=== PATIENT | female | born 1940 | race Asian ===

== ENCOUNTER 2017-05-12 08:43 | Outpatient (RCR) | payer OTHER, SELFPAY ==
[2017-05-12 09:19] LABS: Prothrombin Time (Protime)PT. 29.9 SECONDS (11.7-14.9)
[2017-05-12 09:35] LABS: T4 Total, Thyroxin 9.4 ug/dL (4.8-13.9); Thyroid Stim Hormone (TSH) 4.85 uIU/mL (0.358-3.74)
== END 2017-05-12 23:59 ==
LOC: INT LAB 08:43
PROVIDERS: Physician Assistant Medical; Family Provider Family Medicine; PCP Family Medicine; Visit Provider Internal Medicine Cardiovascular Disease
DX: I48.0 Paroxysmal atrial fibrillation (principal); Z79.01 Long term (current) use of anticoagulants; E78.5 Hyperlipidemia, unspecified; Z79.899 Other long term (current) drug therapy; I27.20 Pulmonary hypertension, unspecified; E03.9 Hypothyroidism, unspecified; I10 Essential (primary) hypertension; I36.1 Nonrheumatic tricuspid (valve) insufficiency; R06.09 Other forms of dyspnea; R60.0 Localized edema; Z82.49 Family history of ischemic heart disease and other diseases of the circulatory system
CPT/HCPCS: 36415; 84436; 84443; 85610

== ENCOUNTER 2017-08-06 08:22 | Outpatient (RCR) | payer OTHER, SELFPAY ==
[2017-02-15 10:50] VITALS: BMI 39.7
[2017-02-15 13:15] VITALS: BP 147/89
[2017-07-23 09:58] LABS: International Normalized Ratio 1.4; Prothrombin Time (Protime)PT. 16.8 SECONDS (11.7-14.9)
[2017-07-28 11:03] LABS: International Normalized Ratio 2.4; Prothrombin Time (Protime)PT. 26.4 SECONDS (11.7-14.9)
[2017-08-06 09:39] LABS: International Normalized Ratio 3.4; Prothrombin Time (Protime)PT. 34.4 SECONDS (11.7-14.9)
[2017-08-06 10:06] LABS: T4 Total, Thyroxin 9.3 ug/dL (4.8-13.9); Thyroid Stim Hormone (TSH) 4.01 uIU/mL (0.358-3.74)
[2017-08-06 10:50] LABS: AST(SGOT) 22 U/L (15-37); Alanine Aminotransfer ALT/SGPT 23 U/L (13-56); Alkaline Phosphatase 57 U/L (45-117); Bilirubin, Direct 0.09 mg/dL (0.00-0.30); Cholesterol 243 mg/dL (200); Globulin 4.5 g/dL (2.2-4.2); High Density Lipoprotein 45 mg/dL; Protein, Total 8.5 g/dL (6.4-8.2); Triglycerides 232 mg/dL; Very Low Density Lipoprotein 46 mg/dL (5-40)
== END 2017-08-09 23:59 ==
LOC: INT LAB 08:22
PROVIDERS: Physician Assistant Medical; Family Provider Family Medicine; PCP Family Medicine; Visit Provider Internal Medicine Cardiovascular Disease
DX: I48.0 Paroxysmal atrial fibrillation (principal); Z79.01 Long term (current) use of anticoagulants; E78.5 Hyperlipidemia, unspecified; Z79.899 Other long term (current) drug therapy
CPT/HCPCS: 36415; 80061; 80076; 84436; 84443; 85610

== ENCOUNTER 2017-08-23 08:37 | Outpatient (RCR) | payer OTHER, SELFPAY ==
[2017-08-23 10:11] LABS: International Normalized Ratio 1.8; Prothrombin Time (Protime)PT. 20.6 SECONDS (11.7-14.9)
== END 2017-09-09 23:59 ==
LOC: INT LAB 08:37
PROVIDERS: Family Provider Family Medicine; PCP Family Medicine; Visit Provider Internal Medicine Cardiovascular Disease
DX: I48.0 Paroxysmal atrial fibrillation (principal); Z79.01 Long term (current) use of anticoagulants
CPT/HCPCS: 36415; 85610

== ENCOUNTER 2017-11-01 08:21 | Outpatient (RCR) | payer OTHER, SELFPAY ==
[2017-11-01 09:03] LABS: International Normalized Ratio 1.6; Prothrombin Time (Protime)PT. 18.6 SECONDS (11.7-14.9)
[2017-11-01 10:19] LABS: AST(SGOT) 18 U/L (15-37); Alanine Aminotransfer ALT/SGPT 25 U/L (13-56); Albumin, Serum 4.1 g/dL (3.2-5.0); Alkaline Phosphatase 45 U/L (45-117); Bilirubin, Direct 0.09 mg/dL (0.00-0.30); Cholesterol 218 mg/dL (200); Globulin 4.6 g/dL (2.2-4.2); High Density Lipoprotein 45 mg/dL; Protein, Total 8.7 g/dL (6.4-8.2); T4 Free Direct 0.81 ng/dL (0.76-1.46); Triglycerides 211 mg/dL; Very Low Density Lipoprotein 42 mg/dL (5-40)
== END 2017-11-09 23:59 ==
LOC: INT LAB 08:21
PROVIDERS: Family Provider Family Medicine; PCP Family Medicine; Visit Provider Internal Medicine Cardiovascular Disease
DX: I48.0 Paroxysmal atrial fibrillation (principal); Z79.01 Long term (current) use of anticoagulants; E78.5 Hyperlipidemia, unspecified; E03.9 Hypothyroidism, unspecified
CPT/HCPCS: 36415; 80061; 80076; 84439; 84443; 85610

== ENCOUNTER 2017-12-03 08:43 | Outpatient (RCR) | payer OTHER, SELFPAY ==
[2017-12-03 09:54] LABS: International Normalized Ratio 1.7; Prothrombin Time (Protime)PT. 20.3 SECONDS (11.7-14.9)
== END 2017-12-10 23:59 ==
LOC: INT LAB 08:43
PROVIDERS: Family Provider Family Medicine; PCP Family Medicine; Visit Provider Internal Medicine Cardiovascular Disease
DX: I48.0 Paroxysmal atrial fibrillation (principal); Z79.01 Long term (current) use of anticoagulants
CPT/HCPCS: 36415; 85610

== ENCOUNTER 2018-01-24 08:36 | Outpatient (RCR) | payer OTHER, SELFPAY ==
[2018-01-24 09:21] LABS: International Normalized Ratio 1.6; Prothrombin Time (Protime)PT. 18.9 SECONDS (11.7-14.9)
== END 2018-02-09 23:59 ==
LOC: INT LAB 08:36
PROVIDERS: Family Provider Family Medicine; PCP Family Medicine; Visit Provider Internal Medicine Cardiovascular Disease
DX: I48.0 Paroxysmal atrial fibrillation (principal); Z79.01 Long term (current) use of anticoagulants
CPT/HCPCS: 36415; 85610

== ENCOUNTER 2018-03-11 08:14 | Outpatient (RCR) | payer OTHER, SELFPAY ==
[2018-02-25 09:54] LABS: International Normalized Ratio 1.9; Prothrombin Time (Protime)PT. 22.2 SECONDS (11.7-14.9)
[2018-02-25 10:38] LABS: AST(SGOT) 20 U/L (15-37); Alanine Aminotransfer ALT/SGPT 25 U/L (13-56); Alkaline Phosphatase 46 U/L (45-117); Bilirubin, Direct 0.11 mg/dL (0.00-0.30); Cholesterol 223 mg/dL (200); Globulin 4.5 g/dL (2.2-4.2); High Density Lipoprotein 47 mg/dL; Protein, Total 8.5 g/dL (6.4-8.2); Triglycerides 240 mg/dL; Very Low Density Lipoprotein 48 mg/dL (5-40)
[2018-03-11 08:48] LABS: Prothrombin Time (Protime)PT. 31.7 SECONDS (11.7-14.9)
== END 2018-03-11 23:59 ==
LOC: INT LAB 08:14
PROVIDERS: Family Provider Family Medicine; PCP Family Medicine; Referring Provider Internal Medicine Cardiovascular Disease; Visit Provider Internal Medicine Cardiovascular Disease
DX: I48.0 Paroxysmal atrial fibrillation (principal); Z79.01 Long term (current) use of anticoagulants; E78.5 Hyperlipidemia, unspecified; I10 Essential (primary) hypertension
CPT/HCPCS: 36415; 80061; 80076; 85610

== ENCOUNTER → 2018-03-21 08:55 | Outpatient (CLI) | payer SELFPAY ==
[2018-03-02 08:56] VITALS: BMI 38.5
--- NOTE | 2018-03-21 08:57 | ECHOD_ITS ---
Reason For Study: AFIB Procedure This was a 2D Doppler, Color Flow transthoracic echocardiogram. Exam performed in department. Left Ventricle Normal LV size. Left ventricular systolic function is normal. The estimated ejection fraction is 55 %. Unable to assess diastolic dysfunction due to arrhythmia. No regional wall motion abnormalities noted. Right Ventricle Normal RV size. Normal systolic function. Atria The left atrium is severely enlarged. The right atrium is moderately enlarged. Mitral Valve Normal mitral valve. Tricuspid Valve Normal tricuspid valve. Moderate (2+) tricuspid valve insufficiency. Pulmonary artery systolic pressure is 72 mmHg. Severe pulmonary hypertension. Aortic Valve Trisinus/trileaflet aortic valve. Mild focal aortic valve calcification. Peak aortic valve gradient 17 mmHg. Mean aortic valve gradient 10 mmHg. Mild aortic stenosis. Pulmonic Valve Normal pulmonic valve. Great Vessels Mildly dilated aortic root. The pulmonary artery is normal size. Normal inferior vena cava. Pericardium/Pleural No pericardial effusion. MMode/2D Measurements & Calculations LVIDd: 5.6 cm IVSd: 1.2 cm LVOT diam: 2.0 cm RVDd: 3.5 cm LVPWd: 1.1 cm LVOT area: 3.2 cm2 Ao root diam: 4.3 cm LAV(MOD-bp): 139.0 ml LA A4 area: 40.6 cm2 LAV(MOD-bp) Indexed: 64.6 ml/m2 LAV(MOD-sp2): 97.4 ml LAV(MOD-sp4): 157.6 ml LA dimension(2D): 5.2 cm RA A4 area: 28.7 cm2 Doppler Measurements & Calculations MV V2 max: 212.2 cm/sec Ao V2 max: 210.1 cm/sec LV V1 max: 94.6 cm/sec MV max P.0 mmHg Ao max P.7 mmHg LV V1 max P.6 mmHg MV V2 mean: 129.6 cm/sec Ao V2 mean: 148.9 cm/sec LV V1 mean P.9 mmHg MV mean P.2 mmHg Ao mean P.8 mmHg LV V1 mean: 65.3 cm/sec MV V2 VTI: 65.6 cm Ao V2 VTI: 45.3 cm LV V1 VTI: 22.6 cm MVA(VTI): 1.1 cm2 ARETHA(I,D): 1.6 cm2 ARETHA(V,D): 1.4 cm2 SV(LVOT): 71.1 ml TR max kvng: 414.2 cm/sec MV P1/2t-pr_phl: 104.9 msec TR max P.7 mmHg Interpretation Summary Normal LV size. Left ventricular systolic function is normal. The estimated ejection fraction is 55 %. Unable to assess diastolic dysfunction due to arrhythmia. The left atrium is severely enlarged. Moderate (2+) tricuspid valve insufficiency. Severe pulmonary hypertension. Ordering Physician: Jose Lee Referring Physician: HALINA AUGUSTINE Performed By: Theresa Sandra, RDCS, RVT
== END ==
PROVIDERS: Family Provider Family Medicine; PCP Family Medicine; Referring Provider Internal Medicine Cardiovascular Disease; Visit Provider Internal Medicine Cardiovascular Disease
DX: I48.0 Paroxysmal atrial fibrillation (principal); I27.29 Other secondary pulmonary hypertension
CPT/HCPCS: 93306

== ENCOUNTER → 2018-03-30 08:42 | Outpatient (CLI) | payer OTHER, SELFPAY ==
[2018-03-25 10:20] VITALS: BMI 38.7
== END ==
PROVIDERS: Family Provider Family Medicine; PCP Family Medicine; Referring Provider Physician Assistant Medical; Visit Provider Physician Assistant Medical
DX: I48.0 Paroxysmal atrial fibrillation (principal)
CPT/HCPCS: 93225; 93226

== ENCOUNTER 2018-04-01 08:04 | Outpatient (RCR) | payer SELFPAY ==
[2018-03-02 08:56] VITALS: BMI 38.5
[2018-03-25 10:20] VITALS: BMI 38.7
[2018-04-01 08:21] LABS: Absolute Lymphocyte Count 2.94 X10^3/ul (0.83-4.51); Absolute Neutrophil Count 5.2 X10^3/uL (2.0-7.7); Basophil# 0.03 X10^3/uL; Basophil% 0.3 % (0-1); Eosinophils% 2.2 % (0-5); Hematocrit 46.6 % (37-47); Hemoglobin 15.5 g/dl (12.0-15.0); Lymphocyte # 2.94 X10^3/ul (4.0); Mean Corp Hgb Conc 33.3 g/gl (32-36); Mean Corpuscular Volume 90.1 fL (81-99); Mean Platelet Vol. 12.6 fl (6.2-12.0); Monocyte# 0.79 X10^3/uL; Monocyte% 8.6 % (0-10); Neutrophil # 5.22 X10^3/uL (2.7-7.7); Neutrophil % 56.7 % (47-70); POSITIVE COUNT NO; POSITIVE DIFFERENTIAL NO; POSITIVE MORPHOLOGY NO; Platelet Count 250 K/mm3 (150-450); RBC Distribution Width CV 14.4 % (11.6-14.6); RBC Distribution Width SD 46.9 fl (35.1-43.9); Red Blood Count 5.17 M/mm3 (4.2-5.4); White Blood Count 9.2 K/mm3 (4.4-11.0)
[2018-04-01 08:29] LABS: International Normalized Ratio 3.3; Prothrombin Time (Protime)PT. 33.4 SECONDS (11.7-14.9)
== END 2018-04-01 09:00 | disposition home or self-care (01) ==
LOC: LAB 08:04
PROVIDERS: Family Provider Family Medicine; PCP Family Medicine; Referring Provider Internal Medicine Cardiovascular Disease; Visit Provider Internal Medicine Cardiovascular Disease
DX: I48.0 Paroxysmal atrial fibrillation (principal); R06.02 Shortness of breath
CPT/HCPCS: 36415; 85025; 85610

== ENCOUNTER 2018-04-15 08:23 | Outpatient (RCR) | payer OTHER, SELFPAY ==
[2018-03-25 10:20] VITALS: BMI 38.7
[2018-04-15 09:36] LABS: AST(SGOT) 17 U/L (15-37); Alanine Aminotransfer ALT/SGPT 29 U/L (13-56); Albumin, Serum 3.9 g/dL (3.2-5.0); Alkaline Phosphatase 57 U/L (45-117); Bilirubin, Direct 0.14 mg/dL (0.00-0.30); Cholesterol 285 mg/dL (200); Globulin 4.6 g/dL (2.2-4.2); High Density Lipoprotein 61 mg/dL; Protein, Total 8.5 g/dL (6.4-8.2); Triglycerides 169 mg/dL; Very Low Density Lipoprotein 34 mg/dL (5-40)
== END 2018-04-15 10:00 | disposition home or self-care (01) ==
LOC: LAB 08:23
PROVIDERS: Family Provider Family Medicine; PCP Family Medicine; Referring Provider Internal Medicine Cardiovascular Disease; Visit Provider Internal Medicine Cardiovascular Disease
DX: E78.5 Hyperlipidemia, unspecified (principal)
CPT/HCPCS: 36415; 80061; 80076

== ENCOUNTER 2018-05-13 10:49 | Outpatient (RCR) | payer OTHER, SELFPAY ==
[2018-03-25 10:20] VITALS: BMI 38.7
[2018-05-13 11:38] LABS: Prothrombin Time (Protime)PT. 31.5 SECONDS (11.7-14.9)
== END 2018-06-09 15:01 | disposition home or self-care (01) ==
LOC: LAB 10:49
PROVIDERS: Physician Assistant Medical; Family Provider Family Medicine; PCP Family Medicine; Referring Provider Internal Medicine Cardiovascular Disease; Visit Provider Internal Medicine Cardiovascular Disease
DX: I48.0 Paroxysmal atrial fibrillation (principal)
CPT/HCPCS: 36415; 85610

== ENCOUNTER 2018-06-01 18:01 | Emergency (ER) | payer OTHER, SELFPAY ==
[2018-03-25 10:20] VITALS: BMI 38.7
[2018-06-01 18:02] VITALS: BP 114/72; PULSE 144; RESP 18; TEMP 36.6; O2SAT 94; BMI 37.5
--- NOTE | 2018-06-01 18:17 | EKG12_ITS ---
Test Reason : SOB Blood Pressure : / mmHG Vent. Rate : 142 BPM Atrial Rate : 150 BPM P-R Int : 000 ms QRS Dur : 092 ms QT Int : 310 ms P-R-T Axes : 000 -69 097 degrees QTc Int : 476 ms Atrial fibrillation with rapid ventricular response with premature ventricular or aberrantly conducte d complexes Left axis deviation Incomplete right bundle branch block Nonspecific ST and T wave abnormality Abnormal ECG Confirmed by SHAYNA KENYON, CALISTA ([id number]), editor magazine MICHAEL MOONEY ([id number]) on 06/06/2018 5:08:46 PM Referred By: Confirmed By:CALISTA CORRAL MD
--- NOTE | 2018-06-01 18:20 | RAD_ITS ---
STUDY: X-RAY CHEST REASON FOR EXAM: Female, 77 years old. Hypotension TECHNIQUE: Single frontal view COMPARISON: February 15, 2017 FINDINGS: The lungs are expanded. There is right mid lung linear atelectasis. Cardiomegaly. Normal mediastinum and heena. Normal visualized pulmonary arteries. Calcified aortic arch and descending thoracic aorta. Mild degenerative changes of the thoracic spine. Normal visualized ribs, clavicles, and shoulders. There is no demonstrated abnormality of the visualized soft tissue structures of the upper abdomen. RAD/Chest 1 View (Portable) IMPRESSION: Cardiomegaly is again noted. Right midlung atelectasis. Electronically Signed: Galen Arora DO at 19:03 EST Tel [phone], Service support ,
[2018-06-01 18:30] LABS: Absolute Lymphocyte Count 3.26 X10^3/ul (0.83-4.51); Absolute Neutrophil Count 4.3 X10^3/uL (2.0-7.7); Basophil# 0.03 X10^3/uL; Basophil% 0.4 % (0-1); Eosinophil# 0.12 X10^3/uL; Eosinophils% 1.4 % (0-5); Hematocrit 51.1 % (37-47); Hemoglobin 16.6 g/dl (12.0-15.0); Lymphocyte # 3.26 X10^3/ul (4.0); Lymphocyte % 38.4 % (19-41); Mean Corp Hgb Conc 32.5 g/gl (32-36); Mean Corpuscular Hgb 29.5 pg (27.0-32.0); Mean Corpuscular Volume 90.8 fL (81-99); Mean Platelet Vol. 12.3 fl (6.2-12.0); Monocyte# 0.75 X10^3/uL; Monocyte% 8.8 % (0-10); Neutrophil # 4.32 X10^3/uL (2.7-7.7); Neutrophil % 50.8 % (47-70); Platelet Count 274 K/mm3 (150-450); RBC Distribution Width CV 14.9 % (11.6-14.6); RBC Distribution Width SD 48.9 fl (35.1-43.9); Red Blood Count 5.63 M/mm3 (4.2-5.4); White Blood Count 8.5 K/mm3 (4.4-11.0)
[2018-06-01 18:39] LABS: POSITIVE COUNT NO; POSITIVE DIFFERENTIAL NO; POSITIVE MORPHOLOGY NO
[2018-06-01 18:46] LABS: Anion Gap 12 (5-15); BUN 17 mg/dL (7-18); BUN/Creat Ratio 15.2 RATIO (10-20); Chloride 104 mmol/L (98-107); Creatinine, Serum 1.12 mg/dL (0.55-1.02); EST Glomerular Filtration Rate 50 mL/min (>60); Est Glom Filt Rate - Afr Amer 61 mL/min (>60); Glucose 143 mg/dL (74-106); International Normalized Ratio 1.4; Potassium 4.1 mmol/L (3.5-5.1); Prothrombin Time (Protime)PT. 16.8 SECONDS (11.7-14.9); Sodium Level 141 mmol/L (136-145)
[2018-06-01] MEDS: dilTIAZem 25 MG/5 ML Vial 20 MG IV BOLUS (18:47)
--- NOTE | 2018-06-01 19:02 | ED.VISSUMM ---
- ER Visit Summary Date of Service: 06/01/18 Chief Complaint: [Shortness of breath and fast heart rate] History of Present Illness: The patient is a 77 F [presents the emergency department shortness of breath started yesterday. Patient also noticed that her heart was racing. Generally she felt weak initially. She denies any chest pain. Patient did feel somewhat diaphoretic and nauseated throughout the day today. She denies any fevers. She denies any cough. Patient does have a history of paroxysmal A. fib and last time she had to be cardioverted was about 4 years ago. Patient has been compliant with her medications.] Physical Examination: [HEENT-PERRLA, EOMI. Cranial nerves II through XII grossly intact. TMs clear. Mucous membranes moist. No adenopathy. Cardiovascular-irregularly irregular with a 2 out of 6 systolic ejection murmur noted. Lungs-clear to auscultation, chest wall stable without crepitus or subcu emphysema Abdomen-normoactive bowel sounds, soft, nontender, no rebound or rigidity, no peritoneal signs. Extremities-intact ?4, normal range of motion, normal pulses, atraumatic] Test Results: [EKG obtained arrival showed atrial fibrillation with a rapid ventricular response with a rate of 142 bpm. Patient had some nonspecific ST changes noted. CBC with differential obtained showed a white of 8.5, hemoglobin 16, hematocrit 51, placed 274. Chemistries unremarkable. BUN was 17 and creatinine 1.12. Troponin was less than 0.015. Chest x-ray showed cardiomegaly and some mild pulmonary congestion.] Emergency Department Course and Treatment: [Patient received Cardizem 20 mg IV bolus which slowed her down into the 120s but at times will bounce up into the 130s and 140s therefore she was given another 25 mg IV bolus and started on a Cardizem drip. Being that she is subtherapeutic on her Coumadin will hold off on cardioversion and I will discuss case with independent video producer fisher sponge hooking.] Treatment Plan: [Admit] Disposition: [Admit] Impression: [A. fib RVR] This note was generated with GLGation software. It may contain incorrect words, spelling, and punctuation that were not noted in review of the chart prior to signing ED Disposition - Plan for ED Patient: Referrals: Boubacar Ruby DO [Primary Care Provider] -
[2018-06-01 19:04] VITALS: BP 123/90; PULSE 94; RESP 22; O2SAT 91
--- NOTE | 2018-06-01 19:05 | ED.DCSUM_ITS ---
- ER Visit Summary Date of Service: 06/01/18 Chief Complaint: [Shortness of breath and fast heart rate] History of Present Illness: The patient is a 77 F [presents the emergency department shortness of breath started yesterday. Patient also noticed that her heart was racing. Generally she felt weak initially. She denies any chest pain. Patient did feel somewhat diaphoretic and nauseated throughout the day today. She denies any fevers. She denies any cough. Patient does have a history of paroxysmal A. fib and last time she had to be cardioverted was about 4 years ago. Patient has been compliant with her medications.] Physical Examination: [HEENT-PERRLA, EOMI. Cranial nerves II through XII grossly intact. TMs clear. Mucous membranes moist. No adenopathy. Cardiovascular-irregularly irregular with a 2 out of 6 systolic ejection murmur noted. Lungs-clear to auscultation, chest wall stable without crepitus or subcu emphysema Abdomen-normoactive bowel sounds, soft, nontender, no rebound or rigidity, no peritoneal signs. Extremities-intact ?4, normal range of motion, normal pulses, atraumatic] Test Results: [EKG obtained arrival showed atrial fibrillation with a rapid ventricular response with a rate of 142 bpm. Patient had some nonspecific ST changes noted. CBC with differential obtained showed a white of 8.5, hemoglobin 16, hematocrit 51, placed 274. Chemistries unremarkable. BUN was 17 and creatinine 1.12. Troponin was less than 0.015. Chest x-ray showed cardiomegaly and some mild pulmonary congestion.] Emergency Department Course and Treatment: [Patient received Cardizem 20 mg IV bolus which slowed her down into the 120s but at times will bounce up into the 130s and 140s therefore she was given another 25 mg IV bolus and started on a Cardizem drip. Being that she is subtherapeutic on her Coumadin will hold off on cardioversion and I will discuss case with barrel maker propulsion engineer.] Treatment Plan: [Admit] Disposition: [Admit] Impression: [A. fib RVR] This note was generated with Metasetation software. It may contain incorrect words, spelling, and punctuation that were not noted in review of the chart prior to signing ED Disposition - Plan for ED Patient: Referrals: Boubacar Ruby DO [Primary Care Provider] -
[2018-06-01] MEDS: dilTIAZem 25 MG/5 ML Vial IV BOLUS (19:19)
[2018-06-01 19:25] LABS: BNP,B-Type NATRIURETIC PEPTIDE 382.6 pg/mL (0-100)
[2018-06-01 20:08] VITALS: PULSE 66
[2018-06-01 20:26] VITALS: BP 119/91; PULSE 64; RESP 15; O2SAT 92
--- NOTE | 2018-06-01 20:29 | ED.DCSUM_ITS ---
- ER Visit Summary Date of Service: 06/01/18 Chief Complaint: [Addendum to initial dictation] History of Present Illness: The patient is a 77 presented to the emergency department with complaint of palpitations and dyspnea. Patient did eventually respond to the 20 mg IV bolus of Cardizem and her heart rate did drop down into the 70s and 80s. I did give her a second dose of Cardizem 25 mg IV bolus. I discussed case with Dr. Lee who asked that I observe her for an hour and if her heart rate maintains that she can be discharged home with a prescription for Cardizem and I was also instructed to increase her Coumadin to 8 mg daily instead of alternating with 7 and 8 mg. Patient will follow-up further in the office.] Physical Examination: [] Test Results: [] Emergency Department Course and Treatment: [] Treatment Plan: [] Disposition: [Discharged home in stable condition] Impression: [Paroxysmal atrial fibrillation currently rate controlled] This note was generated with [employer] dictation software. It may contain incorrect words, spelling, and punctuation that were not noted in review of the chart prior to signing ED Disposition - Plan for ED Patient: Referrals: Boubacar Ruby DO [Primary Care Provider] -
--- NOTE | 2018-06-01 20:29 | ED.DEP ---
ED Disposition - Plan for ED Patient: Instructions: ED Afib Prescriptions: Diltiazem HCl [Cardizem] 120 mg PO BID #60 tab Referrals: Boubacar Ruby DO [Primary Care Provider] - Jose Lee MD [STAFF PHYSICIAN] - 3-5 Days Additional Instructions: take Coumadin 8mg daily
[2018-06-01 20:33] VITALS: BP 119/91; PULSE 71; RESP 18; O2SAT 92
== END 2018-06-01 20:45 | disposition home or self-care (01) ==
LOC: ED 18:45
PROVIDERS: Emergency Provider Emergency Medicine; Family Provider Family Medicine; PCP Family Medicine
DX: I48.0 Paroxysmal atrial fibrillation (principal); R11.0 Nausea; R01.1 Cardiac murmur, unspecified; I51.7 Cardiomegaly; Z79.01 Long term (current) use of anticoagulants; Z79.899 Other long term (current) drug therapy
CPT/HCPCS: 71045; 80048; 83880; 84484; 85025; 85610; 93005; 96374; 99284; J7030

== ENCOUNTER 2018-08-05 07:57 | Outpatient (RCR) | payer OTHER, SELFPAY ==
[2018-07-22 08:28] VITALS: BMI 38.8
[2018-08-01 09:26] LABS: Absolute Lymphocyte Count 1.86 X10^3/ul (0.83-4.51); Basophil# 0.02 X10^3/uL; Basophil% 0.3 % (0-1); Eosinophil# 0.17 X10^3/uL; Eosinophils% 2.5 % (0-5); Hematocrit 43.6 % (37-47); Hemoglobin 14.5 g/dl (12.0-15.0); Lymphocyte # 1.86 X10^3/ul (4.0); Lymphocyte % 27.7 % (19-41); Mean Corp Hgb Conc 33.3 g/gl (32-36); Mean Corpuscular Hgb 29.4 pg (27.0-32.0); Mean Corpuscular Volume 88.3 fL (81-99); Mean Platelet Vol. 12.3 fl (6.2-12.0); Monocyte# 0.65 X10^3/uL; Monocyte% 9.7 % (0-10); Neutrophil # 4.01 X10^3/uL (2.7-7.7); Neutrophil % 59.7 % (47-70); Platelet Count 243 K/mm3 (150-450); RBC Distribution Width CV 14.5 % (11.6-14.6); RBC Distribution Width SD 46.3 fl (35.1-43.9); Red Blood Count 4.94 M/mm3 (4.2-5.4); White Blood Count 6.7 K/mm3 (4.4-11.0)
[2018-08-01 09:27] LABS: POSITIVE COUNT NO; POSITIVE DIFFERENTIAL NO; POSITIVE MORPHOLOGY NO
[2018-08-01 09:33] LABS: Prothrombin Time (Protime)PT. 49.4 SECONDS (11.7-14.9)
[2018-08-01 09:35] LABS: International Normalized Ratio 5.3
[2018-08-01 09:39] LABS: Anion Gap 5 (5-15); BUN 19 mg/dL (7-18); Calcium,Total 8.6 mg/dL (8.5-10.1); Chloride 108 mmol/L (98-107); Creatinine, Serum 0.91 mg/dL (0.55-1.02); EST Glomerular Filtration Rate 64 mL/min (>60); Est Glom Filt Rate - Afr Amer 78 mL/min (>60); Glucose 131 mg/dL (74-106); Potassium 3.5 mmol/L (3.5-5.1); Sodium Level 141 mmol/L (136-145)
[2018-08-03 09:03] LABS: Prothrombin Time (Protime)PT. 44.5 SECONDS (11.7-14.9)
[2018-08-03 09:08] LABS: International Normalized Ratio 4.7
[2018-08-05 09:33] LABS: International Normalized Ratio 2.2; Prothrombin Time (Protime)PT. 24.8 SECONDS (11.7-14.9)
== END 2018-08-09 08:16 | disposition home or self-care (01) ==
LOC: LAB 07:57
PROVIDERS: Family Provider Family Medicine; PCP Family Medicine; Referring Provider Internal Medicine Cardiovascular Disease; Visit Provider Internal Medicine Cardiovascular Disease
DX: I48.0 Paroxysmal atrial fibrillation (principal)
CPT/HCPCS: 36415; 80048; 85025; 85610

== ENCOUNTER 2018-08-10 08:17 | Outpatient (RCR) | payer OTHER, SELFPAY ==
[2018-07-22 08:28] VITALS: BMI 38.8
[2018-08-10 09:14] LABS: International Normalized Ratio 1.6; Prothrombin Time (Protime)PT. 18.6 SECONDS (11.7-14.9)
== END 2018-08-10 09:17 | disposition home or self-care (01) ==
LOC: LAB 08:17
PROVIDERS: Family Provider Family Medicine; PCP Family Medicine; Referring Provider Internal Medicine Cardiovascular Disease; Visit Provider Internal Medicine Cardiovascular Disease
DX: I48.0 Paroxysmal atrial fibrillation (principal)
CPT/HCPCS: 85610

== ENCOUNTER 2018-08-15 08:10 | Outpatient (CLI) | payer SELFPAY ==
[2018-07-22 08:28] VITALS: BMI 38.8
--- NOTE | 2018-08-01 09:19 | RAD_ITS ---
STUDY: X-RAY CHEST REASON FOR EXAM: Female, 77 years old. Preheart catheter on August 26. Dyspnea, mitral valve regurgitation. TECHNIQUE: PA and lateral views of the chest. COMPARISON: Single portable frontal view of the chest dated June 01, 2018. FINDINGS: There is prominence of the interstitium bilaterally and diffusely, predominantly involving mid lungs and lower lungs. There is no focal alveolar opacification. There is no pneumothorax. There is no pleural effusion. There is mild central vascular congestion. Calcified plaque involves the thoracic aortic arch. The thoracic aortic arch demonstrates senescent changes. There is stable moderate to cardiomegaly. There is no evident acute osseous abnormality. There is no demonstrated abnormality of the visualized soft tissue structures of the upper abdomen. RAD/Chest PA and Lateral IMPRESSION: Bibasal or chronic atelectasis versus fibrosis. Persistent cardiomegaly. On today's exam there is mild central vascular congestion. Atherosclerotic peripheral vascular disease. Atherosclerotic peripheral vascular disease. No pneumothorax. No shift of central structures. Electronically Signed: Jermain Tsai MD at 14:24 EDT , Service support ,
--- NOTE | 2018-08-10 08:29 | RAD_ITS ---
STUDY: X-RAY CHEST REASON FOR EXAM: Female, 77 years old. Preoperative evaluation for cardiac catheterization. Patient has shortness of breath and atrial fibrillation. TECHNIQUE: PA and lateral views of the chest. COMPARISON: August 01, 2018. FINDINGS: There is hyperinflation of the lungs consistent with chronic obstructive lung disease (COPD). There is a curvilinear opacity within the mid left lung is unchanged since the previous study may represent pulmonary fibrosis. There is some interstitial thickening visible at the lung bases. There is no demonstrated pleural abnormality. There is moderate cardiac enlargement. Normal mediastinum and heena. Normal visualized pulmonary arteries. There is atherosclerotic calcification of the aortic arch with tortuosity. There are diffuse degenerative changes of the visualized thoracic spine. Normal visualized ribs, clavicles, and shoulders. There is no demonstrated abnormality of the visualized soft tissue structures of the upper abdomen. RAD/Chest PA and Lateral IMPRESSION: Cardiomegaly and mild pulmonary congestion. Electronically Signed: Elisabeth Lee MD at 18:51 EDT , Service support ,
[2018-08-10 09:02] LABS: Anion Gap 5 (5-15); BUN 30 mg/dL (7-18); BUN/Creat Ratio 29.7 RATIO (10-20); Calcium,Total 8.9 mg/dL (8.5-10.1); Chloride 109 mmol/L (98-107); Creatinine, Serum 1.01 mg/dL (0.55-1.02); EST Glomerular Filtration Rate 57 mL/min (>60); Est Glom Filt Rate - Afr Amer 69 mL/min (>60); Glucose 128 mg/dL (74-106); Potassium 3.6 mmol/L (3.5-5.1); Sodium Level 140 mmol/L (136-145)
[2018-08-11 11:01] VITALS: BMI 38.0
--- NOTE | 2018-08-15 08:14 | ECHOTEE_ITS ---
Reason For Study: Afib/Flutter Medication MEERA probe passed with minimal difficulty. No complications were noted. Cetacaine Topical [place] given X3 orally. Versed 2 mg given slow IVP. Fentanyl 25 mcg given slow IVP. Performed a rapid injection of agitated mix of 9 cc saline and 1cc air to assess for atrial septal defect. Left Ventricle Normal LV size. The estimated ejection fraction is 55 %. No regional wall motion abnormalities noted. Right Ventricle Normal RV size. Normal systolic function. Atria Bubble contrast study negative for right to left interatrial shunt. The left atrium is moderately enlarged. There is moderate sponatenous contrast in the left atrium. No thrombus is detected in the left atrial appendage. The right atrium is mildly enlarged. Mitral Valve Mitral valve doming/Hockey Sticking. Mild-Moderate mitral valve stenosis. Mild-Moderate (1-2+) eccentric mitral valve insufficiency. Tricuspid Valve Normal tricuspid valve. Aortic Valve Trisinus/trileaflet aortic valve. Pulmonic Valve Normal pulmonic valve. Vessels Normal aortic root. Normal arch. The pulmonary artery is normal size. Pericardium No pericardial effusion. Interpretation Summary Normal LV size. The estimated ejection fraction is 55 %. The left atrium is moderately enlarged. There is moderate sponatenous contrast in the left atrium. Mitral valve doming/Hockey Sticking Mild-Moderate mitral valve stenosis. Mild-Moderate (1-2+) eccentric mitral valve insufficiency. Ordering Physician: Jose Lee Referring Physician: Jose Lee Performed By: Presley Escobar RCS
[2018-08-15 08:26] LABS: Prothrombin Time Fingerstick 14.3 SEC (11.9-14.4)
--- NOTE | 2018-08-15 12:03 | CL.D_ITS ---
Patient Name: FABIO WOOD Study Date: 08/15/2018 Performing: Jose Lee MD Ht: 66.92 inches 170 cm : 1940 Wt: 242.51 lbs 110 kg Age: 77 Gender: female BSA: 2.19 PROCEDURE(S) PERFORMED DA07-FUX/LHC/COR/LV CLINICAL PROFILE AND INDICATIONS Indications: Cardiac Arrythmia, Valvular Disease Heart Failure: NYHA Class: 3, Newly Diagnosed: No, Heart Failure Type: Diastolic Stress/Imaging Stress/Image Study Performed: No CAD Presentations: Symptom unlikely to be ischemic. Other: SOB CONCLUSIONS Single vessel CAD of the LAD Right heart pressures - moderately elevated Mitral Valve Stenosis Moderate Mitral Valve Insufficiency Moderate RECOMMENDATIONS Surgery consult for Valve Replacement surgery Surgery consult for coronary revascularization If not an appropriate candidate then would consider PCI to LAD DESCRIPTION OF PROCEDURE The patient arrived to the procedure lab. The risks and benefits of the procedure as well as a full d escription of our services here and current unavailability of surgical backup were fully explained to the patient and/or their significant other prior to the catheterization. The Timeout was completed, verifying the correct patient and procedure. The patient's procedural site was prepped and draped in the usual fashion. Local anesthetic was given subcutaneously to right groin region with Lidocaine 2%. Using a modified Seldinger technique, arterial access was obtained via the right femoral artery, a 5 Fr sheath was inserted. Venous access was obtained via the right femoral vein, a 7Fr sheath was inser woody. A 7Fr thermal dilution catheter was inserted and right heart pressures were recorded, it was the n advanced to PA position for cardiac outputs. Thermal dilution cardiac outputs were then recorded. O 2 saturations were then obtained. The Thermal dilution catheter was then removed. Left Coronary Artery selective angiography was performed in multiple views using a 5 Fr. JL4 catheter. Rig ht Coronary Artery selective angiography was then performed in multiple views using a 5 Fr. 3DRC ([facility]) catheter. Left Ventriculography was performed in GARCIA projection using a 5 Fr. Pigtail catheter . LV to AO pullback pressures were then recorded.Contrast was injected through the sheath and the Rig Iliac and Femoral artery were assessed for possible closure device.The arterial sheath was pulled and a Mynx closure device was deployed for hemostasis. The venous sheath was then pulled and manual c ompression applied until hemostasis achieved CORONARY ANGIOGRAPHY DOMINANCE: Right Dominant LEFT HEART ASSESSMENT Left Ventricular Ejection Fraction: by LV Gram 65 % Normal LV wall motion Normal Left Ventricular systolic function RIGHT HEART ASSESSMENT Thermal CO: 3.56 Thermal CI: 1.63 Elizabeth CO: 3.36 Elizabeth CI: 1.53 PW: / 24 PA: 62/25 43 RV: 55/6 13 RA: / 15 PVR: 427 SVR: 1910 Right Heart pressures - elevated Pulmonary Hypertension Moderate LEFT MAIN: Angiographically normal LEFT ANTERIOR DECENDING ARTERY: MID LAD: 80 % Stenosis CIRCUMFLEX ARTERY: No significant disease noted, No significant disease noted RIGHT CORONARY ARTERY: Mild luminal irregularities VALVE FINDINGS: Mitral Valve Stenosis - moderate COMPLICATIONS No Complications PROCEDURE MEDICATIONS Versed 1 mg IV Oxygen: 0 L/min via nasal cannula Oxygen: 2 L/min via nasal cannula SUMMARY OF HEMODYNAMIC DATA Time AIR REST ECG 08:56:28 RA /18 (15) SV 11:22:00 RA /16 (13) 11:23:37 RV 55/6, 13 11:24:11 PW / (24) PV 11:25:08 PA 62/25 (43) PA 11:25:31 AO 132/80 (100) SA 11:31:35 LV 138/7, 17 11:44:35 LV 132/3, 19 11:44:41 LV 132/8, 19 11:45:42 LVp 142/8, 22 11:45:56 AOp 137/85 (106) 11:46:01 Type SV CO (l/m) CI (l/m/ HR Time AIR REST Thermal 44.00 3.56 1.63 81 08:56:28 Elizabeth 41.50 3.36 1.53 81 08:56:28 Label % O2 Pres/Loc Time AIR REST AO 89 PV 11:33:19 RA 45 SV 11:47:18 PA 52 PA 11:47:23 Signed By Jose Lee MD On 08/15/2018 12:03:16 PM Jose Lee MD
[2018-08-15 12:06] LABS: Base Excess -2 mmol/L (-2 to +2); Bicarbonate 22.8 mmol/L (22-26); Blood Gas Specimen Type ART; PO2 58 mmHG (75-100); SO2 89 % (95-99); Total Carbon Dioxide 24 mmol/L; pCO2 39.4 mmHg (35-45); pH 7.37 (7.35-7.45)
[2018-08-15 12:06] LABS: Blood Gas Specimen Type VEN; VBG BASE EXCESS 1 mmol/L (-1.0-3.5); VBG Bicarbonate 26 mmol/L (22-26); VBG Oxygen Content 28 mmol/L (23-33); VBG PO2 29 mmHg (25-40); VBG SO2 52 % (50-70); VBG pCO2 46.5 mmHg (41-51); VBG pH 7.36 (7.32-7.42)
[2018-08-15 12:06] LABS: Blood Gas Specimen Type VEN; VBG BASE EXCESS -7 mmol/L (-1.0-3.5); VBG Bicarbonate 20 mmol/L (22-26); VBG Oxygen Content 22 mmol/L (23-33); VBG PO2 28 mmHg (25-40); VBG SO2 45 % (50-70); VBG pH 7.28 (7.32-7.42)
--- NOTE | 2018-08-15 12:13 | ECHOL_ITS ---
Reason For Study: MVP Procedure This was a limited 2D transthoracic echocardiogram. The study was technically difficult. Patient was scanned supine due to recent heart cath 08/15/2018. Exam performed portable in patient room. Left Ventricle Normal LV size. Left ventricular systolic function is normal. The estimated ejection fraction is 55 %. Right Ventricle Normal RV size. Normal systolic function. Mitral Valve Bileaflet diffuse mitral valve thickening. Mitral valve doming/Hockey Sticking. Mean transmitral valve gradient 4 mmHg. Mild-Moderate mitral valve stenosis. Moderate (2+) eccentric mitral valve insufficiency. MMode/2D Measurements & Calculations LVIDd: 5.3 cm IVSd: 0.94 cm LA dimension: 4.3 cm LVIDs: 3.5 cm LVPWd: 1.3 cm FS: 34.1 % Time Measurements MV dec time: 0.36 sec Doppler Measurements & Calculations MV E max kvng: 150.9 cm/sec MV V2 max: 172.6 cm/sec MV P1/2t max kvng: 172.6 cm/sec MV max P.9 mmHg MV P1/2t: 89.5 msec MV V2 mean: 94.0 cm/sec MV mean P.2 mmHg MV dec slope: 565.0 cm/sec2 MV V2 VTI: 40.1 cm MVA(P1/2t): 2.5 cm2 MR max kvng: 543.5 cm/sec MR max P.2 mmHg MR mean kvng: 394.2 cm/sec MR mean P.7 mmHg MR VTI: 197.1 cm Interpretation Summary Mild-Moderate mitral valve stenosis. Normal LV size. Left ventricular systolic function is normal. The estimated ejection fraction is 55 %. Ordering Physician: Jose Lee Referring Physician: Jose Lee Performed By: Presley Escobar RCS
== END 2018-08-15 15:34 | disposition home or self-care (01) ==
PROVIDERS: Nurse Practitioner Family; Family Provider Family Medicine; PCP Family Medicine; Referring Provider Internal Medicine Cardiovascular Disease; Visit Provider Internal Medicine Cardiovascular Disease
DX: I25.10 Atherosclerotic heart disease of native coronary artery without angina pectoris (principal); I34.2 Nonrheumatic mitral (valve) stenosis; I34.0 Nonrheumatic mitral (valve) insufficiency; I27.29 Other secondary pulmonary hypertension; I35.0 Nonrheumatic aortic (valve) stenosis; I48.1 Persistent atrial fibrillation; I10 Essential (primary) hypertension; Z79.01 Long term (current) use of anticoagulants; Z79.899 Other long term (current) drug therapy
CPT/HCPCS: 36415; 36416; 71046; 80048; 82803; 85610; 93308; 93312; 93320; 93325; 93460; 99152; 99153; C1760; J7040; Q9967; A4216; C1751; C1769; C1894

== ENCOUNTER → 2018-09-22 | Outpatient (CLI) | payer OTHER, SELFPAY ==
[2018-09-10 10:34] VITALS: BMI 38.8
[2018-09-22 09:56] LABS: Hematocrit 45.9 % (37-47); Hemoglobin 15.2 g/dl (12.0-15.0); Mean Corp Hgb Conc 33.1 g/gl (32-36); Mean Corpuscular Hgb 28.7 pg (27.0-32.0); Mean Corpuscular Volume 86.8 fL (81-99); Mean Platelet Vol. 12.5 fl (6.2-12.0); Platelet Count 217 K/mm3 (150-450); RBC Distribution Width CV 14.6 % (11.6-14.6); RBC Distribution Width SD 46.4 fl (35.1-43.9); Red Blood Count 5.29 M/mm3 (4.2-5.4); White Blood Count 7.3 K/mm3 (4.4-11.0)
[2018-09-22 09:58] LABS: Scan Indicated on CBC? Y/N NO
[2018-09-22 10:23] LABS: Anion Gap 9 (5-15); BUN 19 mg/dL (7-18); BUN/Creat Ratio 18.4 RATIO (10-20); Calcium,Total 9.2 mg/dL (8.5-10.1); Chloride 106 mmol/L (98-107); Creatinine, Serum 1.03 mg/dL (0.55-1.02); EST Glomerular Filtration Rate 55 mL/min (>60); Est Glom Filt Rate - Afr Amer 67 mL/min (>60); Glucose 130 mg/dL (74-106); Potassium 4.1 mmol/L (3.5-5.1); Sodium Level 140 mmol/L (136-145)
== END | disposition home or self-care (01) ==
PROVIDERS: Family Provider Family Medicine; PCP Family Medicine
DX: I25.118 Atherosclerotic heart disease of native coronary artery with other forms of angina pectoris (principal); I05.0 Rheumatic mitral stenosis
CPT/HCPCS: 36415; 80048; 85027

== ENCOUNTER 2018-09-30 08:40 | Outpatient (RCR) | payer OTHER, SELFPAY ==
[2018-09-10 10:34] VITALS: BMI 38.8
[2018-09-19 08:50] LABS: International Normalized Ratio 3.2; Prothrombin Time (Protime)PT. 32.6 SECONDS (11.7-14.9)
[2018-09-30 09:15] LABS: Hematocrit 45.7 % (37-47); Hemoglobin 15.5 g/dl (12.0-15.0); Mean Corp Hgb Conc 33.9 g/gl (32-36); Mean Corpuscular Hgb 29.2 pg (27.0-32.0); Mean Corpuscular Volume 86.2 fL (81-99); Mean Platelet Vol. 11.7 fl (6.2-12.0); Platelet Count 202 K/mm3 (150-450); RBC Distribution Width CV 14.6 % (11.6-14.6); RBC Distribution Width SD 45.9 fl (35.1-43.9); White Blood Count 9.5 K/mm3 (4.4-11.0)
[2018-09-30 09:16] LABS: Scan Indicated on CBC? Y/N NO
[2018-09-30 09:28] LABS: International Normalized Ratio 1.4; Prothrombin Time (Protime)PT. 17.1 SECONDS (11.7-14.9)
[2018-09-30 09:58] LABS: Anion Gap 10 (5-15); BUN 28 mg/dL (7-18); BUN/Creat Ratio 25.2 RATIO (10-20); Calcium,Total 9.2 mg/dL (8.5-10.1); Chloride 105 mmol/L (98-107); Creatinine, Serum 1.11 mg/dL (0.55-1.02); EST Glomerular Filtration Rate 51 mL/min (>60); Est Glom Filt Rate - Afr Amer 62 mL/min (>60); Glucose 129 mg/dL (74-106); Potassium 3.9 mmol/L (3.5-5.1); Sodium Level 138 mmol/L (136-145)
== END 2018-10-09 12:00 | disposition home or self-care (01) ==
LOC: LAB 08:40
PROVIDERS: Nurse Practitioner Family; Family Provider Family Medicine; PCP Family Medicine; Referring Provider Internal Medicine Cardiovascular Disease; Visit Provider Internal Medicine Cardiovascular Disease
DX: I48.0 Paroxysmal atrial fibrillation (principal)
CPT/HCPCS: 36415; 80048; 85027; 85610

== ENCOUNTER 2018-11-04 08:00 | Outpatient (RCR) | payer OTHER, SELFPAY ==
[2018-10-04 14:28] VITALS: BMI 37.7
[2018-10-12 09:17] LABS: International Normalized Ratio 2.9; Prothrombin Time (Protime)PT. 30.4 SECONDS (11.7-14.9)
[2018-11-04 08:54] LABS: International Normalized Ratio 3.9; Prothrombin Time (Protime)PT. 38.3 SECONDS (11.7-14.9)
== END 2018-11-09 16:44 | disposition home or self-care (01) ==
LOC: LAB 08:00
PROVIDERS: Family Provider Family Medicine; PCP Family Medicine; Referring Provider Internal Medicine Cardiovascular Disease; Visit Provider Internal Medicine Cardiovascular Disease
DX: I48.0 Paroxysmal atrial fibrillation (principal)
CPT/HCPCS: 36415; 85610

== ENCOUNTER 2018-11-17 17:18 | Emergency (ER) | payer OTHER, SELFPAY ==
[2018-10-04 14:28] VITALS: BMI 37.7
[2018-11-17 17:19] VITALS: BP 167/107; PULSE 97; RESP 18; TEMP 36.3; O2SAT 95; BMI 39.1
--- NOTE | 2018-11-17 17:51 | EKG12_ITS ---
Test Reason : PALPITATIONS Blood Pressure : / mmHG Vent. Rate : 093 BPM Atrial Rate : 094 BPM P-R Int : 000 ms QRS Dur : 100 ms QT Int : 398 ms P-R-T Axes : 000 -57 094 degrees QTc Int : 494 ms Atrial fibrillation Left anterior fascicular block Nonspecific ST and T wave abnormality Prolonged QT Abnormal ECG Confirmed by GINA GALLO ([id number]), subeditor DEMETRIA WARREN ([id number]) on 11/21/2018 1:16:55 PM Referred By: Jose Lee Confirmed By:GINA GALLO
--- NOTE | 2018-11-17 17:55 | RAD_ITS ---
STUDY: X-RAY CHEST REASON FOR EXAM: Female, 78 years old. Chest pain TECHNIQUE: Frontal view COMPARISON: August 10, 2018 FINDINGS: The lungs are clear and expanded. There is no demonstrated pleural abnormality. Stable cardiomegaly. Normal mediastinum and heean. Normal visualized pulmonary arteries. Normal visualized aortic arch and descending thoracic aorta. Degenerative changes of the thoracic spine. Normal visualized ribs, clavicles, and shoulders. There is no demonstrated abnormality of the visualized soft tissue structures of the upper abdomen. RAD/Chest 1 View (Portable) IMPRESSION: Stable cardiomegaly. Electronically Signed: Galen Arora DO at 18:15 EDT Tel [phone], Service support ,
--- NOTE | 2018-11-17 18:01 | ED.VISSUMM ---
- ER Visit Summary Date of Service: 11/17/18 Chief Complaint: Accelerated heart rate with a history of A. fib History of Present Illness: The patient is a [address] A. fib on both Cardizem and metoprolol and Coumadin, aspirin and Plavix. Also known history of CAD with 2 cardiac stents placed within the last 2 months or so. Today with 2+ afternoon patient started to have accelerated heart rate. Palpitations with minimal chest discomfort. Also shortness of breath. No hemoptysis. No fever. Currently feeling better heart rates around 100. No episodes before with the A. fib. Physical Examination: Older female currently no acute distress. Vital signs are stable. Heart rate 100. HEENT exam unremarkable. Neck nontender. Lungs clear to auscultation bilaterally. Heart irregular irregular rate about 100 no murmur. Abdomen soft nontender normal bowel sounds no peritoneal signs. Extremities moves all 4. Neurovascular intact. Calves are nontender without edema or cords. Neurologically she is awake alert with no focal motor deficits. Test Results: Chest x-ray portable showed stable cardiomegaly no acute process read both myself and the radiologist. CBC normal white count 7. Hemoglobin 13. Lites lites unremarkable normal creatinine gap. INR is subtherapeutic at 1.1. She took her Coumadin this morning. Recently her Coumadin was stopped for her heart cath is been high and low recently and just watching it. She is supposed to have it rechecked in 1 to 2 weeks. Troponin normal. EKG A. fib rate of 93 no signs of ischemia. Emergency Department Course and Treatment: Patient with known A. fib on anticoagulation via Coumadin with accelerated heart rate today. Repeat exam at 1857 patient is doing well. Heart rates 87. She remains in A. fib. Clinically she looks good. She and I and her to female friends at bedside 1 of her test results. They are comfortable with her being discharged home. She will follow-up with Dr. Lee. At this time we will not make any changes on her Coumadin. Treatment Plan: Continue current medications. Make sure to get your Coumadin level rechecked. Follow-up with Dr. Perez. Return if worse. Disposition: Discharge Impression: Transient A. fib with RVR Anticoagulated on Coumadin, Plavix and aspirin. Subtherapeutic anticoagulation History of CAD with stents This note was generated with Dragon dictation software. It may contain incorrect words, spelling, and punctuation that were not noted in review of the chart prior to signing ED Disposition - Plan for ED Patient: Referrals: Boubacar Ruby DO [Primary Care Provider] -
[2018-11-17 18:02] LABS: Absolute Lymphocyte Count 1.44 X10^3/uL (0.83-4.51); Absolute Neutrophil Count 5.4 X10^3/uL (2.0-7.7); Basophil# 0.04 X10^3/uL; Basophil% 0.5 % (0-1); Eosinophil# 0.17 X10^3/uL; Eosinophils% 2.2 % (0-5); Hematocrit 41.8 % (37-47); Hemoglobin 13.6 g/dL (12.0-15.0); Lymphocyte # 1.44 X10^3/ul (4.0); Lymphocyte % 18.7 % (19-41); Mean Corp Hgb Conc 32.5 g/dL (32-36); Mean Corpuscular Hgb 28.3 pg (27.0-32.0); Mean Corpuscular Volume 87.1 fL (81-99); Mean Platelet Vol. 12.2 fl (6.2-12.0); Monocyte# 0.65 X10^3/uL; Monocyte% 8.4 % (0-10); NRBC Flagged by Analyzer 0 % (0-5); Neutrophil # 5.39 X10^3/uL (2.7-7.7); Neutrophil % 69.9 % (47-70); Platelet Count 201 K/mm3 (150-450); RBC Distribution Width CV 15.5 % (11.6-14.6); RBC Distribution Width SD 48.7 fl (35.1-43.9); White Blood Count 7.7 K/mm3 (4.4-11.0)
[2018-11-17 18:05] LABS: International Normalized Ratio 1.1; Prothrombin Time (Protime)PT. 14.3 SECONDS (11.7-14.9)
[2018-11-17 18:16] LABS: Anion Gap 7 (5-15); BUN 18 mg/dL (7-18); BUN/Creat Ratio 17.8 RATIO (10-20); Calcium,Total 8.8 mg/dL (8.5-10.1); Chloride 108 mmol/L (98-107); Creatinine, Serum 1.01 mg/dL (0.55-1.02); EST Glomerular Filtration Rate 57 mL/min (>60); Est Glom Filt Rate - Afr Amer 69 mL/min (>60); Estimated Creatinine Clearance 46.08 ml/min; Glucose 114 mg/dL (74-106); Potassium 3.7 mmol/L (3.5-5.1); Sodium Level 143 mmol/L (136-145)
[2018-11-17 18:19] VITALS: BP 145/93; PULSE 106; RESP 21; O2SAT 94
--- NOTE | 2018-11-17 19:00 | ED.DEP ---
ED Disposition - Plan for ED Patient: Disposition: Home or Assisted Living Instructions: Atrial Fibrillation Referrals: Jose Lee MD [STAFF PHYSICIAN] - As soon as possible Additional Instructions: Continue current medications. Call follow-up with Dr. Lee
[2018-11-17 19:25] VITALS: BP 144/97; PULSE 100; RESP 21; O2SAT 98
== END 2018-11-17 19:34 | disposition home or self-care (01) ==
PROVIDERS: Emergency Provider Emergency Medicine; Family Provider Family Medicine; PCP Family Medicine
DX: I48.91 Unspecified atrial fibrillation (principal); Z79.02 Long term (current) use of antithrombotics/antiplatelets; Z79.82 Long term (current) use of aspirin; Z79.01 Long term (current) use of anticoagulants; R79.1 Abnormal coagulation profile; I25.10 Atherosclerotic heart disease of native coronary artery without angina pectoris; Z95.5 Presence of coronary angioplasty implant and graft; I10 Essential (primary) hypertension; Z79.899 Other long term (current) drug therapy
CPT/HCPCS: 71045; 80048; 84484; 85025; 85610; 93005; 99284; A4216

== ENCOUNTER 2018-12-09 08:41 | Outpatient (RCR) | payer OTHER, SELFPAY ==
[2018-10-04 14:28] VITALS: BMI 37.7
[2018-11-11 10:06] LABS: International Normalized Ratio 2.8; Prothrombin Time (Protime)PT. 29.7 SECONDS (11.7-14.9)
[2018-11-30 10:34] LABS: International Normalized Ratio 4.3; Prothrombin Time (Protime)PT. 42.1 SECONDS (11.7-14.9)
[2018-12-09 09:43] LABS: Prothrombin Time (Protime)PT. 47.3 SECONDS (11.7-14.9)
== END 2018-12-09 09:41 | disposition home or self-care (01) ==
LOC: LAB 08:41
PROVIDERS: Family Provider Family Medicine; PCP Family Medicine; Referring Provider Internal Medicine Cardiovascular Disease; Visit Provider Internal Medicine Cardiovascular Disease
DX: I48.0 Paroxysmal atrial fibrillation (principal)
CPT/HCPCS: 36415; 85610

== ENCOUNTER 2018-12-23 08:34 | Outpatient (RCR) | payer OTHER, SELFPAY ==
[2018-11-30 07:53] VITALS: BMI 38.2
[2018-12-13 08:35] LABS: International Normalized Ratio 2.7; Prothrombin Time (Protime)PT. 28.8 SECONDS (11.7-14.9)
[2018-12-23 09:56] LABS: International Normalized Ratio 2.3; Prothrombin Time (Protime)PT. 25.1 SECONDS (11.7-14.9)
== END 2019-01-09 18:00 | disposition home or self-care (01) ==
LOC: LAB 08:34
PROVIDERS: Family Provider Family Medicine; PCP Family Medicine; Referring Provider Internal Medicine Cardiovascular Disease; Visit Provider Internal Medicine Cardiovascular Disease
DX: I48.0 Paroxysmal atrial fibrillation (principal)
CPT/HCPCS: 36415; 85610

== ENCOUNTER 2019-02-08 08:22 | Outpatient (RCR) | payer OTHER, SELFPAY ==
[2018-11-30 07:53] VITALS: BMI 38.2
[2019-01-18 09:48] LABS: International Normalized Ratio 2.7; Prothrombin Time (Protime)PT. 28.4 SECONDS (11.7-14.9)
[2019-02-08 10:35] LABS: International Normalized Ratio 2.7; Prothrombin Time (Protime)PT. 28.5 SECONDS (11.7-14.9)
== END 2019-02-08 18:00 | disposition home or self-care (01) ==
LOC: LAB 08:22
PROVIDERS: Family Provider Family Medicine; PCP Family Medicine; Referring Provider Internal Medicine Cardiovascular Disease; Visit Provider Internal Medicine Cardiovascular Disease
DX: I48.0 Paroxysmal atrial fibrillation (principal)
CPT/HCPCS: 36415; 85610

== ENCOUNTER → 2019-02-21 09:02 | Outpatient (CLI) | payer OTHER, SELFPAY ==
[2018-11-30 07:53] VITALS: BMI 38.2
[2019-02-21 09:48] LABS: Anion Gap 8 (5-15); BUN 25 mg/dL (7-18); BUN/Creat Ratio 22.9 RATIO (10-20); Calcium,Total 8.8 mg/dL (8.5-10.1); Chloride 105 mmol/L (98-107); Creatinine, Serum 1.09 mg/dL (0.55-1.02); EST Glomerular Filtration Rate 52 mL/min (>60); Est Glom Filt Rate - Afr Amer 63 mL/min (>60); Glucose 159 mg/dL (74-106); Potassium 3.5 mmol/L (3.5-5.1); Sodium Level 140 mmol/L (136-145)
== END ==
PROVIDERS: Family Provider Family Medicine; PCP Family Medicine; Referring Provider Internal Medicine Cardiovascular Disease; Visit Provider Internal Medicine Cardiovascular Disease
DX: R06.00 Dyspnea, unspecified (principal); I48.91 Unspecified atrial fibrillation; Z95.5 Presence of coronary angioplasty implant and graft; I25.10 Atherosclerotic heart disease of native coronary artery without angina pectoris; I34.0 Nonrheumatic mitral (valve) insufficiency; I34.2 Nonrheumatic mitral (valve) stenosis; I48.19 Other persistent atrial fibrillation; I35.0 Nonrheumatic aortic (valve) stenosis; E78.5 Hyperlipidemia, unspecified; I36.1 Nonrheumatic tricuspid (valve) insufficiency; I27.29 Other secondary pulmonary hypertension; I11.0 Hypertensive heart disease with heart failure; I50.33 Acute on chronic diastolic (congestive) heart failure
CPT/HCPCS: 36415; 80048

== ENCOUNTER 2019-02-21 10:29 | Outpatient (RCR) | payer OTHER, SELFPAY ==
[2018-11-30 07:53] VITALS: BMI 38.2
[2019-02-21 09:33] VITALS: BMI 39.4
[2019-02-21 12:24] LABS: International Normalized Ratio 2.5; Prothrombin Time (Protime)PT. 27.1 SECONDS (11.7-14.9)
== END 2019-02-21 18:00 | disposition home or self-care (01) ==
LOC: LAB 10:29
PROVIDERS: Family Provider Family Medicine; PCP Family Medicine; Referring Provider Internal Medicine Cardiovascular Disease; Visit Provider Internal Medicine Cardiovascular Disease
DX: I48.0 Paroxysmal atrial fibrillation (principal)
CPT/HCPCS: 36415; 85610

== ENCOUNTER 2019-03-20 11:16 | Outpatient (RCR) | payer OTHER, SELFPAY ==
[2019-03-20 10:20] VITALS: BMI 39.9
[2019-03-20 11:46] LABS: Absolute Lymphocyte Count 2.08 X10^3/uL (0.83-4.51); Absolute Neutrophil Count 5.6 X10^3/uL (2.0-7.7); Basophil# 0.04 X10^3/uL; Basophil% 0.5 % (0-1); Eosinophil# 0.16 X10^3/uL; Eosinophils% 1.8 % (0-5); Hematocrit 49.7 % (37-47); Hemoglobin 16.1 g/dL (12.0-15.0); Lymphocyte # 2.08 X10^3/ul (4.0); Mean Corp Hgb Conc 32.4 g/dL (32-36); Mean Corpuscular Hgb 29.5 pg (27.0-32.0); Mean Platelet Vol. 11.8 fl (6.2-12.0); Monocyte# 0.76 X10^3/uL; Monocyte% 8.8 % (0-10); NRBC Flagged by Analyzer 0 % (0-5); Neutrophil % 64.7 % (47-70); Platelet Count 226 K/mm3 (150-450); RBC Distribution Width CV 14.3 % (11.6-14.6); RBC Distribution Width SD 47.6 fl (35.1-43.9); Red Blood Count 5.46 M/mm3 (4.2-5.4); White Blood Count 8.7 K/mm3 (4.4-11.0)
[2019-03-20 11:58] LABS: International Normalized Ratio 2.6; Prothrombin Time (Protime)PT. 27.6 SECONDS (11.7-14.9)
[2019-03-20 12:12] LABS: Anion Gap 7 (5-15); BUN 28 mg/dL (7-18); BUN/Creat Ratio 24.8 RATIO (10-20); Calcium,Total 9.1 mg/dL (8.5-10.1); Chloride 105 mmol/L (98-107); Creatinine, Serum 1.13 mg/dL (0.55-1.02); EST Glomerular Filtration Rate 50 mL/min (>60); Est Glom Filt Rate - Afr Amer 60 mL/min (>60); Glucose 145 mg/dL (74-106); Potassium 3.6 mmol/L (3.5-5.1); Sodium Level 138 mmol/L (136-145)
== END 2019-03-20 18:00 | disposition home or self-care (01) ==
LOC: LAB 11:16
PROVIDERS: Physician Assistant Medical; Family Provider Family Medicine; PCP Family Medicine; Referring Provider Internal Medicine Cardiovascular Disease; Visit Provider Internal Medicine Cardiovascular Disease
DX: I48.0 Paroxysmal atrial fibrillation (principal); R06.00 Dyspnea, unspecified
CPT/HCPCS: 36415; 80048; 85025; 85610

== ENCOUNTER 2019-05-05 08:15 | Outpatient (RCR) | payer OTHER, SELFPAY ==
[2019-04-14 09:46] LABS: International Normalized Ratio 3.6; Prothrombin Time (Protime)PT. 36.3 SECONDS (11.7-14.9)
[2019-04-26 09:30] LABS: International Normalized Ratio 2.5
[2019-05-05 08:41] LABS: International Normalized Ratio 2.3; Prothrombin Time (Protime)PT. 24.9 SECONDS (11.7-14.9)
== END 2019-05-05 18:00 | disposition home or self-care (01) ==
LOC: LAB 08:15
PROVIDERS: Family Provider Family Medicine; PCP Family Medicine; Referring Provider Internal Medicine Cardiovascular Disease; Visit Provider Internal Medicine Cardiovascular Disease
DX: I48.19 Other persistent atrial fibrillation (principal); R06.00 Dyspnea, unspecified; I25.10 Atherosclerotic heart disease of native coronary artery without angina pectoris; I50.33 Acute on chronic diastolic (congestive) heart failure; I34.2 Nonrheumatic mitral (valve) stenosis; Z95.5 Presence of coronary angioplasty implant and graft; Z79.01 Long term (current) use of anticoagulants
CPT/HCPCS: 36415; 85610

== ENCOUNTER 2019-06-22 15:07 | Emergency (ER) | payer OTHER, SELFPAY ==
[2019-06-22 15:07] VITALS: BMI 39.4
[2019-06-22 15:08] VITALS: BP 133/83; PULSE 75; RESP 18; TEMP 36.6; O2SAT 96; BMI 37.9
--- NOTE | 2019-06-22 15:22 | VDLE_ITS ---
Reason For Study: pain RIGHT GSV is normal. CFV is compressible, spontaneous, phasic, competent and demonstrates normal augmentation. FV is compressible, spontaneous, phasic, competent and demonstrates normal augmentation. POP V is compressible, spontaneous, phasic, competent and demonstrates normal augmentation. T/P Trunk is compressible. PTV is compressible. RT PerV is compressible. Procedure Exam performed portable in ED. The exam was diagnostic. A preliminary report was called and/or faxed to Dr. Garza. Interpretation Summary Deep veins of the right lower extremity are patent and compressible segmentally. There is no evidence of right lower extremity deep vein thrombosis. Valvular competence appears intact within the proximal deep venous system on the right . The right great saphenous vein appears patent and compressible segmentally. Ordering Physician: Jessa Garza Performed By: Arias Spivey RVT
--- NOTE | 2019-06-22 15:23 | ED.VIS.GEN ---
History of Present Illness Chief Complaint: Lower Extremity Injury Detail of Chief Complaint: Right foot pain Informant: Patient Onset: Yesterday Context: Gradual Onset Current Severity: Mild Maximum Severity: Moderate Narrative: Patient presents with pain to the right lateral foot that started last evening. It is progressively worsened. Patient recently had a mitral valve replacement surgery at [facility] 2 weeks ago. She was recently restarted on her Coumadin. As of June 19 her INR was 1.7. She spoke with 2 different doctors and they suggested she come in to have an ultrasound to rule out a blood clot in her leg. Patient denies any known injury. 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 Status: Chronic (7) Longstanding persistent atrial fibrillation Status: Chronic (8) Other secondary pulmonary hypertension Status: Chronic (9) History of coronary artery stent placement Status: Resolved Comment: PCI-MICHELLE x 2 to Mid LAD w/ 3.5 mm x 28 mm and 4 mm x 23 mm Xience Leola stent 09/27/2018 Past Medical History - Allergies and Home Meds Allergies/Adverse Reactions: Allergies amiodarone Allergy (Verified 06/22/19 15:10) Other Primary Care Physician: Boubacar Ruby DO [Primary Care Provider] - Prior records reviewed: Yes Lives: With Family Smoking Status: Never smoker Review of Systems General: Denies: Chills, Fever Eyes: Denies: Visual changes - bilaterally ENT: Denies: Bilateral ear pain Cardiovascular: Denies: Chest pain Respiratory: Denies: Dyspnea, Cough Gastrointestinal: Denies: Abdominal pain, Nausea, Vomiting, Diarrhea Musculoskeletal: Reports: Extremity Pain. Denies: Swelling Skin: Denies: Rash Neurological: Denies: Headache, Weakness, Parasthesia Allergy: Denies: Uticaria Physical Exam Vital Signs/Narrative: Vital Signs Temp Pulse Resp BP Pulse Ox 06/22/19 15:08 97.9 F 75 18 133/83 H 96 Inital Vital Signs reviewed: Yes General: Well nourished, Well developed Head: Normocephalic ENT: Moist mucous membranes Neck: Supple Cardiovascular: Regular rate, Regular rhythm Respiratory: No distress, CTA bilaterally Abdomen: Soft, Nontender Extremities: - - Reproducible tenderness over the proximal fourth metatarsal of the right foot. No focal edema or erythema. No lower extremity edema. She has strong distal pulses. Neurological: Alert, Oriented x3, Normal Strength, Normal Sensation Psychological: Normal affect Diagnostic/Tx/Re-eval Foot x-ray per my review reveals no acute fracture. - Medical Decision Making Venous ultrasound of the right lower extremity reveals no DVT. X-ray is unremarkable. Patient was slightly subtherapeutic 2 days ago. She states that she is supposed to have her INR rechecked on Wednesday. Her geriatric physician believes that she has not yet reached her peak INR after restarting her Coumadin. She will closely monitor this. ED Disposition - Plan for ED Patient: Disposition: Home or Assisted Living Diagnosis: Foot sprain Instructions: Sprain Foot Referrals: Boubacar Ruby DO [Primary Care Provider] - 1 Week if not improving
--- NOTE | 2019-06-22 15:48 | RAD_ITS ---
STUDY: X-RAY - RIGHT FOOT CLINICAL: Female, 78 years old. Pain TECHNIQUE: 3 view(s) of the foot. COMPARISON: None. FINDINGS: No acute fracture, dislocation or osseous destruction. Moderate diffuse arthrosis. No significant soft tissue swelling. IMPRESSION: No acute fracture dislocation right foot. Electronically Signed: Koby Fair, at 16:15 EDT Tel , Service support , RAD/Foot min 3 Views
== END 2019-06-22 17:14 | disposition home or self-care (01) ==
PROVIDERS: Emergency Provider Emergency Medicine; PCP Family Medicine
DX: S93.601A Unspecified sprain of right foot, initial encounter (principal); X58.XXXA Exposure to other specified factors, initial encounter; Y93.9 Activity, unspecified; Y92.9 Unspecified place or not applicable; I11.0 Hypertensive heart disease with heart failure; I50.33 Acute on chronic diastolic (congestive) heart failure; I25.10 Atherosclerotic heart disease of native coronary artery without angina pectoris; E78.5 Hyperlipidemia, unspecified; I27.29 Other secondary pulmonary hypertension; I48.11 Longstanding persistent atrial fibrillation; Z95.2 Presence of prosthetic heart valve; Z95.5 Presence of coronary angioplasty implant and graft; Z79.01 Long term (current) use of anticoagulants; Z79.82 Long term (current) use of aspirin; Z79.02 Long term (current) use of antithrombotics/antiplatelets; Z79.899 Other long term (current) drug therapy
CPT/HCPCS: 73630; 93971; 99282

== ENCOUNTER 2019-06-28 08:46 | Outpatient (RCR) | payer OTHER, SELFPAY ==
[2019-06-20 09:42] LABS: International Normalized Ratio 1.7; Prothrombin Time (Protime)PT. 19.4 SECONDS (11.7-14.9)
[2019-06-28 10:47] LABS: International Normalized Ratio 2.2; Prothrombin Time (Protime)PT. 24.1 SECONDS (11.7-14.9)
== END 2019-06-28 18:00 | disposition home or self-care (01) ==
LOC: LAB 08:46
PROVIDERS: Family Provider Family Medicine; PCP Family Medicine; Referring Provider Internal Medicine Cardiovascular Disease; Visit Provider Internal Medicine Cardiovascular Disease
DX: I48.19 Other persistent atrial fibrillation (principal); R06.00 Dyspnea, unspecified; I25.10 Atherosclerotic heart disease of native coronary artery without angina pectoris; I50.33 Acute on chronic diastolic (congestive) heart failure; I34.2 Nonrheumatic mitral (valve) stenosis; Z95.5 Presence of coronary angioplasty implant and graft; Z79.01 Long term (current) use of anticoagulants
CPT/HCPCS: 36415; 85610

== ENCOUNTER 2019-07-02 02:37 | Inpatient (IN) | payer OTHER, SELFPAY ==
[2019-07-02] VITALS (47 sets, daily range): BP systolic 80–181; BP diastolic 37–162; PULSE 65–144; RESP 15–26; TEMP 36.1–37.2; O2SAT 93–100; BMI 39.6; BMI 39.7; BMI 39.8
--- NOTE | 2019-07-02 02:41 | EKG12_ITS ---
Test Reason : TACHYCARDIA Blood Pressure : / mmHG Vent. Rate : 144 BPM Atrial Rate : 187 BPM P-R Int : 000 ms QRS Dur : 088 ms QT Int : 312 ms P-R-T Axes : 000 -78 117 degrees QTc Int : 483 ms Atrial fibrillation with rapid ventricular response Left axis deviation ST & T wave abnormality, consider lateral ischemia Abnormal ECG Confirmed by SHAYNA KENYON, CALISTA ([id number]), map editor EDWARDO TOTH ([id number]) on 07/04/2019 10:02:43 AM Referred By: CAROLEE Confirmed By:CALISTA CORRAL MD
--- NOTE | 2019-07-02 03:51 | RAD_ITS ---
STUDY: X-RAY CHEST REASON FOR EXAM: Female, 78 years old. CENTRAL LINE PLACEMENT TECHNIQUE: Single AP portable view of the chest. COMPARISON: 11/17/2018 FINDINGS: Right internal jugular venous approach catheter with tip over the superior vena cava in good position. There is no demonstrated pneumothorax. Stable minimal linear interstitial changes left perihilar parenchyma felt to be scarring. There are areas of hyperinflation. Mild volume loss in the right upper lung similar degree on previous exam. . There is no demonstrated pleural abnormality. Sternal cerclage wires and vascular clips are present from a interval sternotomy and left atrial clip positioning. There are calcified mediastinal lymph nodes. Normal visualized pulmonary arteries. Normal visualized aortic arch and descending thoracic aorta. There are diffuse degenerative changes of the visualized thoracic spine. There is degenerative osteoarthritis of the bilateral shoulders. There is no demonstrated abnormality of the visualized soft tissue structures of the upper abdomen. RAD/Chest 1 View (Portable) IMPRESSION: Postsurgical changes as above. There is no demonstrated pneumothorax. No pulmonary edema, congestive heart failure or confluent pneumonia. Electronically Signed: Tangela Mireles MD at 4:06 EDT , Service support ,
[2019-07-02] MEDS: Ondansetron 4 MG/2 ML Vial IV ×2 (04:00→12:24)
[2019-07-02] MEDS: 0.9% Normal Saline 1,000 ML 1000 ML IV (04:00)
[2019-07-02 04:09] LABS: Absolute Lymphocyte Count 1.79 X10^3/uL (0.83-4.51); Absolute Neutrophil Count 7.3 X10^3/uL (2.0-7.7); Basophil# 0.04 X10^3/uL; Basophil% 0.4 % (0-1); Hematocrit 33.6 % (37-47); Hemoglobin 10.8 g/dL (12.0-15.0); Lymphocyte # 1.79 X10^3/ul (4.0); Lymphocyte % 17.8 % (19-41); Mean Corp Hgb Conc 32.1 g/dL (32-36); Mean Corpuscular Hgb 28.8 pg (27.0-32.0); Mean Corpuscular Volume 89.6 fL (81-99); Mean Platelet Vol. 11.9 fl (6.2-12.0); Monocyte# 0.66 X10^3/uL; Monocyte% 6.6 % (0-10); NRBC Flagged by Analyzer 0 % (0-5); Neutrophil % 72.6 % (47-70); Platelet Count 245 K/mm3 (150-450); RBC Distribution Width CV 16.8 % (11.6-14.6); RBC Distribution Width SD 54.4 fl (35.1-43.9); Red Blood Count 3.75 M/mm3 (4.2-5.4); White Blood Count 10.1 K/mm3 (4.4-11.0)
[2019-07-02 04:19] LABS: International Normalized Ratio 2.2; Prothrombin Time (Protime)PT. 24.3 SECONDS (11.7-14.9)
[2019-07-02 04:31] LABS: Anion Gap 8 (5-15); BUN 67 mg/dL (7-18); BUN/Creat Ratio 53.6 RATIO (10-20); Calcium,Total 8.3 mg/dL (8.5-10.1); Chloride 108 mmol/L (98-107); Creatinine, Serum 1.25 mg/dL (0.55-1.02); EST Glomerular Filtration Rate 44 mL/min (>60); Est Glom Filt Rate - Afr Amer 54 mL/min (>60); Estimated Creatinine Clearance 35.84 ml/min; Glucose 185 mg/dL (74-106); Potassium 4.1 mmol/L (3.5-5.1); Sodium Level 141 mmol/L (136-145)
[2019-07-02 04:32] LABS: Lactic Acid 2.6 mmol/L (0.4-1.9)
--- NOTE | 2019-07-02 04:55 | ED.VISSUMM ---
- ER Visit Summary Date of Service: 07/02/19 Chief Complaint: [Rectal bleeding] History of Present Illness: The patient is a 78 F [presents to the emergency department with rectal bleeding that started this evening. Patient started having some abdominal cramping around 10 PM. She then subsequently had a bowel movement around midnight that was bloody with clots. Patient has no history of GI bleed. Patient complains of just some diffuse abdominal discomfort but no significant pain. Patient had her blood pressure checked at home and it was 82/60 and it was noted that her heart rate elevated so family decided to bring her in for evaluation. Patient incidentally had surgery at the [facility] on June 06 to have a mitral valve replacement. Patient also has history of cardiac stents. Patient is currently on aspirin, Plavix, and Coumadin. Patient's last INR 3 days ago was 2.2. She has history of coronary artery disease, hypertension, high cholesterol, and A. fib.] Physical Examination: [HEENT-PERRLA, EOMI. Cranial nerves II through XII grossly intact. TMs clear. Mucous membranes moist. No adenopathy. Patient diaphoretic. Cardiovascular-irregularly irregular and tachycardic. No murmurs auscultated. Lungs-clear to auscultation, chest wall stable without crepitus or subcu emphysema Abdomen-normoactive bowel sounds, soft. Patient has some diffuse tenderness to palpation. There is no rebound, rigidity, or peritoneal signs. Rectal exam-patient had some external hemorrhoids that were not thrombosed. No fissures noted. Patient had maroon dark-colored stool. Extremities-intact ?4, normal range of motion, normal pulses, atraumatic] Test Results: [EKG obtained arrival showed atrial fibrillation with a rapid ventricular response heart rate 144. Patient had some nonspecific ST changes noted. CBC with differential showing a 10.1, hemoglobin 10.8, hematocrit 33.6, platelets 245. Chemistries unremarkable. BUN was 67 and creatinine 1.25. Lipase was 2.2. Lactate was 2.6.] Emergency Department Course and Treatment: [On arrival patient placed on camp cook. We were unable to obtain a peripheral IV. Given patient's condition patient was consented for central line placement. Area of the right internal jugular vein was sterilely draped and prepped. Neck was locally anesthetized with 1% lidocaine total of 2 cc. Using the SonoSite we were able to locate the internal jugular vein and cannulated with needle. The wire was introduced through the needle and the needle was removed. Small incision was made with an 11 blade to the skin. The dilator was passed into the subcutaneous tissues. Central line was flushed and all ports were flushed with heparin. Central line was passed over the wire and the wire was removed. The ports once again were flushed. Central line was sutured into place. Chest x-ray obtained showed the center line to be in good position and no evidence of pneumothorax. Patient was started on Protonix. Case was discussed with general surgeon Dr. Cindy Guerra who felt comfortable keeping the patient at our facility for further treatment. Case was discussed with hospitalist will evaluate patient for admission. I discussed case with breaker unit assembler on-call as well Dr. Figueroa to discuss reversing her Coumadin and he was in agreement at this point given that she had a tissue valve on June 06. Patient received vitamin K 5 mg IV as well as 2 units of fresh frozen plasma. Patient received a liter mostly fluid bolus on arrival.] After central line placement patient did have one episode of emesis with gastric content and there was no evidence of blood in the emesis. Treatment Plan: [Admit to ICU for further monitoring as well as repeat H&H's.] I suspect GI hemorrhage may be diverticular bleed versus ischemic colitis. Disposition: [Admit] Impression: [Lower GI hemorrhage] This note was generated with [employer] dictation software. It may contain incorrect words, spelling, and punctuation that were not noted in review of the chart prior to signing ED Disposition - Plan for ED Patient: Referrals: Boubacar Ruby, [Primary Care Provider] -
--- NOTE | 2019-07-02 05:20 | HP.PCM_ITS ---
Problem List (1) Acute GI bleeding Status: Acute History of Present Illness Date of Admission: 07/02/19 Chief Complaint: Red blood per rectum The patient is a 78 year old F with a significant history of hypertension; CAD status post stent; atrial fibrillation; hypothyroidism; obesity; porcine mitral valve replacement and clipping of atrial appendage on June 06, 2019 at [facility] [place] with bright red blood per rectum. Her stools was mixed with blood and clots. At the time of examination (around 5 AM on 07/02/2019) patient has had 4 bloody bowel movement since around 10 PM of 07/01/2019. Associated with symptoms is lower abdominal pain; nausea and vomiting. Of note patient is on aspirin; Plavix and Coumadin. On presentation her INR was 2.2. Emergent department doctor discussed the with first aid teacher on-call, Dr. Figueroa who recommended reversing INR. Lactic acid was 2.6. Emergent department doctor discussed the case with Dr. Guerra, general surgery on consult who is ready to see patient on consult. At emergency department patient was found to be in A. fib with RVR with ventricular rate on EKG as 144. Patient was given normal saline bolus. Emergent department doctor gave vitamin K in normal saline; and ordered fresh frozen plasma. Upon further discussion with emergency department doctor; emergency department doctor ordered a CTA of patient's abdomen. Because patient reported being claustrophobic lorazepam IV was ordered by emergency department doctor. Past Medical History Past Medical History (Chronic Problems): Chronic Problems (Last Reviewed 07/02/19 @ 06:[address] 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 Jeff Mcadams MD) Atherosclerosis of coronary artery of [place] heart without angina pectoris (Chronic) I25.10 Longstanding persistent atrial fibrillation (Chronic) I48.11 Acute on chronic diastolic (congestive) heart failure (Chronic) I50.33 Non-rheumatic mitral valve stenosis (Chronic) I34.2 Nonrheumatic mitral (valve) insufficiency (Chronic) I34.0 Nonrheumatic tricuspid (valve) insufficiency (Chronic) I36.1 Other secondary pulmonary hypertension (Chronic) I27.29 Essential (primary) hypertension (Chronic) I10 Hyperlipidemia (Chronic) E78.5 History of rheumatic fever Z86.79 Hypothyroidism E03.9 Obesity E66.9 Essential (primary) hypertension I10 Non-rheumatic aortic stenosis (Ruled-out) I35.0 Paroxysmal atrial fibrillation (Inactive) I48.0 Allergies amiodarone Allergy (Verified 07/02/19 02:38) Other Home Medications: Ambulatory Orders Medication Instructions Recorded Aspirin [Low Dose Aspirin EC] 81 mg PO DAILY 11/17/18 Clopidogrel Bisulfate [Clopidogrel] 75 mg PO DAILY 11/17/18 sertraline 50 mg tablet 50 mg PO BID tab 03/20/19 warfarin 4 mg tablet 4 mg PO DAILY #110 tab 05/04/19 atorvastatin 80 mg tablet 80 mg PO QHS #90 tab 06/21/19 digoxin 125 mcg (0.125 mg) tablet 62.5 mcg PO DAILY #90 tab 06/21/19 diltiazem HCl 120 mg tablet 120 mg PO DAILY #1 tab 06/21/19 furosemide 40 mg tablet 40 mg PO DAILY #1 tab 06/21/19 metoprolol succinate 50 mg 50 mg PO BID tab 06/21/19 tablet,extended release 24 hr Insulin Glargine,Hum.rec.anlog 10 unit SQ BREAKFAST 07/02/19 [Lantus Solostar] Insulin Lispro [Insulin Lispro 0 unit SQ TIDCM 07/02/19 Kwikpen U-100] Multivitamin [Once Daily] 1 ea PO DAILY 07/02/19 Potassium Chloride [K-Dur] 20 meq PO DAILY 07/02/19 Surgical History: Surgical History (Last Reviewed 07/02/19 @ 07:[address] Jeff cMadams MD) History of coronary artery stent placement (Resolved) Onset Date: 09/27/18 Z95.5 PCI-MICHELLE x 2 to Mid LAD w/ 3.5 mm x 28 mm and 4 mm x 23 mm Xience Leola stent 09/27/2018 History of Z98.891 History of cardioversion Onset Date: 05/2010 Z98.890 10/2006, 11/2008, 05/2010 History of hysterectomy Z90.710 History of left heart catheterization Onset Date: 08/15/18 Z98.890 Hx of cholecystectomy Z90.49 Lives: Spouse/ Significant Other Smoking Status: Never smoker Tobacco Use: Non-smoker Alcohol: None Review of Systems Constitutional: Reports: Anorexia. Denies: Chills, Fever, Weight Change HEENT: Denies: Head Aches, Sinus Congestion, Sinus Drainage Cardiovascular: Denies: Chest Tightness, Palpitations Respiratory: Denies: Cough, Shortness of breath at rest, Sputum production Gastrointestinal: Reports: Abdominal Pain, Hematochezia, Nausea, Vomiting Genitourinary: Denies: Dysuria Musculoskeletal: Denies: Joint Pain, Joint Tenderness Skin: Denies: Rash, Wounds Neurological: Denies: Numbness, Tingling, Focal weakness Psychiatric: Reports: Anxiety. Denies: Depression, Homicidal Ideations, Suicidal Ideations Hematologic/ Lymphatic: Denies: Easy Bruising, Easy Bleeding VTE Information - Inpt Only VTE Present on Admission: No VTE Mechan Device Prophylaxis: SCD's VTE Pharm Prophylaxis ordered?: No Patient Problems: Active and Suspected Problems (Last Reviewed 07/02/19 @ 06:[address] Jeff Mcadams MD) Acute GI bleeding (Acute) - Physical Exam Vitals/I&O's: Vital Signs Temp Pulse Resp BP Pulse Ox 97.5 F L 115 H 19 H 135/104 H 97 07/02/19 02:38 07/02/19 05:00 07/02/19 05:00 07/02/19 05:00 07/02/19 05:00 Oxygen Flow Rate (L/min) 2 Oxygen Delivery Method Nasal Cannula Weight: 111.6 kg Body Mass Index (BMI) 39.6 Intake and Output for Last 24 Hours 06/30/19 07/01/19 07/02/19 23:59 23:59 23:59 Intake Total 1000 / 1000 Balance 1000 / 1000 General: Alert, Oriented x3, Cooperative, - - Looks sick HEENT: Atraumatic, EOMI, Normocephalic Neck: Supple, Trachea Midline Lungs: Clear to auscultation, Normal air movement, - - Tender chest Cardiovascular: Normal S1, Normal S2, No murmurs, Irregular Rate, Tachycardic Abdomen: Bowel Sounds Present, Soft, Tender Extremities: No edema, Capillary Refill Less than 3 Seconds Skin: No rashes, No breakdown, - - Diaphoretic Musculoskeletal: No Tenderness to Palpation of Joints or Extremities Neurological: Cranial nerves II-XII grossly intact Psych/Mental Status: Anxious Laboratory Results 07/02/19 03:55: WBC 10.1, RBC 3.75 L, Hgb 10.8 L, Hct 33.6 L, MCV 89.6, MCH 28.8, MCHC 32.1, RDW Std Deviation 54.4 H, RDW Coeff of Paul 16.8 H, Plt Count 245, MPV 11.9, Immature Gran % (Auto) 0.600, Neut % (Auto) 72.6 H, Lymph % (Auto) 17.8 L, [place] % (Auto) 6.6, Eos % (Auto) 2.0, Baso % (Auto) 0.4, Absolute Neuts (auto) 7.3, Absolute Lymphs (auto) 1.79, Nucleated RBC % 0 07/02/19 03:55: Sodium 141, Potassium 4.1, Chloride 108 H, Carbon Dioxide 25.0, Anion Gap 8, BUN 67 H, Creatinine 1.25 H, Estim Creat Clear Calc 35.84, Est GFR (MDRD) Af Amer 54 L, Est GFR (MDRD) Non-Af 44 L, BUN/Creatinine Ratio 53.6 H, Glucose 185 H, Calcium 8.3 L 07/02/19 03:55: Lactic Acid 2.6 H* 07/02/19 03:55: PT 24.3 H, INR 2.2 07/02/19 03:55: Blood Type A POSITIVE, Antibody Screen NEGATIVE Assessment/Plan All Active Problems (Last Reviewed 07/02/19 @ 06:[address] Jeff Mcadams MD) Acute GI bleeding (Acute) History of coronary artery stent placement (Resolved 09/27/18) Atrial fibrillation with RVR (Resolved) Non-rheumatic aortic stenosis (Ruled-out) The patient is a 78 year old F with a significant history of hypertension; CAD status post stents; atrial fibrillation; hypothyroidism; obesity; porcine mitral valve replacement and clipping of atrial appendage on June 06, 2019 at [facility] [place] with bright red blood per rectum; and found to have A. fib with RVR; lactic acidosis and considerable drop in her hemoglobin. Acute blood loss anemia On presentation hemoglobin was 10.8. Review of old records shows patient with history of normal to high hemoglobin. Of note hemoglobin om 03/20/2019 was 16.1. Hemoglobin on 11-17-2018 was 13.6. Her hemoglobin on September 2018 was 15.2 and 15.5. Of note she had surgery on 06/06/2019. Differential diagnoses include diverticular bleed. Also, rule out ischemic colitis as patient is a vasculopath. Her BUN is elevated at 67. Review of p revious labs shows highest BUN of 31. However patient was noted to have vomitus at the ED which emergent department doctor reported that it was unremarkable for upper GI bleed. Received normal saline 1 L bolus at the emergency department. We will continue patient on normal saline 100mls per hour. Antiemetics PRN with Zofran IV and PRN Compazine IV. Protonix IV was given at the emergency department. Continue patient on Protonix 40 mg IV every 12 hours. Repeat hemoglobin ordered at the emergency department; follow. We will trend H&H every 6 hours for now. Vitamin K in normal saline ordered at the ED. Fresh frozen plasma ordered at the ED. Repeat INR at noon on 07/02/2019. Keep n.p.o. Hold aspirin; Plavix and Coumadin. Morphine as needed for pain Consult case picker and general surgeon. A. fib with RVR A. fib likely exacerbated by acute blood loss. Metoprolol p.o. and Cardizem p.o. held. Coumadin held as above. On home digoxin p.o.;change to IV digoxin. Acute systolic heart failure EF on 06/13/2019 (from papers brought from [facility] [place]) showed left ventricular ejection fraction of around 45%. On home Lasix. Held secondary to acute blood loss anemia. Diabetes mellitus On presentation blood sugar was elevated. Since patient is being kept n.p.o. we will hold her low-dose basal insulin and has short acting insulin. Accu-Chek every 6 hours with correction scale insulin. Depression/anxiety. On home sertraline. Held secondary n.p.o. status. Obesity: BMI of 39.7. Complicates care. Recommend lifestyle modification. History of porcine mitral valve replacement and cleavage of atrial appendage Now with upper back pain. Home Lidoderm continued. Coumadin held and INR reversed per conversation between ED doctor and first aid teacher. DVT prophylaxis SCD ordered. Inpatient E&M: 59089 Init Hosp L3
--- NOTE | 2019-07-02 05:27 | CT_ITS ---
STUDY: CT ABDOMEN AND PELVIS WITH CONTRAST REASON FOR EXAM: Female, 78 years old. ABDOMEN Pain, blood IN STOOLS, POSSIBLE ISCHEMIC COLITIS RADIATION DOSAGE (If Supplied By Facility): CTDIvol = ( 33.44 ) mGy, DLP = ( 1252.54 ) mGycm TECHNIQUE: Transaxial 2.5 mm images were obtained from the dome of the diaphragm to the symphysis pubis without oral contrast. IV 100mL Isovue-370 was administered. Sagittal and coronal images were reconstructed. There is obesity, the entirety of soft tissue is not imaged. Individualized dose optimization techniques were used for this CT. COMPARISON: Portable chest x-ray 07/02/2019. FINDINGS: Ground glass opacification the lung bases, atelectasis in the left lower lobe, probable scarring in both bases. Cardiomegaly, prior sternotomy There is decreased attenuation of the liver consistent with steatosis. Heterogeneous attenuation. There are multiple gallstones. Proximal common bile duct dilatation focally to 1.6 cm, tapering to 0.9 cm the pancreas head level. No choledocholithiasis detected. Normal spleen. Normal pancreas. Normal bilateral adrenal glands. Anterior inferior cortical exophytic low attenuation 1 cm. Near water density. Bilateral cortical thinning and probable scarring. Normal visualized stomach. Normal small intestine. There are multiple scattered colonic diverticula consistent with diverticulosis. Significant amount of sigmoid diverticulosis. Wall thickening of the distal rectum measuring approximately 1.5 x 2.2 cm. Image 181 series 2. The appendix is visualized and appears normal. There is atherosclerosis of the abdominal aorta, greater branches and pelvic arteries without aneurysm or leak. Origin of the celiac artery is moderately narrowed with a post stenotic dilatation.Normal inferior vena cava. Normal retroperitoneum. Normal urinary bladder. There is absence of the uterus consistent with a prior hysterectomy. Normal abdominal wall. There are diffuse degenerative changes of the visualized spine, bilateral sacroiliac and hip joints, lower lumbar facet joints, levoscoliosis, osteoporosis, CT/CT ANGIO ABD&PEL W/O&W/DYE IMPRESSION: Rectal wall thickening focally, underlying mass not excluded. Diffuse colonic diverticulosis, no active inflammation. Severe sigmoid diverticulosis. Moderate stenosis proximal celiac artery, diffuse arteriosclerosis. No bowel ischemia seen on submitted images. Cholelithiasis, common bile duct dilatation, no choledocholithiasis detected. Through the assessment can be obtained with ERCP, MRCP, ultrasound or biliary scan symptoms and suspicion level. Cardiomegaly, hepatic steatosis, probable right renal cyst, renal involution, renal scarring, atherosclerosis, presumed hysterectomy and osseous changes felt to be nonacute findings. Electronically Signed: Tangela Mireles MD at 7:27 EDT , Service support ,
[2019-07-02] MEDS: LORazepam 2 MG/ML Syringe 1 MG IV (06:02)
[2019-07-02] MEDS: proMETHazine 25 MG/ML Syringe 12.5 MG IV (06:02)
--- NOTE | 2019-07-02 06:53 | NURSING ---
icu [address] wyatt
[2019-07-02 07:40] LABS: Hematocrit 32.2 % (37-47); Hemoglobin 10.1 g/dL (12.0-15.0)
[2019-07-02 08:06] LABS: Reflex Lactate? Y
[2019-07-02] MEDS: Lactated Ringers 1,000 ML 999 ML IV (09:00)
[2019-07-02] MEDS: 0.9% Normal Saline 1,000 ML 100 ML IV ×2 (09:49→14:22)
--- NOTE | 2019-07-02 09:50 | CON.PCM_ITS ---
Problem List (1) H/O mitral valve replacement Status: Chronic (2) Acute GI bleeding Status: Acute (3) Atherosclerosis of coronary artery of [place] heart without angina pectoris Status: Chronic Qualifiers: Coronary Disease-Associated Artery/Lesion type: [place] artery Qualified Code(s): I25.10 - Atherosclerotic heart disease of [place] coronary artery without angina pectoris (4) History of coronary artery stent placement Status: Resolved Comment: PCI-MICHELLE x 2 to Mid LAD w/ 3.5 mm x 28 mm and 4 mm x 23 mm Xience Leola stent 09/27/2018 (5) Longstanding persistent atrial fibrillation Status: Chronic (6) Non-rheumatic mitral valve stenosis Status: Chronic (7) Other secondary pulmonary hypertension Status: Chronic (8) Essential (primary) hypertension Status: Chronic (9) Hyperlipidemia Status: Chronic Qualifiers: Hyperlipidemia type: pure hypercholesterolemia Qualified Code(s): E78.00 - Pure hypercholesterolemia, unspecified; E78.0 - Pure hypercholesterolemia (10) custodial (current) use of anticoagulants Status: Chronic Reason for Consult Date of Consultation: 07/02/19 Reason for Consultation: Hypotension History of Present Illness: The patient is a 78 year old F, with past medical history listed below, who presented to [facility] on 07/02[facility]2019 secondary to rectal bleeding that started the night prior to presentation. Patient had noted some abdominal cramping at around 10 PM and subsequently had a bowel movement around midnight with bright red blood and clots. Patient does not have a previous history of GI bleed and had reported some vague abdominal discomfort. Family checked her blood pressure and found it was 82/60 with tachycardia, so decided to bring her in for evaluation. Patient was recently at [facility] on June 06 for a mitral valve replacement. Patient is currently on aspirin, Plavix and Coumadin with an INR of 2.2. Patient also has a history for chronic A. fib. In the ER, patient was noted to be hypotensive with poor venous access. Patient had a right IJ placed. Hemoglobin was noted to be 10.8, which is a significant change from 16.6 previously. Patient's BUN and creatinine were also elevated, along with a lactate of 2.6. Patient had a CT of the abdomen and then Dr. Guerra was called. Patient's status was deemed appropriate for [facility]. Cardiology agreed with reversing of Coumadin. Patient has received vitamin K and 2 units of FFP. No blood transfusions have been ordered. On arrival to the intensive care unit, patient was hypotensive with decreased mental status. Patient would wake up for short periods of time and answered appropriately. Patient appeared pale. Repeat H&H showed a hemoglobin of 10.1. Patient was given a 1 L bolus of LR with significant improvement in blood pressure. Patient also has 2 units of FFP that are ordered to be given. No bowel movements were noted during initial presentation in the ICU. Dr. Guerra is reportedly planning on scoping patient this afternoon after potential GoLYTELY pretreatment. Unable to obtain a complete review of systems secondary to mental status. Past Medical History Past Medical History (Chronic Problems): Chronic Problems (Last Reviewed 07/02/19 @ 07:[address] Jeff Mcadams MD) H/O mitral valve replacement (Chronic) Dyspnea (Chronic) Atherosclerosis of coronary artery of [place] heart without angina pectoris (Chronic) Longstanding persistent atrial fibrillation (Chronic) Acute on chronic diastolic (congestive) heart failure (Chronic) Non-rheumatic mitral valve stenosis (Chronic) Nonrheumatic mitral (valve) insufficiency (Chronic) Nonrheumatic tricuspid (valve) insufficiency (Chronic) Other secondary pulmonary hypertension (Chronic) Essential (primary) hypertension (Chronic) Hyperlipidemia (Chronic) custodial (current) use of anticoagulants (Chronic) Medical History: Medical History (Last Reviewed 07/02/19 @ 07:[address] Jeff Mcadams MD) Atherosclerosis of coronary artery of [place] heart without angina pectoris (Chronic) I25.10 Longstanding persistent atrial fibrillation (Chronic) I48.11 Acute on chronic diastolic (congestive) heart failure (Chronic) I50.33 Non-rheumatic mitral valve stenosis (Chronic) I34.2 Nonrheumatic mitral (valve) insufficiency (Chronic) I34.0 Nonrheumatic tricuspid (valve) insufficiency (Chronic) I36.1 Other secondary pulmonary hypertension (Chronic) I27.29 Essential (primary) hypertension (Chronic) I10 Hyperlipidemia (Chronic) E78.5 History of rheumatic fever Z86.79 Hypothyroidism E03.9 Obesity E66.9 Essential (primary) hypertension I10 Non-rheumatic aortic stenosis (Ruled-out) I35.0 Paroxysmal atrial fibrillation (Inactive) I48.0 Allergies amiodarone Allergy (Verified 07/02/19 02:38) Other Home Medications: Ambulatory Orders Medication Instructions Recorded Aspirin [Low Dose Aspirin EC] 81 mg PO DAILY 11/17/18 Clopidogrel Bisulfate [Clopidogrel] 75 mg PO DAILY 11/17/18 sertraline 50 mg tablet 50 mg PO BID tab 03/20/19 warfarin 4 mg tablet 4 mg PO DAILY #110 tab 05/04/19 atorvastatin 80 mg tablet 80 mg PO QHS #90 tab 06/21/19 digoxin 125 mcg (0.125 mg) tablet 62.5 mcg PO DAILY #90 tab 06/21/19 diltiazem HCl 120 mg tablet 120 mg PO DAILY #1 tab 06/21/19 furosemide 40 mg tablet 40 mg PO DAILY #1 tab 06/21/19 metoprolol succinate 50 mg 50 mg PO BID tab 06/21/19 tablet,extended release 24 hr Insulin Glargine,Hum.rec.anlog 10 unit SQ BREAKFAST 07/02/19 [Lantus Solostar] Insulin Lispro [Insulin Lispro 0 unit SQ TIDCM 07/02/19 Kwikpen U-100] Multivitamin [Once Daily] 1 ea PO DAILY 07/02/19 Potassium Chloride [K-Dur] 20 meq PO DAILY 07/02/19 Surgical History: Surgical History (Last Reviewed 07/02/19 @ 07:[address] Jeff Mcadams MD) History of coronary artery stent placement (Resolved) Onset Date: 09/27/18 Z95.5 PCI-MICHELLE x 2 to Mid LAD w/ 3.5 mm x 28 mm and 4 mm x 23 mm Xience Leola stent 09/27/2018 History of Z98.891 History of cardioversion Onset Date: 05/2010 Z98.890 10/2006, 11/2008, 05/2010 History of hysterectomy Z90.710 History of left heart catheterization Onset Date: 08/15/18 Z98.890 Hx of cholecystectomy Z90.49 Lives: Spouse/ Significant Other Smoking Status: Never smoker Tobacco Use: Non-smoker Alcohol: None Review of Systems Unable to obtain accurate/complete ROS d/t: Mental status Patient Problems: Active and Suspected Problems (Last Reviewed 07/02/19 @ 07:[address] Jeff Mcadams MD) Acute GI bleeding (Acute) Objective: All imaging was personally reviewed. Formal report for CT of the abdomen was also reviewed showing significant diverticulosis of the colon. Patient's last echocardiogram was completed in August 2018 showing an EF of 55% with bileaflet diffuse mitral valve thickening and gradient of 4 mmHg. No pulmonary artery pressures were reported. Patient had a mild restrictive ventilatory defect with reduction of diffusion capacity out of proportion dated 01/18/2017 (FVC 70%, FEV1 68%, TLC 76%, DLCO 46%) - Physical Exam Vitals/I&O's: Vital Signs Temp Pulse Resp BP Pulse Ox 36.3 C L 138 H 20 H 98/72 97 07/02/19 07:57 07/02/19 07:57 07/02/19 07:57 07/02/19 07:57 07/02/19 07:57 Oxygen Flow Rate (L/min) 2 Oxygen Delivery Method Nasal Cannula Weight: 111.8 kg Body Mass Index (BMI) 39.7 Intake and Output for Last 24 Hours 06/30/19 07/01/19 07/02/19 23:59 23:59 23:59 Intake Total 1360.5 / 1360.5 Balance 1360.5 / 1360.5 General: Cooperative, Lethargic, - - Morbidly obese. Pale in appearance. HEENT: Atraumatic, PERRLA, EOMI, Normocephalic, - - Pale mucous membranes Oral: No Gingival or Mucosal Lesions/ Ulcerations, Dry Mucosa Neck: Supple, No JVD, No Nodes, Trachea Midline Lungs: No rhonchi, No wheeze, No rales, Diminished, - - Symmetric expansion Cardiovascular: Normal S1, Normal S2, No murmurs, No rub noted, No Gallop, Tachycardic Abdomen: Bowel Sounds Present, Soft, Non Tender, Distended - Slightly, Obese Extremities: No clubbing, No cyanosis, Edema - Bilateral lower extremities Skin: - - Multiple healing superficial ulcers with mild surrounding erythema noted on the epigastrium that were reportedly sites of OSCAR drains Musculoskeletal: No Tenderness to Palpation of Joints or Extremities Lymphatic: No Cervical, Supraclavicular, or Inguinal Adenopathy Neurological: Cranial nerves II-XII grossly intact, Neuro grossly intact, Motor Exam 5/5 strength throughout Psych/Mental Status: Flat Affect, Restless Laboratory Results 07/02/19 03:55: WBC 10.1, RBC 3.75 L, Hgb 10.8 L, Hct 33.6 L, MCV 89.6, MCH 28.8, MCHC 32.1, RDW Std Deviation 54.4 H, RDW Coeff of Paul 16.8 H, Plt Count 245, MPV 11.9, Immature Gran % (Auto) 0.600, Neut % (Auto) 72.6 H, Lymph % (Auto) 17.8 L, [place] % (Auto) 6.6, Eos % (Auto) 2.0, Baso % (Auto) 0.4, Absolute Neuts (auto) 7.3, Absolute Lymphs (auto) 1.79, Nucleated RBC % 0 07/02/19 03:55: Sodium 141, Potassium 4.1, Chloride 108 H, Carbon Dioxide 25.0, Anion Gap 8, BUN 67 H, Creatinine 1.25 H, Estim Creat Clear Calc 35.84, Est GFR (MDRD) Af Amer 54 L, Est GFR (MDRD) Non-Af 44 L, BUN/Creatinine Ratio 53.6 H, Glucose 185 H, Calcium 8.3 L 07/02/19 03:55: Lactic Acid 2.6 H* 07/02/19 03:55: PT 24.3 H, INR 2.2 07/02/19 03:55: Blood Type A POSITIVE, Antibody Screen NEGATIVE 07/02/19 03:55: Troponin I < 0.015 07/02/19 03:55: Crossmatch See Detail 07/02/19 07:30: Hgb 10.1 L, Hct 32.2 L 07/02/19 09:11: Lactic Acid Pending Current Medications Digoxin (Lanoxin (Bkc)) 62.5 mcg IV DAILY [facility] Glucagon () 1 mg IM .X1 PRN PRN Reason: Hypoglycemia Sodium Chloride () 500 mls @ 15 mls/hr IV PRN PRN PRN Reason: Blood Transfusion Sodium Chloride () 250 mls @ 15 mls/hr IV .[id number] PRN PRN Reason: Saline Flush Sodium Chloride () 250 mls @ 15 mls/hr IV .[id number] PRN PRN Reason: Additional IVPB Infusion Sodium Chloride () 1,000 mls @ 100 mls/hr IV .Q10H [facility] Last Admin: 07/02/19 09:49 Dose: 100 mls/hr Documented by: Pantoprazole Sodium 40 mg/ (Sodium Chloride) 110 mls @ 330 mls/hr IV Q12 RIGO Insulin Human Lispro (Humalog Kwikpen (Bkc)) 0 unit SC Q6 RIGO; Protocol Lidocaine (Lidoderm Patch) 1 patch TOPICAL DAILY RIGO; Protocol Morphine Sulfate () 2 mg IV Q3H PRN PRN PRN Reason: pain 6-10/10 Ondansetron HCl (Zofran) 4 mg IV Q6H PRN PRN PRN Reason: NAUSEA/VOMITING Prochlorperazine Edisylate (Compazine Iv) 5 mg IV Q6H PRN PRN PRN Reason: NAUSEA/VOMITING Sodium Chloride () 10 - 40 ml IV UD PRN PRN Reason: Multilumen/[place] Flush Sodium Chloride (0.9% Nacl (Sterile) Posiflush) 10 - 40 ml IV UD PRN PRN Reason: Port access or dressing change Sodium Chloride () 10 - 40 ml IV UD PRN PRN Reason: SALINE FLUSH Clinical Impression(s) from Imaging Studies Chest X-Ray 07/02/19 03:51 IMPRESSION: Postsurgical changes as above. There is no demonstrated pneumothorax. No pulmonary edema, congestive heart failure or confluent pneumonia. Electronically Signed: Tangela Mireles MD at 4:06 EDT , Service support , Abdomen/Pelvis CTA 07/02/19 05:27 IMPRESSION: Rectal wall thickening focally, underlying mass not excluded. Diffuse colonic diverticulosis, no active inflammation. Severe sigmoid diverticulosis. Moderate stenosis proximal celiac artery, diffuse arteriosclerosis. No bowel ischemia seen on submitted images. Cholelithiasis, common bile duct dilatation, no choledocholithiasis detected. Through the assessment can be obtained with ERCP, MRCP, ultrasound or biliary scan symptoms and suspicion level. Cardiomegaly, hepatic steatosis, probable right renal cyst, renal involution, renal scarring, atherosclerosis, presumed hysterectomy and osseous changes felt to be nonacute findings. Electronically Signed: Tangela Mireles MD at 7:27 EDT , Service support , Assessment/Plan Active and Suspected Problems (Last Reviewed 07/02/19 @ 07:[address] Jeff Mcadams MD) Acute GI bleeding (Acute) RECOMMENDATIONS: 1. Type and cross 2 units of packed red blood cells 2. Keep hemoglobin greater than 8. H&H every 6 3. Wean oxygen as tolerated 4. Active reversal of anticoagulation 5. Endoscopy per Dr. Guerra 6. Fluid boluses as necessary for hypotension IMPRESSIONS: 1. Acute blood loss anemia/hypovolemic shock secondary to probable GI bleed Patient has not had any hematemesis reported, but cannot rule out a brisk upper GI bleed. Patient also has multiple diverticuli and a lower GI bleed is also possible. BUN is elevated suggestive of possible upper GI bleed versus renal dysfunction associated with prerenal etiology. Protonix given IV. Active reversal of anticoagulation underway. Patient to be seen by general surgery later today for endoscopy as indicated. 2. A. fib with RVR/acute systolic congestive heart failure/recent mitral valve replacement Patient tachycardic at this time appropriately. Patient is responding to fluid bolus indicating a decreased volume state. Hold blood pressure m edications for now. Agree with digoxin. Last known ejection fraction approximately 45%. Would hold Lasix for now given volume depletion, but this will likely need to be reinitiated once stasis is obtained. 3. Diabetes mellitus/anxiety/depression/morbid obesity/advanced age Complicates care, management, recovery and prognosis. Would cover with sliding scale insulin given n.p.o. status. Hold p.o. medications for now, but these can likely be reinitiated tomorrow if okay with surgery. 4. Acute kidney injury Clinical suspicion for prerenal etiology associated with problem #1 and 2. Continue volume resuscitation. Monitor labs tomorrow. No indication for renal replacement therapy at this time. TIME: 33 minutes critical care time spent addressing patient's acute blood loss anemia, hypotension, A. fib with RVR, review of all data and collaboration with care team (8:30 AM to 10 AM) 9xxxx: [id number] Critical care first hour
[2019-07-02 09:57] LABS: Lactic Acid 2.7 mmol/L (0.4-1.9)
[2019-07-02 10:01] LABS: Bedside Glucose 171 mg/dL (70-110)
[2019-07-02] MEDS: Digoxin 250 MCG/ML Ampul 62.5 MCG IV (10:01)
[2019-07-02] MEDS: Insulin Lispro 100 UNIT/ML INSULN.PEN SC ×2 (10:01→13:02)
[2019-07-02] MEDS: 0.9% Saline Lock 10 ML Syringe IV ×3 (10:03→15:00)
[2019-07-02] MEDS: Electrolyte Solution/Peg's 4000 ML PO (10:23)
--- NOTE | 2019-07-02 11:14 | PCM.CONS.B ---
- Consult Date of Consult: 07/02/19 - Reason for Consult CC: rectal bleeding HPI: Rachel Sifuentes is a 78 y/o WF who presents with rectal bleeding which she noted at 5pm last night. She denies shortness of breath. She denies abdominal pain s/p porcine valve mitral valve replacement and left atrial appendage clipping on 06/06/2019 Postoperative course complicated with hypotension and hypercapnia and hyperglycemia. Patient also had afib with RVR and underwent cardioversion (rate control agents were ineffective) with temporary improvement. Patient also developed ileus and JEZ. She was discharged after 2 weeks to home health care. She is presently on coumadin and plavix. Last Hgb from [facility] 14.9 (06/17/2019). She denies previous colonoscopy. She denies any colon cancer known in her family CT scan reveals rectal wall thickening focally. Also with cholelithiasis and stenosis of celiac artery Found to have elevated lactic acid in ED. Hgb 10.8 PAST MEDICAL HISTORY: chronic atrial fibrillation (refractory to cardioversion) hypertension coronary artery disease, s/p PCI September 2018 with MICHELLE x 2 to LAD status post mitral valve replacement with porcine valve obesity hyperlipidemia pulmonary hypertension PAST SURGICAL HISTORY: PCI September 2018 with MICHELLE x 2 to LAD mitral valve replacement with porcine valve 06/06/2019 Csection hysterectomy MEDICATIONS: Flurbiprofen 100 mg tablet diltiazem (CARDIZEM) 120 mg tablet atorvastatin (LIPITOR) 80 mg tablet furosemide (LASIX) 40 mg tablet acetaminophen (TYLENOL) 325 mg tablet digoxin (LANOXIN) 125 mcg (0.125 mg) tablet potassium chloride ER (K-DUR, KLOR-CON) 20 mEq tablet therapeutic multivitamin (THERA VITAMIN) tablet warfarin (COUMADIN) 4 mg tablet insulin lispro (HUMALOG KWIKPEN INSULIN) 100 unit/mL Insulin [place], Disposable, (BD ULTRA-FINE DIANE PEN NEEDLE) 32 gauge x 5/32 insulin glargine (LANTUS SOLOSTAR U-100 INSULIN) 100 unit/mL (3 mL) sertraline (ZOLOFT) 50 mg tablet metoprolol succinate ER (TOPROL XL) 50 mg 24 hr tablet clopidogrel (PLAVIX) 75 mg tablet ALLERGIES - amiodarone REVIEW OF SYSTEMS: Constitutional: denies - weight loss, fevers, fatigue HEENT: denies - frequent or significant headaches, acute change in hearing, epistaxis Neck: denies - neck swelling, neck pain, neck stiffness Respiratory: has shortness of breath with exertion, denies - cough, wheezing Cardiovascular: denies - chest pain, orthopnea, leg swelling, palpitations Gastrointestinal: see HPI, denies abdominal pain Genitourinary: denies - dysuria, frequency, incontinence Endocrine: has diabetes with elevated HgbA1c Hematologic: is on coumadin and plavix Neurologic: denies seizures Integumentary: denies non healing wounds Psych - denies hallucinations Physical Exam: BP 100/64 Pulse 121 Temp 97.6 ?F Ht 5' 5 Wt: 245# BMI>40 Appearance: well developed, well nourished Neck: No neck vein distention Cardiac: Irregular / irregular S1, S2 Lungs: Clear breath sounds bilaterally without wheeze or dullness Abdomen: soft benign and obese Extremities: No edema Neuro: non focal Impression: lower GI bleed, abnormal lesion of rectum seen on CT scan, anemia, episode of hypotension Plan: proceed to colonoscopy, patient drinking her colon cleansing preparation solution now I have discussed above with patient (and her daughter via telephone). I have recommended evaluation with colonoscopy, patient is presently drinking her colon cleansing solution. I have explained risks of procedure, including but not limited to: infection, bleeding, perforation of GI tract, etc. - the patient understands. She agrees to proceed. Note: patient developed emesis with coffee grounds - will also proceed with EGD
--- NOTE | 2019-07-02 11:54 | PN_ITS ---
Progress Note 8-year-old female with multiple cardiovascular comorbidities who recently had porcine mitral valve replacement and clipping of left atrial appendage on 06/06/19 at the [facility] comes in with bright bleeding per rectum. Her admitting INR is 2.2. Repeat Hb was 10.1. Admitting hemoglobin was 10.8, previous hemoglobin 3 months ago was 16.1. Lactic acid is elevated at 2.6. CT scan of the abdomen and pelvis showed rectal wall thickening, no bowel ischemia seen, severe sigmoid diverticulosis. Patient was seen in the ICU. She is alert, oriented x 3, complains of abdominal discomfort. No rectal bleeding seen since admission Being transfused FFP HR 129, BP 152/125, Spo2 97% on 1.5L A/P 1. Acute GI bleed 2. Acute blood loss anemia 3. A fib with RVR 4. Lactic acidosis 5. CKD stage 3 6. Hypertension 7. s/p recent porcine mitral valve replacement 8. s/p atrial appendage removal 9. Hyperlipidemia Will trend HH Continue FFP Endoscopy per Dr. Guerra STROKE Vital Signs/Narrative: Vital Signs Temp Pulse Resp BP Pulse Ox 07/02/19 11:34 115 H 07/02/19 10:25 98 F 142 H 23 H 152/125 H 97 07/02/19 10:01 134 H 07/02/19 09:24 96 07/02/19 08:39 129 H 07/02/19 07:57 97.3 F L 138 H 20 H 98/72 97
[2019-07-02 12:13] LABS: Hematocrit 25.2 % (37-47)
[2019-07-02 12:18] LABS: International Normalized Ratio 1.6; Prothrombin Time (Protime)PT. 18.7 SECONDS (11.7-14.9)
--- NOTE | 2019-07-02 12:30 | EGD_PTH ---
PATIENT: FABIO WOOD LOC: [facility] U#:[id number] AGE/SX: 78/F ROOM: [facility] [place] RE07/02/[address]: Dr. Rik Villareal MD : [id number] BED: 1 DIS: 07/06/2019 SPEC #: [id number] RECD: 07/04/19 14:47 STATUS: BEBETO REQ #: [id number] ARA: 07/02/19 12:[address]: Cindy Guerra DEPT: SURGICAL PATHOLOGY RECD BY: Tip Matias ENTERED: 07/05/19 09:05 SP TYPE: EGD BIOPSY OTHR DR: MD Dr. Rik Aly MD Dr. Eric Lo, MD Dr. Joseph Agyepong, MD Dr. Linda Wang, MD Dr. 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 Fecal debris. AM:brennen 07/06/19 MICROSCOPIC DESCRIPTION Slides are reviewed. GROSS DESCRIPTION Received in fixative is one container labeled with the patient's name and designated cecal polyp. The specimen consists of multiple irregular fragments of light to dark alex soft tissue including fecal debris that in aggregate measure 2 x 1 x 0.2 cm. The specimen is totally submitted in one cassette. / AM:brennen 07/05/19 TC:5 CPT: 12372
[2019-07-02] MEDS: Digoxin 250 MCG/ML Ampul 500 MCG IV ×2 (13:05→15:00)
[2019-07-02 13:06] LABS: Bedside Glucose 175 mg/dL (70-110)
--- NOTE | 2019-07-02 14:09 | OP.CCLET_ITS ---
07/02/2019 Boubacar Ruby Re : Upper GI endoscopy procedure for Rachel Sifuentes Dear Flori This procedure was performed on Tuesday, July 02, 2019. My impressions and recommendations are as follows: Impressions : - Bleeding friable duodenal mucosa. Injected. - Oozing gastric ulcer. Injected. - Gastroparesis, secondary to diabetes mellitus type II. - Medium-sized hiatal hernia. - No specimens collected. Recommendations : - Return patient to ICU for ongoing care. - Continue present medications. My findings are described in the full procedure note, which is enclosed. If I can be of further assistance, please feel free to contact me at Doctor phone number(s): , Work: . Sincerely, MD Cindy Saeed MD 07/02/2019 2:09:08 PM This report has been signed electronically.
--- NOTE | 2019-07-02 14:09 | OP.EGD_ITS ---
Patient Name: aRchel Sifuentes Procedure Date: 07/02/2019 1:06 PM Date of : 1940 Age: 78 Procedure: Upper GI endoscopy Indications: Iron deficiency anemia, Coffee-ground emesis, Hematochezia Providers: Cindy Guerra MD Medicines: See the Anesthesia note for documentation of the administered medications Patient Profile: Refer to note in patient chart for documentation of history and physical. Complications: No immediate complications. Procedure: Pre-Anesthesia Assessment: - see anesthesia note After obtaining informed consent, the endoscope was passed under direct vision. Throughout the procedure, the patient's blood pressure, pulse, and oxygen saturations were monitored continuously. The gastroscope was introduced through the mouth, and advanced to the second part of duodenum. The upper GI endoscopy was accomplished without difficulty. The patient tolerated the procedure well. Scope In: 1:29:29 PM Scope Out: 1:44:01 PM Total Procedure Duration Time 0 hours 14 minutes 32 seconds Findings: Localized moderately friable mucosa with active bleeding was found in the duodenal bulb. Area was successfully injected with 2 mL of a 1:10,000 solution of epinephrine for hemostasis. Estimated blood loss was minimal. One oozing linear gastric ulcer was found at the pylorus. The lesion was less than 5mm in largest dimension. Area was successfully injected with 2 mL of a 1:10,000 solution of epinephrine for hemostasis. Estimated blood loss was minimal. Suspect gastroparesis due to retained gastric contents. A medium-sized hiatal hernia was present. Gastroesophageal reflux was noted Impression: - Bleeding friable duodenal mucosa. Injected. - Oozing gastric ulcer. Injected. - Gastroparesis, secondary to diabetes mellitus type II. - Medium-sized hiatal hernia. - No specimens collected. Recommendation: - Return patient to ICU for ongoing care. - Continue present medications. Procedure Code(s): --- Professional --- 74904, Esophagogastroduodenoscopy, flexible, transoral; with control of bleeding, any method Diagnosis Code(s): --- Professional --- K92.2, Gastrointestinal hemorrhage, unspecified K25.4, Chronic or unspecified gastric ulcer with hemorrhage E11.43, Type 2 diabetes mellitus with diabetic autonomic (poly)neuropathy K31.84, Gastroparesis K44.9, Diaphragmatic hernia without obstruction or gangrene D50.9, Iron deficiency anemia, unspecified K92.0, Hematemesis K92.1, Melena (includes Hematochezia) CPT copyright 2017 [employer]. All rights reserved. The codes documented in this report are preliminary and upon eap counselor review may be revised to meet current compliance requirements. MD Cindy Saeed MD 07/02/2019 2:09:08 PM This report has been signed electronically. Number of Addenda: 0 Note Initiated On: 07/02/2019 1:06 PM
--- NOTE | 2019-07-02 14:13 | OP.COLON_ITS ---
Patient Name: Rachel Sifuentes Procedure Date: 07/02/2019 1:46 PM Date of : 1940 Age: 78 Procedure: Colonoscopy Indications: Hematochezia, Iron deficiency anemia Providers: Cindy Guerra MD Medicines: See the Anesthesia note for documentation of the administered medications Patient Profile: Refer to note in patient chart for documentation of history and physical. Last Colonoscopy: none. The patient's first colonoscopy is today. Complications: No immediate complications. Procedure: Pre-Anesthesia Assessment: - see anesthesia note - see anesthesia note After I obtained informed consent, the scope was passed under direct vision. Throughout the procedure, the patient's blood pressure, pulse, and oxygen saturations were monitored continuously. The pediatric colonoscope was introduced through the anus and advanced to the sigmoid colon. The colonoscopy was performed with difficulty due to unsatisfactory bowel prep. The patient tolerated the procedure well. The quality of the bowel preparation was 100 percent obscured. Scope In: 1:48:13 PM Scope Out: 1:56:24 PM Total Procedure Duration Time 0 hours 8 minutes 11 seconds Findings: The perianal and digital rectal examinations were normal. Digital examination to 10 cm revealed no palpable masses. Impression: - No specimens collected. Recommendation: - Return patient to ICU for ongoing care. May consider repeat colonoscopy in the near future if clinical condition warrants this. - Repeat colonoscopy as per above. - Continue present medications. Procedure Code(s): --- Professional --- 99454, 53, Colonoscopy, flexible; diagnostic, including collection of specimen(s) by brushing or washing, when performed (separate procedure) Diagnosis Code(s): --- Professional --- K92.1, Melena (includes Hematochezia) D50.9, Iron deficiency anemia, unspecified CPT copyright 2017 [employer]. All rights reserved. The codes documented in this report are preliminary and upon career portals teacher review may be revised to meet current compliance requirements. MD Cindy Saeed MD 07/02/2019 2:12:33 PM This report has been signed electronically. Number of Addenda: 0 Note Initiated On: 07/02/2019 1:46 PM
--- NOTE | 2019-07-02 14:13 | OP.CCLET_ITS ---
07/02/2019 Boubacar Ruby Re : Colonoscopy procedure for Rachel Sifuentes Dear Flori This procedure was performed on Tuesday, July 02, 2019. My impressions and recommendations are as follows: Impressions : - No specimens collected. Recommendations : - Return patient to ICU for ongoing care. May consider repeat colonoscopy in the near future if clinical condition warrants this. - Repeat colonoscopy as per above. - Continue present medications. My findings are described in the full procedure note, which is enclosed. If I can be of further assistance, please feel free to contact me at Doctor phone number(s): , Work: . Sincerely, MD Cindy Saeed MD 07/02/2019 2:12:33 PM This report has been signed electronically.
[2019-07-02] MEDS: proCHLORPERazine 10 MG/2 ML Vial 5 MG IV (14:20)
[2019-07-02] MEDS: 0.9% Normal Saline (Pres. free 10 ML Vial (14:23)
[2019-07-02] MEDS: Epinephrine (1 mg/ml) 1 MG/ML VIAL (14:23)
--- NOTE | 2019-07-02 14:58 | PCM.CONS.C ---
Reason for Consult Date of Consultation: 07/02/19 Reason for Consultation: Atrial fibrillation with fast ventricular rate History of Present Illness: The patient is a 78 year old F was admitted with melena and atrial fibrillation with fast ventricular rate. Patient just came back from upper endoscopy. She is barely arousable. Most of the history obtained through the chart. Apparently patient had melena last night with weakness but no chest pain or shortness of breath. She was seen emergency room with low blood pressure. She was given IV fluid resuscitation. Hemoglobin on admission was 10, this morning was 8 after hydration. EKG admission showed atrial fibrillation with fast ventricular rate. There was nonspecific ST-T wave changes. First set of enzymes was normal. 9 months ago patient had stenting of the mid left anterior descending with 2 drug-eluting stents. 6 weeks ago patient had mitral valve replacement using bioprosthetic valve for mitral stenosis and pulmonary hypertension. Postoperatively, patient was sent home on digoxin, metoprolol and Cardizem for rate control. She was also sent home on aspirin, Plavix and Coumadin. INR on admission was 2.2. She was given vitamin K in the emergency room. Today was 1.6 INR. After IV digoxin loading, heart rate in the 100s. Pressure 120 systolic. Upper endoscopy showed duodenitis and bleeding gastric ulcer. Both of which were given injections of epinephrine. According to the report, bleedings seem to have been stopped. Patient known to have hypertension and hyperlipidemia. Patient is known to have stage III renal insufficiency [] Past Medical History Allergies/Adverse Reactions: Allergies amiodarone Allergy (Verified 07/02/19 02:38) Other Home Medications: Ambulatory Orders Medication Instructions Recorded Aspirin [Low Dose Aspirin EC] 81 mg PO DAILY 11/17/18 Clopidogrel Bisulfate [Clopidogrel] 75 mg PO DAILY 11/17/18 sertraline 50 mg tablet 50 mg PO BID tab 03/20/19 warfarin 4 mg tablet 4 mg PO DAILY #110 tab 05/04/19 atorvastatin 80 mg tablet 80 mg PO QHS #90 tab 06/21/19 digoxin 125 mcg (0.125 mg) tablet 62.5 mcg PO DAILY #90 tab 06/21/19 diltiazem HCl 120 mg tablet 120 mg PO DAILY #1 tab 06/21/19 furosemide 40 mg tablet 40 mg PO DAILY #1 tab 06/21/19 metoprolol succinate 50 mg 50 mg PO BID tab 06/21/19 tablet,extended release 24 hr Insulin Glargine,Hum.rec.anlog 10 unit SQ BREAKFAST 07/02/19 [Lantus Solostar] Insulin Lispro [Insulin Lispro 0 unit SQ TIDCM 07/02/19 Kwikpen U-100] Multivitamin [Once Daily] 1 ea PO DAILY 07/02/19 Potassium Chloride [K-Dur] 20 meq PO DAILY 07/02/19 Past Medical History (Chronic Problems): Chronic Problems (Last Reviewed 07/02/19 @ 07:[address] 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 Denies: Chest Discomfort, Shortness of Breath, Orthopnea, PND, Peripheral Edema, Palpitations, Lightheadedness, Dizziness, Near Syncope, Syncope Respiratory: Denies: Cough, Sputum Production, Hemoptysis Gastrointestinal: Reports: Melena. Denies: Hematemesis, Hematochezia Genitourinary: Denies: Dysuria, Hematuria Skin: Denies: Rash Objective: Vital Signs Temp Pulse Resp BP Pulse Ox 99 F 119 H 21 H 105/80 97 07/02/19 14:00 07/02/19 14:30 07/02/19 14:30 07/02/19 14:30 07/02/19 14:30 Oxygen Flow Rate (L/min) 1.5 Oxygen Delivery Method Nasal Cannula Weight: 246 lb 7.629 oz Body Mass Index (BMI) 39.7 Intake and Output for Last 24 Hours 06/30/19 07/01/19 07/02/19 23:59 23:59 23:59 Intake Total 3215.5 / 3215.5 Output Total 300 / 300 Balance 2915.5 / 2915.5 General: - - Just had upper endoscopy. Very drowsy, barely arousable HEENT: PERRL, EOMI, Sclera Non Icteric Neck: Supple, Good ROM, No Lymph Node Enlargement Lungs: Clear to auscultation Cardiovascular: Irregular Rhythm, No Murmurs, No Rubs Vascular: No Carotid Bruits, Normal Femoral Pulses, Normal Radial Pulses, Normal Dorsalis Pedal Pulse, Normal Posterior Tibial Pulses Abdomen: Bowel Sounds Present, Soft, Non Tender, No HSM, No Organomegaly, Obese Extremities: No Cyanosis, No Clubbing, No edema Neurological: - - Barely arousable after sedation for upper endoscopy 07/02/19 03:55: WBC 10.1, RBC 3.75 L, Hgb 10.8 L, Hct 33.6 L, MCV 89.6, MCH 28.8, MCHC 32.1, Plt Count 245, MPV 11.9, Immature Gran % (Auto) 0.600, Neut % (Auto) 72.6 H, Lymph % (Auto) 17.8 L, [place] % (Auto) 6.6, Eos % (Auto) 2.0, Baso % (Auto) 0.4, Absolute Neuts (auto) 7.3, Nucleated RBC % 0 07/02/19 03:55: Sodium 141, Potassium 4.1, Chloride 108 H, Carbon Dioxide 25.0, Anion Gap 8, BUN 67 H, Creatinine 1.25 H, Est GFR (MDRD) Af Amer 54 L, Est GFR (MDRD) Non-Af 44 L, BUN/Creatinine Ratio 53.6 H, Glucose 185 H, Calcium 8.3 L 07/02/19 03:55: Lactic Acid 2.6 H* 07/02/19 03:55: PT 24.3 H, INR 2.2 07/02/19 03:55: Troponin I < 0.015 07/02/19 07:30: Hgb 10.1 L, Hct 32.2 L 07/02/19 09:11: Lactic Acid 2.7 H* 07/02/19 12:00: Hgb 8.0 L, Hct 25.2 L 07/02/19 12:00: PT 18.7 H, INR 1.6 Rhythm: EKG: ECHO: Stress Test: Cardiac Cath: PCI: CT Surgery: Holter monitor: EPS: PPM: CXR: Chest CT Scan: Assessment/Plan #1 atrial fibrillation with fast ventricular rate, I would recommend titrating with IV digoxin and perhaps IV Cardizem when blood pressure is better #2 reason mitral valve replacement using bioprosthetic valve for mitral stenosis and pulmonary hypertension #3 active upper GI bleed on IV Protonix #4 stenting of the mid left anterior descending 9 months ago: At this point patient can be taken off aspirin and Plavix due to the active GI bleeding situation, no chest pain, no ischemia seen on the EKG. First sets of enzymes was normal #5 stage III renal insufficiency #6 anemia, I would recommend 1 units of packed cell to be given hemoglobin has dropped to 8 from 10 #7 hypertension and hyperlipidemia
[2019-07-02 17:11] LABS: Bedside Glucose 144 mg/dL (70-110)
[2019-07-02 20:30] LABS: Hematocrit 24.7 % (37-47); Hemoglobin 7.7 g/dL (12.0-15.0)
[2019-07-02] MEDS: dilTIAZem 30 MG Tablet PO (22:02)
[2019-07-02] MEDS: Lidocaine 5% Patch 1 PATCH TOPICAL (22:10)
[2019-07-02 23:21] LABS: Bedside Glucose 114 mg/dL (70-110)
[2019-07-03] VITALS (23 sets, daily range): BP systolic 92–135; BP diastolic 50–81; PULSE 73–146; RESP 12–20; TEMP 36.4–37.1; O2SAT 96–100
[2019-07-03 01:31] LABS: Hematocrit 22.7 % (37-47); Hemoglobin 7.2 g/dL (12.0-15.0)
[2019-07-03] MEDS: 0.9% Normal Saline 1,000 ML 50 ML IV ×2 (03:45→14:50)
[2019-07-03] MEDS: 0.9% Saline Lock 10 ML Syringe IV ×2 (06:04→14:52)
[2019-07-03] MEDS: dilTIAZem 30 MG Tablet PO ×3 (06:08→21:12)
--- NOTE | 2019-07-03 06:21 | PCM.PN.INT ---
Subjective: The patient was seen and examined at the bedside this morning. Events from the last 24 hours have been reviewed. The patient is currently afebrile, hemodynamically stable and maintaining appropriate oxygen saturations on 1 L/min via nasal cannula. The patient denies the presence of abdominal pain. Hemoglobin was last noted to be 7.1 g/dL this morning. Objective: The patient's most recent lab work, culture data and imaging studies have all been personally reviewed. General: Alert, Cooperative, No apparent distress HEENT: Atraumatic, Normocephalic Oral: No Gingival or Mucosal Lesions/ Ulcerations Neck: Supple, No Nodes, Trachea Midline Lungs: No rhonchi, No wheeze, No rales, Diminished Cardiovascular: Regular rate, Regular Rhythm, Normal S1, Normal S2, No murmurs Abdomen: Bowel Sounds Present, Soft, Non Tender, Obese Extremities: No clubbing, No cyanosis, Edema Skin: - - No significant change from previous Musculoskeletal: No Tenderness to Palpation of Joints or Extremities Lymphatic: No Cervical, Supraclavicular, or Inguinal Adenopathy Neurological: Cranial nerves II-XII grossly intact, Neuro grossly intact Psych/Mental Status: Normal Affect, Appropriate Vital Signs Temp Pulse Resp BP Pulse Ox 98.7 F 79 13 116/81 H 100 07/03/19 04:00 07/03/19 06:00 07/03/19 06:00 07/03/19 06:00 07/03/19 06:00 Oxygen Flow Rate (L/min) 1 Oxygen Delivery Method Nasal Cannula Weight: 251 lb 5.231 oz Body Mass Index (BMI) 39.7 Intake and Output for Last 24 Hours 07/01/19 07/02/19 07/03/19 23:59 23:59 23:59 Intake Total 4456.83 / 4456.83 424.17 / 424.17 Output Total 600 / 600 550 / 550 Balance 3856.83 / 3856.83 -125.83 / -125.83 Labs (Last 48 Hours) 07/02/19 07/02/19 07/02/19 03:55 03:55 03:55 WBC 10.1 RBC 3.75 L Hgb 10.8 L Hct 33.6 L MCV 89.6 MCH 28.8 MCHC 32.1 RDW Std Deviation 54.4 H RDW Coeff of Paul 16.8 H Plt Count 245 MPV 11.9 Immature Gran % (Auto) 0.600 Neut % (Auto) 72.6 H Lymph % (Auto) 17.8 L [place] % (Auto) 6.6 Eos % (Auto) 2.0 Baso % (Auto) 0.4 Absolute Neuts (auto) 7.3 Absolute Lymphs (auto) 1.79 Nucleated RBC % 0 PT INR Sodium 141 Potassium 4.1 Chloride 108 H Carbon Dioxide 25.0 Anion Gap 8 BUN 67 H Creatinine 1.25 H Estim Creat Clear Calc 35.84 Est GFR (MDRD) Af Amer 54 L Est GFR (MDRD) Non-Af 44 L BUN/Creatinine Ratio 53.6 H Glucose 185 H Lactic Acid 2.6 H* Calcium 8.3 L Total Bilirubin AST ALT Alkaline Phosphatase Troponin I Total Protein Albumin POC Glucose Blood Type Antibody Screen Crossmatch 07/02/19 07/02/19 07/02/19 03:55 03:55 03:55 WBC RBC Hgb Hct MCV MCH MCHC RDW Std Deviation RDW Coeff of Paul Plt Count MPV Immature Gran % (Auto) Neut % (Auto) Lymph % (Auto) [place] % (Auto) Eos % (Auto) Baso % (Auto) Absolute Neuts (auto) Absolute Lymphs (auto) Nucleated RBC % PT 24.3 H INR 2.2 Sodium Potassium Chloride Carbon Dioxide Anion Gap BUN Creatinine Estim Creat Clear Calc Est GFR (MDRD) Af Amer Est GFR (MDRD) Non-Af BUN/Creatinine Ratio Glucose Lactic Acid Calcium Total Bilirubin AST ALT Alkaline Phosphatase Troponin I < 0.015 Total Protein Albumin POC Glucose Blood Type A POSITIVE Antibody Screen NEGATIVE Crossmatch 07/02/19 07/02/19 07/02/19 03:55 07:30 09:11 WBC RBC Hgb 10.1 L Hct 32.2 L MCV MCH MCHC RDW Std Deviation RDW Coeff of Paul Plt Count MPV Immature Gran % (Auto) Neut % (Auto) Lymph % (Auto) [place] % (Auto) Eos % (Auto) Baso % (Auto) Absolute Neuts (auto) Absolute Lymphs (auto) Nucleated RBC % PT INR Sodium Potassium Chloride Carbon Dioxide Anion Gap BUN Creatinine Estim Creat Clear Calc Est GFR (MDRD) Af Amer Est GFR (MDRD) Non-Af BUN/Creatinine Ratio Glucose Lactic Acid 2.7 H* Calcium Total Bilirubin AST ALT Alkaline Phosphatase Troponin I Total Protein Albumin POC Glucose Blood Type Antibody Screen Crossmatch See Detail 07/02/19 07/02/19 07/02/19 09:56 12:00 12:00 WBC RBC Hgb 8.0 L Hct 25.2 L MCV MCH MCHC RDW Std Deviation RDW Coeff of Paul Plt Count MPV Immature Gran % (Auto) Neut % (Auto) Lymph % (Auto) [place] % (Auto) Eos % (Auto) Baso % (Auto) Absolute Neuts (auto) Absolute Lymphs (auto) Nucleated RBC % PT 18.7 H INR 1.6 Sodium Potassium Chloride Carbon Dioxide Anion Gap BUN Creatinine Estim Creat Clear Calc Est GFR (MDRD) Af Amer Est GFR (MDRD) Non-Af BUN/Creatinine Ratio Glucose Lactic Acid Calcium Total Bilirubin AST ALT Alkaline Phosphatase Troponin I Total Protein Albumin POC Glucose 171 H Blood Type Antibody Screen Crossmatch 07/02/19 07/02/19 07/02/19 13:01 17:05 20:15 WBC RBC Hgb 7.7 L Hct 24.7 L MCV MCH MCHC RDW Std Deviation RDW Coeff of Paul Plt Count MPV Immature Gran % (Auto) Neut % (Auto) Lymph % (Auto) [place] % (Auto) Eos % (Auto) Baso % (Auto) Absolute Neuts (auto) Absolute Lymphs (auto) Nucleated RBC % PT INR Sodium Potassium Chloride Carbon Dioxide Anion Gap BUN Creatinine Estim Creat Clear Calc Est GFR (MDRD) Af Amer Est GFR (MDRD) Non-Af BUN/Creatinine Ratio Glucose Lactic Acid Calcium Total Bilirubin AST ALT Alkaline Phosphatase Troponin I Total Protein Albumin POC Glucose 175 H 144 H Blood Type Antibody Screen Crossmatch 07/02/19 07/03/19 07/03/19 23:13 01:15 06:05 WBC Pending RBC Pending Hgb 7.2 L Pending Hct 22.7 L Pending MCV Pending MCH Pending MCHC Pending RDW Std Deviation Pending RDW Coeff of Paul Pending Plt Count Pending MPV Immature Gran % (Auto) Neut % (Auto) Pending Lymph % (Auto) [place] % (Auto) Eos % (Auto) Baso % (Auto) Absolute Neuts (auto) Pending Absolute Lymphs (auto) Nucleated RBC % PT INR Sodium Potassium Chloride Carbon Dioxide Anion Gap BUN Creatinine Estim Creat Clear Calc Est GFR (MDRD) Af Amer Est GFR (MDRD) Non-Af BUN/Creatinine Ratio Glucose Lactic Acid Calcium Total Bilirubin AST ALT Alkaline Phosphatase Troponin I Total Protein Albumin POC Glucose 114 H Blood Type Antibody Screen Crossmatch 07/03/19 07/03/19 06:05 06:05 WBC RBC Hgb Hct MCV MCH MCHC RDW Std Deviation RDW Coeff of Paul Plt Count MPV Immature Gran % (Auto) Neut % (Auto) Lymph % (Auto) [place] % (Auto) Eos % (Auto) Baso % (Auto) Absolute Neuts (auto) Absolute Lymphs (auto) Nucleated RBC % PT Pending INR Pending Sodium Pending Potassium Pending Chloride Pending Carbon Dioxide Pending Anion Gap Pending BUN Pending Creatinine Pending Estim Creat Clear Calc Est GFR (MDRD) Af Amer Pending Est GFR (MDRD) Non-Af Pending BUN/Creatinine Ratio Pending Glucose Pending Lactic Acid Calcium Pending Total Bilirubin Pending AST Pending ALT Pending Alkaline Phosphatase Pending Troponin I Total Protein Pending Albumin Pending POC Glucose Blood Type Antibody Screen Crossmatch Clinical Impression(s) from Imaging Studies Chest X-Ray 07/02/19 03:51 IMPRESSION: Postsurgical changes as above. There is no demonstrated pneumothorax. No pulmonary edema, congestive heart failure or confluent pneumonia. Electronically Signed: Tangela Mireles MD at 4:06 EDT , Service support , Abdomen/Pelvis CTA 07/02/19 05:27 IMPRESSION: Rectal wall thickening focally, underlying mass not excluded. Diffuse colonic diverticulosis, no active inflammation. Severe sigmoid diverticulosis. Moderate stenosis proximal celiac artery, diffuse arteriosclerosis. No bowel ischemia seen on submitted images. Cholelithiasis, common bile duct dilatation, no choledocholithiasis detected. Through the assessment can be obtained with ERCP, MRCP, ultrasound or biliary scan symptoms and suspicion level. Cardiomegaly, hepatic steatosis, probable right renal cyst, renal involution, renal scarring, atherosclerosis, presumed hysterectomy and osseous changes felt to be nonacute findings. Electronically Signed: Tangela Mireles MD at 7:27 EDT , Service support , Medical Necessity - Tobacco Use Smoking Status: Never smoker Tobacco Use: Non-smoker Assessment/Plan All Active Problems (Last Reviewed 07/02/19 @ 07:[address] Jeff Mcadams MD) Acute GI bleeding (Acute) History of coronary artery stent placement (Resolved 09/27/18) Atrial fibrillation with RVR (Resolved) Non-rheumatic aortic stenosis (Ruled-out) RECOMMENDATIONS: 1. Recheck H&H this afternoon. Plan to transfuse if hemoglobin is below 7 g/dL. 2. Defer additional upper/lower endoscopy work-up to general surgery. 3. Continue PPI therapy twice daily. IMPRESSIONS: 1. Acute blood loss anemia, likely secondary to gastrointestinal hemorrhage The patient is status post transfusion of blood products along with upper and lower endoscopy. Hemoglobin is relatively stable this morning at 7.1 g/dL. I would recommend rechecking an H&H this afternoon. The patient will likely require transfusion of additional blood products given her low normal hemoglobin level. There is no clear indication for repeat upper or lower endoscopy per general surgery. I would recommend that the patient remain on PPI therapy twice daily. 2. A. fib with RVR/acute systolic heart failure/recent mitral valve replacement The patient's baseline cardiac regimen can likely be slowly restarted pending stability and the patient's hemodynamic status and blood counts. 3. Acute kidney injury Improved. Likely prerenal in etiology. Creatinine stabilized with volume expansion. Continue to monitor urine output for now. 4. Diabetes mellitus/anxiety/depression/morbid obesity Complicates care, management, recovery and prognosis. Continue sliding scale insulin coverage. This note was generated with [employer] dictation software. It may contain incorrect words, spelling, and punctuation that were not noted in checking the note before signing. Inpatient E&M: 58888 Subs Hosp L3
[2019-07-03 06:27] LABS: Absolute Lymphocyte Count 1.46 X10^3/uL (0.83-4.51); Absolute Neutrophil Count 5.2 X10^3/uL (2.0-7.7); Basophil# 0.02 X10^3/uL; Basophil% 0.3 % (0-1); Eosinophil# 0.06 X10^3/uL; Eosinophils% 0.8 % (0-5); Hematocrit 23.1 % (37-47); Hemoglobin 7.1 g/dL (12.0-15.0); Lymphocyte # 1.46 X10^3/ul (4.0); Lymphocyte % 19.7 % (19-41); Mean Corp Hgb Conc 30.7 g/dL (32-36); Mean Corpuscular Hgb 29.2 pg (27.0-32.0); Mean Corpuscular Volume 95.1 fL (81-99); Mean Platelet Vol. 11.6 fl (6.2-12.0); Monocyte# 0.64 X10^3/uL; Monocyte% 8.6 % (0-10); NRBC Flagged by Analyzer 0.3 % (0-5); Neutrophil # 5.18 X10^3/uL (2.7-7.7); Neutrophil % 69.8 % (47-70); Platelet Count 149 K/mm3 (150-450); RBC Distribution Width CV 16.4 % (11.6-14.6); RBC Distribution Width SD 55.6 fl (35.1-43.9); Red Blood Count 2.43 M/mm3 (4.2-5.4); White Blood Count 7.4 K/mm3 (4.4-11.0)
[2019-07-03 06:43] LABS: ALB/GLOB Ratio 0.8 RATIO (0.9-2.4); AST(SGOT) 18 U/L (15-37); Alanine Aminotransfer ALT/SGPT 19 U/L (13-56); Albumin, Serum 2.7 g/dL (3.2-5.0); Alkaline Phosphatase 57 U/L (45-117); Anion Gap 3 (5-15); BUN 50 mg/dL (7-18); BUN/Creat Ratio 67.9 RATIO (10-20); Calcium,Total 7.8 mg/dL (8.5-10.1); Chloride 117 mmol/L (98-107); Creatinine, Serum 0.74 mg/dL (0.55-1.02); EST Glomerular Filtration Rate 81 mL/min (>60); Est Glom Filt Rate - Afr Amer 99 mL/min (>60); Globulin 3.3 g/dL (2.2-4.2); Glucose 123 mg/dL (74-106); Potassium 3.9 mmol/L (3.5-5.1); Sodium Level 149 mmol/L (136-145)
[2019-07-03 07:04] LABS: International Normalized Ratio 1.3; Prothrombin Time (Protime)PT. 16.4 SECONDS (11.7-14.9)
--- NOTE | 2019-07-03 07:15 | PN_ITS ---
Patient Problems: Active and Suspected Problems (Last Reviewed 07/02/19 @ 07:[address] Jeff Mcadams MD) Acute GI bleeding (Acute) Reason for Visit: Anemia Subjective: Patient is a 78-year-old lady who presented with bleeding per rectum Objective: GENERAL: cooperative HEENT: Atraumatic; EYES; Anicteric, Normal Conjunctiva NECK; supple, normal thyroid, RESPIRATORY: Diminished to auscultation CARDIOVASCULAR: Irregular S1-S2 GI: soft, normoactive bowel sounds, : No Renal angle tenderness; EXTREMITIES: No edema, no clubbing, MUSCULOSKELETAL: no muscle waisting NEURO: Awake; no lateralizing signs. SKIN: No Rash PSYCH; Flat affect Vitals/I&O's: Vital Signs Temp Pulse Resp BP Pulse Ox 98.7 F 81 14 115/75 100 07/03/19 04:00 07/03/19 07:00 07/03/19 07:00 07/03/19 07:00 07/03/19 07:00 Oxygen Flow Rate (L/min) 1 Oxygen Delivery Method Nasal Cannula Weight: 114 kg Body Mass Index (BMI) 39.7 Intake and Output for Last 24 Hours 07/01/19 07/02/19 07/03/19 23:59 23:59 23:59 Intake Total 4456.83 / 4456.83 561.00 / 561.00 Output Total 600 / 600 550 / 550 Balance 3856.83 / 3856.83 11.00 / 11.00 Laboratory Results 07/02/19 03:55: Crossmatch See Detail 07/02/19 07:30: Hgb 10.1 L, Hct 32.2 L 07/02/19 09:11: Lactic Acid 2.7 H* 07/02/19 09:56: POC Glucose 171 H 07/02/19 12:00: Hgb 8.0 L, Hct 25.2 L 07/02/19 12:00: PT 18.7 H, INR 1.6 07/02/19 13:01: POC Glucose 175 H 07/02/19 17:05: POC Glucose 144 H 07/02/19 20:15: Hgb 7.7 L, Hct 24.7 L 07/02/19 23:13: POC Glucose 114 H 07/03/19 01:15: Hgb 7.2 L, Hct 22.7 L 07/03/19 06:05: WBC 7.4, RBC 2.43 L, Hgb 7.1 L, Hct 23.1 L, MCV 95.1 D, MCH 29.2, MCHC 30.7 L, RDW Std Deviation 55.6 H, RDW Coeff of Paul 16.4 H, Plt Count 149 L, MPV 11.6, Immature Gran % (Auto) 0.800, Neut % (Auto) 69.8, Lymph % (Auto) 19.7, Otero % (Auto) 8.6, Eos % (Auto) 0.8, Baso % (Auto) 0.3, Absolute Neuts (auto) 5.2, Absolute Lymphs (auto) 1.46, Nucleated RBC % 0.3 07/03/19 06:05: PT 16.4 H, INR 1.3 07/03/19 06:05: Sodium 149 H, Potassium 3.9, Chloride 117 H, Carbon Dioxide 29.0, Anion Gap 3 L, BUN 50 H, Creatinine 0.74, Estim Creat Clear Calc 44.80, Est GFR (MDRD) Af Amer 99, Est GFR (MDRD) Non-Af 81, BUN/Creatinine Ratio 67.9 H , Glucose 123 H, Calcium 7.8 L, Total Bilirubin 0.20, AST 18, ALT 19, Alkaline Phosphatase 57, Total Protein 6.0 L, Albumin 2.7 L, Globulin 3.3, Albumin/Globulin Ratio 0.8 L Current Medications Diltiazem HCl (Cardizem) 30 mg PO Q8 [facility] Last Admin: 07/03/19 06:08 Dose: 30 mg Documented by: Glucagon () 1 mg IM .X1 PRN PRN Reason: Hypoglycemia Sodium Chloride () 500 mls @ 15 mls/hr IV PRN PRN PRN Reason: Blood Transfusion Sodium Chloride () 250 mls @ 15 mls/hr IV .[id number] PRN PRN Reason: Saline Flush Sodium Chloride () 250 mls @ 15 mls/hr IV .[id number] PRN PRN Reason: Additional IVPB Infusion Sodium Chloride () 1,000 mls @ 50 mls/hr IV .Q20H [facility] Last Infusion: 07/03/19 05:30 Dose: 50 mls/hr Documented by: Pantoprazole Sodium 80 mg/ (Sodium Chloride) 100 mls @ 10 mls/hr CONT INF Q10H [facility] Last Infusion: 07/03/19 05:30 Dose: 10 mls/hr Documented by: Insulin Human Lispro (Humalog Kwikpen (Bkc)) 0 unit SC Q6 [facility]; Protocol Last Admin: 07/03/19 06:45 Dose: Not Given Documented by: Lidocaine (Lidoderm Patch) 1 patch TOPICAL DAILY@1900 [facility]; Protocol Last Admin: 07/02/19 22:10 Dose: 1 patch Documented by: Morphine Sulfate () 2 mg IV Q3H PRN PRN PRN Reason: pain 6-10/10 Ondansetron HCl (Zofran) 4 mg IV Q6H PRN PRN PRN Reason: NAUSEA/VOMITING Last Admin: 07/02/19 12:24 Dose: 4 mg Documented by: Prochlorperazine Edisylate (Compazine Iv) 5 mg IV Q6H PRN PRN PRN Reason: NAUSEA/VOMITING Last Admin: 07/02/19 14:20 Dose: 5 mg Documented by: Sodium Chloride () 10 - 40 ml IV UD PRN PRN Reason: Multilumen/[place] Flush Last Admin: 07/03/19 06:04 Dose: 10 ml Documented by: Sodium Chloride (0.9% Nacl (Sterile) Posiflush) 10 - 40 ml IV UD PRN PRN Reason: Port access or dressing change Sodium Chloride () 10 - 40 ml IV UD PRN PRN Reason: SALINE FLUSH STROKE Vital Signs/Narrative: Vital Signs Temp Pulse Resp BP Pulse Ox 07/03/19 07:00 81 14 115/75 100 07/03/19 06:00 79 13 116/81 H 100 07/03/19 05:00 80 14 131/58 H 99 07/03/19 04:00 98.7 F 77 15 105/56 L 99 07/03/19 03:39 78 Medical Necessity - Tobacco Use Smoking Status: Never smoker Tobacco Use: Non-smoker Assessment/Plan All Active Problems (Last Reviewed 07/02/19 @ 07:[address] Jeff Mcadams MD) Acute GI bleeding (Acute) History of coronary artery stent placement (Resolved 09/27/18) Atrial fibrillation with RVR (Resolved) Non-rheumatic aortic stenosis (Ruled-out) Patient is a 78-year-old lady who presented with bleeding per rectum 1. Acute blood loss anemia ?Secondary to GI bleed ?Has been transfused 1 unit PRBC monitoring with plans to transfuse further if hemoglobin falls below 7 or patient becomes symptomatic subsequently ordered H&H daily. 2. Acute GI bleed ?Patient underwent endoscopic evaluation with demonstrated duodenitis as well as gastric ulcer 2. Coagulopathy ?Reversed prior to patient undergoing EGD and colonoscopy 4. Chronic A. fib ?Rate controlled patient was on systemic anticoagulation with Coumadin reversed prior to patient's procedure 5. Valvular heart disease ?Status post porcine mitral valve replacement with clipping of atrial appendage on 06/06/2019 at [facility] 6. Hypertension ~ blood pressure controlled, home medications continued with dose adjustment as needed 7. Dyslipidemia ~patient is on statin therapy, continued at home dose 8. Chronic kidney disease stage III 9. Diabetes mellitus type II ~With complications including including diabetic nephropathy, controlled on long acting insulin, Accu-Cheks a.c. and at bedtime and covered with sliding scale insulin 10. Coronary artery disease with PCI/MICHELLE of the mid LAD lesion ?Patient was seen by cardiology Dr. Figueroa who recommended patient to be taken of her aspirin and Plavix 11. DVT prophylaxis ?Bilateral SCDs Active Medications Diltiazem HCl (Cardizem) 30 mg PO Q8 [facility] Last Admin: 07/03/19 06:08 Dose: 30 mg Documented by: Glucagon () 1 mg IM .X1 PRN PRN Reason: Hypoglycemia Sodium Chloride () 500 mls @ 15 mls/hr IV PRN PRN PRN Reason: Blood Transfusion Sodium Chloride () 250 mls @ 15 mls/hr IV .[id number] PRN PRN Reason: Saline Flush Sodium Chloride () 250 mls @ 15 mls/hr IV .[id number] PRN PRN Reason: Additional IVPB Infusion Sodium Chloride () 1,000 mls @ 50 mls/hr IV .Q20H [facility] Last Infusion: 07/03/19 05:30 Dose: 50 mls/hr Documented by: Pantoprazole Sodium 40 mg/ (Sodium Chloride) 110 mls @ 330 mls/hr IV Q12 [facility] Insulin Human Lispro (Humalog Kwikpen (Bkc)) 0 unit SC Q6 [facility]; Protocol Last Admin: 07/03/19 06:45 Dose: Not Given Documented by: Lidocaine (Lidoderm Patch) 1 patch TOPICAL DAILY@1900 [facility]; Protocol Last Admin: 07/02/19 22:10 Dose: 1 patch Documented by: Morphine Sulfate () 2 mg IV Q3H PRN PRN PRN Reason: pain 6-10/10 Ondansetron HCl (Zofran) 4 mg IV Q6H PRN PRN PRN Reason: NAUSEA/VOMITING Last Admin: 07/02/19 12:24 Dose: 4 mg Documented by: Prochlorperazine Edisylate (Compazine Iv) 5 mg IV Q6H PRN PRN PRN Reason: NAUSEA/VOMITING Last Admin: 07/02/19 14:20 Dose: 5 mg Documented by: Sodium Chloride () 10 - 40 ml IV UD PRN PRN Reason: Multilumen/[place] Flush Last Admin: 07/03/19 06:04 Dose: 10 ml Documented by: Sodium Chloride (0.9% Nacl (Sterile) Posiflush) 10 - 40 ml IV UD PRN PRN Reason: Port access or dressing change Sodium Chloride () 10 - 40 ml IV UD PRN PRN Reason: SALINE FLUSH Inpatient E&M: 48189 Subs Hosp L2
--- NOTE | 2019-07-03 11:28 | CASEMGMT ---
RN GALEN Face to Face with patient for initial transition planning/care coordination assessment. RN CM introduced self and role at [facility]. Patient lying in bed, alert and oriented. Patient willing to participate in assessment and is able to answer all questions appropriately. Care providers, pharmacy, and demographics verified. Patient wishes to discharge home, denies need for home health at this time. Patient states she has no further needs or concerns at this time. CM to follow for discharge planning needs that may arise. PCP: Flori Specialists: Jesus security support analyst Preferred Pharmacy: [facility] Insurance: none, [facility] Prescription Benefit: none Living Will/HPOA: yes, daughter Valeria Sifuentes HPOA LNOK: daughter, son Living Arrangements: Patient lives with daughter in 2 story home with bed and bath on first floor. Patient states she is independent at home. Son lives across the street. Transportation: Driving service DME/HHC: Patient states she has shower chair, raised toilet, grab bars, and walker at home. Patient given list of [facility] DME warehouse should she require additional equipment. Patient denies previous HHC. Will monitor how patient progresses with therapy. Disposition Plan: Patient to discharge home with family support and follow-up plans in place. Will monitor for need for therapy. Valeria HAMMOND, RN, CM
[2019-07-03 12:10] LABS: Bedside Glucose 102 mg/dL (70-110)
[2019-07-03 12:31] LABS: Hematocrit 22.5 % (37-47); Hemoglobin 7.1 g/dL (12.0-15.0)
[2019-07-03] MEDS: Electrolyte Solution/Peg's 4000 ML PO (12:53)
--- NOTE | 2019-07-03 14:15 | CHAPLAIN ---
Type of Pastoral Visit _x__ Initial Visit ___ Follow-up Visit ___ On-call Visit ___ General Patient Visit ___ Spiritual Assessment ___ Family Conference ___ Bereavement ___ Rapid Response ___ Code Blue ___ Other (describe below) Pastoral Care Referral From _x__ Patient ___ Family ___ Nurse ___ Physician ___ Account Specialist ___ Blanket Folder ___ Other (describe below) Sacrament/Intervention _x__ Active listening ___ Anointing ___ Religion ___ Bereavement ___ Communion ___ Asha exploration ___ ___ Life review _x__ Prayer ___ Reconciliation ___ Sacrament of Sick _x__ Supportive presence ___ Wedding ___ Other (describe below) Pastoral Comments
[2019-07-03] MEDS: Lidocaine 5% Patch 1 PATCH TOPICAL (18:10)
[2019-07-03 18:16] LABS: Bedside Glucose 135 mg/dL (70-110)
[2019-07-03 23:46] LABS: Bedside Glucose 125 mg/dL (70-110)
[2019-07-04] VITALS (28 sets, daily range): BP systolic 101–141; BP diastolic 64–84; PULSE 65–127; RESP 16–22; TEMP 36.4–37.5; O2SAT 95–100
[2019-07-04 06:30] LABS: Bedside Glucose 130 mg/dL (70-110)
[2019-07-04 06:47] LABS: International Normalized Ratio 1.3; Prothrombin Time (Protime)PT. 15.9 SECONDS (11.7-14.9)
--- NOTE | 2019-07-04 07:39 | PN_ITS ---
Patient Problems: Active and Suspected Problems (Last Reviewed 07/02/19 @ 07:[address] Jeff Mcadams MD) Acute GI bleeding (Acute) Reason for Visit: GI bleed. Subjective: Patient hemoglobin did drop to 6.5 colonoscopy scheduled. Objective: GENERAL: cooperative HEENT: Atraumatic; EYES; Anicteric, Normal Conjunctiva NECK; supple, normal thyroid, RESPIRATORY: Diminished to auscultation CARDIOVASCULAR: Irregular S1-S2 GI: soft, normoactive bowel sounds, : No Renal angle tenderness; EXTREMITIES: No edema, no clubbing, MUSCULOSKELETAL: no muscle waisting NEURO: Awake; no lateralizing signs. SKIN: No Rash PSYCH; Flat affect Vitals/I&O's: Vital Signs Temp Pulse Resp BP Pulse Ox 98.5 F 99 16 116/70 97 07/04/19 04:25 07/04/19 06:46 07/04/19 04:25 07/04/19 04:25 07/04/19 04:25 Oxygen Flow Rate (L/min) 2 Oxygen Delivery Method Nasal Cannula Weight: 115.1 kg Body Mass Index (BMI) 39.7 Intake and Output for Last 24 Hours 07/02/19 07/03/19 07/04/19 23:59 23:59 23:59 Intake Total 4456.83 / 4456.83 3078.17 / 3078.17 1600 / 1600 Output Total 600 / 600 550 / 550 300 / 300 Balance 3856.83 / 3856.83 2528.17 / 2528.17 1300 / 1300 Laboratory Results 07/03/19 12:04: POC Glucose 102 07/03/19 12:22: Hgb 7.1 L, Hct 22.5 L 07/03/19 18:07: POC Glucose 135 H 07/03/19 23:39: POC Glucose 125 H 07/04/19 06:22: PT 15.9 H, INR 1.3 07/04/19 06:25: POC Glucose 130 H Current Medications Diltiazem HCl (Cardizem) 30 mg PO Q8 [facility] Last Admin: 07/03/19 21:12 Dose: 30 mg Documented by: Glucagon () 1 mg IM .X1 PRN PRN Reason: Hypoglycemia Sodium Chloride () 500 mls @ 15 mls/hr IV PRN PRN PRN Reason: Blood Transfusion Sodium Chloride () 250 mls @ 15 mls/hr IV .[id number] PRN PRN Reason: Saline Flush Sodium Chloride () 250 mls @ 15 mls/hr IV .[id number] PRN PRN Reason: Additional IVPB Infusion Sodium Chloride () 1,000 mls @ 50 mls/hr IV .Q20H [facility] Last Admin: 07/03/19 14:50 Dose: 50 mls/hr Documented by: Pantoprazole Sodium 40 mg/ (Sodium Chloride) 110 mls @ 330 mls/hr IV Q12 [facility] Last Infusion: 07/03/19 22:51 Dose: Infused Documented by: Insulin Human Lispro (Humalog Kwikpen (Bkc)) 0 unit SC Q6 [facility]; Protocol Last Admin: 07/04/19 07:37 Dose: Not Given Documented by: Lidocaine (Lidoderm Patch) 1 patch TOPICAL DAILY@1900 [facility]; Protocol Last Admin: 07/03/19 18:10 Dose: 1 patch Documented by: Morphine Sulfate () 2 mg IV Q3H PRN PRN PRN Reason: pain 6-10/10 Ondansetron HCl (Zofran) 4 mg IV Q6H PRN PRN PRN Reason: NAUSEA/VOMITING Last Admin: 07/02/19 12:24 Dose: 4 mg Documented by: Prochlorperazine Edisylate (Compazine Iv) 5 mg IV Q6H PRN PRN PRN Reason: NAUSEA/VOMITING Last Admin: 07/02/19 14:20 Dose: 5 mg Documented by: Sodium Chloride () 10 - 40 ml IV UD PRN PRN Reason: Multilumen/[place] Flush Last Admin: 07/03/19 14:52 Dose: 10 ml Documented by: Sodium Chloride (0.9% Nacl (Sterile) Posiflush) 10 - 40 ml IV UD PRN PRN Reason: Port access or dressing change Sodium Chloride () 10 - 40 ml IV UD PRN PRN Reason: SALINE FLUSH STROKE Vital Signs/Narrative: Vital Signs Temp Pulse Resp BP Pulse Ox 07/04/19 06:46 99 07/04/19 04:25 98.5 F 86 16 116/70 97 07/04/19 04:08 114 H Medical Necessity - Tobacco Use Smoking Status: Never smoker Tobacco Use: Non-smoker Assessment/Plan All Active Problems (Last Reviewed 07/02/19 @ 07:[address] Jeff Mcadams MD) Acute GI bleeding (Acute) History of coronary artery stent placement (Resolved 09/27/18) Atrial fibrillation with RVR (Resolved) Non-rheumatic aortic stenosis (Ruled-out) Patient is a 78-year-old lady who presented with bleeding per rectum 1. Acute blood loss anemia ?Secondary to GI bleed ?Has been transfused 1 unit PRBC monitoring with plans to transfuse further if hemoglobin falls below 7 or patient becomes symptomatic subsequently ordered H&H daily. ?07/04/2019: Hemoglobin did drop to 8.7: Patient was transfused 1 additional unit PRBC. 2. Acute GI bleed ?Patient underwent endoscopic evaluation with demonstrated duodenitis as well as gastric ulcer ?07/04/2019 colonoscopy performed demonstrated findings of pandiverticulosis with possible bleeding diverticula at rectosigmoid junction -about 30cm which had placement of hemostatic clips. Also incidentally found was a cecal polyp which was biopsied. 3. Coagulopathy ?Reversed prior to patient undergoing EGD and colonoscopy 4. Chronic A. fib ?Rate controlled patient was on systemic anticoagulation with Coumadin reversed prior to patient's procedure 5. Valvular heart disease ?Status post porcine mitral valve replacement with clipping of atrial appendage on 06/06/2019 at [facility] 6. Hypertension ~ blood pressure controlled, home medications continued with dose adjustment as needed 7. Dyslipidemia ~patient is on statin therapy, continued at home dose 8. Chronic kidney disease stage III 9. Diabetes mellitus type II ~With complications including including diabetic nephropathy, controlled on long acting insulin, Accu-Cheks a.c. and at bedtime and covered with sliding scale insulin 10. Coronary artery disease with PCI/MICHELLE of the mid LAD lesion ?Patient was seen by cardiology Dr. Figueroa who recommended patient to be taken of her aspirin and Plavix 11. DVT prophylaxis ?Bilateral SCDs Inpatient E&M: [id number] [facility] Hosp L3
[2019-07-04] MEDS: dilTIAZem 30 MG Tablet PO ×2 (07:47→13:28)
[2019-07-04 07:49] LABS: Absolute Lymphocyte Count 1.91 X10^3/uL (0.83-4.51); Absolute Neutrophil Count 5.6 X10^3/uL (2.0-7.7); Basophil# 0.04 X10^3/uL; Basophil% 0.5 % (0-1); Eosinophil# 0.15 X10^3/uL; Eosinophils% 1.8 % (0-5); Hematocrit 21.5 % (37-47); Hemoglobin 6.7 g/dL (12.0-15.0); Lymphocyte # 1.91 X10^3/ul (4.0); Lymphocyte % 22.4 % (19-41); Mean Corp Hgb Conc 31.2 g/dL (32-36); Mean Corpuscular Hgb 29.6 pg (27.0-32.0); Mean Corpuscular Volume 95.1 fL (81-99); Monocyte# 0.73 X10^3/uL; Monocyte% 8.6 % (0-10); NRBC Flagged by Analyzer 1.6 % (0-5); Neutrophil # 5.63 X10^3/uL (2.7-7.7); Platelet Count 150 K/mm3 (150-450); RBC Distribution Width CV 16.8 % (11.6-14.6); RBC Distribution Width SD 57.4 fl (35.1-43.9); Red Blood Count 2.26 M/mm3 (4.2-5.4); White Blood Count 8.5 K/mm3 (4.4-11.0)
[2019-07-04 07:58] LABS: Anion Gap 7 (5-15); BUN 26 mg/dL (7-18); BUN/Creat Ratio 34.3 RATIO (10-20); Calcium,Total 7.9 mg/dL (8.5-10.1); Chloride 115 mmol/L (98-107); Creatinine, Serum 0.76 mg/dL (0.55-1.02); EST Glomerular Filtration Rate 79 mL/min (>60); Est Glom Filt Rate - Afr Amer 95 mL/min (>60); Glucose 134 mg/dL (74-106); Potassium 3.6 mmol/L (3.5-5.1); Sodium Level 147 mmol/L (136-145)
[2019-07-04] MEDS: Fleet Enema 1 ML RECTAL (08:08)
--- NOTE | 2019-07-04 08:22 | PCM.PN.PUL ---
Patient Problems: Active and Suspected Problems (Last Reviewed 07/02/19 @ 07:[address] Jeff Mcadams MD) Acute GI bleeding (Acute) Subjective: The patient was seen and examined at the bedside this morning. Events from the last 24 hours have been reviewed. The patient is currently afebrile, hemodynamically stable and maintaining appropriate oxygen saturations on 2 L/min via nasal cannula. The patient's hemoglobin once again fell to 6.7 g/dL this morning. Type and cross for an additional 2 units of packed red blood cells has been placed. There are tentative plans for repeat endoscopic evaluation today. Objective: The patient's most recent lab work, culture data and imaging studies have all been personally reviewed. - Physical Exam Vitals/I&O's: Vital Signs Temp Pulse Resp BP Pulse Ox 98.3 F 92 20 H 133/81 H 99 07/04/19 07:43 07/04/19 07:43 07/04/19 07:43 07/04/19 07:43 07/04/19 07:43 Oxygen Flow Rate (L/min) 2 Oxygen Delivery Method Nasal Cannula Weight: 253 lb 12.033 oz Body Mass Index (BMI) 39.7 Intake and Output for Last 24 Hours 07/02/19 07/03/19 07/04/19 23:59 23:59 23:59 Intake Total 4456.83 / 4456.83 3078.17 / 3078.17 1600 / 1600 Output Total 600 / 600 550 / 550 300 / 300 Balance 3856.83 / 3856.83 2528.17 / 2528.17 1300 / 1300 General: Alert, Cooperative, No apparent distress HEENT: Atraumatic, Normocephalic Oral: No Gingival or Mucosal Lesions/ Ulcerations Neck: Supple, No Nodes, Trachea Midline Lungs: No rhonchi, No wheeze, No rales, Diminished Cardiovascular: Regular rate, Regular Rhythm, Normal S1, Normal S2, No murmurs Abdomen: Bowel Sounds Present, Soft, Non Tender Extremities: No clubbing, No cyanosis Skin: No breakdown Musculoskeletal: No Tenderness to Palpation of Joints or Extremities Lymphatic: No Cervical, Supraclavicular, or Inguinal Adenopathy Neurological: Cranial nerves II-XII grossly intact, Neuro grossly intact Psych/Mental Status: Normal Affect, Appropriate Labs (Last 48 Hours) 07/02/19 07/02/19 07/02/19 03:55 09:11 09:56 WBC RBC Hgb Hct MCV MCH MCHC RDW Std Deviation RDW Coeff of Paul Plt Count MPV Immature Gran % (Auto) Neut % (Auto) Lymph % (Auto) [place] % (Auto) Eos % (Auto) Baso % (Auto) Absolute Neuts (auto) Absolute Lymphs (auto) Nucleated RBC % PT INR Sodium Potassium Chloride Carbon Dioxide Anion Gap BUN Creatinine Estim Creat Clear Calc Est GFR (MDRD) Af Amer Est GFR (MDRD) Non-Af BUN/Creatinine Ratio Glucose Lactic Acid 2.7 H* Calcium Total Bilirubin AST ALT Alkaline Phosphatase Total Protein Albumin Globulin Albumin/Globulin Ratio POC Glucose 171 H Crossmatch See Detail 07/02/19 07/02/19 07/02/19 12:00 12:00 13:01 WBC RBC Hgb 8.0 L Hct 25.2 L MCV MCH MCHC RDW Std Deviation RDW Coeff of Paul Plt Count MPV Immature Gran % (Auto) Neut % (Auto) Lymph % (Auto) [place] % (Auto) Eos % (Auto) Baso % (Auto) Absolute Neuts (auto) Absolute Lymphs (auto) Nucleated RBC % PT 18.7 H INR 1.6 Sodium Potassium Chloride Carbon Dioxide Anion Gap BUN Creatinine Estim Creat Clear Calc Est GFR (MDRD) Af Amer Est GFR (MDRD) Non-Af BUN/Creatinine Ratio Glucose Lactic Acid Calcium Total Bilirubin AST ALT Alkaline Phosphatase Total Protein Albumin Globulin Albumin/Globulin Ratio POC Glucose 175 H Crossmatch 07/02/19 07/02/19 07/02/19 17:05 20:15 23:13 WBC RBC Hgb 7.7 L Hct 24.7 L MCV MCH MCHC RDW Std Deviation RDW Coeff of Paul Plt Count MPV Immature Gran % (Auto) Neut % (Auto) Lymph % (Auto) [place] % (Auto) Eos % (Auto) Baso % (Auto) Absolute Neuts (auto) Absolute Lymphs (auto) Nucleated RBC % PT INR Sodium Potassium Chloride Carbon Dioxide Anion Gap BUN Creatinine Estim Creat Clear Calc Est GFR (MDRD) Af Amer Est GFR (MDRD) Non-Af BUN/Creatinine Ratio Glucose Lactic Acid Calcium Total Bilirubin AST ALT Alkaline Phosphatase Total Protein Albumin Globulin Albumin/Globulin Ratio POC Glucose 144 H 114 H Crossmatch 07/03/19 07/03/19 07/03/19 01:15 06:05 06:05 WBC 7.4 RBC 2.43 L Hgb 7.2 L 7.1 L Hct 22.7 L 23.1 L MCV 95.1 D MCH 29.2 MCHC 30.7 L RDW Std Deviation 55.6 H RDW Coeff of Paul 16.4 H Plt Count 149 L MPV 11.6 Immature Gran % (Auto) 0.800 Neut % (Auto) 69.8 Lymph % (Auto) 19.7 [place] % (Auto) 8.6 Eos % (Auto) 0.8 Baso % (Auto) 0.3 Absolute Neuts (auto) 5.2 Absolute Lymphs (auto) 1.46 Nucleated RBC % 0.3 PT 16.4 H INR 1.3 Sodium Potassium Chloride Carbon Dioxide Anion Gap BUN Creatinine Estim Creat Clear Calc Est GFR (MDRD) Af Amer Est GFR (MDRD) Non-Af BUN/Creatinine Ratio Glucose Lactic Acid Calcium Total Bilirubin AST ALT Alkaline Phosphatase Total Protein Albumin Globulin Albumin/Globulin Ratio POC Glucose Crossmatch 07/03/19 07/03/19 07/03/19 06:05 12:04 12:22 WBC RBC Hgb 7.1 L Hct 22.5 L MCV MCH MCHC RDW Std Deviation RDW Coeff of Paul Plt Count MPV Immature Gran % (Auto) Neut % (Auto) Lymph % (Auto) [place] % (Auto) Eos % (Auto) Baso % (Auto) Absolute Neuts (auto) Absolute Lymphs (auto) Nucleated RBC % PT INR Sodium 149 H Potassium 3.9 Chloride 117 H Carbon Dioxide 29.0 Anion Gap 3 L BUN 50 H Creatinine 0.74 Estim Creat Clear Calc 44.80 Est GFR (MDRD) Af Amer 99 Est GFR (MDRD) Non-Af 81 BUN/Creatinine Ratio 67.9 H Glucose 123 H Lactic Acid Calcium 7.8 L Total Bilirubin 0.20 AST 18 ALT 19 Alkaline Phosphatase 57 Total Protein 6.0 L Albumin 2.7 L Globulin 3.3 Albumin/Globulin Ratio 0.8 L POC Glucose 102 Crossmatch 07/03/19 07/03/19 07/04/19 18:07 23:39 06:22 WBC RBC Hgb Hct MCV MCH MCHC RDW Std Deviation RDW Coeff of Paul Plt Count MPV Immature Gran % (Auto) Neut % (Auto) Lymph % (Auto) [place] % (Auto) Eos % (Auto) Baso % (Auto) Absolute Neuts (auto) Absolute Lymphs (auto) Nucleated RBC % PT 15.9 H INR 1.3 Sodium Potassium Chloride Carbon Dioxide Anion Gap BUN Creatinine Estim Creat Clear Calc Est GFR (MDRD) Af Amer Est GFR (MDRD) Non-Af BUN/Creatinine Ratio Glucose Lactic Acid Calcium Total Bilirubin AST ALT Alkaline Phosphatase Total Protein Albumin Globulin Albumin/Globulin Ratio POC Glucose 135 H 125 H Crossmatch 07/04/19 07/04/19 07/04/19 06:22 06:22 06:25 WBC 8.5 RBC 2.26 L Hgb 6.7 L Hct 21.5 L MCV 95.1 MCH 29.6 MCHC 31.2 L RDW Std Deviation 57.4 H RDW Coeff of Paul 16.8 H Plt Count 150 MPV 12.0 Immature Gran % (Auto) 0.700 Neut % (Auto) 66.0 Lymph % (Auto) 22.4 [place] % (Auto) 8.6 Eos % (Auto) 1.8 Baso % (Auto) 0.5 Absolute Neuts (auto) 5.6 Absolute Lymphs (auto) 1.91 Nucleated RBC % 1.6 PT INR Sodium 147 H Potassium 3.6 Chloride 115 H Carbon Dioxide 25.0 Anion Gap 7 BUN 26 H Creatinine 0.76 Estim Creat Clear Calc 44.80 Est GFR (MDRD) Af Amer 95 Est GFR (MDRD) Non-Af 79 BUN/Creatinine Ratio 34.3 H Glucose 134 H Lactic Acid Calcium 7.9 L Total Bilirubin AST ALT Alkaline Phosphatase Total Protein Albumin Globulin Albumin/Globulin Ratio POC Glucose 130 H Crossmatch Clinical Impression(s) from Imaging Studies Chest X-Ray 07/02/19 03:51 IMPRESSION: Postsurgical changes as above. There is no demonstrated pneumothorax. No pulmonary edema, congestive heart failure or confluent pneumonia. Electronically Signed: Tangela Mireles MD at 4:06 EDT , Service support , Abdomen/Pelvis CTA 07/02/19 05:27 IMPRESSION: Rectal wall thickening focally, underlying mass not excluded. Diffuse colonic diverticulosis, no active inflammation. Severe sigmoid diverticulosis. Moderate stenosis proximal celiac artery, diffuse arteriosclerosis. No bowel ischemia seen on submitted images. Cholelithiasis, common bile duct dilatation, no choledocholithiasis detected. Through the assessment can be obtained with ERCP, MRCP, ultrasound or biliary scan symptoms and suspicion level. Cardiomegaly, hepatic steatosis, probable right renal cyst, renal involution, renal scarring, atherosclerosis, presumed hysterectomy and osseous changes felt to be nonacute findings. Electronically Signed: Tangela Mireles MD at 7:27 EDT , Service support , Current Medications Diltiazem HCl (Cardizem) 30 mg PO Q8 [facility] Last Admin: 07/04/19 07:47 Dose: 30 mg Documented by: Glucagon () 1 mg IM .X1 PRN PRN Reason: Hypoglycemia Sodium Chloride () 500 mls @ 15 mls/hr IV PRN PRN PRN Reason: Blood Transfusion Sodium Chloride () 250 mls @ 15 mls/hr IV .[id number] PRN PRN Reason: Saline Flush Sodium Chloride () 250 mls @ 15 mls/hr IV .[id number] PRN PRN Reason: Additional IVPB Infusion Sodium Chloride () 1,000 mls @ 50 mls/hr IV .Q20H [facility] Last Admin: 07/03/19 14:50 Dose: 50 mls/hr Documented by: Pantoprazole Sodium 40 mg/ (Sodium Chloride) 110 mls @ 330 mls/hr IV Q12 [facility] Last Infusion: 07/03/19 22:51 Dose: Infused Documented by: Insulin Human Lispro (Humalog Kwikpen (Bkc)) 0 unit SC Q6 RIGO; Protocol Last Admin: 07/04/19 07:37 Dose: Not Given Documented by: Lidocaine (Lidoderm Patch) 1 patch TOPICAL DAILY@1900 RIGO; Protocol Last Admin: 07/03/19 18:10 Dose: 1 patch Documented by: Morphine Sulfate () 2 mg IV Q3H PRN PRN PRN Reason: pain 6-10/10 Ondansetron HCl (Zofran) 4 mg IV Q6H PRN PRN PRN Reason: NAUSEA/VOMITING Last Admin: 07/02/19 12:24 Dose: 4 mg Documented by: Prochlorperazine Edisylate (Compazine Iv) 5 mg IV Q6H PRN PRN PRN Reason: NAUSEA/VOMITING Last Admin: 07/02/19 14:20 Dose: 5 mg Documented by: Sodium Chloride () 10 - 40 ml IV UD PRN PRN Reason: Multilumen/[place] Flush Last Admin: 07/03/19 14:52 Dose: 10 ml Documented by: Sodium Chloride (0.9% Nacl (Sterile) Posiflush) 10 - 40 ml IV UD PRN PRN Reason: Port access or dressing change Sodium Chloride () 10 - 40 ml IV UD PRN PRN Reason: SALINE FLUSH Medical Necessity - Tobacco Use Smoking Status: Never smoker Tobacco Use: Non-smoker Assessment/Plan All Active Problems (Last Reviewed 07/02/19 @ 07:[address] Jeff Mcadams MD) Acute GI bleeding (Acute) History of coronary artery stent placement (Resolved 09/27/18) Atrial fibrillation with RVR (Resolved) Non-rheumatic aortic stenosis (Ruled-out) RECOMMENDATIONS: 1. Transfused 2 units of packed red blood cells and recheck H&H posttransfusion. 2. Additional endoscopic evaluation/work-up per general surgery recommendations. 3. Continue PPI therapy twice daily. IMPRESSIONS: 1. Acute blood loss anemia, likely secondary to gastrointestinal hemorrhage The patient is status post transfusion of blood products along with upper and lower endoscopy. Hemoglobin level again fell this morning, for which she will receive additional packed red blood cells. We will plan to check H&H posttransfusion. General surgery is following with tentative plans for repeat endoscopic evaluation today. The patient will remain on twice daily PPI therapy. 2. A. fib with RVR/acute systolic heart failure/recent mitral valve replacement The patient's baseline cardiac regimen can likely be slowly restarted pending stability and the patient's hemodynamic status and blood counts. 3. Acute kidney injury Improved. Likely prerenal in etiology. Creatinine stabilized with volume expansion. Continue to monitor urine output for now. 4. Diabetes mellitus/anxiety/depression/morbid obesity Complicates care, management, recovery and prognosis. Continue sliding scale insulin coverage. This note was generated with [employer] dictation software. It may contain incorrect words, spelling, and punctuation that were not noted in checking the note before signing. Inpatient E&M: 88465 Subs Hosp L3
--- NOTE | 2019-07-04 09:34 | CASEMGMT ---
Addendum entered by Valeria Baird 07/04/19 10:06: [facility] contact info: [phone] fax: [phone]. Gerry DREW CM Original Note: This RN CM received a message from [facility] requesting pt info at this time. Call to [facility] and per Beena in intake, pt is current with them for SN, PT at this time. Resumption of care order placed in [facility] at this time. H&P, recent progress note, facesheet, and JENNIFER order faxed to [facility] at this time. CM to notify [facility] when pt ready for discharge and to fax D/C summ/instructions faxed at that time. CM to also to follow for any further discharge planning/needs. Gerry DREW CM
--- NOTE | 2019-07-04 11:02 | OP.EGD_ITS ---
Patient Name: Rachel Sifuentes Procedure Date: 07/04/2019 9:20 AM Date of : 1940 Age: 78 Procedure: Upper GI endoscopy Indications: Acute post hemorrhagic anemia, Coffee-ground emesis, Hematochezia Providers: Cindy Guerra MD Medicines: See the Anesthesia note for documentation of the administered medications Patient Profile: Refer to note in patient chart for documentation of history and physical. Complications: No immediate complications. Procedure: Pre-Anesthesia Assessment: - see anesthesia note After obtaining informed consent, the endoscope was passed under direct vision. Throughout the procedure, the patient's blood pressure, pulse, and oxygen saturations were monitored continuously. The gastroscope was introduced through the mouth, and advanced to the second part of duodenum. The upper GI endoscopy was accomplished without difficulty. The patient tolerated the procedure well. This procedure was done to assess if any residual bleeding from previous EGD two days ago with findings of bleeding pyloric channel ulcer and duodenal mucosal bleeding that was controlled with epinephrine injections Scope In: 10:14:45 AM Scope Out: 10:15:45 AM Total Procedure Duration Time 0 hours 1 minute 0 seconds Findings: The first portion of the duodenum and second portion of the duodenum were normal. The entire examined stomach was normal. Estimated blood loss: none. The examined esophagus was normal. Impression: - no further bleeding noted Normal first portion of the duodenum and second portion of the duodenum. - Normal stomach. - Normal esophagus. - No specimens collected. Recommendation: - [facility]. - Resume regular diet. - Continue present medications. Procedure Code(s): --- Professional --- 24213, Esophagogastroduodenoscopy, flexible, transoral; diagnostic, including collection of specimen(s) by brushing or washing, when performed (separate procedure) Diagnosis Code(s): --- Professional --- D62, Acute posthemorrhagic anemia K92.0, Hematemesis K92.1, Melena (includes Hematochezia) CPT copyright 2017 [employer] [employer]. All rights reserved. The codes documented in this report are preliminary and upon retail pharmacist review may be revised to meet current compliance requirements. MD Cindy Saeed MD 07/04/2019 11:02:33 AM This report has been signed electronically. Number of Addenda: 0 Note Initiated On: 07/04/2019 9:20 AM
--- NOTE | 2019-07-04 11:03 | OP.CCLET_ITS ---
07/04/2019 Boubacar Ruby Re : Upper GI endoscopy procedure for Rachel Sifuentes Dear [place] This procedure was performed on Thursday, July 04, 2019. My impressions and recommendations are as follows: Impressions : - no further bleeding noted Normal first portion of the duodenum and second portion of the duodenum. - Normal stomach. - Normal esophagus. - No specimens collected. Recommendations : - Return [facility] to [facility] care. - Resume regular diet. - Continue present medications. My findings are described in the full procedure note, which is enclosed. If I can be of further assistance, please feel free to contact me at Doctor phone number(s): , Work: . Sincerely, MD Cindy Saeed MD 07/04/2019 11:02:33 AM This report has been signed electronically.
--- NOTE | 2019-07-04 11:11 | OP.COLON_ITS ---
Patient Name: Rachel Sifuentes Procedure Date: 07/04/2019 10:18 AM Date of : 1940 Age: 78 Procedure: Colonoscopy Indications: Hematochezia, Acute post hemorrhagic anemia Providers: Cindy Guerra MD Medicines: See the Anesthesia note for documentation of the administered medications Patient Profile: Refer to note in patient chart for documentation of history and physical. Last Colonoscopy: none. The patient's first colonoscopy is today. Complications: No immediate complications. Procedure: Pre-Anesthesia Assessment: - see anesthesia note After I obtained informed consent, the scope was passed under direct vision. Throughout the procedure, the patient's blood pressure, pulse, and oxygen saturations were monitored continuously. The colonoscope was introduced through the anus and advanced to the cecum, identified by the appendiceal orifice, ileocecal valve and palpation. The colonoscopy was performed without difficulty. The patient tolerated the procedure well. The quality of the bowel preparation was fair. Scope In: 10:21:16 AM Scope Withdrawal Time 0 hours 27 minutes 42 seconds Scope Out: 10:56:30 AM Total Procedure Duration Time 0 hours 35 minutes 14 seconds Findings: The perianal and digital rectal examinations were normal. Many small and large-mouthed diverticula were found in the entire colon. Non-bleeding external and internal hemorrhoids were found. Upon entrance into the colon, it was noted that patient had new blood and old blood mostly localized in the rectum and sigmoid colon, proximally, there was less evidence of recent bleeding. A single medium-mouthed diverticulum was found in the recto-sigmoid colon. It appeared to have bleeding clot that was minimally oozing. There was evidence of past bleeding from the diverticular opening. For hemostasis and prevention of further bleeding, four hemostatic clips were successfully placed (MR conditional). There was no bleeding at the end of the procedure. A 5 to 10 mm polyp was found in the cecum. The polyp was semi-pedunculated. The polyp was removed with a hot snare. Resection and retrieval were complete. Verification of patient identification for the specimen was done by the nurse. Estimated blood loss was minimal. Impression: - Preparation of the colon was fair. - Diverticulosis in the entire examined colon. - Non-bleeding external and internal hemorrhoids. - Moderate diverticulosis in the recto-sigmoid colon. There was evidence of past bleeding from the diverticular opening. Clips (MR conditional) were placed. - One 5 to 10 mm polyp in the cecum, removed with a hot snare. Resected and retrieved. Recommendation: - Repeat colonoscopy date to be determined after pending pathology results are reviewed for surveillance based on pathology results. - [facility] to [facility]. - Continue present medications. Procedure Code(s): --- Professional --- 14105, 59, Colonoscopy, flexible; with control of bleeding, any method 78211, Colonoscopy, flexible; with removal of tumor(s), polyp(s), or other lesion(s) by snare technique Diagnosis Code(s): --- Professional --- K64.8, Other hemorrhoids K57.31, Diverticulosis of large intestine without perforation or abscess with bleeding D12.0, Benign neoplasm of cecum K92.1, Melena (includes Hematochezia) D62, Acute posthemorrhagic anemia CPT copyright 2017 [place] [employer]. All rights reserved. The codes documented in this report are preliminary and upon manager leasing review may be revised to meet current compliance requirements. MD Cindy Saeed MD 07/04/2019 11:11:18 AM This report has been signed electronically. Number of Addenda: 0 Note Initiated On: 07/04/2019 10:18 AM
--- NOTE | 2019-07-04 11:11 | OP.CCLET_ITS ---
07/04/2019 Boubacar Ruby Re : Colonoscopy procedure for Rachel Sifuentes Dear [place] This procedure was performed on Thursday, July 04, 2019. My impressions and recommendations are as follows: Impressions : - Preparation of the colon was fair. - Diverticulosis in the entire examined colon. - Non-bleeding external and internal hemorrhoids. - Moderate diverticulosis in the recto-sigmoid colon. There was evidence of past bleeding from the diverticular opening. Clips (MR conditional) were placed. - One 5 to 10 mm polyp in the cecum, removed with a hot snare. Resected and retrieved. Recommendations : - Repeat colonoscopy date to be determined after pending pathology results are reviewed for surveillance based on pathology results. - [facility] patient to [facility]. - Continue present medications. My findings are described in the full procedure note, which is enclosed. If I can be of further assistance, please feel free to contact me at Doctor phone number(s): , Work: . Sincerely, MD Cindy Saeed MD 07/04/2019 11:11:18 AM This report has been signed electronically.
--- NOTE | 2019-07-04 11:11 | PCM.PN.BLA ---
Progress Note EGD and colonoscopy done this morning for dropping hemoglobin. Previous EGD revealed bleeding pyloric channel ulcer and duodenal localized area of bleeding that was controlled with injections of epinephrine. Repeat EGD today, revealed normal mucosa, no evidence of UGI bleed. Colonoscopy was repeated (as attempt previously was aborted due to poor colon cleansing preparation). Findings of pandiverticulosis with possible bleeding diverticula at rectosigmoid junction -about 30cm which had placement of hemostatic clips. Also incidentally found was a cecal polyp which was biopsied. Recommendations: regular diet continue PPI Medications as per hospitalists. STROKE Vital Signs/Narrative: Vital Signs Temp Pulse Resp BP Pulse Ox 07/04/19 11:03 99.5 F H 89 20 H 124/81 H 97 07/04/19 09:43 97.8 F 65 18 119/76 96 07/04/19 09:30 98.0 F 95 18 124/72 H 98 07/04/19 09:28 98.0 F 89 18 129/79 H 99 07/04/19 07:43 98.3 F 92 20 H 133/81 H 99
[2019-07-04 13:11] LABS: Bedside Glucose 117 mg/dL (70-110)
[2019-07-04] MEDS: 0.9% Saline Lock 10 ML Syringe IV ×3 (13:28→22:27)
[2019-07-04] MEDS: 0.9% Normal Saline 1,000 ML 50 ML IV (16:32)
[2019-07-04 16:40] LABS: Bedside Glucose 125 mg/dL (70-110)
[2019-07-04] MEDS: Furosemide 100 MG/10 ML Vial 60 MG IV (17:16)
[2019-07-04] MEDS: Lidocaine 5% Patch 1 PATCH TOPICAL (18:46)
[2019-07-04 18:53] LABS: Hematocrit 27.6 % (37-47); Hemoglobin 8.7 g/dL (12.0-15.0)
[2019-07-04] MEDS: Digoxin 125 MCG Tablet PO (21:33)
[2019-07-04] MEDS: Sertraline 50 MG Tablet PO (21:33)
[2019-07-04 21:45] LABS: Bedside Glucose 112 mg/dL (70-110)
[2019-07-04] MEDS: Metoprolol(XL)Succ 50 MG Tablet PO (22:25)
[2019-07-04 23:13] LABS: Digoxin Level 0.87 ng/mL (0.80-2.00)
[2019-07-05] VITALS (12 sets, daily range): BP systolic 95–144; BP diastolic 53–80; PULSE 72–109; RESP 16–20; TEMP 36.6–37; O2SAT 88–97
[2019-07-05] MEDS: dilTIAZem 30 MG Tablet PO ×2 (00:21→06:21)
[2019-07-05 06:14] LABS: Hematocrit 24.8 % (37-47); Hemoglobin 7.8 g/dL (12.0-15.0); Mean Corp Hgb Conc 31.5 g/dL (32-36); Mean Corpuscular Hgb 29.4 pg (27.0-32.0); Mean Corpuscular Volume 93.6 fL (81-99); Mean Platelet Vol. 11.6 fl (6.2-12.0); Platelet Count 125 K/mm3 (150-450); RBC Distribution Width CV 17.8 % (11.6-14.6); RBC Distribution Width SD 57.5 fl (35.1-43.9); Red Blood Count 2.65 M/mm3 (4.2-5.4); White Blood Count 7.6 K/mm3 (4.4-11.0)
[2019-07-05 06:47] LABS: Anion Gap 5 (5-15); BUN 14 mg/dL (7-18); BUN/Creat Ratio 20.1 RATIO (10-20); Calcium,Total 7.9 mg/dL (8.5-10.1); Chloride 112 mmol/L (98-107); EST Glomerular Filtration Rate 87 mL/min (>60); Est Glom Filt Rate - Afr Amer 105 mL/min (>60); Glucose 108 mg/dL (74-106); Magnesium 1.6 mg/dL (1.6-2.6); Potassium 3.6 mmol/L (3.5-5.1); Sodium Level 146 mmol/L (136-145)
[2019-07-05 07:06] LABS: Bedside Glucose 105 mg/dL (70-110)
--- NOTE | 2019-07-05 07:23 | PCM.PN.PUL ---
Patient Problems: Active and Suspected Problems (Last Reviewed 07/02/19 @ 07:[address] Jeff Mcadams MD) Acute GI bleeding (Acute) Subjective: The patient was seen and examined at the bedside this morning. Events from the last 24 hours have been reviewed. The patient is currently afebrile, hemodynamically stable and maintaining appropriate oxygen saturations on 2 L/min via nasal cannula. Hemoglobin is stable this morning at 7.8 g/dL. The patient did undergo repeat upper and lower endoscopy yesterday with colonoscopy revealing the presence of pandiverticulosis with possible bleeding diverticula at the rectosigmoid junction. Objective: The patient's most recent lab work, culture data and imaging studies have all been personally reviewed. - Physical Exam Vitals/I&O's: Vital Signs Temp Pulse Resp BP Pulse Ox 98.0 F 102 H 16 144/78 H 94 07/05/19 00:18 07/05/19 02:24 07/05/19 00:18 07/05/19 00:18 07/05/19 00:18 Oxygen Flow Rate (L/min) 2 Oxygen Delivery Method Nasal Cannula Weight: 253 lb 15.56 oz Body Mass Index (BMI) 39.7 Intake and Output for Last 24 Hours 07/03/19 07/04/19 07/05/19 23:59 23:59 23:59 Intake Total 3078.17 / 3078.17 3507.00 / 3507.00 120 / 120 Output Total 550 / 550 3000 / 3000 650 / 650 Balance 2528.17 / 2528.17 507.00 / 507.00 -530 / -530 General: Alert, Cooperative, No apparent distress HEENT: Atraumatic, Normocephalic Oral: No Gingival or Mucosal Lesions/ Ulcerations Neck: Supple, No Nodes, Trachea Midline Lungs: No rhonchi, No wheeze, No rales Cardiovascular: Regular rate, Regular Rhythm, Normal S1, Normal S2, No murmurs Abdomen: Bowel Sounds Present, Soft, Non Tender Extremities: No clubbing, No cyanosis Skin: No breakdown Musculoskeletal: No Tenderness to Palpation of Joints or Extremities Lymphatic: No Cervical, Supraclavicular, or Inguinal Adenopathy Neurological: Cranial nerves II-XII grossly intact, Neuro grossly intact Psych/Mental Status: Normal Affect, Appropriate Labs (Last 48 Hours) 07/02/19 07/03/19 07/03/19 03:55 12:04 12:22 WBC RBC Hgb 7.1 L Hct 22.5 L MCV MCH MCHC RDW Std Deviation RDW Coeff of Paul Plt Count MPV Immature Gran % (Auto) Neut % (Auto) Lymph % (Auto) Blair % (Auto) Eos % (Auto) Baso % (Auto) Absolute Neuts (auto) Absolute Lymphs (auto) Nucleated RBC % PT INR Sodium Potassium Chloride Carbon Dioxide Anion Gap BUN Creatinine Estim Creat Clear Calc Est GFR (MDRD) Af Amer Est GFR (MDRD) Non-Af BUN/Creatinine Ratio Glucose Calcium Magnesium Digoxin POC Glucose 102 Crossmatch See Detail 07/03/19 07/03/19 07/04/19 18:07 23:39 06:22 WBC RBC Hgb Hct MCV MCH MCHC RDW Std Deviation RDW Coeff of Paul Plt Count MPV Immature Gran % (Auto) Neut % (Auto) Lymph % (Auto) Blair % (Auto) Eos % (Auto) Baso % (Auto) Absolute Neuts (auto) Absolute Lymphs (auto) Nucleated RBC % PT 15.9 H INR 1.3 Sodium Potassium Chloride Carbon Dioxide Anion Gap BUN Creatinine Estim Creat Clear Calc Est GFR (MDRD) Af Amer Est GFR (MDRD) Non-Af BUN/Creatinine Ratio Glucose Calcium Magnesium Digoxin POC Glucose 135 H 125 H Crossmatch 07/04/19 07/04/19 07/04/19 06:22 06:22 06:25 WBC 8.5 RBC 2.26 L Hgb 6.7 L Hct 21.5 L MCV 95.1 MCH 29.6 MCHC 31.2 L RDW Std Deviation 57.4 H RDW Coeff of Paul 16.8 H Plt Count 150 MPV 12.0 Immature Gran % (Auto) 0.700 Neut % (Auto) 66.0 Lymph % (Auto) 22.4 Blair % (Auto) 8.6 Eos % (Auto) 1.8 Baso % (Auto) 0.5 Absolute Neuts (auto) 5.6 Absolute Lymphs (auto) 1.91 Nucleated RBC % 1.6 PT INR Sodium 147 H Potassium 3.6 Chloride 115 H Carbon Dioxide 25.0 Anion Gap 7 BUN 26 H Creatinine 0.76 Estim Creat Clear Calc 44.80 Est GFR (MDRD) Af Amer 95 Est GFR (MDRD) Non-Af 79 BUN/Creatinine Ratio 34.3 H Glucose 134 H Calcium 7.9 L Magnesium Digoxin POC Glucose 130 H Crossmatch 07/04/19 07/04/19 07/04/19 13:01 16:27 18:40 WBC RBC Hgb 8.7 L Hct 27.6 L MCV MCH MCHC RDW Std Deviation RDW Coeff of Paul Plt Count MPV Immature Gran % (Auto) Neut % (Auto) Lymph % (Auto) Blair % (Auto) Eos % (Auto) Baso % (Auto) Absolute Neuts (auto) Absolute Lymphs (auto) Nucleated RBC % PT INR Sodium Potassium Chloride Carbon Dioxide Anion Gap BUN Creatinine Estim Creat Clear Calc Est GFR (MDRD) Af Amer Est GFR (MDRD) Non-Af BUN/Creatinine Ratio Glucose Calcium Magnesium Digoxin POC Glucose 117 H 125 H Crossmatch 07/04/19 07/04/19 07/05/19 21:22 21:44 06:03 WBC 7.6 RBC 2.65 L Hgb 7.8 L Hct 24.8 L MCV 93.6 MCH 29.4 MCHC 31.5 L RDW Std Deviation 57.5 H RDW Coeff of Paul 17.8 H Plt Count 125 L MPV 11.6 Immature Gran % (Auto) Neut % (Auto) Lymph % (Auto) Blair % (Auto) Eos % (Auto) Baso % (Auto) Absolute Neuts (auto) Absolute Lymphs (auto) Nucleated RBC % PT INR Sodium Potassium Chloride Carbon Dioxide Anion Gap BUN Creatinine Estim Creat Clear Calc Est GFR (MDRD) Af Amer Est GFR (MDRD) Non-Af BUN/Creatinine Ratio Glucose Calcium Magnesium Digoxin 0.87 POC Glucose 112 H Crossmatch 07/05/19 07/05/19 06:03 07:00 WBC RBC Hgb Hct MCV MCH MCHC RDW Std Deviation RDW Coeff of Paul Plt Count MPV Immature Gran % (Auto) Neut % (Auto) Lymph % (Auto) Blair % (Auto) Eos % (Auto) Baso % (Auto) Absolute Neuts (auto) Absolute Lymphs (auto) Nucleated RBC % PT INR Sodium 146 H Potassium 3.6 Chloride 112 H Carbon Dioxide 29.0 Anion Gap 5 BUN 14 Creatinine 0.70 Estim Creat Clear Calc 44.80 Est GFR (MDRD) Af Amer 105 Est GFR (MDRD) Non-Af 87 BUN/Creatinine Ratio 20.1 H Glucose 108 H Calcium 7.9 L Magnesium 1.6 Digoxin POC Glucose 105 Crossmatch Clinical Impression(s) from Imaging Studies Chest X-Ray 07/02/19 03:51 IMPRESSION: Postsurgical changes as above. There is no demonstrated pneumothorax. No pulmonary edema, congestive heart failure or confluent pneumonia. Electronically Signed: Tangela Mireles MD at 4:06 EDT , Service support , Abdomen/Pelvis CTA 07/02/19 05:27 IMPRESSION: Rectal wall thickening focally, underlying mass not excluded. Diffuse colonic diverticulosis, no active inflammation. Severe sigmoid diverticulosis. Moderate stenosis proximal celiac artery, diffuse arteriosclerosis. No bowel ischemia seen on submitted images. Cholelithiasis, common bile duct dilatation, no choledocholithiasis detected. Through the assessment can be obtained with ERCP, MRCP, ultrasound or biliary scan symptoms and suspicion level. Cardiomegaly, hepatic steatosis, probable right renal cyst, renal involution, renal scarring, atherosclerosis, presumed hysterectomy and osseous changes felt to be nonacute findings. Electronically Signed: Tangela Mireles MD at 7:27 EDT , Service support , Current Medications Diltiazem HCl (Cardizem) 30 mg PO Q8 [facility] Last Admin: 07/05/19 06:21 Dose: 30 mg Documented by: Glucagon () 1 mg IM .X1 PRN PRN Reason: Hypoglycemia Sodium Chloride () 500 mls @ 15 mls/hr IV PRN PRN PRN Reason: Blood Transfusion Last Infusion: 07/04/19 11:50 Dose: 0 mls/hr Documented by: Sodium Chloride () 250 mls @ 15 mls/hr IV .[id number] PRN PRN Reason: Saline Flush Sodium Chloride () 250 mls @ 15 mls/hr IV .[id number] PRN PRN Reason: Additional IVPB Infusion Pantoprazole Sodium 40 mg/ (Sodium Chloride) 110 mls @ 330 mls/hr IV Q12 [facility] Last Infusion: 07/04/19 21:53 Dose: Infused Documented by: Insulin Human Lispro (Humalog Kwikpen (Bkc)) 0 unit SC ACHS [facility]; Protocol Last Admin: 07/04/19 21:33 Dose: Not Given Documented by: Lidocaine (Lidoderm Patch) 1 patch TOPICAL DAILY@1900 [facility]; Protocol Last Admin: 07/04/19 18:46 Dose: 1 patch Documented by: Metoprolol Succinate (Toprol Xl (Beta Wayne)) 50 mg PO BID [facility] Last Admin: 07/04/19 22:25 Dose: 50 mg Documented by: Morphine Sulfate () 2 mg IV Q3H PRN PRN PRN Reason: pain 6-10/10 Ondansetron HCl (Zofran) 4 mg IV Q6H PRN PRN PRN Reason: NAUSEA/VOMITING Last Admin: 07/02/19 12:24 Dose: 4 mg Documented by: Prochlorperazine Edisylate (Compazine Iv) 5 mg IV Q6H PRN PRN PRN Reason: NAUSEA/VOMITING Last Admin: 07/02/19 14:20 Dose: 5 mg Documented by: Sertraline HCl (Zoloft) 50 mg PO BID [facility] Last Admin: 07/04/19 21:33 Dose: 50 mg Documented by: Sodium Chloride () 10 - 40 ml IV UD PRN PRN Reason: Multilumen/[place] Flush Last Admin: 07/04/19 22:27 Dose: 20 ml Documented by: Sodium Chloride (0.9% Nacl (Sterile) Posiflush) 10 - 40 ml IV UD PRN PRN Reason: Port access or dressing change Sodium Chloride () 10 - 40 ml IV UD PRN PRN Reason: SALINE FLUSH Medical Necessity - Tobacco Use Smoking Status: Never smoker Tobacco Use: Non-smoker Assessment/Plan All Active Problems (Last Reviewed 07/02/19 @ 07:[address] Jeff Mcadams MD) Acute GI bleeding (Acute) History of coronary artery stent placement (Resolved 09/27/18) Atrial fibrillation with RVR (Resolved) Non-rheumatic aortic stenosis (Ruled-out) RECOMMENDATIONS: 1. Continue to monitor H&H daily, with plans to transfuse if hemoglobin drops below 7 g/dL. 2. Continue PPI therapy twice daily. 3. Wean supplemental oxygen to maintain saturations at or above 90%. 4. Encourage incentive spirometer use and mobilize patient as tolerated. 5. Will sign off from a critical care perspective. IMPRESSIONS: 1. Acute blood loss anemia, likely secondary to gastrointestinal hemorrhage The patient is status post transfusion of blood products along with upper and lower endoscopy. Hemoglobin level is stable this morning. Recommend continuing to monitor on daily basis, with plans to transfuse if hemoglobin drops below 7 g/dL. General surgery is following. Continue daily PPI therapy. 2. A. fib with RVR/acute systolic heart failure/recent mitral valve replacement Continue baseline cardiac regimen. 3. Acute kidney injury Improved. Likely prerenal in etiology. Creatinine stabilized with volume expansion. Continue to monitor urine output for now. 4. Diabetes mellitus/anxiety/depression/morbid obesity Complicates care, management, recovery and prognosis. Continue sliding scale insulin coverage. This note was generated with [facility] dictation software. It may contain incorrect words, spelling, and punctuation that were not noted in checking the note before signing. Inpatient E&M: 60664 Subs Hosp L2
--- NOTE | 2019-07-05 07:57 | PCM.PN.HOSP ---
Patient Problems: Active and Suspected Problems (Last Reviewed 07/02/19 @ 07:[address] Jeff Mcadams MD) Acute GI bleeding (Acute) Reason for Visit: Follow-up anemia Subjective: Patient's hemoglobin up to 7.8. Restarted patient home Lasix. Do plan to monitor patient for 1 additional day and if hemoglobin stays stable will discharge home. Requested for PT OT eval and criminal justice social worker to assist with discharge planning Objective: GENERAL: cooperative HEENT: Atraumatic; EYES; Anicteric, Normal Conjunctiva NECK; supple, normal thyroid, RESPIRATORY: Diminished to auscultation CARDIOVASCULAR: Irregular S1-S2 GI: soft, normoactive bowel sounds, : No Renal angle tenderness; EXTREMITIES: No edema, no clubbing, MUSCULOSKELETAL: no muscle waisting NEURO: Awake; no lateralizing signs. SKIN: No Rash PSYCH; Flat affect Vitals/I&O's: Vital Signs Temp Pulse Resp BP Pulse Ox 98.0 F 87 16 144/78 H 94 07/05/19 00:18 07/05/19 07:16 07/05/19 00:18 07/05/19 00:18 07/05/19 00:18 Oxygen Flow Rate (L/min) 2 Oxygen Delivery Method Nasal Cannula Weight: 115.2 kg Body Mass Index (BMI) 39.7 Intake and Output for Last 24 Hours 07/03/19 07/04/19 07/05/19 23:59 23:59 23:59 Intake Total 3078.17 / 3078.17 3507.00 / 3507.00 120 / 120 Output Total 550 / 550 3000 / 3000 650 / 650 Balance 2528.17 / 2528.17 507.00 / 507.00 -530 / -530 Laboratory Results 07/02/19 03:55: Crossmatch See Detail 07/04/19 06:22: Sodium 147 H, Potassium 3.6, Chloride 115 H, Carbon Dioxide 25.0, Anion Gap 7, BUN 26 H, Creatinine 0.76, Estim Creat Clear Calc 44.80, Est GFR (MDRD) Af Amer 95, Est GFR (MDRD) Non-Af 79, BUN/Creatinine Ratio 34.3 H, Glucose 134 H, Calcium 7.9 L 07/04/19 13:01: POC Glucose 117 H 07/04/19 16:27: POC Glucose 125 H 07/04/19 18:40: Hgb 8.7 L, Hct 27.6 L 07/04/19 21:22: POC Glucose 112 H 07/04/19 21:44: Digoxin 0.87 07/05/19 06:03: WBC 7.6, RBC 2.65 L, Hgb 7.8 L, Hct 24.8 L, MCV 93.6, MCH 29.4, MCHC 31.5 L, RDW Std Deviation 57.5 H, RDW Coeff of Paul 17.8 H, Plt Count 125 L, MPV 11.6 07/05/19 06:03: Sodium 146 H, Potassium 3.6, Chloride 112 H, Carbon Dioxide 29.0, Anion Gap 5, BUN 14, Creatinine 0.70, Estim Creat Clear Calc 44.80, Est GFR (MDRD) Af Amer 105, Est GFR (MDRD) Non-Af 87, BUN/Creatinine Ratio 20.1 H, Glucose 108 H, Calcium 7.9 L, Magnesium 1.6 07/05/19 07:00: POC Glucose 105 Current Medications Diltiazem HCl (Cardizem) 30 mg PO Q8 [facility] Last Admin: 07/05/19 06:21 Dose: 30 mg Documented by: Glucagon () 1 mg IM .X1 PRN PRN Reason: Hypoglycemia Sodium Chloride () 500 mls @ 15 mls/hr IV PRN PRN PRN Reason: Blood Transfusion Last Infusion: 07/04/19 11:50 Dose: 0 mls/hr Documented by: Sodium Chloride () 250 mls @ 15 mls/hr IV .[id number] PRN PRN Reason: Saline Flush Sodium Chloride () 250 mls @ 15 mls/hr IV .[id number] PRN PRN Reason: Additional IVPB Infusion Pantoprazole Sodium 40 mg/ (Sodium Chloride) 110 mls @ 330 mls/hr IV Q12 [facility] Last Infusion: 07/04/19 21:53 Dose: Infused Documented by: Insulin Human Lispro (Humalog Kwikpen (Bkc)) 0 unit SC ACHS [facility]; Protocol Last Admin: 07/04/19 21:33 Dose: Not Given Documented by: Lidocaine (Lidoderm Patch) 1 patch TOPICAL DAILY@1900 [facility]; Protocol Last Admin: 07/04/19 18:46 Dose: 1 patch Documented by: Metoprolol Succinate (Toprol Xl (Beta Wayne)) 50 mg PO BID [facility] Last Admin: 07/04/19 22:25 Dose: 50 mg Documented by: Morphine Sulfate () 2 mg IV Q3H PRN PRN PRN Reason: pain 6-10/10 Ondansetron HCl (Zofran) 4 mg IV Q6H PRN PRN PRN Reason: NAUSEA/VOMITING Last Admin: 07/02/19 12:24 Dose: 4 mg Documented by: Prochlorperazine Edisylate (Compazine Iv) 5 mg IV Q6H PRN PRN PRN Reason: NAUSEA/VOMITING Last Admin: 07/02/19 14:20 Dose: 5 mg Documented by: Sertraline HCl (Zoloft) 50 mg PO BID [facility] Last Admin: 07/04/19 21:33 Dose: 50 mg Documented by: Sodium Chloride () 10 - 40 ml IV UD PRN PRN Reason: Multilumen/[place] Flush Last Admin: 07/04/19 22:27 Dose: 20 ml Documented by: Sodium Chloride (0.9% Nacl (Sterile) Posiflush) 10 - 40 ml IV UD PRN PRN Reason: Port access or dressing change Sodium Chloride () 10 - 40 ml IV UD PRN PRN Reason: SALINE FLUSH STROKE Vital Signs/Narrative: Vital Signs Pulse 07/05/19 07:16 87 Medical Necessity - Tobacco Use Smoking Status: Never smoker Tobacco Use: Non-smoker Assessment/Plan All Active Problems (Last Reviewed 07/02/19 @ 07:[address] Jeff Mcadams MD) Acute GI bleeding (Acute) History of coronary artery stent placement (Resolved 09/27/18) Atrial fibrillation with RVR (Resolved) Non-rheumatic aortic stenosis (Ruled-out) Patient is a 78-year-old lady who presented with bleeding per rectum 1. Acute blood loss anemia ?Secondary to GI bleed ?Has been transfused 1 unit PRBC monitoring with plans to transfuse further if hemoglobin falls below 7 or patient becomes symptomatic subsequently ordered H&H daily. ?07/04/2019: Hemoglobin did drop to 6.7: Patient was transfused 1 additional unit PRBC. ?07/04/2019: Went up to 7.8. Monitoring daily H&H 2. Acute GI bleed ?Patient underwent endoscopic evaluation with demonstrated duodenitis as well as gastric ulcer ?07/04/2019 colonoscopy performed demonstrated findings of pandiverticulosis with possible bleeding diverticula at rectosigmoid junction -about 30cm which had placement of hemostatic clips. Also incidentally found was a cecal polyp which was biopsied. 3. Coagulopathy ?Reversed prior to patient undergoing EGD and colonoscopy 4. Chronic A. fib ?Rate controlled patient was on systemic anticoagulation with Coumadin reversed prior to patient's procedure 5. Valvular heart disease ?Status post porcine mitral valve replacement with clipping of atrial appendage on 06/06/2019 at [facility] 6. Hypertension ~ blood pressure controlled, home medications continued with dose adjustment as needed 7. Dyslipidemia ~patient is on statin therapy, continued at home dose 8. Chronic kidney disease stage III 9. Diabetes mellitus type II ~With complications including including diabetic nephropathy, controlled on long acting insulin, Accu-Cheks a.c. and at bedtime and covered with sliding scale insulin 10. Coronary artery disease with PCI/MICHELLE of the mid LAD lesion ?Patient was seen by cardiology Dr. Figueroa who recommended patient to be taken of her aspirin and Plavix 11. DVT prophylaxis ?Bilateral SCDs 12. Acute on chronic congestive heart failure with preserved ejection fraction ?Restarted patient Lasix. 13. Physical deconditioning ?Requested for PT OT eval and criminal justice social worker to assist with discharge planning Inpatient E&M: 69508 Subs Hosp L2
[2019-07-05] MEDS: Metoprolol(XL)Succ 50 MG Tablet PO ×2 (11:22→22:06)
[2019-07-05] MEDS: Sertraline 50 MG Tablet PO ×2 (11:23→22:07)
[2019-07-05] MEDS: Furosemide 40 MG Tablet PO (11:24)
[2019-07-05] MEDS: 0.9% Saline Lock 10 ML Syringe IV ×2 (11:36→22:17)
[2019-07-05] MEDS: Insulin Lispro 100 UNIT/ML INSULN.PEN SC (11:37)
[2019-07-05 16:30] LABS: Bedside Glucose 93 mg/dL (70-110)
[2019-07-05] MEDS: Lidocaine 5% Patch 1 PATCH TOPICAL (18:25)
--- NOTE | 2019-07-05 19:49 | NURSING ---
Pt. daughter, Azra, called in for update on pt. condition. Informed Azra of current HGB and BP. She will call again in AM.
[2019-07-05 20:46] LABS: Bedside Glucose 156 mg/dL (70-110)
[2019-07-05] MEDS: Atorvastatin Calcium 80 MG Tablet PO (22:07)
[2019-07-05 22:26] LABS: Bedside Glucose 100 mg/dL (70-110)
[2019-07-06] VITALS (11 sets, daily range): BP systolic 107–132; BP diastolic 63–82; PULSE 68–86; RESP 18; TEMP 36.3–36.8; O2SAT 89–95
[2019-07-06 07:16] LABS: Bedside Glucose 105 mg/dL (70-110)
--- NOTE | 2019-07-06 08:09 | PN_ITS ---
Patient Problems: Active and Suspected Problems (Last Reviewed 07/02/19 @ 07:[address] Jeff Mcadams MD) Acute GI bleeding (Acute) Objective: GENERAL: cooperative HEENT: Atraumatic; EYES; Anicteric, Normal Conjunctiva NECK; supple, normal thyroid, RESPIRATORY: Diminished to auscultation CARDIOVASCULAR: Irregular S1-S2 GI: soft, normoactive bowel sounds, : No Renal angle tenderness; EXTREMITIES: No edema, no clubbing, MUSCULOSKELETAL: no muscle waisting NEURO: Awake; no lateralizing signs. SKIN: No Rash PSYCH; Flat affect Vitals/I&O's: Vital Signs Temp Pulse Resp BP Pulse Ox 97.4 F L 86 18 107/63 94 07/06/19 04:00 07/06/19 07:02 07/06/19 04:00 07/06/19 04:00 07/06/19 08:00 Oxygen Flow Rate (L/min) 1 Oxygen Delivery Method Nasal Cannula Weight: 115.2 kg Body Mass Index (BMI) 39.7 Intake and Output for Last 24 Hours 07/04/19 07/05/19 07/06/19 23:59 23:59 23:59 Intake Total 3507.00 / 3507.00 1060 / 1060 100 / 100 Output Total 3000 / 3000 1750 / 1850 100 / 100 Balance 507.00 / 507.00 -690 / -790 0 / 0 Laboratory Results 07/02/19 03:55: Crossmatch See Detail 07/05/19 11:30: POC Glucose 156 H 07/05/19 16:23: POC Glucose 93 07/05/19 22:12: POC Glucose 100 07/06/19 06:54: POC Glucose 105 Current Medications Atorvastatin Calcium (Lipitor) 80 mg PO QHS [facility] Last Admin: 07/05/19 22:07 Dose: 80 mg Documented by: Diltiazem HCl (Cardizem) 120 mg PO DAILY [facility] Furosemide (Lasix) 40 mg PO DAILY [facility] Last Admin: 07/05/19 11:24 Dose: 40 mg Documented by: Glucagon () 1 mg IM .X1 PRN PRN Reason: Hypoglycemia Sodium Chloride () 500 mls @ 15 mls/hr IV PRN PRN PRN Reason: Blood Transfusion Last Infusion: 07/04/19 11:50 Dose: 0 mls/hr Documented by: Sodium Chloride () 250 mls @ 15 mls/hr IV .[id number] PRN PRN Reason: Saline Flush Sodium Chloride () 250 mls @ 15 mls/hr IV .[id number] PRN PRN Reason: Additional IVPB Infusion Pantoprazole Sodium 40 mg/ (Sodium Chloride) 110 mls @ 330 mls/hr IV Q12 [facility] Last Infusion: 07/05/19 22:40 Dose: Infused Documented by: Insulin Human Lispro (Humalog Kwikpen (Bkc)) 0 unit SC ACHS [facility]; Protocol Last Admin: 07/06/19 07:34 Dose: Not Given Documented by: Lidocaine (Lidoderm Patch) 1 patch TOPICAL DAILY@1900 [facility]; Protocol Last Admin: 07/05/19 18:25 Dose: 1 patch Documented by: Metoprolol Succinate (Toprol Xl (Beta Wayne)) 50 mg PO BID [facility] Last Admin: 07/05/19 22:06 Dose: 50 mg Documented by: Morphine Sulfate () 2 mg IV Q3H PRN PRN PRN Reason: pain 6-10/10 Multivitamins (Multivitamin) 1 tablet PO DAILY@0800 [facility] Ondansetron HCl (Zofran) 4 mg IV Q6H PRN PRN PRN Reason: NAUSEA/VOMITING Last Admin: 07/02/19 12:24 Dose: 4 mg Documented by: Prochlorperazine Edisylate (Compazine Iv) 5 mg IV Q6H PRN PRN PRN Reason: NAUSEA/VOMITING Last Admin: 07/02/19 14:20 Dose: 5 mg Documented by: Sertraline HCl (Zoloft) 50 mg PO BID [facility] Last Admin: 07/05/19 22:07 Dose: 50 mg Documented by: Sodium Chloride () 10 - 40 ml IV UD PRN PRN Reason: Multilumen/[place] Flush Last Admin: 07/05/19 22:17 Dose: 10 ml Documented by: Sodium Chloride (0.9% Nacl (Sterile) Posiflush) 10 - 40 ml IV UD PRN PRN Reason: Port access or dressing change Sodium Chloride () 10 - 40 ml IV UD PRN PRN Reason: SALINE FLUSH STROKE Vital Signs/Narrative: Vital Signs Pulse Pulse Ox 07/06/19 08:00 94 07/06/19 07:50 89 07/06/19 07:02 86 Medical Necessity - Tobacco Use Smoking Status: Never smoker Tobacco Use: Non-smoker Assessment/Plan All Active Problems (Last Reviewed 07/02/19 @ 07:[address] Jeff Mcadams MD) Acute GI bleeding (Acute) History of coronary artery stent placement (Resolved 09/27/18) Atrial fibrillation with RVR (Resolved) Non-rheumatic aortic stenosis (Ruled-out) Patient is a 78-year-old lady who presented with bleeding per rectum 1. Acute blood loss anemia ?Secondary to GI bleed ?Has been transfused 1 unit PRBC monitoring with plans to transfuse further if hemoglobin falls below 7 or patient becomes symptomatic subsequently ordered H&H daily. ?07/04/2019: Hemoglobin did drop to 6.7: Patient was transfused 1 additional unit PRBC. ?07/04/2019: Went up to 7.8. Monitoring daily H&H 2. Acute GI bleed ?Patient underwent endoscopic evaluation with demonstrated duodenitis as well as gastric ulcer ?07/04/2019 colonoscopy performed demonstrated findings of pandiverticulosis with possible bleeding diverticula at rectosigmoid junction -about 30cm which had placement of hemostatic clips. Also incidentally found was a cecal polyp which was biopsied. 3. Coagulopathy ?Reversed prior to patient undergoing EGD and colonoscopy 4. Chronic A. fib ?Rate controlled patient was on systemic anticoagulation with Coumadin reversed prior to patient's procedure 5. Valvular heart disease ?Status post porcine mitral valve replacement with clipping of atrial appendage on 06/06/2019 at [facility] 6. Hypertension ~ blood pressure controlled, home medications continued with dose adjustment as needed 7. Dyslipidemia ~patient is on statin therapy, continued at home dose 8. Chronic kidney disease stage III 9. Diabetes mellitus type II ~With complications including including diabetic nephropathy, controlled on long acting insulin, Accu-Cheks a.c. and at bedtime and covered with sliding scale insulin 10. Coronary artery disease with PCI/MICHELLE of the mid LAD lesion ?Patient was seen by cardiology Dr. Figueroa who recommended patient to be taken of her aspirin and Plavix 11. DVT prophylaxis ?Bilateral SCDs 12. Acute on chronic congestive heart failure with preserved ejection fraction ?Restarted patient Lasix. 13. Physical deconditioning ?Requested for PT OT eval and social media content manager to assist with discharge planning Inpatient E&M: [id number] Subs Hosp L2
[2019-07-06 08:57] LABS: Hematocrit 25.7 % (37-47); Hemoglobin 8.1 g/dL (12.0-15.0); Mean Corp Hgb Conc 31.5 g/dL (32-36); Mean Corpuscular Volume 92.1 fL (81-99); Platelet Count 128 K/mm3 (150-450); RBC Distribution Width SD 54.4 fl (35.1-43.9); Red Blood Count 2.79 M/mm3 (4.2-5.4); White Blood Count 7.3 K/mm3 (4.4-11.0)
[2019-07-06 09:23] LABS: Anion Gap 6 (5-15); BUN 13 mg/dL (7-18); BUN/Creat Ratio 17.2 RATIO (10-20); Calcium,Total 7.8 mg/dL (8.5-10.1); Chloride 109 mmol/L (98-107); Creatinine, Serum 0.76 mg/dL (0.55-1.02); EST Glomerular Filtration Rate 79 mL/min (>60); Est Glom Filt Rate - Afr Amer 96 mL/min (>60); Glucose 135 mg/dL (74-106); Magnesium 1.4 mg/dL (1.6-2.6); Potassium 3.1 mmol/L (3.5-5.1); Sodium Level 144 mmol/L (136-145)
[2019-07-06] MEDS: Multivitamins,Therapeutic Tablet 1 TABLET PO (09:57)
[2019-07-06] MEDS: dilTIAZem 60 MG Tablet 120 MG PO (09:57)
[2019-07-06] MEDS: Furosemide 40 MG Tablet PO (09:57)
[2019-07-06] MEDS: Sertraline 50 MG Tablet PO (09:57)
[2019-07-06] MEDS: Metoprolol(XL)Succ 50 MG Tablet PO (09:57)
[2019-07-06] MEDS: 0.9% Saline Lock 10 ML Syringe IV ×2 (09:59→12:06)
[2019-07-06 11:31] LABS: Bedside Glucose 143 mg/dL (70-110)
--- NOTE | 2019-07-06 11:39 | DCINST_ITS ---
- Discharge Diagnoses Current Active Problems: Current Active and Chronic Problems (Last Reviewed 07/02/19 @ 07:[address] Jeff Mcadams MD) Acute GI bleeding (Acute) You will use the following diet at home:: Calorie/Carbohydrate Controlled (specify 1200, 1400, etc) - 1800, Cardiac Your food should be the consistency of: Regular Discharge Activity: No Restrictions Allergies/Adverse Reactions: Allergies amiodarone Allergy (Verified 07/02/19 02:38) Other Medications to take at Discharge Aspirin [Low Dose Aspirin EC] 81 mg PO DAILY 11/17/18 sertraline 50 mg tablet 50 mg PO BID tab 03/20/19 atorvastatin 80 mg tablet 80 mg PO QHS #90 tab 06/21/19 digoxin 125 mcg (0.125 mg) tablet 62.5 mcg PO DAILY #90 tab 06/21/19 diltiazem HCl 120 mg tablet 120 mg PO DAILY #1 tab 06/21/19 furosemide 40 mg tablet 40 mg PO DAILY #1 tab 06/21/19 metoprolol succinate 50 mg tablet,extended release 24 hr 50 mg PO BID tab 06/21/19 Insulin Glargine,Hum.rec.anlog [Lantus Solostar] 10 unit SQ BREAKFAST 07/02/19 Insulin Lispro [Insulin Lispro Kwikpen U-100] 0 unit SQ TIDCM 07/02/19 Multivitamin [Once Daily] 1 ea PO DAILY 07/02/19 Potassium Chloride [K-Dur] 20 meq PO DAILY 07/02/19 Magnesium Oxide [Mag-Ox 400] 400 mg PO BIDCM #30 tab 07/06/19 Pantoprazole Sodium [Protonix] 40 mg PO DAILY #90 tab 07/06/19 The following prescriptions were given: Magnesium Oxide [Mag-Ox 400] 400 mg PO BIDCM #30 tab Transmission Status: [id number] Pantoprazole Sodium [Protonix] 40 mg PO DAILY #90 tab Transmission Status: [id number] Primary Care Physician: Boubacar Ruby DO [Primary Care Provider] - Please follow up with your Primary Care Physician in: IN 1-2 WEEKS Test Results: Test results from this visit will be discussed in further detail at your follow- up appointment, if applicable. Proposed Discharge Date: 07/06/19
--- NOTE | 2019-07-06 11:41 | PCM.DC.SUM ---
Discharge Date and Diagnosis - Problem List Patient Problems: Active and Suspected Problems (Last Reviewed 07/02/19 @ 07:[address] Jeff Mcadams MD) Acute GI bleeding (Acute) Date of Admission: 07/02/19 Date of Discharge: 07/06/19 - Primary Discharge Diagnosis Active and Suspected Problems (Last Reviewed 07/02/19 @ 07:[address] Jeff Mcadams MD) Acute GI bleeding (Acute) - Secondary Discharge Diagnosis Chronic Problems (Last Reviewed 07/02/19 @ 07:[address] 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 There is no demonstrated pneumothorax. No pulmonary edema, congestive heart failure or confluent pneumonia. Electronically Signed: Tangela Mireles MD at 4:06 EDT , Service support , Abdomen/Pelvis CTA 07/02/19 05:27 IMPRESSION: Rectal wall thickening focally, underlying mass not excluded. Diffuse colonic diverticulosis, no active inflammation. Severe sigmoid diverticulosis. Moderate stenosis proximal celiac artery, diffuse arteriosclerosis. No bowel ischemia seen on submitted images. Cholelithiasis, common bile duct dilatation, no choledocholithiasis detected. Through the assessment can be obtained with ERCP, MRCP, ultrasound or biliary scan symptoms and suspicion level. Cardiomegaly, hepatic steatosis, probable right renal cyst, renal involution, renal scarring, atherosclerosis, presumed hysterectomy and osseous changes felt to be nonacute findings. Electronically Signed: Tangela Mireles MD at 7:27 EDT , Service support , Summary of Care Provided: Patient is a 78-year-old lady who presented with bleeding per rectum 1. Acute blood loss anemia ?Secondary to GI bleed ?Has been transfused 1 unit PRBC monitoring with plans to transfuse further if hemoglobin falls below 7 or patient becomes symptomatic subsequently ordered H&H daily. ?07/04/2019: Hemoglobin did drop to 6.7: Patient was transfused 1 additional unit PRBC. ?07/04/2019: Went up to 7.8. Monitoring daily H&H ?07/06/2019: Patient hemoglobin stabilized. Hemoglobin at the time of discharge 8.1. Patient was discharged home on Protonix. 2. Acute GI bleed ?Patient underwent endoscopic evaluation with demonstrated duodenitis as well as gastric ulcer ?07/04/2019 colonoscopy performed demonstrated findings of pandiverticulosis with possible bleeding diverticula at rectosigmoid junction -about 30cm which had placement of hemostatic clips. Also incidentally found was a cecal polyp which was biopsied. 3. Coagulopathy ?Reversed prior to patient undergoing EGD and colonoscopy 4. Chronic A. fib ?Rate controlled patient was on systemic anticoagulation with Coumadin reversed prior to patient's procedure 5. Valvular heart disease ?Status post porcine mitral valve replacement with clipping of atrial appendage on 06/06/2019 at [facility] 6. Hypertension ~ blood pressure controlled, home medications continued with dose adjustment as needed 7. Dyslipidemia ~patient is on statin therapy, continued at home dose 8. Chronic kidney disease stage III 9. Diabetes mellitus type II ~With complications including including diabetic nephropathy, controlled on long acting insulin, Accu-Cheks a.c. and at bedtime and covered with sliding scale insulin 10. Coronary artery disease with PCI/MICHELLE of the mid LAD lesion ?Patient was seen by cardiology Dr. Figueroa who recommended patient to be taken of her aspirin and Plavix. Plavix discontinued on discharge aspirin resumed 11. DVT prophylaxis ?Bilateral SCDs 12. Acute on chronic congestive heart failure with preserved ejection fraction; EF was noted to be 45% ?Restarted patient Lasix. 13. Physical deconditioning ?Requested for PT OT eval and certified social workers in health care to assist with discharge planning; patient was discharged home with home health Patient Problems: Active and Suspected Problems (Last Reviewed 07/02/19 @ 07:[address] Jeff Mcadams MD) Acute GI bleeding (Acute) Objective: GENERAL: cooperative HEENT: Atraumatic; EYES; Anicteric, Normal Conjunctiva NECK; supple, normal thyroid, RESPIRATORY: Diminished to auscultation CARDIOVASCULAR: Irregular S1-S2 GI: soft, normoactive bowel sounds, : No Renal angle tenderness; EXTREMITIES: No edema, no clubbing, MUSCULOSKELETAL: no muscle waisting NEURO: Awake; no lateralizing signs. SKIN: No Rash PSYCH; Flat affect - Physical Exam Vitals/I&O's: Vital Signs Temp Pulse Resp BP Pulse Ox 98.0 F 79 18 132/82 H 92 07/06/19 09:55 07/06/19 09:57 07/06/19 09:55 07/06/19 09:55 07/06/19 11:01 Oxygen Flow Rate (L/min) 1 Oxygen Delivery Method Room Air Weight: 115.2 kg Body Mass Index (BMI) 39.7 Intake and Output for Last 24 Hours 07/04/19 07/05/19 07/06/19 23:59 23:59 23:59 Intake Total 3507.00 / 3507.00 1060 / 1060 510 / 510 Output Total 3000 / 3000 1750 / 1850 100 / 100 Balance 507.00 / 507.00 -690 / -790 410 / 410 Laboratory Results 07/02/19 03:55: Crossmatch See Detail 07/05/19 11:30: POC Glucose 156 H 07/05/19 16:23: POC Glucose 93 07/05/19 22:12: POC Glucose 100 07/06/19 06:54: POC Glucose 105 07/06/19 08:30: WBC 7.3, RBC 2.79 L, Hgb 8.1 L, Hct 25.7 L, MCV 92.1, MCH 29.0, MCHC 31.5 L, RDW Std Deviation 54.4 H, RDW Coeff of Paul 18.0 H, Plt Count 128 L, MPV 12.0 07/06/19 08:30: Sodium 144, Potassium 3.1 L, Chloride 109 H, Carbon Dioxide 29.0, Anion Gap 6, BUN 13, Creatinine 0.76, Estim Creat Clear Calc 44.80, Est GFR (MDRD) Af Amer 96, Est GFR (MDRD) Non-Af 79, BUN/Creatinine Ratio 17.2, Glucose 135 H, Calcium 7.8 L, Magnesium 1.4 L 07/06/19 11:23: POC Glucose 143 H Current Medications Atorvastatin Calcium (Lipitor) 80 mg PO QHS [facility] Last Admin: 07/05/19 22:07 Dose: 80 mg Documented by: Diltiazem HCl (Cardizem) 120 mg PO DAILY [facility] Last Admin: 07/06/19 09:57 Dose: 120 mg Documented by: Furosemide (Lasix) 40 mg PO DAILY [facility] Last Admin: 07/06/19 09:57 Dose: 40 mg Documented by: Glucagon () 1 mg IM .X1 PRN PRN Reason: Hypoglycemia Sodium Chloride () 500 mls @ 15 mls/hr IV PRN PRN PRN Reason: Blood Transfusion Last Infusion: 07/04/19 11:50 Dose: 0 mls/hr Documented by: Sodium Chloride () 250 mls @ 15 mls/hr IV .[id number] PRN PRN Reason: Saline Flush Sodium Chloride () 250 mls @ 15 mls/hr IV .[id number] PRN PRN Reason: Additional IVPB Infusion Pantoprazole Sodium 40 mg/ (Sodium Chloride) 110 mls @ 330 mls/hr IV Q12 [facility] Last Infusion: 07/06/19 10:22 Dose: Infused Documented by: Potassium Chloride () 10 meq in 100 mls @ 100 mls/hr IV BOLUS Q1H [facility] Stop: 07/06/19 15:44 Magnesium Sulfate 2 gm/ Sodium (Chloride) 104 mls @ 52 mls/hr IV X1 ONE Stop: 07/06/19 13:33 Insulin Human Lispro (Humalog Kwikpen (Bkc)) 0 unit SC ACHS [facility]; Protocol Last Admin: 07/06/19 11:32 Dose: Not Given Documented by: Lidocaine (Lidoderm Patch) 1 patch TOPICAL DAILY@1900 [facility]; Protocol Last Admin: 07/05/19 18:25 Dose: 1 patch Documented by: [facility] 400) [facility] Metoprolol Succinate (Toprol Xl (Beta [place])) 50 mg PO BID [facility] Last Admin: 07/06/19 09:57 Dose: 50 mg Documented by: Morphine Sulfate () 2 mg IV Q3H PRN PRN PRN Reason: pain 6-10/10 Multivitamins (Multivitamin) 1 tablet PO DAILY@0800 [facility] Last Admin: 07/06/19 09:57 Dose: 1 tablet Documented by: Ondansetron HCl (Zofran) 4 mg IV Q6H PRN PRN PRN Reason: NAUSEA/VOMITING Last Admin: 07/02/19 12:24 Dose: 4 mg Documented by: Potassium Chloride (K-Dur) 40 meq PO X1 ONE Stop: 07/06/19 11:34 Potassium [facility] ([facility]Dur) [facility] Prochlorperazine Edisylate (Compazine Iv) 5 mg IV Q6H PRN PRN PRN Reason: NAUSEA/VOMITING Last Admin: 07/02/19 14:20 Dose: 5 mg Documented by: Sertraline HCl (Zoloft) 50 mg PO BID [facility] Last Admin: 07/06/19 09:57 Dose: 50 mg Documented by: Sodium Chloride () 10 - 40 ml IV UD PRN PRN Reason: Multilumen/[place] Flush Last Admin: 07/06/19 09:59 Dose: 10 ml Documented by: Sodium Chloride (0.9% Nacl (Sterile) Posiflush) 10 - 40 ml IV UD PRN PRN Reason: Port access or dressing change Sodium Chloride () 10 - 40 ml IV UD PRN PRN Reason: SALINE FLUSH Discharge Diet: Low fat/ Low Cholesterol, 1800 Calorie Control Diet Discharge Activity: No Restrictions Home Medications: Medications to take at Discharge Aspirin [Low Dose Aspirin EC] 81 mg PO DAILY 11/17/18 sertraline 50 mg tablet 50 mg PO BID tab 03/20/19 atorvastatin 80 mg tablet 80 mg PO QHS #90 tab 06/21/19 digoxin 125 mcg (0.125 mg) tablet 62.5 mcg PO DAILY #90 tab 06/21/19 diltiazem HCl 120 mg tablet 120 mg PO DAILY #1 tab 06/21/19 furosemide 40 mg tablet 40 mg PO DAILY #1 tab 06/21/19 metoprolol succinate 50 mg tablet,extended release 24 hr 50 mg PO BID tab 06/21/19 Insulin Glargine,Hum.rec.anlog [Lantus Solostar] 10 unit SQ BREAKFAST 07/02/19 Insulin Lispro [Insulin Lispro Kwikpen U-100] 0 unit SQ TIDCM 07/02/19 Multivitamin [Once Daily] 1 ea PO DAILY 07/02/19 Potassium Chloride [K-Dur] 20 meq PO DAILY 07/02/19 Magnesium Oxide [Mag-Ox 400] 400 mg PO BIDCM #30 tab 07/06/19 Pantoprazole Sodium [Protonix] 40 mg PO DAILY #90 tab 07/06/19 Following Prescrptions Were Given to Patient: Magnesium Oxide [Mag-Ox 400] 400 mg PO BIDCM #30 tab Transmission Status: Pending to [facility]/pharmacy #[id number] Pantoprazole Sodium [Protonix] 40 mg PO DAILY #90 tab Transmission Status: [id number] Primary Care Physician: Boubacar Ruby DO [Primary Care Provider] - Please follow up with your Primary Care Physician in: IN 1-2 WEEKS Disposition: Home with Home Health Minutes spent on discharge:: 45 Patient Condition:: Stable Medical Necessity - Tobacco Use Smoking Status: Never smoker Tobacco Use: Non-smoker Meaningful Use Info Meaningful Use Diagnoses (Choose all that apply): CHF - CHF RADHA/ARB ordered at discharge?: No Reason RADHA/ARB not ordered?: Worsening renal disease Documented LVEF (%): 45 Inpatient E&M: [id number] Disch Hosp
--- NOTE | 2019-07-06 12:07 | NURSING ---
Right IJ dc'd tip intact. Pressure applied for 5min, vaseline guaze with 2x2 applied over top and secured with tegaderm. Instructed to lie flat for 30 minutes.
--- NOTE | 2019-07-06 12:17 | PHA.DC.MC ---
Pharmacy Service has performed discharge medication reconciliation and counseling for this patient. 1. MAGNESIUM OXIDE 400MG PO BIDCM 2. PANTOPRAZOLE 40MG PO DAILY The patient's discharge medication list was reviewed for discrepancies and discrepancies were resolved. Home Medications Aspirin [Low Dose Aspirin EC] 81 mg PO DAILY 11/17/18 sertraline 50 mg tablet 50 mg PO BID tab 03/20/19 atorvastatin 80 mg tablet 80 mg PO QHS #90 tab 06/21/19 digoxin 125 mcg (0.125 mg) tablet 62.5 mcg PO DAILY #90 tab 06/21/19 diltiazem HCl 120 mg tablet 120 mg PO DAILY #1 tab 06/21/19 furosemide 40 mg tablet 40 mg PO DAILY #1 tab 06/21/19 metoprolol succinate 50 mg tablet,extended release 24 hr 50 mg PO BID tab 06/21/19 Insulin Glargine,Hum.rec.anlog [Lantus Solostar] 10 unit SQ BREAKFAST 07/02/19 Insulin Lispro [Insulin Lispro Kwikpen U-100] 0 unit SQ TIDCM 07/02/19 Multivitamin [Once Daily] 1 ea PO DAILY 07/02/19 Potassium Chloride [K-Dur] 20 meq PO DAILY 07/02/19 Magnesium Oxide [Mag-Ox 400] 400 mg PO BIDCM #30 tab 07/06/19 Pantoprazole Sodium [Protonix] 40 mg PO DAILY #90 tab 07/06/19 The patient was counseled on the following discharge medications and changes in medications for homegoing were reviewed. The Reason for Use, instructions for use, and potential side effects were reviewed for all new medications. The patient's questions regarding all of their medications were answered. The patient was able to verbally demonstrate an understanding of their discharge medications.
--- NOTE | 2019-07-06 12:21 | CASEMGMT ---
Per agriculture science teacher pt stating she has a living will and health care POA. Documents are not in pt EMR. Pt unable to bring in at this time. PETRA Fields
--- NOTE | 2019-07-06 12:33 | CASEMGMT ---
VIKI CM Note. Pt to dc today. Call to [facility] to notify of discharge. DC instructions and summary faxed to . Regino HAMMOND RN ACM
[2019-07-06] MEDS: Potassium Chloride 10mEq/100mL 10 MEQ/100 ML IV.SOLN. 100 MEQ IV BOLUS ×4 (12:59→16:20)
[2019-07-06] MEDS: Magnesium Oxide 400 MG Tablet PO (16:23)
[2019-07-06 16:31] LABS: Bedside Glucose 118 mg/dL (70-110)
--- NOTE | 2019-07-07 14:52 | CASEMGMT ---
DC DATE: 07.06.2019 DC DISPOSITION: Home with [facility] DC DIAGNOSIS: AGIB LACE/STRATA: 23/07 F/U APPTS MADE PRIOR TO DC: yes PRESCRIPTIONS ACQUIRED BY PT: yes Intro role of CM to patient via phone. Pt states she is doing well. Home Health nurse was out today and completed start of care. No further questions per pt. No care improvement suggestions given at this time. Regino HAMMOND RN ACM
== END 2019-07-06 18:21 | disposition home health service (06) | DRG 377 ==
LOC: ED 03:35 → ICU 06:08 → PCU 07-03 14:21
PROVIDERS: Internal Medicine; Internal Medicine Critical Care Medicine; Surgery; Admitting Provider Hospitalist; Emergency Provider Emergency Medicine; PCP Family Medicine; Visit Provider Internal Medicine
PROC: 0DJD8ZZ Inspection of Lower Intestinal Tract, Via Natural or Artificial Opening Endoscopic (ICD-10-PCS; CPT 45378; principal; 2019-07-02 13:15)
DX: K25.4 Chronic or unspecified gastric ulcer with hemorrhage (principal); I50.33 Acute on chronic diastolic (congestive) heart failure; I48.20 Chronic atrial fibrillation, unspecified; N17.9 Acute kidney failure, unspecified; D62 Acute posthemorrhagic anemia; I13.0 Hypertensive heart and chronic kidney disease with heart failure and stage 1 through stage 4 chronic kidney disease, or unspecified chronic kidney disease; K57.31 Diverticulosis of large intestine without perforation or abscess with bleeding; K29.81 Duodenitis with bleeding; K44.9 Diaphragmatic hernia without obstruction or gangrene; D12.0 Benign neoplasm of cecum; I25.10 Atherosclerotic heart disease of native coronary artery without angina pectoris; E66.01 Morbid (severe) obesity due to excess calories; E03.9 Hypothyroidism, unspecified; K64.8 Other hemorrhoids; E78.5 Hyperlipidemia, unspecified; K64.4 Residual hemorrhoidal skin tags; E11.9 Type 2 diabetes mellitus without complications; Z79.82 Long term (current) use of aspirin; Z79.01 Long term (current) use of anticoagulants; Z68.39 Body mass index [BMI] 39.0-39.9, adult; Z79.4 Long term (current) use of insulin; Z95.3 Presence of xenogenic heart valve; Z95.5 Presence of coronary angioplasty implant and graft; Z79.02 Long term (current) use of antithrombotics/antiplatelets; I36.1 Nonrheumatic tricuspid (valve) insufficiency; I27.29 Other secondary pulmonary hypertension; E11.22 Type 2 diabetes mellitus with diabetic chronic kidney disease; I34.2 Nonrheumatic mitral (valve) stenosis; N18.3 Chronic kidney disease, stage 3 (moderate)
CPT/HCPCS: 36415; 36556; 71045; 74174; 80048; 80053; 80162; 82962; 83605; 83735; 84484; 85014; 85018; 85025; 85027; 85610; 86850; 86900; 86901; 86920; 88305; 93005; 97802; 99284; J7030; J7040; J7120; P9016; P9017; Q9967; A4216; C1751; J1940; J2405; J3490

== ENCOUNTER 2019-08-02 08:32 | Outpatient (RCR) | payer OTHER, SELFPAY ==
[2019-07-02 08:49] VITALS: BMI 39.7
[2019-07-19 09:28] LABS: Magnesium 1.9 mg/dL (1.6-2.6); Potassium 3.4 mmol/L (3.5-5.1)
[2019-07-19 09:57] LABS: International Normalized Ratio 1.1; Prothrombin Time (Protime)PT. 13.8 SECONDS (11.7-14.9)
[2019-08-02 09:12] LABS: Absolute Lymphocyte Count 2.06 X10^3/uL (0.83-4.51); Absolute Neutrophil Count 8.9 X10^3/uL (2.0-7.7); Basophil# 0.03 X10^3/uL; Basophil% 0.2 % (0-1); Eosinophil# 0.06 X10^3/uL; Eosinophils% 0.5 % (0-5); Hematocrit 33.2 % (37-47); Lymphocyte # 2.06 X10^3/ul (4.0); Lymphocyte % 17.1 % (19-41); Mean Corp Hgb Conc 30.1 g/dL (32-36); Mean Corpuscular Hgb 25.6 pg (27.0-32.0); Mean Corpuscular Volume 85.1 fL (81-99); Mean Platelet Vol. 12.1 fl (6.2-12.0); Monocyte% 8.3 % (0-10); NRBC Flagged by Analyzer 0.2 % (0-5); Neutrophil # 8.87 X10^3/uL (2.7-7.7); Neutrophil % 73.5 % (47-70); Platelet Count 363 K/mm3 (150-450); RBC Distribution Width CV 17.2 % (11.6-14.6); RBC Distribution Width SD 52.8 fl (35.1-43.9); White Blood Count 12.1 K/mm3 (4.4-11.0)
[2019-08-02 09:16] LABS: International Normalized Ratio 1.5; Prothrombin Time (Protime)PT. 17.5 SECONDS (11.7-14.9)
== END 2019-08-10 18:00 | disposition home or self-care (01) ==
LOC: LAB 08:32
PROVIDERS: Family Provider Family Medicine; PCP Family Medicine; Referring Provider Internal Medicine Cardiovascular Disease; Visit Provider Internal Medicine Cardiovascular Disease
DX: I48.19 Other persistent atrial fibrillation (principal); R06.00 Dyspnea, unspecified; I25.10 Atherosclerotic heart disease of native coronary artery without angina pectoris; I50.33 Acute on chronic diastolic (congestive) heart failure; I34.2 Nonrheumatic mitral (valve) stenosis; Z95.5 Presence of coronary angioplasty implant and graft; Z79.01 Long term (current) use of anticoagulants
CPT/HCPCS: 36415; 83735; 84132; 85025; 85610

== ENCOUNTER 2019-09-01 09:30 | Outpatient (RCR) | payer OTHER, SELFPAY ==
[2019-07-26 11:05] VITALS: BMI 37.3
[2019-08-11 09:59] LABS: International Normalized Ratio 1.8; Prothrombin Time (Protime)PT. 20.3 SECONDS (11.7-14.9)
[2019-08-23 09:37] LABS: International Normalized Ratio 1.9; Prothrombin Time (Protime)PT. 20.8 SECONDS (11.7-14.9)
[2019-09-01 10:51] LABS: Hematocrit 42.9 % (37-47); Hemoglobin 12.7 g/dL (12.0-15.0); Mean Corp Hgb Conc 29.6 g/dL (32-36); Mean Corpuscular Hgb 25.2 pg (27.0-32.0); Mean Corpuscular Volume 85.1 fL (81-99); Mean Platelet Vol. 11.9 fl (6.2-12.0); POSITIVE MORPHOLOGY YES; Platelet Count 293 K/mm3 (150-450); RBC Distribution Width CV 20.5 % (11.6-14.6); RBC Distribution Width SD 62.2 fl (35.1-43.9); Red Blood Count 5.04 M/mm3 (4.2-5.4); Scan Indicated on CBC? Y/N YES- FLAGS NOTED; White Blood Count 10.2 K/mm3 (4.4-11.0)
[2019-09-01 10:59] LABS: International Normalized Ratio 2.3; Prothrombin Time (Protime)PT. 24.7 SECONDS (11.7-14.9)
== END 2019-09-01 18:00 | disposition home or self-care (01) ==
LOC: LAB 09:30
PROVIDERS: Family Provider Family Medicine; PCP Family Medicine; Referring Provider Internal Medicine Cardiovascular Disease; Visit Provider Internal Medicine Cardiovascular Disease
DX: I25.10 Atherosclerotic heart disease of native coronary artery without angina pectoris (principal); R06.00 Dyspnea, unspecified; I48.19 Other persistent atrial fibrillation; I50.33 Acute on chronic diastolic (congestive) heart failure; Z95.5 Presence of coronary angioplasty implant and graft; I34.2 Nonrheumatic mitral (valve) stenosis; Z79.01 Long term (current) use of anticoagulants
CPT/HCPCS: 36415; 85027; 85610

== ENCOUNTER 2019-09-22 08:54 | Outpatient (RCR) | payer OTHER, SELFPAY ==
[2019-07-26 11:05] VITALS: BMI 37.3
[2019-09-22 10:08] LABS: International Normalized Ratio 2.7; Prothrombin Time (Protime)PT. 28.1 SECONDS (11.7-14.9)
== END 2019-09-22 18:00 | disposition home or self-care (01) ==
LOC: LAB 08:54
PROVIDERS: Family Provider Family Medicine; PCP Family Medicine; Referring Provider Internal Medicine Cardiovascular Disease; Visit Provider Internal Medicine Cardiovascular Disease
DX: R06.00 Dyspnea, unspecified (principal); I25.10 Atherosclerotic heart disease of native coronary artery without angina pectoris; I48.19 Other persistent atrial fibrillation; I50.33 Acute on chronic diastolic (congestive) heart failure; I34.2 Nonrheumatic mitral (valve) stenosis; Z95.5 Presence of coronary angioplasty implant and graft; Z79.01 Long term (current) use of anticoagulants
CPT/HCPCS: 36415; 85610

== ENCOUNTER 2019-10-18 09:14 | Outpatient (RCR) | payer OTHER, SELFPAY ==
[2019-07-26 11:05] VITALS: BMI 37.3
[2019-10-18 09:45] LABS: Hematocrit 45.8 % (37-47); Hemoglobin 14.1 g/dL (12.0-15.0); Mean Corp Hgb Conc 30.8 g/dL (32-36); Mean Corpuscular Hgb 25.3 pg (27.0-32.0); Mean Corpuscular Volume 82.2 fL (81-99); Mean Platelet Vol. 10.8 fl (6.2-12.0); POSITIVE MORPHOLOGY YES; Platelet Count 277 K/mm3 (150-450); RBC Distribution Width CV 20.8 % (11.6-14.6); RBC Distribution Width SD 58.4 fl (35.1-43.9); Red Blood Count 5.57 M/mm3 (4.2-5.4); White Blood Count 7.8 K/mm3 (4.4-11.0)
[2019-10-18 09:46] LABS: Scan Indicated on CBC? Y/N YES- FLAGS NOTED
[2019-10-18 09:54] LABS: International Normalized Ratio 2.5; Prothrombin Time (Protime)PT. 26.9 SECONDS (11.7-14.9)
[2019-10-18 10:30] LABS: Differential Comment SCANNED
[2019-10-18 11:30] LABS: Uric Acid 10.3 mg/dL (2.6-6.0)
== END 2019-10-18 18:00 | disposition home or self-care (01) ==
LOC: LAB 09:14
PROVIDERS: Family Provider Family Medicine; PCP Family Medicine; Referring Provider Internal Medicine Cardiovascular Disease; Visit Provider Internal Medicine Cardiovascular Disease
DX: R06.00 Dyspnea, unspecified (principal); I25.10 Atherosclerotic heart disease of native coronary artery without angina pectoris; I48.19 Other persistent atrial fibrillation; I50.33 Acute on chronic diastolic (congestive) heart failure; I34.2 Nonrheumatic mitral (valve) stenosis; Z95.5 Presence of coronary angioplasty implant and graft; Z79.01 Long term (current) use of anticoagulants
CPT/HCPCS: 36415; 84550; 85027; 85610

== ENCOUNTER 2019-12-04 08:23 | Outpatient (RCR) | payer OTHER, SELFPAY ==
[2019-10-25 11:06] VITALS: BMI 37.0
[2019-11-16 10:23] LABS: International Normalized Ratio 1.8; Prothrombin Time (Protime)PT. 20.5 SECONDS (11.7-14.9)
[2019-12-04 09:45] LABS: Prothrombin Time (Protime)PT. 22.4 SECONDS (11.7-14.9)
== END 2019-12-11 18:00 | disposition home or self-care (01) ==
LOC: LAB 08:23
PROVIDERS: Family Provider Family Medicine; PCP Family Medicine; Referring Provider Internal Medicine Cardiovascular Disease; Visit Provider Internal Medicine Cardiovascular Disease
DX: R06.00 Dyspnea, unspecified (principal); I25.10 Atherosclerotic heart disease of native coronary artery without angina pectoris; I48.19 Other persistent atrial fibrillation; I50.33 Acute on chronic diastolic (congestive) heart failure; I34.2 Nonrheumatic mitral (valve) stenosis; Z95.5 Presence of coronary angioplasty implant and graft; Z79.01 Long term (current) use of anticoagulants
CPT/HCPCS: 36415; 85610

== ENCOUNTER 2020-01-01 08:22 | Outpatient (RCR) | payer OTHER, SELFPAY ==
[2019-10-25 11:06] VITALS: BMI 37.0
[2020-01-01 09:26] LABS: International Normalized Ratio 2.4; Prothrombin Time (Protime)PT. 25.4 SECONDS (11.7-14.9)
== END 2020-01-01 18:00 | disposition home or self-care (01) ==
LOC: LAB 08:22
PROVIDERS: Family Provider Family Medicine; PCP Family Medicine; Referring Provider Internal Medicine Cardiovascular Disease; Visit Provider Internal Medicine Cardiovascular Disease
DX: I48.19 Other persistent atrial fibrillation (principal); I25.10 Atherosclerotic heart disease of native coronary artery without angina pectoris; I50.33 Acute on chronic diastolic (congestive) heart failure; I34.2 Nonrheumatic mitral (valve) stenosis; R06.00 Dyspnea, unspecified; Z95.5 Presence of coronary angioplasty implant and graft; Z79.01 Long term (current) use of anticoagulants
CPT/HCPCS: 36415; 85610

== ENCOUNTER 2020-01-20 15:17 | Emergency (ER) | payer OTHER, SELFPAY ==
[2019-10-25 11:06] VITALS: BMI 37.0
[2020-01-20 15:18] VITALS: BP 139/80; PULSE 104; PULSE 105; RESP 16; RESP 18; TEMP 36.4; O2SAT 96; BMI 38.0
--- NOTE | 2020-01-20 15:29 | CT_ITS ---
STUDY: CT CERVICAL SPINE WITHOUT CONTRAST REASON FOR EXAM: Female, 79 years old. HIT HEAD THIS AM, ON COUMADIN, STRUCK BACK OF HEAD ON RT SIDE, BUMP AT THAT SITE, HX-AFIB, DB, CHF, HEART STENTS RADIATION DOSAGE (If Supplied By Facility): CTDIvol = ( 31.83 ) mGy, DLP = ( 649.81 ) mGycm TECHNIQUE: High resolution transaxial imaging was performed without contrast material. Sagittal and coronal images were reconstructed. Individualized dose optimization techniques were used for this CT. COMPARISON: None FINDINGS: Normal craniovertebral junction. Normal anterior atlantoaxial articulation. Normal odontoid process. Normal cervical lordosis. Normal vertebral bodies and posterior osseous elements. C2-3: Normal endplates. Normal disc height and morphology. Normal central canal and intervertebral neuroforamina. C3-4: Normal endplates. Normal disc height and morphology. Normal central canal and intervertebral neuroforamina. C4-5: Normal endplates. Normal disc height and morphology. Normal central canal and intervertebral neuroforamina. C5-6: Normal endplates. Normal disc height and morphology. Normal central canal and intervertebral neuroforamina. C6-7: Normal endplates. Normal disc height and morphology. Normal central canal and intervertebral neuroforamina. C7-T1: Normal endplates. Normal disc height and morphology. Normal central canal and intervertebral neuroforamina. Normal visualized soft tissue structures. CT/Spine Cervical without Contras IMPRESSION: Normal unenhanced CT examination of the cervical spine. Electronically Signed: Rafita Turner MD at 16:32 EDT , Service support ,
--- NOTE | 2020-01-20 15:29 | CT_ITS ---
We are attempting to reach an attending provider to discuss findings. An addendum with communication details will be sent when the communication is complete. STUDY: CT BRAIN WITHOUT CONTRAST REASON FOR EXAM: Female, 79 years old. HIT HEAD THIS AM, ON COUMADIN, STRUCK BACK OF HEAD ON RT SIDE, BUMP AT THAT SITE, HX-AFIB, DB, CHF, HEART STENTS RADIATION DOSAGE (If Supplied By Facility): CTDIvol = ( 44.99 ) mGy, DLP = ( 796.11 ) mGycm TECHNIQUE: Transaxial CT imaging of the brain was performed without administration of intravenous contrast material. Individualized dose optimization techniques were used for this CT. COMPARISON: 02/15/2017 CT brain FINDINGS: Subcutaneous hematoma right posterior scalp. Normal calvarium. Normal size ventricles and extra-axial spaces for the patient''s age. Normal white matter tracts of the cerebral hemispheres. Remote lacunar infarct right basal ganglia. Normal brainstem. Normal cerebellum. Subarachnoid hemorrhage left posterior parietal frontal lobes. There are no findings of an acute ischemic infarction. Air-fluid level right maxillary sinus. CT/Brain/Head without Contrast IMPRESSION: Left-sided subarachnoid hemorrhage as above Electronically Signed: Rafita Turner MD at 16:29 EDT , Service support ,
--- NOTE | 2020-01-20 15:30 | ED.DCSUM_ITS ---
History of Present Illness Informant: Patient, Family Occurred: Today Mechanism/Context: Same level fall Usually ambulates: Cane, Walker Location: head Quality of Pain: Throbbing Current Severity: Moderate Maximum Severity: Severe Worsened by: movement, palpation Relieved by: nothing Narrative: 79-year-old female presents to the emergency department with a headache and neck pain. The patient is on Coumadin. The patient was walking in her driveway about 3 hours ago fell backwards after tripping on a crack in the cement hit the back of her head on the ground. She did not lose consciousness. She has had continued headache. She does not feel lightheaded or dizzy. No nausea or vomiting. No blurry vision or double vision or loss of vision. No weakness or paresthesias. No difficulties with speech or ambulation. She last had her INR checked about 3 weeks ago. She denies any other injuries. She is ambulatory. Rest of review of systems negative Tetanus Immunization: Unknown Prior similar symptoms: No Recent Illness/Hospitalization: No <Joe Mcbride - Last Filed: 01/20/20 16:50> <Brian Kirby - Last Filed: 01/20/20 18:09> Chief Complaint: Head Injury Past Medical History Prior records reviewed: Yes Past Medical History: - - Hypertension hyperlipidemia type 2 diabetes mellitus atrial fibrillation Lives: With Family Smoking Status: Never smoker Alcohol: None Drugs: None <Joe Mcbride - Last Filed: 01/20/20 16:50> <Brian Kirby - Last Filed: 01/20/20 18:09> - Allergies and Home Meds Allergies/Adverse Reactions: Allergies amiodarone Allergy (Verified 10/25/19 11:06) Other Primary Care Physician: Boubacar Ruby DO [Primary Care Provider] - Review of Systems All systems negative except as indicated General: Denies: Chills, Fever, Sweats Eyes: Denies: Visual changes - bilaterally, Diplopia ENT: Denies: Rhinorrhea, Sore throat Cardiovascular: Denies: Chest pain, Palpitations Respiratory: Denies: Dyspnea, Cough, Dyspnea on exertion Gastrointestinal: Denies: Abdominal pain, Nausea, Vomiting, Diarrhea, Melena, Hematochezia Genitourinary: Denies: Dysuria, Hematuria, Frequency Musculoskeletal: Reports: Neck pain. Denies: Myalgias, Arthralgias, Back pain, Swelling, Extremity Pain Skin: Reports: Abrasions. Denies: Rash, Wounds Neurological: Reports: Headache. Denies: Weakness, Parasthesia, Numbness <Joe Mcbride - Last Filed: 01/20/20 16:50> Physical Exam Vital Signs/Narrative: Vital Signs Temp Pulse Resp BP Pulse Ox 01/20/20 15:18 97.6 F L 105 H 16 139/80 H 96 Inital Vital Signs reviewed: Yes General: Well nourished, Well developed Head: Normocephalic, Atraumatic Eyes: Perrl, EOMI ENT: TM's clear, No hemotympanum or drainage, No trauma. Negative for: Hemotympanum, Otorrhea, Nasal trauma, Nasal septal hematoma Neck: Full ROM, Paraspinal Tenderness. Negative for: Spinal Tenderness Cardiovascular: Regular rate, Regular rhythm, No murmurs Respiratory: No distress, CTA bilaterally, Chest nontender Abdomen: Soft, Nontender, Nondistended, Normal bowel sounds Back: Nontender Skin: Normal color, No rash Neurological: Alert, Oriented x3, Cranial nerves II-XII grossly intact, Normal Strength, Normal Sensation, Normal Gait. Negative for: Confused, Disoriented Psychological: Normal affect, Normal Mood <Joe Mcbride - Last Filed: 01/20/20 16:50> Vital Signs/Narrative: Vital Signs Temp Pulse Resp BP Pulse Ox 01/20/20 17:34 106 H 16 159/109 H 95 01/20/20 17:13 106 H 16 159/109 H 95 01/20/20 16:52 95 01/20/20 16:49 100 17 155/109 H 90 01/20/20 15:18 97.6 F L 105 H 16 139/80 H 96 <Brian Kirby - Last Filed: 01/20/20 18:09> Diagnostic/Tx/Re-eval Impressions Brain CT 01/20/20 15:29 IMPRESSION: Left-sided subarachnoid hemorrhage as above Electronically Signed: Rafita Turner MD at 16:29 EDT , Service support , ADDENDUM: 01/20/20 1645 IMPRESSION: Left-sided subarachnoid hemorrhage as above N.B. : The above information has been verbally conveyed by Rafita Turner MD to AZRA Heath PA, on 01/20/2020 16:38:19 (ET). Electronically Signed: Rafita Turner MD at 16:29 EDT , Service support , Cervical Spine CT 01/20/20 15:29 IMPRESSION: Normal unenhanced CT examination of the cervical spine. Electronically Signed: Rafita Turner MD at 16:32 EDT , Service support , 01/20/20 15:29 Brain/Head without Contrast [CT] Stat CT Cervical [Spine Cervical without Contras] [CT] Stat 01/20/20 16:42 Chest 1 View (Portable) [RAD] Stat Pelvis 1 or 2 Views [RAD] Stat Laboratory Results 01/20/20 15:40 PT 21.7 H INR 1.9 - Medical Decision Making Patient has a nonfocal neurological exam. Vital signs are stable. INR is 1.9. CT scan of the brain demonstrates a subarachnoid hemorrhage. The radiologist did call to confirm this. The patient has a normal blood pressure at 139/80. Repeat exam she has no worsening of her neurologic status. She has no other complaints. The CT scan of her neck was unremarkable. Patient will need to be transferred to a trauma service. She requested [facility]. Spoke with the on-call trauma surgeon Dr. Brownlee, who will accept the patient. <Joe Mcbride - Last Filed: 01/20/20 16:50> Critical care time (excluding procedures): Discussing w/Consultants <Joe Mcbride - Last Filed: 01/20/20 16:50> ED Disposition <Joe Mcbride - Last Filed: 01/20/20 16:50> <Brian Kirby - Last Filed: 01/20/20 18:09> - Plan for ED Patient: Disposition: [facility] Diagnosis: Subarachnoid hemorrhage, Subtherapeutic international normalized ratio (INR), Acute on chronic diastolic (congestive) heart failure, History of mitral valve replacement with bioprosthetic valve, nursing home (current) use of anticoagulants, Longstanding persistent atrial fibrillation Referrals: Boubacar Ruby DO [Primary Care Provider] -
[2020-01-20 16:11] LABS: International Normalized Ratio 1.9; Prothrombin Time (Protime)PT. 21.7 SECONDS (11.7-14.9)
--- NOTE | 2020-01-20 16:42 | RAD_ITS ---
STUDY: X-RAY - PELVIS REASON FOR EXAM: Female, 79 years old. Fall trauma pelvic pain TECHNIQUE: One view of the pelvis was obtained. COMPARISON: None. FINDINGS: The bones of the pelvis are intact and located. Soft tissues are unremarkable. RAD/Pelvis 1 or 2 Views IMPRESSION: No pelvic fracture. In the presence of discordant negative x-rays and patient symptomatology confirmation with CT is advised to exclude possibility of radiographically occult fracture, such as sacrum. Electronically Signed: Chitra Angel, at 17:40 EDT Tel , Service support ,
[2020-01-20 16:49] VITALS: BP 155/109; PULSE 100; RESP 17; O2SAT 90
[2020-01-20 16:52] VITALS: O2SAT 95
[2020-01-20 16:54] LABS: Partial Thromboplast Time 29.2 Seconds (24.1-36.2)
[2020-01-20 17:03] LABS: Basophil# 0.02 X10^3/uL; Basophil% 0.4 % (0-1); Eosinophil# 0.05 X10^3/uL; Eosinophils% 0.9 % (0-5); Hematocrit 44.8 % (37-47); Hemoglobin 14.5 g/dL (12.0-15.0); Lymphocyte % 34.1 % (19-41); Mean Corp Hgb Conc 32.4 g/dL (32-36); Mean Corpuscular Hgb 28.2 pg (27.0-32.0); Mean Corpuscular Volume 87.2 fL (81-99); Mean Platelet Vol. 11.8 fl (6.2-12.0); Monocyte# 0.61 X10^3/uL; Monocyte% 10.9 % (0-10); NRBC Flagged by Analyzer 0 % (0-5); Neutrophil # 2.99 X10^3/uL (2.7-7.7); Neutrophil % 53.5 % (47-70); Platelet Count 230 K/mm3 (150-450); RBC Distribution Width CV 18.1 % (11.6-14.6); RBC Distribution Width SD 57.2 fl (35.1-43.9); Red Blood Count 5.14 M/mm3 (4.2-5.4); White Blood Count 5.6 K/mm3 (4.4-11.0)
[2020-01-20 17:13] VITALS: BP 159/109; PULSE 106; RESP 16; O2SAT 95
--- NOTE | 2020-01-20 17:15 | RAD_ITS ---
STUDY: X-RAY CHEST REASON FOR EXAM: Female, 79 years old. Fall. TECHNIQUE: Single AP portable view of the chest. COMPARISON: Prior study of 07/02/2019 FINDINGS: There are streaky fibrotic changes of the right upper lobe. There is no demonstrated pleural abnormality. There is moderate cardiomegaly. Status post median sternotomy changes are noted. There is an atrial appendage clip. Normal mediastinum and heena. There is prominence of the pulmonary hilar arteries and peripheral pulmonary arteries, consistent with congestive heart failure (CHF). Normal visualized aortic arch and descending thoracic aorta. Normal visualized thoracic spine. Normal visualized ribs, clavicles, and shoulders. There is no demonstrated abnormality of the visualized soft tissue structures of the upper abdomen. RAD/Chest 1 View (Portable) IMPRESSION: Moderate cardiomegaly. Status post median sternotomy. Mild CHF, new in the interval. Electronically Signed: Demetri Cuadra MD at 17:47 EDT , Service support ,
[2020-01-20 17:34] VITALS: BP 159/109; PULSE 106; RESP 16; O2SAT 95
[2020-01-20 17:40] LABS: Anion Gap 6 (5-15); BUN 31 mg/dL (7-18); BUN/Creat Ratio 28.4 RATIO (10-20); Calcium,Total 8.8 mg/dL (8.5-10.1); Chloride 108 mmol/L (98-107); Creatinine, Serum 1.09 mg/dL (0.55-1.02); EST Glomerular Filtration Rate 52 mL/min (>60); Est Glom Filt Rate - Afr Amer 63 mL/min (>60); Estimated Creatinine Clearance 42.03 ml/min; Glucose 125 mg/dL (74-106); Potassium 3.8 mmol/L (3.5-5.1); Sodium Level 138 mmol/L (136-145)
== END 2020-01-20 17:29 | disposition short-term general hospital (02) ==
PROVIDERS: Emergency Provider Physician Assistant Medical; PCP Family Medicine
DX: S06.6X0A Traumatic subarachnoid hemorrhage without loss of consciousness, initial encounter (principal); W19.XXXA Unspecified fall, initial encounter; Y93.01 Activity, walking, marching and hiking; Y92.9 Unspecified place or not applicable; R79.1 Abnormal coagulation profile; I11.0 Hypertensive heart disease with heart failure; I50.33 Acute on chronic diastolic (congestive) heart failure; I48.11 Longstanding persistent atrial fibrillation; E11.9 Type 2 diabetes mellitus without complications; E78.5 Hyperlipidemia, unspecified; Z95.3 Presence of xenogenic heart valve; Z79.4 Long term (current) use of insulin; Z79.01 Long term (current) use of anticoagulants; Z79.02 Long term (current) use of antithrombotics/antiplatelets; Z79.899 Other long term (current) drug therapy
CPT/HCPCS: 70450; 71045; 72125; 72170; 80048; 85025; 85610; 85730; 99283; A4216

== ENCOUNTER → 2020-02-02 16:56 | Outpatient (CLI) | payer SELFPAY, OTHER ==
[2020-01-20 15:18] VITALS: BMI 38.0
--- NOTE | 2020-02-02 16:59 | CT_ITS ---
STUDY: CT BRAIN WITHOUT CONTRAST REASON FOR EXAM: Female, 79 years old. Subarachnoid hemorrhage RADIATION DOSAGE (If Supplied By Facility): CTDIvol = ( 60.81 ) mGy, DLP = ( 998.67 ) mGycm TECHNIQUE: Transaxial CT imaging of the brain was performed without administration of intravenous contrast material. Individualized dose optimization techniques were used for this CT. COMPARISON: 20 January 2020 FINDINGS: Recently seen left parietal sulcal subarachnoid hemorrhage has resorbed and disappeared. There is no acute intracranial hemorrhage. Wright-white differentiation is preserved. The ventricles, sulci, and cisterns are within normal limits. There is no mass or mass effect. No acute large vascular territory distribution stroke is seen. Basal ganglia, brainstem, and cerebellum are all unremarkable. No focal skull defect is appreciated. There is no evidence of fracture. There is right parietal vertex scalp hematoma. The small amount of fluid layering in the right maxillary sinus.. CT/Brain/Head without Contrast IMPRESSION: 1. Resolution of recent acute subarachnoid hemorrhage. 2. No new acute intracranial hemorrhage. 3. No new acute intracranial findings. 4. Diminishing right parietal scalp hematoma. Electronically Signed: Chitra Angel, at 18:47 EDT Tel , Service support ,
== END ==
PROVIDERS: PCP Family Medicine
DX: I60.9 Nontraumatic subarachnoid hemorrhage, unspecified (principal)
CPT/HCPCS: 70450

== ENCOUNTER 2020-02-26 08:18 | Outpatient (RCR) | payer OTHER, SELFPAY ==
[2019-10-25 11:06] VITALS: BMI 37.0
[2020-02-14 12:07] LABS: International Normalized Ratio 1.7; Prothrombin Time (Protime)PT. 19.4 SECONDS (11.7-14.9)
[2020-02-26 09:27] LABS: International Normalized Ratio 2.3; Prothrombin Time (Protime)PT. 24.6 SECONDS (11.7-14.9)
== END 2020-02-26 18:00 | disposition home or self-care (01) ==
LOC: LAB 08:18
PROVIDERS: Family Provider Family Medicine; PCP Family Medicine; Referring Provider Internal Medicine Cardiovascular Disease; Visit Provider Internal Medicine Cardiovascular Disease
DX: I48.19 Other persistent atrial fibrillation (principal); I25.10 Atherosclerotic heart disease of native coronary artery without angina pectoris; I50.33 Acute on chronic diastolic (congestive) heart failure; I34.2 Nonrheumatic mitral (valve) stenosis; R06.00 Dyspnea, unspecified; Z95.5 Presence of coronary angioplasty implant and graft; Z79.01 Long term (current) use of anticoagulants
CPT/HCPCS: 36415; 85610

== ENCOUNTER 2020-03-27 08:25 | Outpatient (RCR) | payer OTHER, SELFPAY ==
[2020-02-14 07:51] VITALS: BMI 36.9
[2020-03-27 09:27] LABS: International Normalized Ratio 2.6; Prothrombin Time (Protime)PT. 27.4 SECONDS (11.7-14.9)
== END 2020-03-27 18:00 | disposition home or self-care (01) ==
LOC: LAB 08:25
PROVIDERS: Family Provider Family Medicine; PCP Family Medicine; Referring Provider Internal Medicine Cardiovascular Disease; Visit Provider Internal Medicine Cardiovascular Disease
DX: I48.19 Other persistent atrial fibrillation (principal); I25.10 Atherosclerotic heart disease of native coronary artery without angina pectoris; I50.33 Acute on chronic diastolic (congestive) heart failure; I34.2 Nonrheumatic mitral (valve) stenosis; R06.00 Dyspnea, unspecified; Z95.5 Presence of coronary angioplasty implant and graft; Z79.01 Long term (current) use of anticoagulants
CPT/HCPCS: 36415; 85610

== ENCOUNTER 2020-05-01 08:08 | Outpatient (RCR) | payer OTHER, SELFPAY ==
[2020-02-14 07:51] VITALS: BMI 36.9
[2020-05-01 09:34] LABS: International Normalized Ratio 3.1; Prothrombin Time (Protime)PT. 31.7 SECONDS (11.7-14.9)
== END 2020-05-01 18:00 | disposition home or self-care (01) ==
LOC: LAB 08:08
PROVIDERS: Family Provider Family Medicine; PCP Family Medicine; Referring Provider Internal Medicine Cardiovascular Disease; Visit Provider Internal Medicine Cardiovascular Disease
DX: I48.11 Longstanding persistent atrial fibrillation (principal); Z79.01 Long term (current) use of anticoagulants
CPT/HCPCS: 36415; 85610

== ENCOUNTER 2020-06-05 08:17 | Outpatient (RCR) | payer OTHER, SELFPAY ==
[2020-02-14 07:51] VITALS: BMI 36.9
[2020-06-05 09:28] LABS: International Normalized Ratio 2.3; Prothrombin Time (Protime)PT. 25.1 SECONDS (11.7-14.9)
== END 2020-06-05 18:00 | disposition home or self-care (01) ==
LOC: LAB 08:17
PROVIDERS: Family Provider Family Medicine; PCP Family Medicine; Referring Provider Internal Medicine Cardiovascular Disease; Visit Provider Internal Medicine Cardiovascular Disease
DX: I48.11 Longstanding persistent atrial fibrillation (principal); Z79.01 Long term (current) use of anticoagulants
CPT/HCPCS: 36415; 85610

== ENCOUNTER → 2020-06-12 09:56 | Outpatient (CLI) | payer OTHER, SELFPAY ==
[2020-06-12 08:40] VITALS: BMI 38.2
[2020-06-12 10:51] LABS: Absolute Lymphocyte Count 1.98 X10^3/uL (0.83-4.51); Absolute Neutrophil Count 3.4 X10^3/uL (2.0-7.7); Basophil# 0.05 X10^3/uL; Basophil% 0.8 % (0-1); Eosinophils% 1.6 % (0-5); Lymphocyte # 1.98 X10^3/ul (4.0); Lymphocyte % 32.1 % (19-41); Mean Corp Hgb Conc 32.3 g/dL (32-36); Mean Corpuscular Hgb 29.3 pg (27.0-32.0); Mean Corpuscular Volume 90.6 fL (81-99); Mean Platelet Vol. 12.6 fl (6.2-12.0); Monocyte% 9.7 % (0-10); NRBC Flagged by Analyzer 0 % (0-5); Neutrophil # 3.42 X10^3/uL (2.7-7.7); Neutrophil % 55.5 % (47-70); Platelet Count 197 K/mm3 (150-450); RBC Distribution Width CV 17.4 % (11.6-14.6); RBC Distribution Width SD 53.2 fl (35.1-43.9); Red Blood Count 6.35 M/mm3 (4.2-5.4); White Blood Count 6.2 K/mm3 (4.4-11.0)
[2020-06-12 11:02] LABS: Hematocrit 57.5 % (37-47)
[2020-06-12 11:17] LABS: Hemoglobin 18.6 g/dL (12.0-15.0)
[2020-06-12 12:45] LABS: AST(SGOT) 26 U/L (15-37); Alanine Aminotransfer ALT/SGPT 26 U/L (13-56); Albumin, Serum 3.6 g/dL (3.2-5.0); Alkaline Phosphatase 62 U/L (45-117); Anion Gap 8 (5-15); BUN 32 mg/dL (7-18); BUN/Creat Ratio 27.1 RATIO (10-20); Bilirubin, Direct 0.12 mg/dL (0.00-0.30); Calcium,Total 9.3 mg/dL (8.5-10.1); Chloride 105 mmol/L (98-107); Cholesterol 265 mg/dL (200); Creatinine, Serum 1.18 mg/dL (0.55-1.02); EST Glomerular Filtration Rate 47 mL/min (>60); Est Glom Filt Rate - Afr Amer 57 mL/min (>60); Glucose 130 mg/dL (74-106); High Density Lipoprotein 42 mg/dL; Potassium 4.3 mmol/L (3.5-5.1); Protein, Total 8.6 g/dL (6.4-8.2); Sodium Level 137 mmol/L (136-145); Triglycerides 297 mg/dL; Very Low Density Lipoprotein 59 mg/dL (5-40)
[2020-06-13 13:32] LABS: Pathologist Review Reviewed
== END ==
PROVIDERS: PCP Family Medicine; Referring Provider Internal Medicine Cardiovascular Disease; Visit Provider Internal Medicine Cardiovascular Disease
DX: I25.10 Atherosclerotic heart disease of native coronary artery without angina pectoris (principal); Z95.5 Presence of coronary angioplasty implant and graft; I05.2 Rheumatic mitral stenosis with insufficiency; Z95.3 Presence of xenogenic heart valve; I42.8 Other cardiomyopathies; I50.42 Chronic combined systolic (congestive) and diastolic (congestive) heart failure; E78.00 Pure hypercholesterolemia, unspecified
CPT/HCPCS: 36415; 80048; 80061; 80076; 85025

== ENCOUNTER 2020-07-01 08:33 | Outpatient (RCR) | payer OTHER, SELFPAY ==
[2020-02-14 07:51] VITALS: BMI 36.9
[2020-06-12 08:40] VITALS: BMI 38.2
[2020-07-01 09:00] LABS: International Normalized Ratio 2.8
== END 2020-07-01 18:00 | disposition home or self-care (01) ==
LOC: LAB 08:33
PROVIDERS: Family Provider Family Medicine; PCP Family Medicine; Referring Provider Internal Medicine Cardiovascular Disease; Visit Provider Internal Medicine Cardiovascular Disease
DX: I48.11 Longstanding persistent atrial fibrillation (principal); Z79.01 Long term (current) use of anticoagulants
CPT/HCPCS: 36415; 85610

== ENCOUNTER 2020-08-07 08:46 | Outpatient (RCR) | payer OTHER, SELFPAY ==
[2020-06-12 08:40] VITALS: BMI 38.2
[2020-08-07 09:50] LABS: International Normalized Ratio 3.2; Prothrombin Time (Protime)PT. 31.6 SECONDS (11.7-14.9)
== END 2020-08-07 18:00 | disposition home or self-care (01) ==
LOC: LAB 08:46
PROVIDERS: Family Provider Family Medicine; PCP Family Medicine; Referring Provider Internal Medicine Cardiovascular Disease; Visit Provider Internal Medicine Cardiovascular Disease
DX: I48.11 Longstanding persistent atrial fibrillation (principal); Z79.01 Long term (current) use of anticoagulants
CPT/HCPCS: 36415; 85610

== ENCOUNTER 2020-09-06 08:13 | Outpatient (RCR) | payer OTHER, SELFPAY ==
[2020-06-12 08:40] VITALS: BMI 38.2
[2020-08-14 09:49] LABS: International Normalized Ratio 2.8; Prothrombin Time (Protime)PT. 28.6 SECONDS (11.7-14.9)
[2020-09-06 09:01] LABS: International Normalized Ratio 3.5; Prothrombin Time (Protime)PT. 34.3 SECONDS (11.7-14.9)
[2020-09-06 09:32] LABS: AST(SGOT) 29 U/L (15-37); Alanine Aminotransfer ALT/SGPT 31 U/L (13-56); Albumin, Serum 3.9 g/dL (3.2-5.0); Alkaline Phosphatase 62 U/L (45-117); Bilirubin, Direct 0.17 mg/dL (0.00-0.30); Cholesterol 128 mg/dL (200); Globulin 4.6 g/dL (2.2-4.2); High Density Lipoprotein 44 mg/dL; Protein, Total 8.5 g/dL (6.4-8.2); Triglycerides 161 mg/dL; Very Low Density Lipoprotein 32 mg/dL (5-40)
== END 2020-09-06 18:00 | disposition home or self-care (01) ==
LOC: LAB 08:13
PROVIDERS: Family Provider Family Medicine; PCP Family Medicine; Referring Provider Internal Medicine Cardiovascular Disease; Visit Provider Internal Medicine Cardiovascular Disease
DX: I48.11 Longstanding persistent atrial fibrillation (principal); Z79.01 Long term (current) use of anticoagulants; E78.00 Pure hypercholesterolemia, unspecified
CPT/HCPCS: 36415; 80061; 80076; 85610

== ENCOUNTER 2020-10-02 08:26 | Outpatient (RCR) | payer OTHER, SELFPAY ==
[2020-06-12 08:40] VITALS: BMI 38.2
[2020-09-18 09:25] LABS: International Normalized Ratio 2.8; Prothrombin Time (Protime)PT. 28.9 SECONDS (11.7-14.9)
[2020-10-02 09:21] LABS: International Normalized Ratio 2.5; Prothrombin Time (Protime)PT. 26.2 SECONDS (11.7-14.9)
== END 2020-10-02 18:00 | disposition home or self-care (01) ==
LOC: LAB 08:26
PROVIDERS: Family Provider Family Medicine; PCP Family Medicine; Referring Provider Internal Medicine Cardiovascular Disease; Visit Provider Internal Medicine Cardiovascular Disease
DX: I48.11 Longstanding persistent atrial fibrillation (principal); Z79.01 Long term (current) use of anticoagulants
CPT/HCPCS: 36415; 85610

== ENCOUNTER 2020-10-30 08:33 | Outpatient (RCR) | payer OTHER, SELFPAY ==
[2020-06-12 08:40] VITALS: BMI 38.2
[2020-10-30 09:48] LABS: International Normalized Ratio 2.3; Prothrombin Time (Protime)PT. 24.4 SECONDS (11.7-14.9)
== END 2020-10-30 18:00 | disposition home or self-care (01) ==
LOC: LAB 08:33
PROVIDERS: Family Provider Family Medicine; PCP Family Medicine; Referring Provider Internal Medicine Cardiovascular Disease; Visit Provider Internal Medicine Cardiovascular Disease
DX: I48.11 Longstanding persistent atrial fibrillation (principal); Z79.01 Long term (current) use of anticoagulants
CPT/HCPCS: 36415; 85610

== ENCOUNTER 2020-11-27 08:01 | Outpatient (RCR) | payer OTHER, SELFPAY ==
[2020-06-12 08:40] VITALS: BMI 38.2
[2020-11-27 09:35] LABS: International Normalized Ratio 2.3; Prothrombin Time (Protime)PT. 24.1 SECONDS (11.7-14.9)
== END 2020-11-27 18:00 | disposition home or self-care (01) ==
LOC: LAB 08:01
PROVIDERS: Family Provider Family Medicine; PCP Family Medicine; Referring Provider Internal Medicine Cardiovascular Disease; Visit Provider Internal Medicine Cardiovascular Disease
DX: I48.11 Longstanding persistent atrial fibrillation (principal); Z79.01 Long term (current) use of anticoagulants
CPT/HCPCS: 36415; 85610

== ENCOUNTER 2020-12-25 08:20 | Outpatient (RCR) | payer OTHER, SELFPAY ==
[2020-12-11 00:36] VITALS: BMI 38.2
[2020-12-25 10:34] LABS: International Normalized Ratio 2.1; Prothrombin Time (Protime)PT. 22.5 SECONDS (11.7-14.9)
== END 2020-12-25 18:00 | disposition home or self-care (01) ==
LOC: LAB 08:20
PROVIDERS: Family Provider Family Medicine; PCP Family Medicine; Referring Provider Internal Medicine Cardiovascular Disease; Visit Provider Internal Medicine Cardiovascular Disease
DX: I48.11 Longstanding persistent atrial fibrillation (principal); Z79.01 Long term (current) use of anticoagulants
CPT/HCPCS: 36415; 85610

== ENCOUNTER 2021-01-29 08:10 | Outpatient (RCR) | payer OTHER, SELFPAY ==
[2021-01-10 00:38] VITALS: BMI 38.2
[2021-01-29 09:29] LABS: International Normalized Ratio 2.2; Prothrombin Time (Protime)PT. 23.4 SECONDS (11.7-14.9)
== END 2021-02-09 05:16 | disposition home or self-care (01) ==
LOC: LAB 08:10
PROVIDERS: Family Provider Family Medicine; PCP Family Medicine; Referring Provider Internal Medicine Cardiovascular Disease; Visit Provider Internal Medicine Cardiovascular Disease
DX: I48.11 Longstanding persistent atrial fibrillation (principal); Z79.01 Long term (current) use of anticoagulants
CPT/HCPCS: 36415; 85610

== ENCOUNTER 2021-02-24 07:09 | Observation (INO) | payer OTHER, SELFPAY ==
[2021-02-24] VITALS (14 sets, daily range): BP systolic 97–152; BP diastolic 72–125; PULSE 87–125; RESP 16–24; TEMP 36.3–36.9; O2SAT 90–98; BMI 38.3; BMI 39.6
--- NOTE | 2021-02-24 07:26 | CT_ITS ---
STUDY: CT ABDOMEN AND PELVIS WITH CONTRAST REASON FOR EXAM: Female, 80 years old. Abdominal pain -- IV PO Contrast RADIATION DOSAGE (If Supplied By Facility): CTDIvol = ( 13.64 ) mGy, DLP = ( 2241.23 ) mGycm TECHNIQUE: Transaxial images were obtained from the dome of the diaphragm to the symphysis pubis with oral contrast. Oral and amp; IV Gastrografin and amp; 100mL Isovue-300 was administered. Sagittal and coronal images were reconstructed. Individualized dose optimization techniques were used for this CT. COMPARISON: Comparison is made with prior study dated 07/02/2019. FINDINGS: Mild degree of increased interstitial markings at the lung bases suggestive of scarring. Cardiomegaly. There is enlargement of the right atrium. There is decreased attenuation of the liver consistent with steatosis. The patient is status post cholecystectomy. Normal spleen. Normal pancreas. There is a small, circumscribed, smooth, low attenuation left adrenal mass, consistent with an adrenal adenoma. This measures 1.7 cm. This is unchanged. Normal right adrenal gland. Normal right kidney. Normal left kidney. Normal visualized stomach. Normal small intestine. There are multiple colonic diverticula consistent with diverticulosis. The appendix is visualized and appears normal. There is diffuse atherosclerotic calcification of the abdominal aorta and its major visceral branches, without a demonstrated aneurysm. Normal inferior vena cava. Normal retroperitoneum. Normal urinary bladder. There is absence of the uterus consistent with a prior hysterectomy. Normal abdominal wall. There are diffuse degenerative changes of the visualized lumbar spine. CT/Abdomen/Pelvis WITH Contrast IMPRESSION: Fatty infiltration of the liver. Stable 1.7 cm nodule in the left adrenal gland suggestive of adenoma. Sigmoid diverticulosis. Fatty infiltration of the liver. Electronically Signed: Km Lira MD at 9:55 EST , Service support ,
--- NOTE | 2021-02-24 07:27 | EDS_ITS ---
HPI HPI - GI History of Present Illness Chief Complaint: Nausea/Vomiting Informant: patient Abdominal Pain/Flank Pain Onset: Days (4) Context: Gradual Onset Timing: Continuous Location: Epigastric, RUQ and LUQ Current Severity: Severe Maximum Severity: Severe Worsened by: Nothing Relieved by: Nothing Nausea/Vomiting/Emesis GI Symptom: Positive for Nausea and Vomiting Quality: Negative for Coffee ground and Hematemesis Diarrhea/Melena/Hematochezia GI Symptom: Positive for Diarrhea; Negative for Melena and Hematochezia Associated Symptoms Associated Symptoms: Negative for Dysuria, Frequency and Hematuria Narrative Narrative: Patient presents with nausea, vomiting, diarrhea that has been getting worse over the past 4 days. Patient also complains of pain in her right hip that has gotten worse. Patient denies any trauma or injury. Patient describes her pain as sharp. Patient states she is vomiting up stomach contents. Patient denies any hematemesis or coffee-ground emesis. Patient states it is very thick. Patient states her diarrhea is green and foamy. Patient denies any melena or hematochezia. Patient denies any fevers or chills. Patient denies any back pain. Patient states nothing makes it better nothing makes it worse. Patient denies any urinary complaints. [facility] Medical History Acute GI bleeding (07/02/19) Atherosclerosis of coronary artery of [place] heart without angina pectoris Chronic combined systolic and diastolic CHF (congestive heart failure) Essential (primary) hypertension GI bleed (07/02/19) History of rheumatic fever Hyperlipidemia Hypothyroidism Longstanding persistent atrial fibrillation Non-ischemic cardiomyopathy Non-rheumatic aortic stenosis Nonrheumatic tricuspid (valve) insufficiency Obesity Other secondary pulmonary hypertension Paroxysmal atrial fibrillation Rheumatic mitral stenosis with insufficiency Subarachnoid hemorrhage (01/20/20) Type 2 diabetes mellitus Home Medications insulin lispro 100 unit/mL subcutaneous pen 15 unit SC DAILY PRN ml 07/26/19 [History Last Taken 02/23/21] sertraline 50 mg tablet 100 mg PO QHS tab 07/26/19 [History Last Taken 02/23/21] dicyclomine 10 mg PO TIDAC PRN 01/20/20 [History Last Taken 02/23/21] furosemide 40 mg tablet 40 mg PO BID #180 tab 02/14/20 [Rx Last Taken 02/23/21] warfarin 6 mg tablet 6 mg PO SUSA #24 tab 04/24/20 [Rx Last Taken 02/23/21] metoprolol tartrate 25 mg tablet 25 mg PO BID #180 tab 04/30/20 [Rx Last Taken 02/23/21] Disability Pooja Macias #1 ea 06/12/20 [Rx Last Taken Unknown] magnesium oxide 400 mg (241.3 mg magnesium) tablet 400 mg PO DAILY #90 tab 06/12/20 [Rx Last Taken 02/23/21] potassium chloride 10 mEq capsule,extended release 20 meq PO DAILY #180 cap 06/12/20 [Rx Last Taken 02/23/21] diltiazem HCl 120 mg tablet 120 mg PO BID #180 tablet 07/02/20 [Rx Last Taken 02/24/21] rosuvastatin 40 mg tablet 40 mg PO DAILY #30 tablet 07/23/20 [Rx Last Taken 02/23/21] warfarin 4 mg tablet 4 mg PO MOTUWETHFR #60 tab 11/05/20 [Rx Last Taken 02/21/21] allopurinol 300 mg tablet 300 mg PO DAILY tab 01/15/21 [History Last Taken 02/23/21] cholecalciferol (vitamin D3) 25 mcg (1,000 unit) capsule 25 mcg PO DAILY 01/15/21 [History Last Taken 02/23/21] insulin glargine 100 unit/mL (3 mL) subcutaneous pen 20 unit SC BREAKFAST ml 01/15/21 [History Last Taken 02/23/21] multivitamin 1 tab PO DAILY 01/15/21 [History Last Taken 02/23/21] psyllium husk 3.4 gram/5.4 gram oral powder 1 tbsp PO DAILY PRN 01/15/21 [History Last Taken Unknown] vit C,E,zinc,Ro-rlink-5-lutein-zeaxanthin 250 mg-2.5 mg-0.5 mg capsule 1 cap PO BID cap 01/15/21 [History Last Taken Unknown] hydrocodone-acetaminophen 1 tab PO Q6H PRN PRN 3 Days #10 tablet 02/24/21 [Rx Last Taken Unknown] Allergy/AdvReac Type Severity Reaction Status Date / Time amiodarone Allergy Other Verified 02/24/21 07:11 atorvastatin AdvReac Intermediate Myalgias Verified 02/24/21 07:11 with both 80 and 40 mg Family History Father Myocardial infarction CAD (coronary artery disease) CABG Hyperlipidemia Mother Hypertension Congestive heart failure Surgical History History of History of cardioversion (06/09/19) History of coronary artery stent placement (09/27/18) History of hysterectomy History of left heart catheterization (08/15/18) History of mitral valve replacement with bioprosthetic valve (06/06/19) Hx of cholecystectomy Social History Smoking Status: Never smoker ROS ROS ED Constitutional Constitutional ED: Denies chills or fever(s) Eyes Eyes: Denies blurry vision or change in vision ENT ENT ED: Denies rhinorrhea or sore throat Cardiovascular Cardiovascular: Denies chest pain or palpitations Respiratory/Chest Respiratory/Chest: Denies cough or dyspnea Gastrointestinal Gastrointestinal: Reports diarrhea, nausea and vomiting; Denies melena Genitourinary Genitourinary ED: Denies dysuria or hematuria Musculoskeletal Musculoskeletal: Denies back pain or neck pain Integumentary Denies abscess or rash Neurologic Neurologic: Reports headache(s); Denies weakness Allergic/Immunologic Allergic/Immunologic ED: Denies mouth swelling or urticaria EXAM Physical Exam Const Vital Signs: 02/24/21 07:09 02/24/21 07:32 02/24/21 08:02 Temperature 97.4 F L Temperature Source Temporal Pulse Rate 125 H 124 H 104 H Respiratory Rate 16 21 H 23 H Respiratory Pattern Blood Pressure 152/125 H 138/117 H 97/72 Blood Pressure Mean 134 124 80 Pulse Ox 96 98 90 Oxygen Delivery Method Room Air Room Air Nasal Cannula Oxygen Flow Rate (L/min) 2.5 02/24/21 09:58 02/24/21 10:06 02/24/21 12:08 Temperature Temperature Source Pulse Rate 113 H 110 H Respiratory Rate 22 H 24 H Respiratory Pattern Blood Pressure 121/96 H 121/106 H Blood Pressure Mean 104 111 Pulse Ox 94 92 Oxygen Delivery Method Nasal Cannula Nasal Cannula Nasal Cannula Oxygen Flow Rate (L/min) 2.5 2 2 02/24/21 12:23 Temperature Temperature Source Pulse Rate 118 H Respiratory Rate 24 H Respiratory Pattern Tachypnea Blood Pressure Blood Pressure Mean Pulse Ox Oxygen Delivery Method Oxygen Flow Rate (L/min) Positive well nourished and well developed General Appearance ED: well developed HEENT Reports moist mucous membranes Neck supple and no JVD Resp normal respiratory effort and clear to auscultation bilaterally Cardio no murmurs Rate: tachycardic Rhythm: abnormal rhythm irregularly irregular GI normal to inspection, nondistended, normoactive bowel sounds Auscultation: normoactive bowel sounds Palpation: soft and tender epigastric, LUQ and RUQ; Negative for guarding or rebound tenderness present Extremity normal to inspection Extremity Narrative: There is some mild tenderness over the right hip. There is some pain with internal and external rotation. There is no bony crepitance or step-off. There is no obvious deformity. There is no shortening noted. Pedal pulses are equal bilaterally. Sensation was intact to light touch bilaterally. General Extremety ED: Yes tenderness; Negative for edema General Extremity: Negative for edema Neuro oriented x3, CN's II-XII intact bilaterally and no sensory deficits noted Sensorium / Orientation: alert Motor Exam: strength 5/5 throughout Psych mental status grossly normal Skin no rashes or lesions noted MDM MDM MDM Narrative Medical decision making narrative: EKG shows atrial fibrillation with a rate of 126. There is some left axis deviation. There are no acute ST or T wave changes. QRS and QTc intervals were within normal limits. Patient was given a dose of Cardizem here. CBC was within normal limits. PT with INR was therapeutic at 1.9. Comprehensive metabolic profile was obtained. Creatinine was only slightly elevated at 1.12. CT scan of the abdomen and pelvis was obtained. There is fatty infiltration of the liver. There is a stable 1.7 cm nodule in the right adrenal gland consistent with adenoma. There is sigmoid diverticulosis but no diverticulitis. This was interpreted by the radiologist and reviewed by myself. Patient's heart rate improved after the Cardizem. Patient dropped her oxygen saturation into the 80s on room air after she returned from CAT scan. Patient denies any shortness of breath. Because of this, however, CTA of the chest was obtained. There is no acute process. There is no pulmonary embolism. There is no pneumonia. There is no fibrosis. There is some scarring in the right upper lobe, bilateral lower lobes, and lingula. This was interpreted by the radiologist and reviewed by myself. Patient was given a DuoNeb aerosol here. Patient's oxygen saturation improved to 91% on room air. Patient is feeling better. Patient denies any shortness of breath. Patient wants to go home. Patient was advised of her findings. Patient was given a prescription for a short course of [place] for pain. Patient was instructed to take this with caution. Patient and family understood and were agreeable with the plan. All questions were answered. Prior to being discharged, patient's oxygen saturation dropped back to 86 to 87% on room air. Because of this, hospitalist was paged. He will admit the patient for observation. Patient and family understood and were agreeable with the plan. All questions were answered. Lab Data Attestation: I reviewed the patient's lab results. Labs: Laboratory Results - last 24 hr 02/24/21 02/24/21 02/24/21 07:30 07:30 07:30 WBC 9.4 RBC 5.28 Hgb 16.0 H Hct 48.1 H MCV 91.1 MCH 30.3 MCHC 33.3 RDW Std Deviation 48.1 H RDW Coeff of Paul 14.4 Plt Count 226 MPV 11.9 Immature Gran % (Auto) 0.300 Neut % (Auto) 78.1 H Lymph % (Auto) 15.7 L Lamb % (Auto) 5.4 Eos % (Auto) 0.3 Baso % (Auto) 0.2 Absolute Neuts (auto) 7.3 Absolute Lymphs (auto) 1.48 Nucleated RBC % 0 PT 21.1 H INR 1.9 Sodium 134 L Potassium 3.6 Chloride 102 Carbon Dioxide 21.0 Anion Gap 11 BUN 27 H Creatinine 1.12 H Estim Creat Clear Calc 40.26 Est GFR (MDRD) Af Amer 60 Est GFR (MDRD) Non-Af 50 L BUN/Creatinine Ratio 24.1 H Glucose 204 H Calcium 9.4 Total Bilirubin 0.80 AST 24 ALT 27 Alkaline Phosphatase 71 Troponin I High Sens 11 Total Protein 8.9 H Albumin 3.8 Globulin 5.1 H Albumin/Globulin Ratio 0.7 L Lipase 125 Urine Color Urine Clarity Urine pH Ur Specific [place] Urine Protein Urine Glucose (UA) Urine Ketones Urine Occult Blood Urine Nitrite Urine Bilirubin Urine Urobilinogen Ur Leukocyte Esterase Urine RBC Urine WBC Ur Squamous Epith Cells Urine Bacteria Urine Mucus 02/24/21 07:30 WBC RBC Hgb Hct MCV MCH MCHC RDW Std Deviation RDW Coeff of Paul Plt Count MPV Immature Gran % (Auto) Neut % (Auto) Lymph % (Auto) Lamb % (Auto) Eos % (Auto) Baso % (Auto) Absolute Neuts (auto) Absolute Lymphs (auto) Nucleated RBC % PT INR Sodium Potassium Chloride Carbon Dioxide Anion Gap BUN Creatinine Estim Creat Clear Calc Est GFR (MDRD) Af Amer Est GFR (MDRD) Non-Af BUN/Creatinine Ratio Glucose Calcium Total Bilirubin AST ALT Alkaline Phosphatase Troponin I High Sens Total Protein Albumin Globulin Albumin/Globulin Ratio Lipase Urine Color Yellow Urine Clarity Sl. Cloudy Urine pH 5.0 Ur Specific [place] 1.020 Urine Protein 100 H Urine Glucose (UA) Normal Urine Ketones Negative Urine Occult Blood Negative Urine Nitrite Negative Urine Bilirubin Negative Urine Urobilinogen Normal Ur Leukocyte Esterase 25 H Urine RBC 0 SEEN Urine WBC 0-5 SEEN Ur Squamous Epith Cells 0-5 SEEN Urine Bacteria 2+ Urine Mucus 0 SEEN Radiography Diagnostic Testing: Clinical Impression(s) from Imaging Studies Abdomen/Pelvis CT 02/24/21 07:26 IMPRESSION: Fatty infiltration of the liver. Stable 1.7 cm nodule in the left adrenal gland suggestive of adenoma. Sigmoid diverticulosis. Fatty infiltration of the liver. Electronically Signed: Km Lira MD at 9:55 EST , Service support , Chest CTA 02/24/21 10:25 IMPRESSION: There is no evidence of pulmonary embolism. Findings suggestive of a scarring in the right upper lobe as well as the lower lobes and lingular segment of the left upper lobe. Prior CABG. Enlarged right atrium and prominence of the left atrium. Electronically Signed: Km Lira MD at 11:50 EST , Service support , EKG Initial EKG: Attestation: I personally reviewed and interpreted this EKG as follows: Interpretation: No Acute Injury Pattern and Atrial Fibrillation (126) Comments: Left axis deviation Prior EKG tracings: available for review Prior: Unchanged (07/03/2019) Treatment and Re-Evaluation Vital Sign Attestation:: Vital signs were reviewed prior to admission. Patient's tachycardia improved to 101. Remaining vital signs are stable. Discharge Plan Dx/Rx/DC Orders Clinical Impression: Hypoxia, Abdominal pain in female Disposition Disposition: Acute Care [facility] Discharge Date/Time: 02/24/21 14:07
--- NOTE | 2021-02-24 07:32 | EKG12_ITS ---
Test Reason : Blood Pressure : / mmHG Vent. Rate : 126 BPM Atrial Rate : 138 BPM P-R Int : 000 ms QRS Dur : 106 ms QT Int : 374 ms P-R-T Axes : 000 -72 090 degrees QTc Int : 541 ms Atrial fibrillation Left axis deviation Poor R wave progression Nonspecific ST and T wave abnormality Abnormal ECG Confirmed by JOSEPH KENYON, FÁTIMA ([id number]), primer expeditor and drier DEMETRIA WARREN ([id number]) on 02/26/2021 9:45:28 AM Referred By: EPHRAIM Confirmed By:FÁTIMA RUIZ MD
[2021-02-24 07:35] LABS: Mucous, Urine 0 SEEN /hpf (<or=2+); Red Blood Cells-Urine 0 SEEN /hpf (0-5)
[2021-02-24 07:39] LABS: Absolute Lymphocyte Count 1.48 X10^3/uL (0.83-4.51); Absolute Neutrophil Count 7.3 X10^3/uL (2.0-7.7); Basophil# 0.02 X10^3/uL; Basophil% 0.2 % (0-1); Color, Urine Yellow (Yellow); Eosinophil# 0.03 X10^3/uL; Eosinophils% 0.3 % (0-5); Glucose, Dipstick Normal (Normal); Hematocrit 48.1 % (37-47); Ketone-Dipstick Negative (Negative); Leukocyte Esterase-Dipstick 25 /ul (Negative); Lymphocyte # 1.48 X10^3/ul (0.83-4.51); Lymphocyte % 15.7 % (19-41); Mean Corp Hgb Conc 33.3 g/dL (32-36); Mean Corpuscular Hgb 30.3 pg (27.0-32.0); Mean Corpuscular Volume 91.1 fL (81-99); Mean Platelet Vol. 11.9 fl (6.2-12.0); Monocyte# 0.51 X10^3/uL; Monocyte% 5.4 % (0-10); NRBC Flagged by Analyzer 0 % (0-5); Neutrophil # 7.34 X10^3/uL (2.7-7.7); Neutrophil % 78.1 % (47-70); Nitrite-Dipstick Negative (Negative); Occult Blood-Urine Negative /ul (Negative); Platelet Count 226 K/mm3 (150-450); Protein-Dipstick 100 mg/dl (Negative); RBC Distribution Width CV 14.4 % (11.6-14.6); RBC Distribution Width SD 48.1 fl (35.1-43.9); Red Blood Count 5.28 M/mm3 (4.2-5.4); Urine Bilirubin Dipstick Negative (Negative); Urine Clarity Sl. Cloudy (Clear); Urine Urobilinogen Normal (Normal); White Blood Count 9.4 K/mm3 (4.4-11.0)
[2021-02-24] MEDS: Ondansetron 4 MG/2 ML Vial IV (07:40)
[2021-02-24] MEDS: 0.9% Normal Saline 1,000 ML 1000 ML IV ×2 (07:41→11:45)
[2021-02-24] MEDS: Morphine 4 MG/ML Syringe IV (07:43)
[2021-02-24] MEDS: dilTIAZem 25 MG/5 ML Vial 20 MG IV BOLUS (07:44)
[2021-02-24 07:45] LABS: Bacteria 2+ /hpf (None Seen); Squamous Epithelial Cells - UA 0-5 SEEN /hpf (5-10); White Blood Cells 0-5 SEEN /hpf (0-5)
--- NOTE | 2021-02-24 07:51 | NURSING ---
pts Spo2 lowered to 82% on room air. pt placed on 2.5 L NC. Spo@ improved to 92%
[2021-02-24 07:58] LABS: ALB/GLOB Ratio 0.7 RATIO (0.9-2.4); AST(SGOT) 24 U/L (15-37); Alanine Aminotransfer ALT/SGPT 27 U/L (13-56); Albumin, Serum 3.8 g/dL (3.2-5.0); Alkaline Phosphatase 71 U/L (45-117); Anion Gap 11 (5-15); BUN 27 mg/dL (7-18); BUN/Creat Ratio 24.1 RATIO (10-20); Calcium,Total 9.4 mg/dL (8.5-10.1); Chloride 102 mmol/L (98-107); Creatinine, Serum 1.12 mg/dL (0.55-1.02); EST Glomerular Filtration Rate 50 mL/min (>60); Est Glom Filt Rate - Afr Amer 60 mL/min (>60); Estimated Creatinine Clearance 40.26 ml/min; Globulin 5.1 g/dL (2.2-4.2); Glucose 204 mg/dL (74-106); Lipase 125 U/L (73-393); Potassium 3.6 mmol/L (3.5-5.1); Protein, Total 8.9 g/dL (6.4-8.2); Sodium Level 134 mmol/L (136-145); Troponin-I HS 11 pg/mL (3.0-54.0)
[2021-02-24 08:11] LABS: International Normalized Ratio 1.9; Prothrombin Time (Protime)PT. 21.1 SECONDS (11.7-14.9)
--- NOTE | 2021-02-24 10:25 | CT_ITS ---
STUDY: CTA CHEST REASON FOR EXAM: Female, 80 years old. Hypoxia RADIATION DOSAGE (If Supplied By Facility): CTDIvol = ( 28.10 ) mGy, DLP = ( 604.36 ) mGycm TECHNIQUE: The examination was performed with the intravenous administration of IV 75mL Isovue-370. Post-processing of the angiographic images was performed, with multiplanar reformation and 3D reconstruction. Individualized dose optimization techniques were used for this CT. COMPARISON: None. FINDINGS: Normal enhancement of the main pulmonary artery and right and left pulmonary arteries. Normal enhancement of the bilateral peripheral pulmonary arteries. There is no demonstrated pulmonary embolism. Normal thoracic aorta and visualized great vessels. There is no demonstrated aortic dissection. Enlarged right atrium. Prominence of the left atrium. Sternal cerclage wires and vascular clips are present from a prior sternotomy and coronary artery bypass graft procedure (CABG). Coronary artery calcification. Normal mediastinum. Normal hilar regions. Normal visualized trachea and bronchi. The lungs are well expanded. There is a mild degree of increased linear markings in the right upper lobe suggestive of scarring. Increased markings are also seen in the right middle lobe as well as in the medial anterior aspect of the lingular segment of the left upper lobe. This is suggestive of scarring. Mild bibasilar scarring. Normal pleura. Normal chest wall structures. There are degenerative changes of thoracic spine. Prior cholecystectomy. CT/CTA Chest W/WO Contrast IMPRESSION: There is no evidence of pulmonary embolism. Findings suggestive of a scarring in the right upper lobe as well as the lower lobes and lingular segment of the left upper lobe. Prior CABG. Enlarged right atrium and prominence of the left atrium. Electronically Signed: Km Lira MD at 11:50 EST , Service support ,
[2021-02-24] MEDS: Ipratropium/Albuterol Sulfate 3 ML AMPUL.NEB INHALATION (12:23)
--- NOTE | 2021-02-24 13:51 | ED.RN ---
THIS RN AT BEDSIDE TO DISCHARGE PT. PT SPO2 ON ROOM AIR WAS 86-87%. THIS RN ADJUSTED TO PULSE OX CORD AND VERIFIED SPO2 READING WITH ANOTHER PULSE OXIMETER. BOTH READ 87% ON ROOM AIR. PT PLACED BACK ON OXYGEN 2L NC AND IS SATTING 94%. PT DAUGHTER REPORTS SHE DOESNT WANT HER TO BE DISCHARGED WITHOUT A STABLE PULSE OX. DR. GONZALES INFORMED. HOSPITALIST PAGED.
--- NOTE | 2021-02-24 14:28 | PCM.HP.STD ---
Documented by User: Ming OQUENDO 02/24/21 15:05 HPI - General General Date of Admission: 02/24/21 HPI Narrative FABIO WOOD is a 80-year-old female who presents to the ED at [facility] on 02/24/2021 with a chief complaint of abdominal pain and diarrhea. Patient reports that for the past 3 days she has been experiencing progressively worsening diarrhea that is green, watery and foul-smelling. Patient thinks it might be food poisoning. Patient denies any recent illness or sick contacts. Patient denies any recent hematemesis, hematochezia or melena. Patient has not tried anything to relieve her abdominal pain or diarrhea and reports she is not aware of anything that makes it significantly worse. Patient reports that abdominal pain did subside when she was given morphine in the emergency department. Patient's oxygen saturation did drop down to 90% on room air while in the emergency department and she was subsequently placed on oxygen. Vital signs in the ED are 90 ?F, BP of 114/92, HR 120, RR of 22 and patient is satting 97% on 2 L via nasal cannula. CBC shows WBCs at 9.4, hemoglobin of 16 and platelets at 226,000. BMP shows a sodium of 134 and mildly elevated creatinine at 1.1, baseline appears below 1. CT of the abdomen/pelvis demonstrated a stable 1.7 cm nodule in the left adrenal gland, sigmoid diverticulosis and fatty infiltration of the liver. CTA of the chest demonstrates no evidence of PE, scarring in the right and left upper lobe, evidence of prior CABG with enlarged right atrium and prominence of the left atrium. EKG does show atrial fibrillation with a ventricular rate of 120 bpm, patient does have a history of paroxysmal A. fib. UA obtained in the ED demonstrated yellow cloudy urine that was otherwise unremarkable. Patient was given fluids, morphine, diltiazem and a DuoNeb breathing treatment in the ED. [facility] Medical History Acute GI bleeding (07/02/19) Atherosclerosis of coronary artery of [place] heart without angina pectoris Chronic combined systolic and diastolic CHF (congestive heart failure) Essential (primary) hypertension GI bleed (07/02/19) History of rheumatic fever Hyperlipidemia Hypothyroidism Longstanding persistent atrial fibrillation Non-ischemic cardiomyopathy Non-rheumatic aortic stenosis Nonrheumatic tricuspid (valve) insufficiency Obesity Other secondary pulmonary hypertension Paroxysmal atrial fibrillation Rheumatic mitral stenosis with insufficiency Subarachnoid hemorrhage (01/20/20) Type 2 diabetes mellitus Home Medications insulin lispro 100 unit/mL subcutaneous pen 15 unit SC DAILY PRN ml 07/26/19 [History Last Taken 02/23/21] sertraline 50 mg tablet 100 mg PO QHS tab 07/26/19 [History Last Taken 02/23/21] dicyclomine 10 mg PO TIDAC PRN 01/20/20 [History Last Taken 02/23/21] furosemide 40 mg tablet 40 mg PO BID #180 tab 02/14/20 [Rx Last Taken 02/23/21] warfarin 6 mg tablet 6 mg PO SUSA #24 tab 04/24/20 [Rx Last Taken 02/23/21] metoprolol tartrate 25 mg tablet 25 mg PO BID #180 tab 04/30/20 [Rx Last Taken 02/23/21] Disability Parking Placard #1 ea 06/12/20 [Rx Last Taken Unknown] magnesium oxide 400 mg (241.3 mg magnesium) tablet 400 mg PO DAILY #90 tab 06/12/20 [Rx Last Taken 02/23/21] potassium chloride 10 mEq capsule,extended release 20 meq PO DAILY #180 cap 06/12/20 [Rx Last Taken 02/23/21] diltiazem HCl 120 mg tablet 120 mg PO BID #180 tablet 07/02/20 [Rx Last Taken 02/24/21] rosuvastatin 40 mg tablet 40 mg PO DAILY #30 tablet 07/23/20 [Rx Last Taken 02/23/21] warfarin 4 mg tablet 4 mg PO MOTUWETHFR #60 tab 11/05/20 [Rx Last Taken 02/21/21] allopurinol 300 mg tablet 300 mg PO DAILY tab 01/15/21 [History Last Taken 02/23/21] cholecalciferol (vitamin D3) 25 mcg (1,000 unit) capsule 25 mcg PO DAILY 01/15/21 [History Last Taken 02/23/21] insulin glargine 100 unit/mL (3 mL) subcutaneous pen 20 unit SC BREAKFAST ml 01/15/21 [History Last Taken 02/23/21] multivitamin 1 tab PO DAILY 01/15/21 [History Last Taken 02/23/21] psyllium husk 3.4 gram/5.4 gram oral powder 1 tbsp PO DAILY PRN 01/15/21 [History Last Taken Unknown] vit C,E,zinc,Cv-xemtx-2-lutein-zeaxanthin 250 mg-2.5 mg-0.5 mg capsule 1 cap PO BID cap 01/15/21 [History Last Taken Unknown] hydrocodone-acetaminophen 1 tab PO Q6H PRN PRN 3 Days #10 tablet 02/24/21 [Rx Last Taken Unknown] Allergy/AdvReac Type Severity Reaction Status Date / Time amiodarone Allergy Other Verified 02/24/21 07:11 atorvastatin AdvReac Intermediate Myalgias Verified 02/24/21 07:11 with both 80 and 40 mg Family History Father Myocardial infarction CAD (coronary artery disease) CABG Hyperlipidemia Mother Hypertension Congestive heart failure Surgical History History of History of cardioversion (06/09/19) History of coronary artery stent placement (09/27/18) History of hysterectomy History of left heart catheterization (08/15/18) History of mitral valve replacement with bioprosthetic valve (06/06/19) Hx of cholecystectomy Social History Smoking Status: Never smoker ROS Constitutional Constitutional: Denies anorexia, change in weight, chills, fatigue, fever(s), malaise, night sweats, weakness or other Eyes Eyes: Denies blurry vision, change in eye color, change in vision, discharge from eye(s), double vision, erythema, eye pain, loss of vision or other ENT HEENT: Denies abnormal hearing, dysphagia, ear pain, epistaxis, headache(s), hearing loss, nasal congestion, nasal discharge, post nasal drip, sinus pressure, sore throat or other Cardiovascular Cardiovascular: Denies chest pain, claudication, dyspnea on exertion, edema, lightheadedness, orthopnea, palpitations, paroxysmal nocturnal dyspnea, rapid heart rate, syncope or other Respiratory/Chest Respiratory/Chest: Reports shortness of breath at rest; Denies cough, dyspnea, excessive phlegm production, hemoptysis, productive cough, shortness of breath with exertion, wheezing or other Gastrointestinal Gastrointestinal: Reports abdominal pain, diarrhea, loose stools and nausea; Denies coffee ground emesis, constipation, dyspepsia, hematemesis, hematochezia, melena, vomiting or other Genitourinary Genitourinary: Denies burning urination, difficulty urinating, dysuria, hematuria, nocturia, urinary frequency, urinary hesitancy, urinary incontinence, urinary urgency or other Musculoskeletal Musculoskeletal: Denies arthralgias, back pain, joint pain, joint stiffness, joint swelling, myalgias, neck pain or other Neurologic Neurologic: Denies abnormal gait, abnormal speech, confusion, disequilibrium, dizziness, focal weakness, headache(s), numbness, paresthesias, seizure-like activity, seizures, syncope, tingling, tremor(s) or other Psychiatric Psychiatric: Denies anxiety, depression, homicidal ideation, suicidal ideation or other Endocrine Endocrinology: Denies change in body appearance, cold intolerance, excessive sweating, heat intolerance, polydipsia, polyuria or other Hematologic/Lymphatic Hematologic/Lymphatic: Denies anemia, easy bleeding, easy bruising, lymphadenopathy or other Allergic/Immunologic Allergic/Immunologic: Denies rhinitis, hives, eczemia, asthma or other Vital Signs Vital Signs Vital Signs: 02/24/21 07:09 02/24/21 07:32 02/24/21 08:02 Temperature 97.4 F L Temperature Source Temporal Pulse Rate 125 H 124 H 104 H Respiratory Rate 16 21 H 23 H Respiratory Pattern Blood Pressure 152/125 H 138/117 H 97/72 Blood Pressure Mean 134 124 80 Pulse Ox 96 98 90 Oxygen Delivery Method Room Air Room Air Nasal Cannula Oxygen Flow Rate (L/min) 2.5 02/24/21 09:58 02/24/21 10:06 02/24/21 12:08 Temperature Temperature Source Pulse Rate 113 H 110 H Respiratory Rate 22 H 24 H Respiratory Pattern Blood Pressure 121/96 H 121/106 H Blood Pressure Mean 104 111 Pulse Ox 94 92 Oxygen Delivery Method Nasal Cannula Nasal Cannula Nasal Cannula Oxygen Flow Rate (L/min) 2.5 2 2 02/24/21 12:23 02/24/21 14:05 Temperature 98 F Temperature Source Temporal Pulse Rate 118 H 120 H Respiratory Rate 24 H 22 H Respiratory Pattern Tachypnea Blood Pressure 114/92 H Blood Pressure Mean 99 Pulse Ox 97 Oxygen Delivery Method Nasal Cannula Oxygen Flow Rate (L/min) 2 Weight Weight: 245 lb Body Mass Index (BMI) 38.3 Physical Exam Const alert and oriented x3 General Appearance: cooperative HEENT normocephalic, head/scalp atraumatic and hearing grossly normal bilaterally Eyes PERRL, EOMs intact bilaterally and conjunctivae normal Neck no lymphadenopathy, supple and no JVD Resp no retractions, no use of accessory muscles and clear to auscultation bilaterally Effort and Inspection: tachypneic, respiratory distress and labored Cardio regular rate, no murmurs and no JVD GI normal to inspection, nondistended, normoactive bowel sounds Palpation: tender RUQ Extremity normal to inspection, full ROM and no clubbing, cyanosis or edema Skin no rashes or lesions noted, no wounds, skin turgor normal and no jaundice Neuro CN's II-XII intact bilaterally Psych affect normal Results Lab / Micro Data Result Diagrams: 02/24/21 07:30 02/24/21 07:30 Labs: Laboratory Results - last 24 hr 02/24/21 07:30: WBC 9.4, RBC 5.28, Hgb 16.0 H, Hct 48.1 H, MCV 91.1, MCH 30.3, MCHC 33.3, RDW Std Deviation 48.1 H, RDW Coeff of Paul 14.4, Plt Count 226, MPV 11.9, Immature Gran % (Auto) 0.300, Neut % (Auto) 78.1 H, Lymph % (Auto) 15.7 L, [place] % (Auto) 5.4, Eos % (Auto) 0.3, Baso % (Auto) 0.2, Absolute Neuts (auto) 7.3, Absolute Lymphs (auto) 1.48, Nucleated RBC % 0 02/24/21 07:30: PT 21.1 H, INR 1.9 02/24/21 07:30: Sodium 134 L, Potassium 3.6, Chloride 102, Carbon Dioxide 21.0, Anion Gap 11, BUN 27 H, Creatinine 1.12 H, Estim Creat Clear Calc 40.26, Est GFR (MDRD) Af Amer 60, Est GFR (MDRD) Non-Af 50 L, BUN/Creatinine Ratio 24.1 H, Glucose 204 H, Calcium 9.4, Total Bilirubin 0.80, AST 24, ALT 27, Alkaline Phosphatase 71, Troponin I High Sens 11, Total Protein 8.9 H, Albumin 3.8, Globulin 5.1 H, Albumin/Globulin Ratio 0.7 L, Lipase 125 02/24/21 07:30: Urine Color Yellow, Urine Clarity Sl. Cloudy, Urine pH 5.0, Ur Specific [place] 1.020, Urine Protein 100 H, Urine Glucose (UA) Normal, Urine Ketones Negative, Urine Occult Blood Negative, Urine Nitrite Negative, Urine Bilirubin Negative, Urine Urobilinogen Normal, Ur Leukocyte Esterase 25 H, Urine RBC 0 SEEN, Urine WBC 0-5 SEEN, Ur Squamous Epith Cells 0-5 SEEN, Urine Bacteria 2+, Urine Mucus 0 SEEN Radiology Impression Abdomen/Pelvis CT 02/24/21 07:26 IMPRESSION: Fatty infiltration of the liver. Stable 1.7 cm nodule in the left adrenal gland suggestive of adenoma. Sigmoid diverticulosis. Fatty infiltration of the liver. Electronically Signed: Km Lira MD at 9:55 EST , Service support , Chest CTA 02/24/21 10:25 IMPRESSION: There is no evidence of pulmonary embolism. Findings suggestive of a scarring in the right upper lobe as well as the lower lobes and lingular segment of the left upper lobe. Prior CABG. Enlarged right atrium and prominence of the left atrium. Electronically Signed: Km Lira MD at 11:50 EST , Service support , Assessment & Plan Assessment/Plan (1) Abdominal pain in female: (2) Hypoxia: PLAN: Patient is a 80-year-old female who presents to the ED at [facility] on 02/24/2021 with a chief complaint of abdominal pain with watery, nonbloody diarrhea. Patient will be observed in the hospital for management of symptoms. 1) abdominal pain with diarrhea Patient presents to the ED with a 4-day history of progressively worsening abdominal pain with watery, nonbloody diarrhea. Patient denies any recent illness, antibiotic use or sick contacts. Patient reports pain is responsive to morphine. Plan: Admit to PCU for cardiac monitoring, continue fluids, enteric stool panel ordered, rapid Covid ordered, Legionella urinary antigens ordered, O2 per protocol, CBC and CMP in a.m., as needed medications ordered. 2) atrial fibrillation with RVR Rate currently controlled, EKG demonstrates A. fib with RVR. Home medication list includes diltiazem, metoprolol and Coumadin. Patient reports no recent changes. Continue home A. fib regimen, check TSH and magnesium 3) DM2 Hold home diabetic regimen, Accu-Cheks with sliding scale insulin ordered. 4) hyperlipidemia Continue statin. 5) HTN Stable, continue metoprolol and Lasix. 6) history of mitral valve replacement with bioprosthetic valve Follows with Dr. Lee. Patient is anticoagulated on Coumadin. DVT prophylaxis - Coumadin Patient seen by Ming Dalton PA-C, under the supervision of Dr. Jarvis. Documented by User: Dr. Chris Jarvis MD 02/24/21 15:14 HPI - General General Date of Admission: 02/24/21 Date of Service: 02/24/21 Chief Complaint: Abdominal pain, mainly epigastric region. HPI Narrative This 80-year-old female with history of mitral valve replacement with bioprosthetic valve, persistent A. fib probably valvular A. fib on Coumadin came to ED with upper abdominal pain mainly in epigastric, right upper and left upper quadrants. Patient abdominal pain started 3 days ago on Wednesday. She also had nausea but denies vomiting mainly dry heaving. Initially she had diarrhea, loose watery bowel movement but yesterday she had well formed stool. No GI bleed, hematemesis melena or hematochezia. In ED, she had morphine which resolved abdominal pain. She had CT abdomen and pelvis which did not show any acute cause for abdominal pain. Initially ER physician thought to discharge her but she was hypoxic and tachycardic therefore admitted. Chest CT was done did not show evidence of pulmonary embolism but scarring in right upper lobe and lower lobes and lingular segment. Patient further said she had decreased pulmonary circulation during mitral stenosis surgery as told by her set o type operator. Twelve-lead EKG was done which shows A. fib, LAD at 126 bpm. QTc 541 ms. Labs reviewed. [facility] Medical History Acute GI bleeding (07/02/19) Atherosclerosis of coronary artery of [place] heart without angina pectoris Chronic combined systolic and diastolic CHF (congestive heart failure) Essential (primary) hypertension GI bleed (07/02/19) History of rheumatic fever Hyperlipidemia Hypothyroidism Longstanding persistent atrial fibrillation Non-ischemic cardiomyopathy Non-rheumatic aortic stenosis Nonrheumatic tricuspid (valve) insufficiency Obesity Other secondary pulmonary hypertension Paroxysmal atrial fibrillation Rheumatic mitral stenosis with insufficiency Subarachnoid hemorrhage (01/20/20) Type 2 diabetes mellitus Home Medications insulin lispro 100 unit/mL subcutaneous pen 15 unit SC DAILY PRN ml 07/26/19 [History Last Taken 02/23/21] sertraline 50 mg tablet 100 mg PO QHS tab 07/26/19 [History Last Taken 02/23/21] dicyclomine 10 mg PO TIDAC PRN 01/20/20 [History Last Taken 02/23/21] furosemide 40 mg tablet 40 mg PO BID #180 tab 02/14/20 [Rx Last Taken 02/23/21] warfarin 6 mg tablet 6 mg PO SUSA #24 tab 04/24/20 [Rx Last Taken 02/23/21] metoprolol tartrate 25 mg tablet 25 mg PO BID #180 tab 04/30/20 [Rx Last Taken 02/23/21] Disability Parking Placard #1 ea 06/12/20 [Rx Last Taken Unknown] magnesium oxide 400 mg (241.3 mg magnesium) tablet 400 mg PO DAILY #90 tab 06/12/20 [Rx Last Taken 02/23/21] potassium chloride 10 mEq capsule,extended release 20 meq PO DAILY #180 cap 06/12/20 [Rx Last Taken 02/23/21] diltiazem HCl 120 mg tablet 120 mg PO BID #180 tablet 07/02/20 [Rx Last Taken 02/24/21] rosuvastatin 40 mg tablet 40 mg PO DAILY #30 tablet 07/23/20 [Rx Last Taken 02/23/21] warfarin 4 mg tablet 4 mg PO MOTUWETHFR #60 tab 11/05/20 [Rx Last Taken 02/21/21] allopurinol 300 mg tablet 300 mg PO DAILY tab 01/15/21 [History Last Taken 02/23/21] cholecalciferol (vitamin D3) 25 mcg (1,000 unit) capsule 25 mcg PO DAILY 01/15/21 [History Last Taken 02/23/21] insulin glargine 100 unit/mL (3 mL) subcutaneous pen 20 unit SC BREAKFAST ml 01/15/21 [History Last Taken 02/23/21] multivitamin 1 tab PO DAILY 01/15/21 [History Last Taken 02/23/21] psyllium husk 3.4 gram/5.4 gram oral powder 1 tbsp PO DAILY PRN 01/15/21 [History Last Taken Unknown] vit C,E,zinc,Ko-qdifm-4-lutein-zeaxanthin 250 mg-2.5 mg-0.5 mg capsule 1 cap PO BID cap 01/15/21 [History Last Taken Unknown] hydrocodone-acetaminophen 1 tab PO Q6H PRN PRN 3 Days #10 tablet 02/24/21 [Rx Last Taken Unknown] Allergy/AdvReac Type Severity Reaction Status Date / Time amiodarone Allergy Other Verified 02/24/21 07:11 atorvastatin AdvReac Intermediate Myalgias Verified 02/24/21 07:11 with both 80 and 40 mg Family History Father Myocardial infarction CAD (coronary artery disease) CABG Hyperlipidemia Mother Hypertension Congestive heart failure Surgical History History of History of cardioversion (06/09/19) History of coronary artery stent placement (09/27/18) History of hysterectomy History of left heart catheterization (08/15/18) History of mitral valve replacement with bioprosthetic valve (06/06/19) Hx of cholecystectomy Social History Smoking Status: Never smoker Physical Exam Narrative General: Alert, Oriented x3, Cooperative HEENT: Atraumatic, PERRLA, EOMI, Normocephalic Oral: No Gingival or Mucosal Lesions/ Ulcerations Neck: Supple, No JVD, Negative Carotid Bruits Lungs: Air entry diminished in bilateral lung bases. No crepitation/rhonchi Cardiovascular: A. fib with RVR, Normal S1, Normal S2, cardiac surgical scar. Murmur over cardiac apex. Abdomen: Bowel Sounds Present, Soft, Non Tender, Non-Distended : No renal angle tenderness. No suprapubic tenderness. Extremities: No edema, Capillary Refill Less than 3 Seconds Skin: No rashes, No breakdown Musculoskeletal: No Tenderness to Palpation of Joints or Extremities Neurological: Cranial nerves II-XII grossly intact, DTR 2+/4 and Symmetrical, Neuro grossly intact Psych/Mental Status: Normal Affect, Appropriate. Results Lab / Micro Data Result Diagrams: 02/24/21 07:30 02/24/21 07:30 Assessment & Plan Assessment/Plan (1) Abdominal pain in female: PLAN: This patient was seen in conjunction with AZRA Gonzalez. I have independently interviewed and examined the patient and reviewed pertinent history, examination findings, laboratory and plan of management. I have reviewed the note and agree with the documented findings with the few additional points. In brief, patient is a 72-year-old female with multiple comorbidities came to ED for abdominal pain which resolved after morphine with no acute cause activated as per CT abdomen. Patient was found hypoxic with A. fib with RVR in ER and therefore admitted in PCU. IV fluid normal saline. BUN slightly elevated 27. Cause for acute hypoxia unclear as patient has chronic scarring of lungs. CTA negative for PE. She has history of rheumatic mitral stenosis and mitral regurg status post bioprosthetic mitral valve replacement. On Coumadin. INR 1.9. Rest of the comorbidities as mentioned above Living will/advanced directive/end of life care: Patient does not living will or advanced directive. Her daughter present in the room is power of estate attorney for health. After discussion of benefits/risks procedures involved with full code, DNR CC arrest and DNR CC, the patient opted for DNR-CC Arrest with no intubation Patient does not want artificial life support including intubation, tube feed, ventilator and/chest compression, central venous catheter, vasopressor and DC shock if needed Total time spent in [id number] encounter in discussion of advanced directive 16 minutes. I have discussed my assessment with AZRA Gonzalez and orders have been reviewed. Charges/Coding Visit Charges OBSV E&M: 35473 Initial observation care L3 Procedures Hospitalists Procedures: 29407 Advncd Care Plan 30 Min
[2021-02-24] MEDS: Metoprolol Tartrate 25 MG Tablet PO ×2 (16:27→20:52)
[2021-02-24] MEDS: 0.9% Normal Saline 1,000 ML 125 ML IV (16:27)
[2021-02-24 16:35] LABS: Bedside Glucose 134 mg/dL (70-110)
[2021-02-24 16:46] LABS: Magnesium 2.4 mg/dL (1.6-2.6); Phosphorus 2.7 mg/dL (2.5-4.9)
[2021-02-24] MEDS: Furosemide 40 MG Tablet PO (17:02)
[2021-02-24] MEDS: ROSUVASTATIN CALCIUM 40 MG TABLET PO (20:52)
[2021-02-24] MEDS: Sertraline 100 MG Tablet PO (20:52)
[2021-02-24] MEDS: dilTIAZem CD 120 MG Capsule PO (20:53)
[2021-02-24 21:35] LABS: Bedside Glucose 118 mg/dL (70-110)
[2021-02-24] MEDS: Acetaminophen 325 MG Tablet 650 MG PO (22:56)
[2021-02-25] VITALS (13 sets, daily range): BP systolic 115–140; BP diastolic 81–97; PULSE 84–110; RESP 16–18; TEMP 36.4–36.9; O2SAT 88–97
[2021-02-25 06:31] LABS: Absolute Lymphocyte Count 1.85 X10^3/uL (0.83-4.51); Absolute Neutrophil Count 4.6 X10^3/uL (2.0-7.7); Basophil# 0.03 X10^3/uL; Basophil% 0.4 % (0-1); Eosinophil# 0.09 X10^3/uL; Eosinophils% 1.3 % (0-5); Hematocrit 41.5 % (37-47); Hemoglobin 13.5 g/dL (12.0-15.0); Lymphocyte # 1.85 X10^3/ul (0.83-4.51); Lymphocyte % 25.7 % (19-41); Mean Corp Hgb Conc 32.5 g/dL (32-36); Mean Corpuscular Hgb 30.9 pg (27.0-32.0); Mean Platelet Vol. 12.1 fl (6.2-12.0); Monocyte# 0.64 X10^3/uL; Monocyte% 8.9 % (0-10); NRBC Flagged by Analyzer 0 % (0-5); Neutrophil # 4.56 X10^3/uL (2.7-7.7); Neutrophil % 63.3 % (47-70); Platelet Count 167 K/mm3 (150-450); RBC Distribution Width CV 14.6 % (11.6-14.6); RBC Distribution Width SD 51.2 fl (35.1-43.9); Red Blood Count 4.37 M/mm3 (4.2-5.4); White Blood Count 7.2 K/mm3 (4.4-11.0)
[2021-02-25 06:48] LABS: International Normalized Ratio 2.3; Prothrombin Time (Protime)PT. 24.3 SECONDS (11.7-14.9)
[2021-02-25 07:00] LABS: Bedside Glucose 97 mg/dL (70-110)
--- NOTE | 2021-02-25 07:11 | PCS.PANDOC ---
PANDEMIC DOCUMENTATION INITIATED: Date: 11/25/2020 Time: 190
[2021-02-25 07:20] LABS: ALB/GLOB Ratio 0.8 RATIO (0.9-2.4); AST(SGOT) 26 U/L (15-37); Alanine Aminotransfer ALT/SGPT 27 U/L (13-56); Alkaline Phosphatase 54 U/L (45-117); Anion Gap 6 (5-15); BUN 29 mg/dL (7-18); BUN/Creat Ratio 31.1 RATIO (10-20); Calcium,Total 8.3 mg/dL (8.5-10.1); Chloride 106 mmol/L (98-107); Creatinine, Serum 0.93 mg/dL (0.55-1.02); EST Glomerular Filtration Rate 62 mL/min (>60); Est Glom Filt Rate - Afr Amer 75 mL/min (>60); Estimated Creatinine Clearance 48.48 ml/min; Glucose 114 mg/dL (74-106); Magnesium 2.2 mg/dL (1.6-2.6); Potassium 3.3 mmol/L (3.5-5.1); Sodium Level 136 mmol/L (136-145); Thyroid Stim Hormone (TSH) 1.73 uIU/mL (0.358-3.74)
[2021-02-25] MEDS: Furosemide 40 MG Tablet PO ×2 (09:25→17:07)
[2021-02-25] MEDS: Metoprolol Tartrate 25 MG Tablet PO ×2 (09:25→21:09)
[2021-02-25] MEDS: Potassium Chloride Oral Tablet 20 MEQ 40 MEQ PO (09:25)
[2021-02-25] MEDS: dilTIAZem CD 120 MG Capsule PO ×2 (09:25→21:09)
[2021-02-25] MEDS: Magnesium Chloride 64 MG Delay Rel.Tablet 128 MG PO (09:25)
[2021-02-25] MEDS: Potassium Chloride Oral Tablet 20 MEQ PO (09:25)
--- NOTE | 2021-02-25 10:30 | ECHOCS_ITS ---
Reason For Study: PHTN Procedure This was a 2D Doppler, Color Flow transthoracic echocardiogram. The study was technically difficult. Contrast injection was performed. Exam performed portable in patient room. Left Ventricle Normal LV size. Mild concentric left ventricular hypertrophy. Moderate segmental systolic dysfunction (see wall motion). The estimated ejection fraction is 30 %. Unable to assess diastolic dysfunction. Anterio-Basal: Hypokinetic. Lateral-Basal: Hypokinetic. Posterior-Basal: Hypokinetic. Infero-Basal: Akinetic. Basal inferoseptal: Hypokinetic. Basal anteroseptal: Hypokinetic. Mid- Anterior : Hypokinetic. Mid-Lateral : Hypokinetic. Mid-Posterior: Hypokinetic. Mid-Inferior: Akinetic. Mid-inferoseptal : Hypokinetic. Mid-anteroseptal : Hypokinetic. Anterior Mystic : Hypokinetic. Inferior Mystic : Akinetic. Lateral [place] : Hypokinetic. Septal [place] : Hypokinetic. Right Ventricle Mildly dilated right ventricle. Mild global right ventricular systolic dysfunction. Atria The left atrium is severely enlarged. The right atrium is severely enlarged. No doppler evidence for ASD. Mitral Valve Stable appearing bioprosthetic mitral valve apparatus. Trivial transvalvular insufficiency of the mitral valve. Tricuspid Valve Normal tricuspid valve. Mild tricuspid valve insufficiency. Right ventricular systolic pressure estimated to be 44 mmHg. Aortic Valve The aortic valve is not well visualized. Mild focal aortic valve calcification. Mild aortic stenosis. Pulmonic Valve The pulmonic valve is not well visualized. Trivial pulmonic valve insufficiency. Great Vessels Calcified aortic root. Pericardium/Pleural No pericardial effusion. Medication Diluted definity 3ml given slow IV push to enhance endocardial definition. MMode/2D Measurements & Calculations LVIDd: 4.6 cm IVSd: 1.3 cm LVOT diam: 2.1 cm LVIDs: 3.5 cm LVPWd: 1.3 cm FS: 23.8 % LVOT area: 3.4 cm2 ACS: 1.4 cm LAV(MOD-bp): 140.6 ml LA A4 area: 37.7 cm2 LA dimension: 5.6 cm LAV(MOD-bp) Indexed: 62.9 ml/m2 LAV(MOD-sp2): 126.5 ml LAV(MOD-sp4): 150.6 ml RA A4 area: 31.4 cm2 Doppler Measurements & Calculations MV E max kvng: 189.1 cm/sec Ao V2 max: 141.7 cm/sec LV V1 max: 79.1 cm/sec Ao max P.0 mmHg LV V1 max P.5 mmHg Ao V2 mean: 91.7 cm/sec LV V1 mean P.2 mmHg Ao mean P.9 mmHg LV V1 mean: 50.2 cm/sec Ao V2 VTI: 20.8 cm LV V1 VTI: 11.1 cm ARETHA(I,D): 1.8 cm2 ARETHA(V,D): 1.9 cm2 SV(LVOT): 38.2 ml PA V2 max: 64.7 cm/sec TR max kvng: 300.7 cm/sec TR max P.2 mmHg ECHO/Echo Complete W/ Contrast Interpretation Summary The study was technically difficult. Contrast injection was performed. Moderate segmental systolic dysfunction (see wall motion). The estimated ejection fraction is 30 %. Mild concentric left ventricular hypertrophy. Mildly dilated right ventricle. Mild global right ventricular systolic dysfunction. The left atrium is severely enlarged. The right atrium is severely enlarged. Stable appearing bioprosthetic mitral valve apparatus. Trivial transvalvular insufficiency of the mitral valve. Mild tricuspid valve insufficiency. Mild aortic stenosis. Trivial pulmonic valve insufficiency. Calcified aortic root. Right ventricular systolic pressure estimated to be 44 mmHg c/w pulmonary hyper tension. Unable to assess diastolic dysfunction. Ordering Physician: Michael Thomas Referring Physician: Boubacar Ruby Performed By: Presley Escobar RCS
--- NOTE | 2021-02-25 11:07 | PCM.DC ---
Discharge Instructions Diet Discharge Diet: No restrictions Activity Discharge Activity: Return to Normal Activity Weight Bearing Status: Weight bearing as tolerated Dressing / Incision Call your doctor if you observe: Fever of 101 or Higher, Numbness or Tingling, Shortness of breath, Dizziness, Chest pain, Increased palpitations (irregular heartbeat) and Calf discomfort Follow Up Care Please Follow Up With: Primary care provider When: Within the next two weeks. Test Results: Test results from this visit will be discussed in further detail at your follow-up appointment, if applicable. Discharge Plan Admission Admit Date/Time: 02/24/21 13:48 Primary Reason for Your Visit: Abdominal pain with diarrhea. Attending Provider: Michael Thomas Primary Care Provider: Boubacar Ruby Instructions Patient Instructions: ED Abdominal Pain Unkn Cause Fem Discharge Orders/Prescriptions Prescriptions: Continued sertraline 50 mg tablet 100 mg PO QHS RF: 0 magnesium oxide 400 mg (241.3 mg magnesium) tablet 400 mg PO DAILY Qty: 90 RF: 3 potassium chloride 10 mEq capsule, extended release 20 meq PO DAILY Qty: 180 RF: 3 (DME) Disability Parking Placard See Rx Instructions .Route .MEDSUPPLY Qty: 1 RF: 0 furosemide 40 mg tablet 40 mg PO BID Qty: 180 RF: 3 allopurinol 300 mg tablet 300 mg PO DAILY RF: 0 cholecalciferol (vitamin D3) 25 mcg (1,000 unit) capsule 25 mcg PO DAILY RF: 0 vit C,E,Zn,Uv-oclkf6-iwi-zeax 250-2.5-0.5 mg capsule 1 cap PO BID RF: 0 multivitamin Tablet 1 tab PO DAILY RF: 0 Metamucil 3.4 gram/5.4 gram powder 1 tbsp PO DAILY PRNRF: 0 insulin lispro 100 unit/mL insulin pen 15 unit SC DAILY PRN (Reason: diabetes) RF: 0 insulin glargine 100 unit/mL (3 mL) insulin pen 20 unit SC BREAKFAST RF: 0 dicyclomine 10 MG capsule 10 mg PO TIDAC PRN (Reason: stomach pain) RF: 0 warfarin 6 mg tablet 6 mg PO SUSA Qty: 24 RF: 3 metoprolol tartrate 25 mg tablet 25 mg PO BID Qty: 180 RF: 3 diltiazem HCl 120 mg tablet 120 mg PO BID Qty: 180 RF: 3 rosuvastatin 40 mg tablet 40 mg PO DAILY Qty: 30 RF: 11 warfarin 4 mg tablet 4 mg PO MOTUWETHFR Qty: 60 RF: 3 Referrals / Follow Up: Boubacar Ruby DO [Primary Care Provider] - 3-5 Days Disposition Disposition (needs filled in before D/C Order can be placed): Home, Self Care
[2021-02-25 12:00] LABS: Bedside Glucose 136 mg/dL (70-110)
--- NOTE | 2021-02-25 12:00 | CASEMGMT ---
Per Denise RN, pt qualifies for 2L nc continuous home oxygen. This RN CM to room and pt states no preference for DME company. Per pt/daughter, they do have a generator at home and solar power. Per Graciela, they do have a concentrator available and referral faxed. Pt/daughter updated on home oxygen and process, voices understanding. Pt/daughter state no further concerns/needs with going home at discharge. Pt/daughter voice no further questions/concerns/needs. Gerry DREW CM
--- NOTE | 2021-02-25 12:12 | PHA.DC.MR ---
Pharmacy Service has performed discharge medication reconciliation for this patient. The patient's discharge medication list was reviewed for discrepancies and discrepancies were resolved. Home Medications insulin lispro 100 unit/mL subcutaneous pen 15 unit SC DAILY PRN ml 07/26/19 sertraline 50 mg tablet 100 mg PO QHS tab 07/26/19 dicyclomine 10 mg PO TIDAC PRN 01/20/20 furosemide 40 mg tablet 40 mg PO BID #180 tab 02/14/20 warfarin 6 mg tablet 6 mg PO SUSA #24 tab 04/24/20 metoprolol tartrate 25 mg tablet 25 mg PO BID #180 tab 04/30/20 Disability Parking Placard #1 ea 06/12/20 magnesium oxide 400 mg (241.3 mg magnesium) tablet 400 mg PO DAILY #90 tab 06/12/20 potassium chloride 10 mEq capsule,extended release 20 meq PO DAILY #180 cap 06/12/20 diltiazem HCl 120 mg tablet 120 mg PO BID #180 tablet 07/02/20 rosuvastatin 40 mg tablet 40 mg PO DAILY #30 tablet 07/23/20 warfarin 4 mg tablet 4 mg PO MOTUWETHFR #60 tab 11/05/20 allopurinol 300 mg tablet 300 mg PO DAILY tab 01/15/21 cholecalciferol (vitamin D3) 25 mcg (1,000 unit) capsule 25 mcg PO DAILY 01/15/21 insulin glargine 100 unit/mL (3 mL) subcutaneous pen 20 unit SC BREAKFAST ml 01/15/21 multivitamin 1 tab PO DAILY 01/15/21 psyllium husk 3.4 gram/5.4 gram oral powder 1 tbsp PO DAILY PRN 01/15/21 vit C,E,zinc,Qg-dpudn-6-lutein-zeaxanthin 250 mg-2.5 mg-0.5 mg capsule 1 cap PO BID cap 01/15/21
[2021-02-25 16:51] LABS: Bedside Glucose 125 mg/dL (70-110)
--- NOTE | 2021-02-25 18:28 | PN.HOSP_ITS ---
Documented by User: Ming OQUENDO 02/25/21 18:33 Subjective Subjective Patient is a 80-year-old female comfortably resting in a bed, alert and orient x3. Patient reports abdominal pain and diarrhea have resolved from admission. Denies development of any new symptoms overnight. Does not appear in acute distress. Objective Data Objective Data Vital Signs: Vital Signs Temp Pulse Resp BP Pulse Ox 98.3 F 101 H 16 136/96 H 94 02/25/21 15:20 02/25/21 15:20 02/25/21 15:20 02/25/21 15:20 02/25/21 15:20 Oxygen Flow Rate (L/min) [ 2 AMBULATING with Oxygen #1] Oxygen Flow Rate (L/min) [At 2 REST with Oxygen] Oxygen Flow Rate (L/min) 2 Oxygen Delivery Method Nasal Cannula Weight: 253 lb 2 oz Body Mass Index (BMI) 39.6 Intake & Output: Intake and Output for Last 24 Hours 02/23/21 02/24/21 02/25/21 23:59 23:59 23:59 Intake Total 2360 / 2600 2520 / 2520 Output Total 400 / 400 Balance 2360 / 2200 2120 / 2120 Lab / Micro Data Result Diagrams: 02/25/21 06:12 02/25/21 06:12 Labs: Laboratory Results - last 24 hr 02/24/21 20:50: POC Glucose 118 H 02/25/21 06:12: WBC 7.2, RBC 4.37, Hgb 13.5, Hct 41.5, MCV 95.0, MCH 30.9, MCHC 32.5, RDW Std Deviation 51.2 H, RDW Coeff of Paul 14.6, Plt Count 167, MPV 12.1 H , Immature Gran % (Auto) 0.400, Neut % (Auto) 63.3, Lymph % (Auto) 25.7, Vernon % (Auto) 8.9, Eos % (Auto) 1.3, Baso % (Auto) 0.4, Absolute Neuts (auto) 4.6, Absolute Lymphs (auto) 1.85, Nucleated RBC % 0 02/25/21 06:12: Sodium 136, Potassium 3.3 L, Chloride 106, Carbon Dioxide 24.0, Anion Gap 6, BUN 29 H, Creatinine 0.93, Estim Creat Clear Calc 48.48, Est GFR (MDRD) Af Amer 75, Est GFR (MDRD) Non-Af 62, BUN/Creatinine Ratio 31.1 H, Glucose 114 H, Calcium 8.3 L, Magnesium 2.2, Total Bilirubin 0.50, AST 26, ALT 27, Alkaline Phosphatase 54, Total Protein 7.0, Albumin 3.0 L, Globulin 4.0, Albumin/Globulin Ratio 0.8 L, TSH 1.73 02/25/21 06:12: PT 24.3 H, INR 2.3 02/25/21 06:44: POC Glucose 97 02/25/21 11:43: POC Glucose 136 H 02/25/21 16:33: POC Glucose 125 H Micro: Microbiology 02/24/21 22:30 Stool Enteric Bacteriology - Final 02/24/21 16:59 Nasal Secretion SARS-CoV-2 Antigen (Rapid) - Final 02/24/21 16:08 Urine, Clean Catch Legionella Antigen - Final Radiography Diagnostic Testing: Radiology Impression Echocardiogram 02/25/21 10:30 Interpretation Summary The study was technically difficult. Contrast injection was performed. Moderate segmental systolic dysfunction (see wall motion). The estimated ejection fraction is 30 %. Mild concentric left ventricular hypertrophy. Mildly dilated right ventricle. Mild global right ventricular systolic dysfunction. The left atrium is severely enlarged. The right atrium is severely enlarged. Stable appearing bioprosthetic mitral valve apparatus. Trivial transvalvular insufficiency of the mitral valve. Mild tricuspid valve insufficiency. Mild aortic stenosis. Trivial pulmonic valve insufficiency. Calcified aortic root. Right ventricular systolic pressure estimated to be 44 mmHg c/w pulmonary hypertension. Unable to assess diastolic dysfunction. Ordering Physician: Michael Thomas Referring Physician: Boubacar Ruby Performed By: Presley Escobar RCS Physical Exam Const alert, oriented x3 and no apparent distress HEENT head/scalp atraumatic, moist oral mucous membranes and oropharynx normal Head and Scalp: normocephalic Eyes PERRL, EOMs intact bilaterally and conjunctivae normal Neck no lymphadenopathy, supple and no JVD Resp normal respiratory effort, no retractions and no use of accessory muscles Resp Narrative: Currently satting at 94% on 2 L via nasal cannula. Is hypoxic on room air. Cardio regular rate, regular rhythm, no murmurs and no JVD GI normal to inspection, nondistended, normoactive bowel sounds, soft to palpation and non-tender Extremity normal to inspection, full ROM and no clubbing, cyanosis or edema Skin no rashes or lesions noted, no wounds, skin turgor normal and no jaundice Neuro CN's II-XII intact bilaterally Psych affect normal Assessment & Plan Assessment/Plan (1) Abdominal pain in female: (2) Hypoxia: PLAN: Day 1 Discharge planning: Patient likely to discharge tomorrow. Patient was cleared to discharge today, 02/25/2021, but transportation was organized too late for patient so she will be kept overnight. 1) abdominal pain with diarrhea Resolved. Abdominal pain and diarrhea have resolved from mission. Enteric stool and Legionella urinary antigen is negative. Rapid Covid is negative. CBC and BMP are unremarkable. 2) nonischemic cardiomyopathy Updated echocardiogram was obtained and demonstrates an EF of 30%, and RVSP of 47 mmHg and stable appearing prosthetic valves. Ejection fraction appears reduced from prior study and cardiology consult was obtained. Dr. Lee would like to meet with this patient as an outpatient. 3) atrial fibrillation with RVR Rate currently controlled, EKG demonstrates A. fib with RVR. Home medication list includes diltiazem, metoprolol and Coumadin. Patient reports no recent changes. Continue home A. fib regimen, check TSH and magnesium 4) DM2 Hold home diabetic regimen, Accu-Cheks with sliding scale insulin ordered. 5) hyperlipidemia Continue statin. 6) HTN Stable, continue metoprolol and Lasix. 7) history of mitral valve replacement with bioprosthetic valve Follows with Dr. Lee. Patient is anticoagulated on Coumadin. DVT prophylaxis - Coumadin Patient seen by Ming Dalton PA-C, under the supervision of Dr. Thomas. Documented by User: Dr. Michael Thomas MD 02/25/21 18:58 Objective Data Lab / Micro Data Result Diagrams: 02/25/21 06:12 02/25/21 06:12 Charges/Coding Addendum Addendum: Dr. Thomas: I personally reviewed the chart and examined the patient, and agree with the above findings. 80-year-old female presented with what she suspects to be food poisoning. She feels much better today with IV hydration however she is now needing 2 L of oxygen secondary to her previous systolic CHF as well as moderate pulmonary hypertension. Because of this a repeat echo was obtained which showed a diminished EF of 30%. Cardiology was consulted for evaluation. Since she is feeling better if cardiology does not recommend any further investigation we will plan for discharge in the morning home. We will hold her Lasix on discharge for a few days until her diarrhea has resolved and she is able to take adequate p.o. Visit Charges OBSV E&M: 73127 Subsequent observation care L2
--- NOTE | 2021-02-25 18:41 | PCM.CONS.C ---
Assessment & Plan Assessment/Plan (1) Atherosclerosis of coronary artery of [place] heart without angina pectoris: QUALIFIERS: Coronary Disease-Associated Artery/Lesion type: [place] artery Qualified Code(s): I25.10 - Atherosclerotic heart disease of [place] coronary artery without angina pectoris PLAN: The patient has a history of underlying CAD. She has undergone previous LAD PCI as noted. Her preopen heart surgery cardiac catheterization demonstrated her LAD stents to be patent at that time. She now has the appearance of diminished LV systolic function compared to her prior studies. This would raise concerns as to whether or not she has had progression of her coronary artery disease it would be contributing to her left ventricular systolic function declining, her LVEF declining, and her associated symptoms. Thus she may need reevaluation of her coronary anatomy either noninvasively or invasively depending upon her clinical course. (2) History of coronary artery stent placement: PLAN: She did undergo LAD PCI as noted above. Again prior to her surgery her LAD stents were reported as patent. This is now coming to question based upon her clinical course and change in her LV wall motion and systolic function. (3) History of mitral valve replacement with bioprosthetic valve: PLAN: She does have a bioprosthetic mitral valve apparatus in place. As best as can be noted on her transthoracic echocardiogram it appears to be stable at this time. She does need to continue AHA antibiotic prophylaxis. (4) Longstanding persistent atrial fibrillation: PLAN: She does have atrial fibrillation. She does need to continue rate control therapy and anticoagulant therapy. (5) Cardiomyopathy, ischemic: PLAN: There is concerned that she does have an underlying ischemic mediated cardiomyopathy based on history of her CAD and her diminished LV systolic function. Again based upon her clinical course and subsequent findings she may need to be considered for additional noninvasive and/or invasive evaluation. (6) CHF (congestive heart failure): PLAN: There are concerns about congestive heart failure. Based upon her diminished LV systolic function this may be systolic mediated. She will need to continue medical management and follow her clinical symptoms for any obvious improvement. (7) Hyperlipidemia: QUALIFIERS: Hyperlipidemia type: pure hypercholesterolemia Qualified Code(s): E78.00 - Pure hypercholesterolemia, unspecified; E78.0 - Pure hypercholesterolemia PLAN: She should continue risk factor evaluation and care and medical therapy as deemed appropriate. (8) Essential (primary) hypertension: PLAN: Her blood pressure can be followed with [facility] being adjusted accordingly. 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 (10) Hypoxia: PLAN: There are concerns of hypoxemia. Unclear as to whether this is solely cardiac related to her diminished LV systolic function/LVEF and concerns of CHF versus having a separate pulmonary component as well. She can continue her cardiac evaluation but she also may need pulmonary evaluation. Addt'l Comments The patient's case has been discussed and reviewed with the patient, her daughter, and previously with the [facility] staff. This note was generated using a voice recognition system and there may be incorrect words, spelling or punctuation that were not noted when reviewing the office note prior to saving. HPI Consult Data Date of Consult: 02/25/21 HPI Narrative HPI Narrative: FABIO WOOD, is a 80 year old white female who presents for consultation based upon concerns of shortness of breath/dyspnea-especially with exertion-and hypoxemia superimposed upon a history of underlying CAD, status post LAD PCI, mitral valve disease status post mitral valve replacement, atrial fibrillation, status post Maze procedure, aortic valve stenosis, and pulmonary hypertension. She states she originally had concerns of abdominal discomfort with nausea, emesis, and diarrhea. This brought her to the hospital for further evaluation. However, she also complained of shortness of breath and dyspnea especially with exertion. Here she was found to be hypoxic and required O2 nasal cannula support. She states every time the oxygen is discontinued her oxygen levels declined. She does not recall having ongoing chest discomfort at rest or with exertion. She does not recall having any acute orthopnea or PND and she has not developed peripheral pitting edema. She has atrial fibrillation but has not noticed any significant change in her rate or rhythm. There has been no near syncope or syncope. In the hospital she underwent evaluation with cardiac enzymes which have been negative. Her ECG demonstrated atrial fibrillation with left axis deviation with poor R wave progression. She underwent evaluation with a chest CT scan which suggested no evidence of pulmonary emboli, scarring in the right upper lobe as well as the lower lobes and lingular segment of the left upper lobe, findings compatible with enlargement of the right atrium and prominence of the left atrium, and findings compatible with prior open heart surgery. She also had a transthoracic echocardiogram performed. This appeared to demonstrate diminished LV systolic function with an estimated LVEF of 30% with a mildly dilated right ventricle with mild global right ventricular systolic dysfunction with severe biatrial enlargement and a stable appearing bioprosthetic mitral valve apparatus with trivial transvalvular MR. There is also mild TR, mild aortic valve stenosis, trivial ME, and a calcified aortic root. Her estimated RV systolic pressure was 44 mmHg compatible with pulmonary hypertension. She did have a previous diagnostic cardiac catheterization performed on 08-15-2018. At that time per the report the left ventricle was thought to be normal with an LVEF of 65%, the left main coronary artery is normal, the LAD had mid 80% stenosis, the LCx had no significant disease, the RCA had mild luminal irregularities, and her right heart assessment demonstrated her RV systolic pressure to be 55 mmHg and her PA systolic pressure to be 62 mmHg. There were findings compatible with moderate mitral valve stenosis. She underwent LAD PCI at [facility] on 09-27-2018. She had a drug-eluting stent placed to the mid LAD. Apparently she was assessed at the [facility] prior to her mitral valve procedure. On 06-02-2019 she underwent a diagnostic cardiac catheterization which demonstrated that the left main coronary was normal, the LAD demonstrated 2 overlapping stents which were reported as patent, the LCx was normal, the RCA had mild diffuse disease. Her premitral valve surgery echocardiogram at [facility] reported her LV function to be mildly decreased at 52%. Her estimated RV systolic pressure at the time was 51 mmHg. She underwent open heart surgery at [facility] on 06-06-2019. At that time she received a mitral valve replacement with a #31 Biocor valve as well as a left atrial appendage clip with a #40 size atricure Gillinov clip. A post mitral valve surgery echocardiogram at [facility] reported her left ventricle to be mildly reduced with an LVEF of 45%. At that time a Biocor prosthetic mitral valve was in place-#31 with no report of mitral valve regurgitation. [facility] Medical History (Updated 02/25/21 @ 18:[address] Mauricio Nieves MD) Acute GI bleeding (07/02/19) Atherosclerosis of coronary artery of [place] heart without angina pectoris Cardiomyopathy, ischemic CHF (congestive heart failure) Chronic combined systolic and diastolic CHF (congestive heart failure) Essential (primary) hypertension GI bleed (07/02/19) History of rheumatic fever Hyperlipidemia Hypothyroidism Longstanding persistent atrial fibrillation Non-ischemic cardiomyopathy Non-rheumatic aortic stenosis Nonrheumatic tricuspid (valve) insufficiency Obesity Other secondary pulmonary hypertension Paroxysmal atrial fibrillation Rheumatic mitral stenosis with insufficiency Subarachnoid hemorrhage (01/20/20) Type 2 diabetes mellitus Home Medications insulin lispro 100 unit/mL subcutaneous pen 15 unit SC DAILY PRN ml 07/26/19 [History Last Taken 02/23/21] sertraline 50 mg tablet 100 mg PO QHS tab 07/26/19 [History Last Taken 02/23/21] dicyclomine 10 mg PO TIDAC PRN 01/20/20 [History Last Taken 02/23/21] furosemide 40 mg tablet 40 mg PO BID #180 tab 02/14/20 [Rx Last Taken 02/23/21] warfarin 6 mg tablet 6 mg PO SUSA #24 tab 04/24/20 [Rx Last Taken 02/23/21] metoprolol tartrate 25 mg tablet 25 mg PO BID #180 tab 04/30/20 [Rx Last Taken 02/23/21] Disability Parking Placard #1 ea 06/12/20 [Rx Last Taken Unknown] magnesium oxide 400 mg (241.3 mg magnesium) tablet 400 mg PO DAILY #90 tab 06/12/20 [Rx Last Taken 02/23/21] potassium chloride 10 mEq capsule,extended release 20 meq PO DAILY #180 cap 06/12/20 [Rx Last Taken 02/23/21] diltiazem HCl 120 mg tablet 120 mg PO BID #180 tablet 07/02/20 [Rx Last Taken 02/24/21] rosuvastatin 40 mg tablet 40 mg PO DAILY #30 tablet 07/23/20 [Rx Last Taken 02/23/21] warfarin 4 mg tablet 4 mg PO MOTUWETHFR #60 tab 11/05/20 [Rx Last Taken 02/21/21] allopurinol 300 mg tablet 300 mg PO DAILY tab 01/15/21 [History Last Taken 02/23/21] cholecalciferol (vitamin D3) 25 mcg (1,000 unit) capsule 25 mcg PO DAILY 01/15/21 [History Last Taken 02/23/21] insulin glargine 100 unit/mL (3 mL) subcutaneous pen 20 unit SC BREAKFAST ml 01/15/21 [History Last Taken 02/23/21] multivitamin 1 tab PO DAILY 01/15/21 [History Last Taken 02/23/21] psyllium husk 3.4 gram/5.4 gram oral powder 1 tbsp PO DAILY PRN 01/15/21 [History Last Taken Unknown] vit C,E,zinc,Qt-lwxsw-5-lutein-zeaxanthin 250 mg-2.5 mg-0.5 mg capsule 1 cap PO BID cap 01/15/21 [History Last Taken Unknown] Allergy/AdvReac Type Severity Reaction Status Date / Time amiodarone Allergy Other Verified 02/24/21 07:11 atorvastatin AdvReac Intermediate Myalgias Verified 02/24/21 07:11 with both 80 and 40 mg Family History Father Myocardial infarction CAD (coronary artery disease) CABG Hyperlipidemia Mother Hypertension Congestive heart failure Surgical History History of History of cardioversion (06/09/19) History of coronary artery stent placement (09/27/18) History of hysterectomy History of left heart catheterization (08/15/18) History of mitral valve replacement with bioprosthetic valve (06/06/19) Hx of cholecystectomy Social History Smoking Status: Never smoker ROS Constitutional Constitutional: Reports as per HPI Eyes Eyes: Reports as per HPI ENT HEENT: Reports as per HPI Cardiovascular Cardiovascular: Reports dyspnea, dyspnea at rest and dyspnea on exertion Respiratory/Chest Respiratory/Chest: Reports dyspnea and dyspnea on exertion Gastrointestinal Gastrointestinal: Reports diarrhea, nausea and vomiting Genitourinary Genitourinary: Reports as per HPI Musculoskeletal Musculoskeletal: Reports as per HPI Integumentary Integumentary: Reports as per HPI Neurologic Neurologic: Reports as per HPI Physical Exam Const alert, oriented x3 and no apparent distress Orientation / Consciousness: awake HEENT normocephalic, head/scalp atraumatic and hearing grossly normal bilaterally Eyes PERRL, EOMs intact bilaterally and conjunctivae normal Neck full ROM, supple and no JVD Resp Auscultation: diminished lung sounds bilateral lower Cardio Rhythm: abnormal rhythm irregularly irregular Heart Sounds: S1 normal and S2 normal GI normal to inspection, nondistended, normoactive bowel sounds, soft to palpation and non-tender Extremity no pedal edema Skin no rashes or lesions noted Neuro oriented x3, moves all extremities, no focal motor deficits and no sensory deficits noted Psych mental status grossly normal Risk Stratification Risk Stratification Applicable: No Procedure Criteria Type of Procedure Procedure Type: Elective Elective Risks - COVID COVID Risk Discussion: The surgeon/proceduralist and patient have discussed in detail the risk of exposure to and/or potential harm posed by the COVID-19 virus with having a surgery/procedure at this time versus the risk of delaying the surgery/procedure. It is not possible to know either the risk of delaying the surgery or procedure or chance of getting an infection with perfect accuracy, but a joint decision was made between the patient and the surgeon/proceduralist to proceed at this time with the scheduled surgery/procedure as indicated on the consent form. Objective Data Vital Signs: Vital Signs Temp Pulse Resp BP Pulse Ox 98.3 F 101 H 16 136/96 H 94 02/25/21 15:20 02/25/21 15:20 02/25/21 15:20 02/25/21 15:20 02/25/21 15:20 Oxygen Flow Rate (L/min) [ 2 AMBULATING with Oxygen #1] Oxygen Flow Rate (L/min) [At 2 REST with Oxygen] Oxygen Flow Rate (L/min) 2 Oxygen Delivery Method Nasal Cannula Weight: 253 lb 2 oz Body Mass Index (BMI) 39.6 Intake & Output: Intake and Output for Last 24 Hours 02/23/21 02/24/21 02/25/21 23:59 23:59 23:59 Intake Total 2360 / 2600 2520 / 2520 Output Total 400 / 400 Balance 2360 / 2200 2120 / 2120 Lab / Micro Data Result Diagrams: 02/25/21 06:12 02/25/21 06:12 Labs: Laboratory Results - last 24 hr 02/24/21 20:50: POC Glucose 118 H 02/25/21 06:12: WBC 7.2, RBC 4.37, Hgb 13.5, Hct 41.5, MCV 95.0, MCH 30.9, MCHC 32.5, RDW Std Deviation 51.2 H, RDW Coeff of Paul 14.6, Plt Count 167, MPV 12.1 H, Immature Gran % (Auto) 0.400, Neut % (Auto) 63.3, Lymph % (Auto) 25.7, [place] % (Auto) 8.9, Eos % (Auto) 1.3, Baso % (Auto) 0.4, Absolute Neuts (auto) 4.6, Absolute Lymphs (auto) 1.85, Nucleated RBC % 0 02/25/21 06:12: Sodium 136, Potassium 3.3 L, Chloride 106, Carbon Dioxide 24.0, Anion Gap 6, BUN 29 H, Creatinine 0.93, Estim Creat Clear Calc 48.48, Est GFR (MDRD) Af Amer 75, Est GFR (MDRD) Non-Af 62, BUN/Creatinine Ratio 31.1 H, Glucose 114 H, Calcium 8.3 L, Magnesium 2.2, Total Bilirubin 0.50, AST 26, ALT 27, Alkaline Phosphatase 54, Total Protein 7.0, Albumin 3.0 L, Globulin 4.0, Albumin/Globulin Ratio 0.8 L, TSH 1.73 02/25/21 06:12: PT 24.3 H, INR 2.3 02/25/21 06:44: POC Glucose 97 02/25/21 11:43: POC Glucose 136 H 02/25/21 16:33: POC Glucose 125 H Micro: Microbiology 02/24/21 22:30 Stool Enteric Bacteriology - Final 02/24/21 16:59 Nasal Secretion SARS-CoV-2 Antigen (Rapid) - Final 02/24/21 16:08 Urine, Clean Catch Legionella Antigen - Final Cardiology Labs/Tests 02/25/21 06:12: WBC 7.2, RBC 4.37, Hgb 13.5, Hct 41.5, MCV 95.0, MCH 30.9, MCHC 32.5, Plt Count 167, MPV 12.1 H, Immature Gran % (Auto) 0.400, Neut % (Auto) 63.3, Lymph % (Auto) 25.7, Hart[place] % (Auto) 8.9, Eos % (Auto) 1.3, Baso % (Auto) 0.4, Absolute Neuts (auto) 4.6, Nucleated RBC % 0 02/25/21 06:12: Sodium 136, Potassium 3.3 L, Chloride 106, Carbon Dioxide 24.0, Anion Gap 6, BUN 29 H, Creatinine 0.93, Est GFR (MDRD) Af Amer 75, Est GFR (MDRD) Non-Af 62, BUN/Creatinine Ratio 31.1 H, Glucose 114 H, Calcium 8.3 L, Magnesium 2.2, Total Bilirubin 0.50 11/16/21 06:12: PT 24.3 H, INR 2.3 Rhythm: Atrial fibrillation EKG: As noted above ECHO: As noted below Cardiac Cath: As noted above PCI: As noted above CT Surgery: As noted above Radiography Diagnostic Testing: Radiology Impression Echocardiogram 02/25/21 10:30 Interpretation Summary The study was technically difficult. Contrast injection was performed. Moderate segmental systolic dysfunction (see wall motion). The estimated ejection fraction is 30 %. Mild concentric left ventricular hypertrophy. Mildly dilated right ventricle. Mild global right ventricular systolic dysfunction. The left atrium is severely enlarged. The right atrium is severely enlarged. Stable appearing bioprosthetic mitral valve apparatus. Trivial transvalvular insufficiency of the mitral valve. Mild tricuspid valve insufficiency. Mild aortic stenosis. Trivial pulmonic valve insufficiency. Calcified aortic root. Right ventricular systolic pressure estimated to be 44 mmHg c/w pulmonary hypertension. Unable to assess diastolic dysfunction. Ordering Physician: Michael Thomas Referring Physician: Boubacar Ruby Performed By: Presley Escobar RCS
[2021-02-25] MEDS: 0.9% Saline Lock 10 ML Syringe IV (20:13)
[2021-02-25] MEDS: Furosemide 40 MG/4 ML Vial IV (20:14)
[2021-02-25] MEDS: Lisinopril 5 MG Tablet PO (21:09)
[2021-02-25] MEDS: ROSUVASTATIN CALCIUM 40 MG TABLET PO (21:09)
[2021-02-25] MEDS: Sertraline 100 MG Tablet PO (21:09)
[2021-02-25 21:30] LABS: Bedside Glucose 119 mg/dL (70-110)
[2021-02-26 03:00] VITALS: PULSE 91
[2021-02-26 03:30] VITALS: BP 118/89; PULSE 85; RESP 16; TEMP 36.3; O2SAT 94
[2021-02-26 06:40] LABS: Bedside Glucose 121 mg/dL (70-110)
[2021-02-26 06:45] LABS: International Normalized Ratio 2.1; Prothrombin Time (Protime)PT. 23.2 SECONDS (11.7-14.9)
[2021-02-26 07:00] VITALS: PULSE 84
--- NOTE | 2021-02-26 07:31 | PN.CARD_ITS ---
Subjective Subjective Patient seen and evaluated and history reviewed. This morning appears to be stable. Still requiring low-flow O2. Objective Data Vital Signs: Vital Signs Temp Pulse Resp BP Pulse Ox 97.3 F L 85 16 118/89 H 94 02/26/21 03:30 02/26/21 03:30 02/26/21 03:30 02/26/21 03:30 02/26/21 03:30 Oxygen Flow Rate (L/min) [ 2 AMBULATING with Oxygen #1] Oxygen Flow Rate (L/min) [At 2 REST with Oxygen] Oxygen Flow Rate (L/min) 2 Oxygen Delivery Method Nasal Cannula Weight: 253 lb 2 oz Body Mass Index (BMI) 39.6 Intake & Output: Intake and Output for Last 24 Hours 02/24/21 02/25/21 02/26/21 23:59 23:59 23:59 Intake Total 2360 / 2600 2520 / 2760 360 / 360 Output Total 400 / 825 775 / 775 Balance 2360 / 2200 2120 / 1935 -415 / -415 Lab / Micro Data Result Diagrams: 02/25/21 06:12 02/25/21 06:12 Labs: Laboratory Results - last 24 hr 02/25/21 11:43: POC Glucose 136 H 02/25/21 16:33: POC Glucose 125 H 02/25/21 21:08: POC Glucose 119 H 02/26/21 06:18: PT 23.2 H, INR 2.1 02/26/21 06:18: Sodium Cancelled, Potassium Cancelled, Chloride Cancelled, Carbon Dioxide Cancelled, Anion Gap Cancelled, BUN Cancelled, Creatinine Cancelled, Estim Creat Clear Calc Cancelled, Est GFR (MDRD) Af Amer Cancelled, Est GFR (MDRD) Non-Af Cancelled, BUN/Creatinine Ratio Cancelled, Glucose Cancelled, Calcium Cancelled 02/26/21 06:36: POC Glucose 121 H Micro: Microbiology 02/24/21 22:30 Stool Enteric Bacteriology - Final Cardiology Labs/Tests 02/26/21 06:18: PT 23.2 H, INR 2.1 02/26/21 06:18: Sodium Cancelled, Potassium Cancelled, Chloride Cancelled, Carbon Dioxide Cancelled, Anion Gap Cancelled, BUN Cancelled, Creatinine Cancelled, Est GFR (MDRD) Af Amer Cancelled, Est GFR (MDRD) Non-Af Cancelled, BUN/Creatinine Ratio Cancelled, Glucose Cancelled, Calcium Cancelled Rhythm: EKG: ECHO: Stress Test: Cardiac Cath: PCI: CT Surgery: Holter monitor: EPS: PPM: CXR: Chest CT Scan: Radiography Diagnostic Testing: Radiology Impression Echocardiogram 02/25/21 10:30 Interpretation Summary The study was technically difficult. Contrast injection was performed. Moderate segmental systolic dysfunction (see wall motion). The estimated ejection fraction is 30 %. Mild concentric left ventricular hypertrophy. Mildly dilated right ventricle. Mild global right ventricular systolic dysfunction. The left atrium is severely enlarged. The right atrium is severely enlarged. Stable appearing bioprosthetic mitral valve apparatus. Trivial transvalvular insufficiency of the mitral valve. Mild tricuspid valve insufficiency. Mild aortic stenosis. Trivial pulmonic valve insufficiency. Calcified aortic root. Right ventricular systolic pressure estimated to be 44 mmHg c/w pulmonary hypertension. Unable to assess diastolic dysfunction. Ordering Physician: Michael Thomas Referring Physician: Boubacar Ruby Performed By: Presley Escobar RCS Physical Exam Const alert, oriented x3 and no apparent distress General Appearance: cooperative HEENT hearing grossly normal bilaterally Head and Scalp: atraumatic Eyes EOMs intact bilaterally Neck General: normal visual inspection Chest inspection of chest normal and palpation of chest normal Resp normal respiratory effort Auscultation: clear to auscultation bilaterally Cardio S1 normal heart sound and S2 normal heart sound Jugular Venous Distention: JVD Rhythm: abnormal rhythm irregularly irregular GI normal to inspection, nondistended, normoactive bowel sounds Extremity normal capillary refill and no pedal edema Peripheral Pulses: Yes pulses 2+ throughout and femoral pulses present Skin no rashes or lesions noted Neuro oriented x3 and CN's II-XII intact bilaterally Psych Appearance: grossly normal and appropriate Assessment & Plan Assessment/Plan (1) Cardiomyopathy, ischemic: PLAN: She does have a history of cardiomyopathy which appears to be somewhat worse at this time. I did review the echocardiogram. It is a somewhat difficult and suboptimal study. With her atrial fibrillation which appears to be at an uncontrolled rate and lack of symptoms I would recommend that we optimize her medical therapy and then repeat her echocardiogram when her rate is better and then see whether there has been any change before pursuing any other testing. Would recommend increasing the metoprolol to 50 mg twice a day Add spironolactone 25 mg a day to her regimen (2) CHF (congestive heart failure): PLAN: She does appear to have a cardiomyopathy and likely congestive heart failure [place] [employer] class III. Would increase the beta-eileen with the metoprolol to 50 mg twice a day Agree with addition of RADHA inhibitor lisinopril 5 mg a day Would continue with Lasix 40 mg twice a day at home orally Would add spironolactone 25 mg a day (3) History of coronary artery stent placement: PLAN: She does have a history of single-vessel coronary artery disease with the LAD stenting. Her last cardiac catheterization in 2019 was reviewed and she had a normal right coronary artery. There are no EKG changes suggestive of an inferior infarct in the interim. We will continue to pursue medical management at this time. (4) History of mitral valve replacement with bioprosthetic valve: PLAN: She does have evidence of mitral valve replacement with a bioprosthetic valve which appears to be functioning well. No changes will be recommended at this time (5) Longstanding persistent atrial fibrillation: PLAN: She does have evidence of persistent atrial fibrillation. Her rate was uncontrolled when she came in. She will be continued on low intensity anticoagulation She will remain on the diltiazem but reduce the dose 120 mg once a day Continue metoprolol but increase the dose to 50 mg twice a day (6) Essential (primary) hypertension: PLAN: Continue antihypertensive medications as noted above (7) Hyperlipidemia: QUALIFIERS: Hyperlipidemia type: pure hypercholesterolemia Qualified Code(s): E78.00 - Pure hypercholesterolemia, unspecified; E78.0 - Pure hypercholesterolemia PLAN: Continue high intensity statin with rosuvastatin. I would recommend that the patient can be discharged later today and followed up with me as an outpatient. My office will schedule an appointment in the next 2 weeks. Thank you for allowing me to participate in the care of your patient. Please don't hesitate to call if any issues arise.
[2021-02-26 08:50] LABS: Anion Gap 5 (5-15); BUN 26 mg/dL (7-18); BUN/Creat Ratio 29.7 RATIO (10-20); Calcium,Total 8.7 mg/dL (8.5-10.1); Chloride 107 mmol/L (98-107); Creatinine, Serum 0.88 mg/dL (0.55-1.02); EST Glomerular Filtration Rate 66 mL/min (>60); Est Glom Filt Rate - Afr Amer 80 mL/min (>60); Estimated Creatinine Clearance 51.24 ml/min; Glucose 118 mg/dL (74-106); Potassium 3.6 mmol/L (3.5-5.1); Sodium Level 137 mmol/L (136-145)
[2021-02-26 09:22] VITALS: BP 129/86; PULSE 102; RESP 16; TEMP 36.6; O2SAT 94
[2021-02-26 09:23] VITALS: PULSE 102
[2021-02-26] MEDS: Metoprolol Tartrate 50 MG Tablet PO (09:23)
[2021-02-26] MEDS: Spironolactone 25 MG Tablet PO (09:23)
[2021-02-26] MEDS: Furosemide 40 MG Tablet PO (09:24)
[2021-02-26] MEDS: Magnesium Chloride 64 MG Delay Rel.Tablet 128 MG PO (09:24)
[2021-02-26] MEDS: dilTIAZem CD 120 MG Capsule PO (09:24)
[2021-02-26] MEDS: Lisinopril 5 MG Tablet PO (09:24)
--- NOTE | 2021-02-26 10:23 | DCINST_ITS ---
Documented by User: Ming OQUENDO 02/26/21 10:28 Discharge Instructions Diet Discharge Diet: No restrictions Activity Discharge Activity: Return to Normal Activity Weight Bearing Status: Weight bearing as tolerated Dressing / Incision Call your doctor if you observe: Fever of 101 or Higher, Numbness or Tingling, Shortness of breath, Dizziness, Chest pain, Increased palpitations (irregular heartbeat) and Calf discomfort Follow Up Care Please Follow Up With: Primary care provider When: Within the next two weeks. Test Results: Test results from this visit will be discussed in further detail at your follow-up appointment, if applicable. Discharge Plan Admission Admit Date/Time: 02/24/21 13:48 Primary Reason for Your Visit: Abdominal pain with diarrhea. Attending Provider: Michael Thomas Primary Care Provider: Boubacar Ruby Consulting Providers: Bello Ceballos ; Jose Lee ; Frank Goncalves ; Josh Gunter ; Lavon Figueroa ; Pat Severino ; Matthew Gu ; Joycelyn Edwards ; Mauricio Nieves ; Homar Saucedo ; Ming Pickering DATA MANAGEMENT ENGINEER ; Celina High NP ; Saba Peters PA Instructions Patient Instructions: ED Abdominal Pain Unkn Cause Fem Discharge Orders/Prescriptions Prescriptions: New metoprolol tartrate 50 mg tablet 50 mg PO BID Qty: 60 RF: 0 spironolactone 25 mg tablet 25 mg PO DAILY Qty: 30 RF: 0 lisinopril 5 mg tablet 5 mg PO DAILY Qty: 30 RF: 0 Continued sertraline 50 mg tablet 100 mg PO QHS RF: 0 magnesium oxide 400 mg (241.3 mg magnesium) tablet 400 mg PO DAILY Qty: 90 RF: 3 potassium chloride 10 mEq capsule, extended release 20 meq PO DAILY Qty: 180 RF: 3 (DME) Disability Parking Placard See Rx Instructions .Route .MEDSUPPLY Qty: 1 RF: 0 furosemide 40 mg tablet 40 mg PO BID Qty: 180 RF: 3 allopurinol 300 mg tablet 300 mg PO DAILY RF: 0 cholecalciferol (vitamin D3) 25 mcg (1,000 unit) capsule 25 mcg PO DAILY RF: 0 vit C,E,Zn,Fx-mfcyo7-llj-zeax 250-2.5-0.5 mg capsule 1 cap PO BID RF: 0 multivitamin Tablet 1 tab PO DAILY RF: 0 Metamucil 3.4 gram/5.4 gram powder 1 tbsp PO DAILY PRN (Reason: supplement) RF: 0 insulin lispro 100 unit/mL insulin pen 15 unit SC DAILY PRN (Reason: diabetes) RF: 0 insulin glargine 100 unit/mL (3 mL) insulin pen 20 unit SC BREAKFAST RF: 0 dicyclomine 10 MG capsule 10 mg PO TIDAC PRN (Reason: stomach pain) RF: 0 warfarin 6 mg tablet 6 mg PO SUSA Qty: 24 RF: 3 rosuvastatin 40 mg tablet 40 mg PO DAILY Qty: 30 RF: 11 warfarin 4 mg tablet 4 mg PO MOTUWETHFR Qty: 60 RF: 3 Changed diltiazem HCl 120 mg tablet 120 mg PO DAILY Qty: 180 RF: 3 Discontinued metoprolol tartrate 25 mg tablet 25 mg PO BID Qty: 180 RF: 3 Referrals / Follow Up: Jose Lee MD [STAFF PHYSICIAN] - Within 2 Weeks Boubacar Ruby DO [Primary Care Provider] - 3-5 Days Disposition Disposition (needs filled in before D/C Order can be placed): Home, Self Care Documented by User: Dr. Michael Thomas MD 02/26/21 10:53 Discharge Plan Admission Admit Date/Time: 02/24/21 13:48 Primary Reason for Your Visit: Abdominal pain with diarrhea. Attending Provider: Michael Thomas Primary Care Provider: Boubacar Ruby Consulting Providers: Bello Ceballos ; Jose Lee ; Frank Goncalves ; Josh Gunter ; Lavon Figueroa ; Pat Severino ; Matthew Gu ; Joycelyn Edwards ; Mauricio Nieves ; Homar Saucedo ; Ming Pickering DATA MANAGEMENT ENGINEER ; Celina High NP ; Saba Peters PA Instructions Patient Instructions: ED Abdominal Pain Unkn Cause Fem Discharge Orders/Prescriptions Prescriptions: New metoprolol tartrate 50 mg tablet 50 mg PO BID Qty: 60 RF: 0 spironolactone 25 mg tablet 25 mg PO DAILY Qty: 30 RF: 0 lisinopril 5 mg tablet 5 mg PO DAILY Qty: 30 RF: 0 Continued sertraline 50 mg tablet 100 mg PO QHS RF: 0 magnesium oxide 400 mg (241.3 mg magnesium) tablet 400 mg PO DAILY Qty: 90 RF: 3 potassium chloride 10 mEq capsule, extended release 20 meq PO DAILY Qty: 180 RF: 3 (DME) Disability Parking Placard See Rx Instructions .Route .MEDSUPPLY Qty: 1 RF: 0 furosemide 40 mg tablet 40 mg PO BID Qty: 180 RF: 3 allopurinol 300 mg tablet 300 mg PO DAILY RF: 0 cholecalciferol (vitamin D3) 25 mcg (1,000 unit) capsule 25 mcg PO DAILY RF: 0 vit C,E,Zn,Ld--zdi-zeax 250-2.5-0.5 mg capsule 1 cap PO BID RF: 0 multivitamin Tablet 1 tab PO DAILY RF: 0 Metamucil 3.4 gram/5.4 gram powder 1 tbsp PO DAILY PRN (Reason: supplement) RF: 0 insulin lispro 100 unit/mL insulin pen 15 unit SC DAILY PRN (Reason: diabetes) RF: 0 insulin glargine 100 unit/mL (3 mL) insulin pen 20 unit SC BREAKFAST RF: 0 dicyclomine 10 MG capsule 10 mg PO TIDAC PRN (Reason: stomach pain) RF: 0 warfarin 6 mg tablet 6 mg PO SUSA Qty: 24 RF: 3 rosuvastatin 40 mg tablet 40 mg PO DAILY Qty: 30 RF: 11 warfarin 4 mg tablet 4 mg PO MOTUWETHFR Qty: 60 RF: 3 Changed diltiazem HCl 120 mg tablet 120 mg PO DAILY Qty: 180 RF: 3 Discontinued metoprolol tartrate 25 mg tablet 25 mg PO BID Qty: 180 RF: 3 Referrals / Follow Up: Jose Lee MD [STAFF PHYSICIAN] - Within 2 Weeks Boubacar Ruby DO [Primary Care Provider] - 3-5 Days Disposition Disposition (needs filled in before D/C Order can be placed): Home, Self Care
--- NOTE | 2021-02-26 12:46 | PCM.DC.SUM ---
Documented by User: Ming OQUENDO 02/26/21 12:53 Providers Date of Admission: 02/24/21 Primary Care Physician: Dr. Boubacar Ruby, DO Consultations 02/25/21 14:54 Consult: Cardiology Routine Consulting Provider: [facility] Reason for Consult: new EF of 30% EMERGENT Consult: No MD Notified: Yes Date Notified: 02/25/21 Time Notified: 14:54 Method of Notification: Page Reason For Visit: ABDOMINAL PAIN WITH A FIB Diagnosis Discharge Diagnosis (1) Cardiomyopathy, ischemic: Status: Acute Code(s): I25.5 - Ischemic cardiomyopathy (2) CHF (congestive heart failure): Status: Acute Code(s): I50.9 - Heart failure, unspecified (3) History of coronary artery stent placement: Status: Resolved Code(s): Z95.5 - Presence of coronary angioplasty implant and graft (4) History of mitral valve replacement with bioprosthetic valve: Status: Chronic Code(s): Z95.3 - Presence of xenogenic heart valve (5) Longstanding persistent atrial fibrillation: Status: Chronic Code(s): I48.11 - Longstanding persistent atrial fibrillation (6) Essential (primary) hypertension: Status: Chronic Code(s): I10 - Essential (primary) hypertension (7) Hyperlipidemia: Status: Chronic Code(s): E78.5 - Hyperlipidemia, unspecified Qualifiers: Hyperlipidemia type: pure hypercholesterolemia Qualified Code(s): E78.00 - Pure hypercholesterolemia, unspecified; E78.0 - Pure hypercholesterolemia Medications at Discharge Home Medications insulin lispro 100 unit/mL subcutaneous pen 15 unit SC DAILY PRN ml 07/26/19 sertraline 50 mg tablet 100 mg PO QHS tab 07/26/19 dicyclomine 10 mg PO TIDAC PRN 01/20/20 furosemide 40 mg tablet 40 mg PO BID #180 tab 02/14/20 warfarin 6 mg tablet 6 mg PO SUSA #24 tab 04/24/20 Disability Parking Placard #1 ea 06/12/20 magnesium oxide 400 mg (241.3 mg magnesium) tablet 400 mg PO DAILY #90 tab 06/12/20 potassium chloride 10 mEq capsule,extended release 20 meq PO DAILY #180 cap 06/12/20 rosuvastatin 40 mg tablet 40 mg PO DAILY #30 tablet 07/23/20 warfarin 4 mg tablet 4 mg PO MOTUWETHFR #60 tab 11/05/20 allopurinol 300 mg tablet 300 mg PO DAILY tab 01/15/21 cholecalciferol (vitamin D3) 25 mcg (1,000 unit) capsule 25 mcg PO DAILY 01/15/21 insulin glargine 100 unit/mL (3 mL) subcutaneous pen 20 unit SC BREAKFAST ml 01/15/21 multivitamin 1 tab PO DAILY 01/15/21 psyllium husk 3.4 gram/5.4 gram oral powder 1 tbsp PO DAILY PRN 01/15/21 vit C,E,zinc,Ub-mlvim-5-lutein-zeaxanthin 250 mg-2.5 mg-0.5 mg capsule 1 cap PO BID cap 01/15/21 diltiazem HCl 120 mg PO DAILY #180 tab 02/26/21 lisinopril 5 mg PO DAILY #30 tab 02/26/21 metoprolol tartrate 50 mg PO BID #60 tab 02/26/21 spironolactone 25 mg PO DAILY #30 tab 02/26/21 Hospital Course Procedures 2-D Echocardiogram and Transthoracic echo Summary of Care Provided Minutes Spent on Discharge: 35 Hospital Course: Patient is a 80-year-old female who was admitted to the hospital on 02/24/2021 with a chief complaint of abdominal pain with diarrhea. Patient was admitted due to being in A. fib with RVR and being hypoxic. Enteric stool, Legionella urinary antigens and rapid Covid were obtained and were negative. Patient's abdominal pain and diarrhea quickly resolved. Updated echocardiogram was obtained due to a noted history of significant pulmonary hypertension. Updated echocardiogram demonstrated an EF of 30%, which was a significant decrease from prior study. Cardiology was consulted and recommended outpatient follow-up with the following medication changes: Decrease diltiazem to 120 mg p.o. daily, initiate lisinopril 5 mg p.o. daily, increase metoprolol to 50 mg p.o. twice daily and add spironolactone 25 mg p.o. daily to home medication regimen. Patient was also sent home on oxygen due to patient's oxygen saturations dropping below 8 88% on ambulation. All other home medications were continued. Patient is to follow-up with cardiology and her primary care provider within the next 2 weeks. Patient seen by Ming Dalton PA-C, under the supervision of Dr. Thomas. Physical Exam Narrative Patient is a 80-year-old female comfortably resting in bed, alert and orient x3. Patient reports that her abdominal pain and diarrhea have resolved for admission. Denies development of any new symptoms overnight. Does not appear in acute distress. Const alert, oriented x3 and no apparent distress HEENT normocephalic, head/scalp atraumatic and hearing grossly normal bilaterally Eyes PERRL, EOMs intact bilaterally and conjunctivae normal Neck no lymphadenopathy, supple and no JVD Resp normal respiratory effort, no retractions, no use of accessory muscles and clear to auscultation bilaterally Cardio regular rhythm, no murmurs and no JVD Rate: tachycardic GI normal to inspection, nondistended, normoactive bowel sounds, soft to palpation and non-tender Extremity normal to inspection, full ROM and no clubbing, cyanosis or edema Skin no rashes or lesions noted, no wounds and skin turgor normal Neuro CN's II-XII intact bilaterally Psych affect normal Weight / BMI Weight Weight: 253 lb 2 oz Body Mass Index (BMI) 39.6 ABG / Lab / Microbiology Data Result Diagrams: 02/25/21 06:12 02/26/21 08:16 Laboratory: Laboratory Results - last 24 hr 02/25/21 16:33: POC Glucose 125 H 02/25/21 21:08: POC Glucose 119 H 02/26/21 06:18: PT 23.2 H, INR 2.1 02/26/21 06:18: Sodium Cancelled, Potassium Cancelled, Chloride Cancelled, Carbon Dioxide Cancelled, Anion Gap Cancelled, BUN Cancelled, Creatinine Cancelled, Estim Creat Clear Calc Cancelled, Est GFR (MDRD) Af Amer Cancelled, Est GFR (MDRD) Non-Af Cancelled, BUN/Creatinine Ratio Cancelled, Glucose Cancelled, Calcium Cancelled 02/26/21 06:36: POC Glucose 121 H 02/26/21 08:16: Sodium 137, Potassium 3.6, Chloride 107, Carbon Dioxide 25.0, Anion Gap 5, BUN 26 H, Creatinine 0.88, Estim Creat Clear Calc 51.24, Est GFR (MDRD) Af Amer 80, Est GFR (MDRD) Non-Af 66, BUN/Creatinine Ratio 29.7 H, Glucose 118 H, Calcium 8.7 Microbiology: Microbiology 02/24/21 22:30 Stool Enteric Bacteriology - Final 02/24/21 16:59 Nasal Secretion SARS-CoV-2 Antigen (Rapid) - Final 02/24/21 16:08 Urine, Clean Catch Legionella Antigen - Final Radiography Diagnostic Testing: Radiology Impression Echocardiogram 02/25/21 10:30 Interpretation Summary The study was technically difficult. Contrast injection was performed. Moderate segmental systolic dysfunction (see wall motion). The estimated ejection fraction is 30 %. Mild concentric left ventricular hypertrophy. Mildly dilated right ventricle. Mild global right ventricular systolic dysfunction. The left atrium is severely enlarged. The right atrium is severely enlarged. Stable appearing bioprosthetic mitral valve apparatus. Trivial transvalvular insufficiency of the mitral valve. Mild tricuspid valve insufficiency. Mild aortic stenosis. Trivial pulmonic valve insufficiency. Calcified aortic root. Right ventricular systolic pressure estimated to be 44 mmHg c/w pulmonary hypertension. Unable to assess diastolic dysfunction. Ordering Physician: Michael Thomas Referring Physician: Boubacar Ruby Performed By: Presley Escobar RCS D/C Instructions Discharge Diet: No restrictions Weight Bearing Status: Weight bearing as tolerated Call your doctor if you observe: Fever of 101 or Higher, Numbness or Tingling, Shortness of breath, Dizziness, Chest pain, Increased palpitations (irregular heartbeat) and Calf discomfort Please Follow Up With: Primary care provider When: Within the next two weeks. Meaningful Use Info Meaningful Use Diagnoses (Choose all that apply): None applicable and CHF CHF RADHA/ARB ordered at discharge?: Yes Documented LVEF (%): 30 Discharge Plan Admission Admit Date/Time: 02/24/21 13:48 Primary Reason for Your Visit: Abdominal pain with diarrhea. Attending Provider: Michael Thomas Primary Care Provider: Boubacar Ruby Consulting Providers: Bello Ceballos ; Jose Lee ; Frank Goncalves ; Josh Gunter ; Lavon Figueroa ; Pat Severino ; Matthew Gu ; Joycelyn Edwards ; Mauricio Nieves ; Homar Saucedo ; Ming Pickering BALANCE WHEEL ARM BURNISHER ; Celina High BALANCE WHEEL ARM BURNISHER ; Saba Peters PA Instructions Patient Instructions: ED Abdominal Pain Unkn Cause Fem Discharge Orders/Prescriptions Prescriptions: New metoprolol tartrate 50 mg tablet 50 mg PO BID Qty: 60 RF: 0 spironolactone 25 mg tablet 25 mg PO DAILY Qty: 30 RF: 0 lisinopril 5 mg tablet 5 mg PO DAILY Qty: 30 RF: 0 Continued sertraline 50 mg tablet 100 mg PO QHS RF: 0 magnesium oxide 400 mg (241.3 mg magnesium) tablet 400 mg PO DAILY Qty: 90 RF: 3 potassium chloride 10 mEq capsule, extended release 20 meq PO DAILY Qty: 180 RF: 3 (DME) Disability Parking Placard See Rx Instructions .Route .MEDSUPPLY Qty: 1 RF: 0 furosemide 40 mg tablet 40 mg PO BID Qty: 180 RF: 3 allopurinol 300 mg tablet 300 mg PO DAILY RF: 0 cholecalciferol (vitamin D3) 25 mcg (1,000 unit) capsule 25 mcg PO DAILY RF: 0 vit C,E,Zn,Gc-oxytg1-mmo-zeax 250-2.5-0.5 mg capsule 1 cap PO BID RF: 0 multivitamin Tablet 1 tab PO DAILY RF: 0 Metamucil 3.4 gram/5.4 gram powder 1 tbsp PO DAILY PRN (Reason: supplement) RF: 0 insulin lispro 100 unit/mL insulin pen 15 unit SC DAILY PRN (Reason: diabetes) RF: 0 insulin glargine 100 unit/mL (3 mL) insulin pen 20 unit SC BREAKFAST RF: 0 dicyclomine 10 MG capsule 10 mg PO TIDAC PRN (Reason: stomach pain) RF: 0 warfarin 6 mg tablet 6 mg PO SUSA Qty: 24 RF: 3 rosuvastatin 40 mg tablet 40 mg PO DAILY Qty: 30 RF: 11 warfarin 4 mg tablet 4 mg PO MOTUWETHFR Qty: 60 RF: 3 Changed diltiazem HCl 120 mg tablet 120 mg PO DAILY Qty: 180 RF: 3 Discontinued metoprolol tartrate 25 mg tablet 25 mg PO BID Qty: 180 RF: 3 Referrals / Follow Up: Jose Lee MD [STAFF PHYSICIAN] - Within 2 Weeks Boubacar Ruby DO [Primary Care Provider] - 3-5 Days Disposition Disposition (needs filled in before D/C Order can be placed): Home, Self Care Documented by User: Dr. Michael Thomas MD 02/26/21 13:39 Providers Date of Admission: 02/24/21 Reason For Visit: ABDOMINAL PAIN WITH A FIB Medications at Discharge Home Medications insulin lispro 100 unit/mL subcutaneous pen 15 unit SC DAILY PRN ml 07/26/19 sertraline 50 mg tablet 100 mg PO QHS tab 07/26/19 dicyclomine 10 mg PO TIDAC PRN 01/20/20 furosemide 40 mg tablet 40 mg PO BID #180 tab 02/14/20 warfarin 6 mg tablet 6 mg PO SUSA #24 tab 04/24/20 Disability Parking Placard #1 ea 06/12/20 magnesium oxide 400 mg (241.3 mg magnesium) tablet 400 mg PO DAILY #90 tab 06/12/20 potassium chloride 10 mEq capsule,extended release 20 meq PO DAILY #180 cap 06/12/20 rosuvastatin 40 mg tablet 40 mg PO DAILY #30 tablet 07/23/20 warfarin 4 mg tablet 4 mg PO MOTUWETHFR #60 tab 11/05/20 allopurinol 300 mg tablet 300 mg PO DAILY tab 01/15/21 cholecalciferol (vitamin D3) 25 mcg (1,000 unit) capsule 25 mcg PO DAILY 01/15/21 insulin glargine 100 unit/mL (3 mL) subcutaneous pen 20 unit SC BREAKFAST ml 01/15/21 multivitamin 1 tab PO DAILY 01/15/21 psyllium husk 3.4 gram/5.4 gram oral powder 1 tbsp PO DAILY PRN 01/15/21 vit C,E,zinc,Lg-skrgz-7-lutein-zeaxanthin 250 mg-2.5 mg-0.5 mg capsule 1 cap PO BID cap 01/15/21 diltiazem HCl 120 mg PO DAILY #180 tab 02/26/21 lisinopril 5 mg PO DAILY #30 tab 02/26/21 metoprolol tartrate 50 mg PO BID #60 tab 02/26/21 spironolactone 25 mg PO DAILY #30 tab 02/26/21 ABG / Lab / Microbiology Data Result Diagrams: 02/25/21 06:12 02/26/21 08:16 Discharge Plan Admission Admit Date/Time: 02/24/21 13:48 Primary Reason for Your Visit: Abdominal pain with diarrhea. Attending Provider: Michael Thomas Primary Care Provider: Boubacar Ruby Consulting Providers: Bello Ceballos ; Jose Lee ; Frank Goncalves ; Josh Gunter ; Lavon Figueroa ; Pat Severino ; Matthew Gu ; Joycelyn Edwards ; Mauricio Nieves ; Homar Saucedo ; Ming Pickering BALANCE WHEEL ARM BURNISHER ; Celina High BALANCE WHEEL ARM BURNISHER ; Saba Peetrs PA Instructions Patient Instructions: ED Abdominal Pain Unkn Cause Fem Discharge Orders/Prescriptions Prescriptions: New metoprolol tartrate 50 mg tablet 50 mg PO BID Qty: 60 RF: 0 spironolactone 25 mg tablet 25 mg PO DAILY Qty: 30 RF: 0 lisinopril 5 mg tablet 5 mg PO DAILY Qty: 30 RF: 0 Continued sertraline 50 mg tablet 100 mg PO QHS RF: 0 magnesium oxide 400 mg (241.3 mg magnesium) tablet 400 mg PO DAILY Qty: 90 RF: 3 potassium chloride 10 mEq capsule, extended release 20 meq PO DAILY Qty: 180 RF: 3 (DME) Disability Parking Placard See Rx Instructions .Route .MEDSUPPLY Qty: 1 RF: 0 furosemide 40 mg tablet 40 mg PO BID Qty: 180 RF: 3 allopurinol 300 mg tablet 300 mg PO DAILY RF: 0 cholecalciferol (vitamin D3) 25 mcg (1,000 unit) capsule 25 mcg PO DAILY RF: 0 vit C,E,Zn,Qm-artku2-nmx-zeax 250-2.5-0.5 mg capsule 1 cap PO BID RF: 0 multivitamin Tablet 1 tab PO DAILY RF: 0 Metamucil 3.4 gram/5.4 gram powder 1 tbsp PO DAILY PRN (Reason: supplement) RF: 0 insulin lispro 100 unit/mL insulin pen 15 unit SC DAILY PRN (Reason: diabetes) RF: 0 insulin glargine 100 unit/mL (3 mL) insulin pen 20 unit SC BREAKFAST RF: 0 dicyclomine 10 MG capsule 10 mg PO TIDAC PRN (Reason: stomach pain) RF: 0 warfarin 6 mg tablet 6 mg PO SUSA Qty: 24 RF: 3 rosuvastatin 40 mg tablet 40 mg PO DAILY Qty: 30 RF: 11 warfarin 4 mg tablet 4 mg PO MOTUWETHFR Qty: 60 RF: 3 Changed diltiazem HCl 120 mg tablet 120 mg PO DAILY Qty: 180 RF: 3 Discontinued metoprolol tartrate 25 mg tablet 25 mg PO BID Qty: 180 RF: 3 Referrals / Follow Up: Jose Lee MD [STAFF PHYSICIAN] - Within 2 Weeks Boubacar Ruby DO [Primary Care Provider] - 3-5 Days Disposition Disposition (needs filled in before D/C Order can be placed): Home, Self Care Charges/Coding Addendum Addendum: Dr. Thomas: I personally reviewed the chart and examined the patient, and agree with the above findings. 80-year-old female presented with what she suspects to be food poisoning. She feels much better today with IV hydration however she is now needing 2 L of oxygen secondary to her previous systolic CHF as well as moderate pulmonary hypertension. Because of this a repeat echo was obtained which showed a diminished EF of 30%. Cardiology was consulted for evaluation. Since she is feeling better if cardiology does not recommend any further investigation we will plan for discharge in the morning home. We will hold her Lasix on discharge for a few days until her diarrhea has resolved and she is able to take adequate p.o. 02/26/2021: Doing well today, diarrhea is completely resolved. She did have an echo because of the shortness of breath which did show an EF of 30% therefore cardiology was consulted and made some medication changes including adjusting her metoprolol and Cardizem as well as adding Aldactone and lisinopril to her current regimen of Lasix. Given the fact that her diarrhea has resolved she is likely in edema up to maintain her hydration on discharge. I do recommend that she follow-up with her PCP in 3 to 5 days and cardiology within the next month or so to see if her ejection fraction improves with these medication changes. Discussed with him plan for discharge today and expressed understanding of the risk benefits of going home and would like to go home today. Visit Charges OBSV E&M: 05402 Observation care discharge
== END 2021-02-26 10:28 | disposition home or self-care (01) ==
LOC: ED 13:50 → PCU 13:55
PROVIDERS: Physician Assistant; Admitting Provider Internal Medicine; Emergency Provider Emergency Medicine; PCP Family Medicine; Visit Provider Family Medicine
DX: I25.5 Ischemic cardiomyopathy (principal); I11.0 Hypertensive heart disease with heart failure; R09.02 Hypoxemia; I48.11 Longstanding persistent atrial fibrillation; E78.5 Hyperlipidemia, unspecified; I50.42 Chronic combined systolic (congestive) and diastolic (congestive) heart failure; I25.10 Atherosclerotic heart disease of native coronary artery without angina pectoris; E03.9 Hypothyroidism, unspecified; I27.29 Other secondary pulmonary hypertension; E66.9 Obesity, unspecified; E11.9 Type 2 diabetes mellitus without complications; Z95.5 Presence of coronary angioplasty implant and graft; Z95.3 Presence of xenogenic heart valve; Z79.899 Other long term (current) drug therapy; Z79.01 Long term (current) use of anticoagulants; Z79.4 Long term (current) use of insulin; Z68.39 Body mass index [BMI] 39.0-39.9, adult; I08.3 Combined rheumatic disorders of mitral, aortic and tricuspid valves; R19.7 Diarrhea, unspecified
CPT/HCPCS: 36415; 71275; 74177; 80048; 80053; 81001; 82962; 83690; 83735; 84100; 84443; 84484; 85025; 85610; 87426; 87449; 87506; 93005; 93306; 94640; 96361; 96374; 96375; 97802; 99218; 99285; J7030; Q9957; Q9967; A4216; C8929; G0378; J1940; J2405; J3490

== ENCOUNTER 2021-04-02 08:11 | Outpatient (RCR) | payer OTHER, SELFPAY ==
[2021-02-09 05:16] VITALS: BMI 38.2
[2021-03-17 13:44] LABS: International Normalized Ratio 2.5; Prothrombin Time (Protime)PT. 26.6 SECONDS (11.7-14.9)
[2021-04-02 09:22] LABS: International Normalized Ratio 2.8; Prothrombin Time (Protime)PT. 28.7 SECONDS (11.7-14.9)
[2021-04-02 09:39] LABS: Anion Gap 7 (5-15); BUN 51 mg/dL (7-18); BUN/Creat Ratio 38.6 RATIO (10-20); Calcium,Total 9.5 mg/dL (8.5-10.1); Chloride 104 mmol/L (98-107); Creatinine, Serum 1.32 mg/dL (0.55-1.02); EST Glomerular Filtration Rate 41 mL/min (>60); Est Glom Filt Rate - Afr Amer 50 mL/min (>60); Glucose 132 mg/dL (74-106); Potassium 4.9 mmol/L (3.5-5.1); Sodium Level 138 mmol/L (136-145)
== END 2021-04-12 18:00 | disposition home or self-care (01) ==
LOC: LAB 08:11
PROVIDERS: Physician Assistant Medical; Family Provider Family Medicine; PCP Family Medicine; Referring Provider Internal Medicine Cardiovascular Disease; Visit Provider Internal Medicine Cardiovascular Disease
DX: I48.11 Longstanding persistent atrial fibrillation (principal); I25.10 Atherosclerotic heart disease of native coronary artery without angina pectoris; Z79.01 Long term (current) use of anticoagulants; Z79.899 Other long term (current) drug therapy; Z95.5 Presence of coronary angioplasty implant and graft
CPT/HCPCS: 36415; 80048; 85610

== ENCOUNTER 2021-05-07 14:31 | Outpatient (RCR) | payer OTHER, SELFPAY ==
[2021-04-14 02:34] VITALS: BMI 38.2
[2021-05-07 15:17] LABS: International Normalized Ratio 3.3; Prothrombin Time (Protime)PT. 32.8 SECONDS (11.7-14.9)
== END 2021-05-12 18:00 | disposition home or self-care (01) ==
LOC: LAB 14:31
PROVIDERS: Family Provider Family Medicine; PCP Family Medicine; Referring Provider Internal Medicine Cardiovascular Disease; Visit Provider Internal Medicine Cardiovascular Disease
DX: I48.11 Longstanding persistent atrial fibrillation (principal); Z79.01 Long term (current) use of anticoagulants
CPT/HCPCS: 36415; 85610

== ENCOUNTER 2021-05-14 09:20 | Outpatient (RCR) | payer OTHER, SELFPAY ==
[2021-05-13 02:24] VITALS: BMI 38.2
[2021-05-14 10:13] LABS: International Normalized Ratio 2.6; Prothrombin Time (Protime)PT. 26.7 SECONDS (11.7-14.9)
== END 2021-05-14 23:59 | disposition home or self-care (01) ==
LOC: LAB 09:20
PROVIDERS: Family Provider Family Medicine; PCP Family Medicine; Referring Provider Internal Medicine Cardiovascular Disease; Visit Provider Internal Medicine Cardiovascular Disease
DX: I48.11 Longstanding persistent atrial fibrillation (principal); Z79.01 Long term (current) use of anticoagulants
CPT/HCPCS: 36415; 85610

== ENCOUNTER 2021-06-06 09:07 | Outpatient (CLI) | payer SELFPAY, OTHER ==
--- NOTE | 2021-06-06 09:11 | ECHOCS_ITS ---
Version 2 Reason For Study: CHF Procedure This was a 2D Doppler, Color Flow transthoracic echocardiogram. The study was technically difficult. Contrast injection was performed. Exam performed in department. Left Ventricle Normal LV size. Severe segmental systolic dysfunction (see wall motion). The estimated ejection fraction is 15 %. Unable to assess diastolic dysfunction. Anterio-Basal: Hypokinetic. Basal inferoseptal: Hypokinetic. Basal anteroseptal: Hypokinetic. Mid-Anterior : Hypokinetic. Mid- Lateral : Akinetic. Mid-Posterior: Hypokinetic. Mid-Inferior: Hypokinetic. Mid-inferoseptal : Hypokinetic. Mid-anteroseptal : Hypokinetic. [place] : Akinetic. Right Ventricle Normal RV size. Mild global right ventricular systolic dysfunction. Atria The left atrium is severely enlarged. The right atrium is severely enlarged. No doppler evidence for ASD. Mitral Valve Stable appearing bioprosthetic mitral valve apparatus. Tricuspid Valve Normal tricuspid valve. Mild to moderate (1-2+) eccentric tricuspid valve insufficiency. Right ventricular systolic pressure estimated to be 31 mmHg. Aortic Valve Trisinus/trileaflet aortic valve. Mild diffuse aortic valve calcification. Trivial aortic valve insufficiency. Pulmonic Valve The pulmonic valve is not well visualized. Trivial pulmonic valve insufficiency. Great Vessels The aortic root is not well visualized. Pericardium/Pleural No pericardial effusion. Medication 22 gauge I.V. with prn adaptor inserted into left arm. Diluted definity 3ml given slow IV push to enhance endocardial definition. MMode/2D Measurements & Calculations LVIDd: 4.8 cm IVSd: 0.93 cm LVOT diam: 2.0 cm LVIDs: 3.7 cm LVPWd: 0.98 cm RVDd: 3.5 cm FS: 22.3 % LVOT area: 3.2 cm2 Ao root diam: 4.0 cm LAV(MOD-bp): 98.5 ml LA A4 area: 33.5 cm2 LAV(MOD-bp) Indexed: 45.5 ml/m2 LAV(MOD-sp2): 81.3 ml LAV(MOD-sp4): 104.7 ml LA dimension(2D): 5.0 cm RA A4 area: 30.4 cm2 Doppler Measurements & Calculations MV E max kvng: 133.9 cm/sec MV V2 max: 162.3 cm/sec MV P1/2t max kvng: 161.9 cm/sec MV max P.5 mmHg MV P1/2t: 65.5 msec MV V2 mean: 77.4 cm/sec MV dec slope: 723.6 cm/sec2 MV mean P.3 mmHg MV V2 VTI: 28.1 cm MVA(P1/2t): 3.4 cm2 Ao V2 max: 114.0 cm/sec LV V1 max: 71.0 cm/sec PA V2 max: 40.9 cm/sec Ao max P.3 mmHg LV V1 max P.1 mmHg ARETHA(V,D): 2.0 cm2 TR max kvng: 239.7 cm/sec TR max P.0 mmHg ECHO/Echo Complete W/ Contrast Interpretation Summary The study was technically difficult. Contrast injection was performed. Severe segmental systolic dysfunction (see wall motion). The estimated ejection fraction is 15 %. Mild global right ventricular systolic dysfunction. The left atrium is severely enlarged. The right atrium is severely enlarged. Stable appearing bioprosthetic mitral valve apparatus. Mild to moderate (1-2+) eccentric tricuspid valve insufficiency. Mild diffuse aortic valve calcification. Trivial aortic valve insufficiency. Trivial pulmonic valve insufficiency. Right ventricular systolic pressure estimated to be 31 mmHg. Unable to assess diastolic dysfunction. Ordering Physician: Ming Pickering/Jose Lee Referring Physician: Ming Pickering Performed By: Leisa Munson RDCS
== END 2021-06-06 23:59 | disposition home or self-care (01) ==
PROVIDERS: PCP Family Medicine; Referring Provider Nurse Practitioner Family; Visit Provider Nurse Practitioner Family
DX: I25.5 Ischemic cardiomyopathy (principal)
CPT/HCPCS: 93306; Q9957; A4216; C8929

== ENCOUNTER 2021-06-06 10:49 | Inpatient (IN) | payer OTHER, SELFPAY ==
[2021-06-06] VITALS (13 sets, daily range): BP systolic 84–117; BP diastolic 49–93; PULSE 100–124; RESP 15–23; TEMP 36.1–36.7; O2SAT 92–97; BMI 36.8; BMI 36.6
--- NOTE | 2021-06-06 11:10 | EKG12_ITS ---
Test Reason : TACHY Blood Pressure : / mmHG Vent. Rate : 128 BPM Atrial Rate : 115 BPM P-R Int : 000 ms QRS Dur : 088 ms QT Int : 350 ms P-R-T Axes : 000 -77 104 degrees QTc Int : 511 ms Atrial fibrillation Left axis deviation Nonspecific ST and T wave abnormality Abnormal ECG Confirmed by SHAYNA KENYON, CALISTA ([id number]), newspaper copy editor DEMETRIA WARREN ([id number]) on 06/09/2021 12:04:51 PM Referred By: Confirmed By:CALISTA CORRAL MD
--- NOTE | 2021-06-06 11:22 | RAD_ITS ---
STUDY: X-RAY CHEST REASON FOR EXAM: Female, 80 years old. Chest pain TECHNIQUE: Single AP portable view of the chest. COMPARISON: Comparison is made with prior study dated 01/20/2020. FINDINGS: EKG electrode are seen. The lungs are clear and expanded. There is no demonstrated pleural abnormality. Sternal cerclage wires are present from a prior sternotomy. Metallic clip is seen overlying the left atrial appendage. Moderate cardiomegaly. Normal mediastinum and heena. Normal visualized pulmonary arteries. There is atherosclerotic calcification of the aortic arch with tortuosity. There are diffuse degenerative changes of the visualized thoracic spine. Normal visualized ribs, clavicles, and shoulders. There is no demonstrated abnormality of the visualized soft tissue structures of the upper abdomen. RAD/Chest 1 View (Portable) IMPRESSION: Cardiomegaly. The lungs are clear. Electronically Signed: Km Lira MD at 11:59 EST ,
[2021-06-06 11:36] LABS: Absolute Lymphocyte Count 1.65 X10^3/uL (0.83-4.51); Absolute Neutrophil Count 8.8 X10^3/uL (2.0-7.7); Basophil# 0.02 X10^3/uL; Basophil% 0.2 % (0-1); Eosinophil# 0.06 X10^3/uL; Eosinophils% 0.5 % (0-5); Hematocrit 54.7 % (37-47); Lymphocyte # 1.65 X10^3/ul (0.83-4.51); Lymphocyte % 14.3 % (19-41); Mean Corp Hgb Conc 33.5 g/dL (32-36); Mean Corpuscular Volume 92.6 fL (81-99); Monocyte# 0.95 X10^3/uL; Monocyte% 8.2 % (0-10); NRBC Flagged by Analyzer 0 % (0-5); Neutrophil # 8.79 X10^3/uL (2.7-7.7); Neutrophil % 76.1 % (47-70); Platelet Count 192 K/mm3 (150-450); RBC Distribution Width CV 16.9 % (11.6-14.6); RBC Distribution Width SD 54.6 fl (35.1-43.9); Red Blood Count 5.91 M/mm3 (4.2-5.4); White Blood Count 11.6 K/mm3 (4.4-11.0)
[2021-06-06 11:43] LABS: Differential Indicated SCAN CRITERIA MET; Hemoglobin 18.3 g/dL (12.0-15.0)
--- NOTE | 2021-06-06 11:43 | ED.RN ---
HGB 18.3. NOTE LEFT ON CHART. NO DOCTOR HAS SIGNED UP FOR PT YET
[2021-06-06 11:56] LABS: Anion Gap 5 (5-15); BUN 73 mg/dL (7-18); BUN/Creat Ratio 63.5 RATIO (10-20); Calcium,Total 9.4 mg/dL (8.5-10.1); Chloride 106 mmol/L (98-107); Creatinine, Serum 1.15 mg/dL (0.55-1.02); EST Glomerular Filtration Rate 48 mL/min (>60); Est Glom Filt Rate - Afr Amer 59 mL/min (>60); Estimated Creatinine Clearance 39.21 ml/min; Glucose 144 mg/dL (74-106); Potassium 4.9 mmol/L (3.5-5.1); Sodium Level 138 mmol/L (136-145); Troponin-I HS 40 pg/mL (3.0-54.0)
[2021-06-06 13:14] LABS: Prothrombin Time (Protime)PT. 38.9 SECONDS (11.7-14.9)
[2021-06-06 13:25] LABS: International Normalized Ratio 4.1
[2021-06-06 14:07] LABS: Troponin-I HS 38 pg/mL (3.0-54.0)
--- NOTE | 2021-06-06 15:54 | PCM.HP.STD ---
HPI - General General Date of Admission: 06/06/21 Date of Service: 06/06/21 Chief Complaint: Hypotensive, diaphoretic in ECHO lab HPI Narrative The patient is a 80 y/o F w/ PMHx: Anxiety and Depression, Chronic Combined CHF, HTN, HLD, Persistent atrial fibrillation s/p prior cardioversions, CAD s/p PCI, Ischemic cardiomyopathy, PAF, Diabetes mellitus type II, Obesity, Hx GI bleed, Hx 01/20/20 SAH who presents to the [facility] ED on 06/06/21 with history of being present at the hospital for an outpatient echocardiogram when patient was noted to be hypotensive and diaphoretic with resulting echocardiogram notable for EF decreased from 30% to 15% since 02/25/2021 prompting cardiology referral to ED for evaluation. Patient does report that she has been more fatigued over the last 2 to 3 months and has had less energy as well as some dyspnea when she exerts herself but this is not severe. Prior to onset of hypotension and diaphoresis in the echo lab she denies any lightheadedness or dizziness or near syncopal sensation. Work-up in the ED included T 96.9, heart rate initially 124 with most recent 117, BP initially 113/78 with decrease most recently to 84/49--> improved to 94/80 with IV fluids, respiratory rate 18, initially 97% with most recent 94% on room air, CBC with WBC 11.6, hemoglobin 18.3, platelet 192 with left shift, BMP with BUN/creatinine 73/1.15, glucose 114, troponin 40-->repeat delta 38, PT 38.9, INR 4.1, chest x-ray with evidence of cardiomegaly otherwise no acute cardiopulmonary findings, EKG w/ atrial fib/flutter rate [address]-T wave changes. In the ED patient administered 1 L normal saline with improvement of her BP. [facility] Medical History Acute GI bleeding (07/02/19) Atherosclerosis of coronary artery of [place] heart without angina pectoris Cardiomyopathy, ischemic CHF (congestive heart failure) Chronic combined systolic and diastolic CHF (congestive heart failure) Essential (primary) hypertension GI bleed (07/02/19) History of rheumatic fever Hyperlipidemia Hypothyroidism Hypoxia Longstanding persistent atrial fibrillation Non-ischemic cardiomyopathy Non-rheumatic aortic stenosis Nonrheumatic tricuspid (valve) insufficiency Obesity Other secondary pulmonary hypertension Paroxysmal atrial fibrillation Rheumatic mitral stenosis with insufficiency Subarachnoid hemorrhage (01/20/20) Type 2 diabetes mellitus Home Medications insulin lispro 100 unit/mL subcutaneous pen 15 unit SC DAILY PRN ml 07/26/19 [History Last Taken 1 Week Ago ~05/30/21] sertraline 50 mg tablet 100 mg PO QHS tab 07/26/19 [History Last Taken 06/05/21] Disability Parking Placard #1 ea 06/12/20 [Rx Last Taken Unknown] magnesium oxide 400 mg (241.3 mg magnesium) tablet 400 mg PO DAILY #90 tab 06/12/20 [Rx Last Taken 06/05/21] potassium chloride 10 mEq capsule,extended release 20 meq PO DAILY #180 cap 06/12/20 [Rx Last Taken 06/06/21] rosuvastatin 40 mg tablet 40 mg PO DAILY #30 tablet 07/23/20 [Rx Last Taken 06/05/21] allopurinol 300 mg tablet 300 mg PO DAILY tab 01/15/21 [History Last Taken 06/05/21] cholecalciferol (vitamin D3) 25 mcg (1,000 unit) capsule 25 mcg PO DAILY 01/15/21 [History Last Taken 06/05/21] insulin glargine 100 unit/mL (3 mL) subcutaneous pen 15 unit SC BREAKFAST ml 01/15/21 [History Last Taken 05/27/21] multivitamin 1 tab PO DAILY 01/15/21 [History Last Taken 06/05/21] psyllium husk 3.4 gram/5.4 gram oral powder 1 tbsp PO DAILY PRN 01/15/21 [History Last Taken Unknown] vit C,E,zinc,Om-qrhki-3-lutein-zeaxanthin 250 mg-2.5 mg-0.5 mg capsule 1 cap PO BID cap 01/15/21 [History Last Taken 06/05/21] hydrocodone-acetaminophen 5-325mg 5mg-325mg 1 tab PO BID PRN tab 03/17/21 [History Last Taken Unknown] lisinopril 5 mg tablet 5 mg PO DAILY #90 tab 03/28/21 [Rx Last Taken 06/06/21] dicyclomine 10 mg capsule 10 mg PO 4X/DAY PRN cap 05/07/21 [History Last Taken Unknown] furosemide 40 mg tablet 40 mg PO BID tab 05/07/21 [History Last Taken 06/06/21] metoprolol tartrate 50 mg tablet 50 mg PO BID tab 05/07/21 [History Last Taken 06/06/21] warfarin 4 mg PO MOTUWETHFRSA 06/06/21 [History Last Taken 06/06/21] warfarin 6 mg PO DIXON 06/06/21 [History Last Taken 06/01/21] Allergy/AdvReac Type Severity Reaction Status Date / Time amiodarone Allergy Other Verified 05/07/21 13:34 atorvastatin AdvReac Intermediate Myalgias Verified 05/07/21 13:34 with both 80 and 40 mg Family History Father Myocardial infarction CAD (coronary artery disease) CABG Hyperlipidemia Mother Hypertension Congestive heart failure Surgical History History of History of cardioversion (06/09/19) History of coronary artery stent placement (09/27/18) History of hysterectomy History of left heart catheterization (08/15/18) History of mitral valve replacement with bioprosthetic valve (06/06/19) Hx of cholecystectomy Social History (Updated 06/06/21 @ 16:[address] Brooklyn Dumont MD) household members: other details: Lives with daughter. Smoking Status: Never smoker alcohol intake: never substance use type: does not use caffeine: Yes (Not often due to HR) ROS ROS Narrative Admission Review of Systems: CONSTITUTIONAL: No weight loss, fever, chills, + weakness or fatigue. HEENT: Eyes: No visual loss, blurred vision, double vision or yellow sclerae. Ears, Nose, Throat: No hearing loss, sneezing, congestion, runny nose or sore throat. SKIN: No rash or itching, lesions, wounds. CARDIOVASCULAR: + Palpitations, hypotension. No chest pain, chest pressure or chest discomfort, edema, orthopnea, syncopal events. RESPIRATORY: + shortness of breath, No cough or sputum, wheezing, hemoptysis. GASTROINTESTINAL: No anorexia, nausea, vomiting or diarrhea, abdominal pain, melena, BRBPR. GENITOURINARY: No dysuria, frequency, urgency or retention. NEUROLOGICAL: No headache, dizziness, syncope, paralysis, ataxia, numbness or tingling in the extremities, focal weakness, change in bowel or bladder control, seizure. MUSCULOSKELETAL: + muscle, back pain, joint pain or stiffness. HEMATOLOGIC: No anemia, bleeding or bruising. LYMPHATICS: No enlarged nodes. No history of splenectomy. PSYCHIATRIC: + history of depression or anxiety. ENDOCRINOLOGIC: + reports of sweating, cold or heat intolerance. No polyuria or polydipsia. ALLERGIES: No history of asthma, hives, eczema or rhinitis. Vital Signs Vital Signs Vital Signs: 06/06/21 10:50 06/06/21 11:27 06/06/21 11:52 Temperature 96.9 F L Temperature Source Temporal Pulse Rate 124 H 105 H Respiratory Rate 18 15 Blood Pressure 113/78 98/67 Blood Pressure Mean 89 77 Pulse Ox 97 92 Oxygen Delivery Method Room Air Room Air Room Air 06/06/21 12:05 06/06/21 14:21 06/06/21 15:00 Temperature Temperature Source Pulse Rate 117 H 106 H 100 Respiratory Rate 19 H 23 H 15 Blood Pressure 84/49 L 106/93 H 94/80 Blood Pressure Mean 60 97 84 Pulse Ox 94 92 94 Oxygen Delivery Method Room Air Room Air Room Air Weight Weight: 235 lb Body Mass Index (BMI) 36.8 Physical Exam Narrative Physical Examination: General: Awake, alert, oriented x 3 and cooperative, laying in the ED bed, fatigued appearing, notes feeling mildly improved since BP is improving. Skin: Normal color, normal turgor, no icterus, no cyanosis. HEENT: AT/NC, EOMI, PERRLA, MMM, no carotid bruits, no marked JVD noted. Lungs: Diminished, greater bases, moderate effort, no rales, ronchi or wheezing. Heart: Irregular irregular; no gallop, rub audible, + SM. Abdomen: Soft, obese, NTTP, ND, distant mildly hypoactive BS, no obvious evidence of HSM; however, habitus makes exam difficult. Extremities: No cyanosis, no clubbing, mild bilateral ankle edema. Neurological: Patient awake, alert, oriented as noted cognitive function intact; pupils equally reactive to light and accommodation, cranial nerves II-XII grossly normal, moving all 4 extremities, no focal deficits, strength moderately global decrease secondary to acute presentation. Psychiatric: Affect appears fatigued otherwise normal, no acute evidence of depressive or anxiety feelings. Results Lab / Micro Data Result Diagrams: 06/06/21 11:25 06/06/21 11:25 Labs: Laboratory Results - last 24 hr 06/06/21 11:25: WBC 11.6 H, RBC 5.91 H, Hgb 18.3 H*, Hct 54.7 H, MCV 92.6, MCH 31.0, MCHC 33.5, RDW Std Deviation 54.6 H, RDW Coeff of Paul 16.9 H, Plt Count 192, MPV 12.0, Immature Gran % (Auto) 0.700, Neut % (Auto) 76.1 H, Lymph % (Auto) 14.3 L, [place] % (Auto) 8.2, Eos % (Auto) 0.5, Baso % (Auto) 0.2, Absolute Neuts (auto) 8.8 H, Absolute Lymphs (auto) 1.65, Nucleated RBC % 0, Differential Comment COMMENT, Diff Path Review August06/06/21 11:25: PT Cancelled, INR Cancelled 06/06/21 11:25: Sodium 138, Potassium 4.9, Chloride 106, Carbon Dioxide 27.0, Anion Gap 5, BUN 73 H, Creatinine 1.15 H, Estim Creat Clear Calc 39.21, Est GFR (MDRD) Af Amer 59 L, Est GFR (MDRD) Non-Af 48 L, BUN/Creatinine Ratio 63.5 H, Glucose 144 H, Calcium 9.4, Troponin I High Sens 40 06/06/21 12:47: PT 38.9 H, INR 4.1 H* 06/06/21 13:42: Troponin I High Sens 38 Radiology Impression Chest X-Ray 06/06/21 11:22 IMPRESSION: Cardiomegaly. The lungs are clear. Electronically Signed: Km Lira MD at 11:59 EST , Assessment & Plan Assessment/Plan (1) Hypotensive episode: PLAN: The patient is a 80 y/o F w/ PMHx: Anxiety and Depression, Chronic Combined CHF, HTN, HLD, Persistent atrial fibrillation s/p prior cardioversions, CAD s/p PCI, Ichemic cardiomyopathy, PAF, Diabetes mellitus type II, Obesity, Hx GI bleed, Hx 01/20/20 SAH who presents to the [facility] ED on 06/06/21 with history of being present at the hospital for an outpatient echocardiogram when patient was noted to be hypotensive and diaphoretic with resulting echocardiogram notable for EF decreased from 30% to 15% since 02/25/2021 prompting cardiology referral to ED for evaluation. #1. Hypotension with diaphoresis, unclear etiology, possibly related with transient atrial fibrillation with RVR which is resolved: Patient hypotensive while having echocardiogram performed with diaphoresis prompting cardiology to send the patient to ED for evaluation, no acute findings on evaluation, stable troponin and delta troponin, chest x-ray with no overt findings, BP did improve with judicious IV fluids, need to be cautious with fluids given recently noted even further reduced EF from 30-->15%, will admit to PCU to be cautious, continue to cycle cardiac enzymes, very judiciously hydrate, obtain orthostatic vital signs, holding hypertensive regimen, trend EKGs. Cardiology consulted, pending. #2. Persistent atrial fibrillation with mild RVR, ? transient atrial flutter: Status post prior cardioversion attempts, will hold Coumadin given supratherapeutic INR, trend INR and resume once appropriate, holding metoprolol given low BP, patient heart rate has improved and although BP is mildly improved with judicious fluids if recurrent RVR given presentation at this point will need to cautiously use amiodarone pending allergy discussion with bolus and drip however this can sometimes affect the blood pressure as well, maintain on telemetry, obtain cardiac enzyme serial set, obtain magnesium level, recent echocardiogram with reduced EF further as noted, obtain TSH level. #3. Chronic combined CHF, ischemic cardiomyopathy: We will hold Coumadin given supratherapeutic INR, trend INR and resume once appropriate, continue statin, holding metoprolol as well as lisinopril and Lasix given hypotension, resume once appropriate, 06/06/2021 echocardiogram with EF 15%, severe segmental systolic dysfunction, mild global RV systolic dysfunction, severely enlarged LA and RA, stable appearing bioprosthetic MV apparatus, mild to moderate TVI, mild diffuse AV calcification, trivial MANJIT, trivial PVI, RVSP 31 mmHg, unable to assess diastolic dysfunction. 02/25/2021 echocardiogram with EF at that time 30%, notably reduced on day of presentation. #4. Valvular Heart Disease: s/p MV repair, most recent ECHO on day of presentation as noted above. #5. Chronic Kidney Disease Stage III, unclear type: Admission BUN/Cr 73/1.15 with elevated BUN compared to prior, baseline renal function 0.8-1.1, repeat BMP in AM. #6. CAD: Status post PCI, holding Coumadin given supratherapeutic INR, trend INR and resume as appropriate, continue statin, holding metoprolol as well as lisinopril given hypotension upon presentation. #7. Diabetes mellitus type II: Hold oral home regimen, continue home insulin regimen, ADA diet, accu checks w/ ISS. #8. Obesity: Weight loss and lifestyle changes encouraged. #9. Anxiety and depression: We will continue patient home sertraline regimen. #10. Hypertension: Holding oral home regimen given hypotension in the ED, resume once appropriate. #11. Hyperlipidemia: We will continue patient on statin therapy. #12. Gout: We will continue patient home allopurinol regimen. #13. DVT prophylaxis: SCDs, holding Coumadin given supratherapeutic INR, trending INR. #14. CODE status: Patient ALEJANDRO is her daughter who is present and living will is currently in place. Discussed CODE status at length including difference between FULL code, DNR-CCA and DNR-CC status. Following discussions about the differences in these status, requested DNR-CCA, no intubation status. Advanced Care Planning Face to Face Time: 16 minutes. Charges/Coding Visit Charges OBSV E&M: 06398 Initial observation care L3 Procedures Hospitalists Procedures: 40352 Advncd Care Plan 30 Min
--- NOTE | 2021-06-06 16:02 | EDS_ITS ---
HPI History of Present Illness Chief Complaint: Palpitations Informant: patient Onset/Context/Timing Onset: Today Context: Gradual Onset Timing: Waxes and wanes Quality: Sweaty Location: Generalized Worsened by: Nothing Relieved by: Nothing Narrative Narrative: Patient presents with low blood pressure and elevated heart rate that was noticed today. Patient was having an outpatient echocardiogram and they noted that her blood pressure was low during the procedure. They also noted her heart rate was elevated. Patient states she did break it into a sweat with this. Patient states nothing makes it worse and nothing makes it better. Patient denies any chest pain. Patient denies any nausea or vomiting. Patient denies any shortness of breath. [facility] Medical History Acute GI bleeding (07/02/19) Atherosclerosis of coronary artery of [place] heart without angina pectoris Cardiomyopathy, ischemic CHF (congestive heart failure) Chronic combined systolic and diastolic CHF (congestive heart failure) Essential (primary) hypertension GI bleed (07/02/19) History of rheumatic fever Hyperlipidemia Hypothyroidism Hypoxia Longstanding persistent atrial fibrillation Non-ischemic cardiomyopathy Non-rheumatic aortic stenosis Nonrheumatic tricuspid (valve) insufficiency Obesity Other secondary pulmonary hypertension Paroxysmal atrial fibrillation Rheumatic mitral stenosis with insufficiency Subarachnoid hemorrhage (01/20/20) Type 2 diabetes mellitus Home Medications insulin lispro 100 unit/mL subcutaneous pen 15 unit SC DAILY PRN ml 07/26/19 [History Last Taken 1 Week Ago ~05/30/21] sertraline 50 mg tablet 100 mg PO QHS tab 07/26/19 [History Last Taken 06/05/21] Disability Parking Placard #1 ea 06/12/20 [Rx Last Taken Unknown] magnesium oxide 400 mg (241.3 mg magnesium) tablet 400 mg PO DAILY #90 tab 06/12/20 [Rx Last Taken 06/05/21] potassium chloride 10 mEq capsule,extended release 20 meq PO DAILY #180 cap 06/12/20 [Rx Last Taken 06/06/21] rosuvastatin 40 mg tablet 40 mg PO DAILY #30 tablet 07/23/20 [Rx Last Taken 06/05/21] allopurinol 300 mg tablet 300 mg PO DAILY tab 01/15/21 [History Last Taken 06/05/21] cholecalciferol (vitamin D3) 25 mcg (1,000 unit) capsule 25 mcg PO DAILY 01/15/21 [History Last Taken 06/05/21] insulin glargine 100 unit/mL (3 mL) subcutaneous pen 15 unit SC BREAKFAST ml 01/15/21 [History Last Taken 05/27/21] multivitamin 1 tab PO DAILY 01/15/21 [History Last Taken 06/05/21] psyllium husk 3.4 gram/5.4 gram oral powder 1 tbsp PO DAILY PRN 01/15/21 [History Last Taken Unknown] vit C,E,zinc,Ya-zsykh-4-lutein-zeaxanthin 250 mg-2.5 mg-0.5 mg capsule 1 cap PO BID cap 01/15/21 [History Last Taken 06/05/21] hydrocodone-acetaminophen 5-325mg 5mg-325mg 1 tab PO BID PRN tab 03/17/21 [History Last Taken Unknown] lisinopril 5 mg tablet 5 mg PO DAILY #90 tab 03/28/21 [Rx Last Taken 06/06/21] dicyclomine 10 mg capsule 10 mg PO 4X/DAY PRN cap 05/07/21 [History Last Taken Unknown] furosemide 40 mg tablet 40 mg PO BID tab 05/07/21 [History Last Taken 06/06/21] metoprolol tartrate 50 mg tablet 50 mg PO BID tab 05/07/21 [History Last Taken 06/06/21] warfarin 4 mg PO MOTUWETHFRSA 06/06/21 [History Last Taken 06/06/21] warfarin 6 mg PO DIXON 06/06/21 [History Last Taken 06/01/21] Allergy/AdvReac Type Severity Reaction Status Date / Time amiodarone Allergy Other Verified 05/07/21 13:34 atorvastatin AdvReac Intermediate Myalgias Verified 05/07/21 13:34 with both 80 and 40 mg Family History Father Myocardial infarction CAD (coronary artery disease) CABG Hyperlipidemia Mother Hypertension Congestive heart failure Surgical History History of History of cardioversion (06/09/19) History of coronary artery stent placement (09/27/18) History of hysterectomy History of left heart catheterization (08/15/18) History of mitral valve replacement with bioprosthetic valve (06/06/19) Hx of cholecystectomy Social History (Updated 06/06/21 @ 16:[address] Brooklyn Dumont MD) household members: other details: Lives with daughter. Smoking Status: Never smoker alcohol intake: never substance use type: does not use caffeine: Yes (Not often due to HR) ROS ROS ED Constitutional Constitutional ED: Reports sweats Eyes Eyes: Denies blurry vision or change in vision ENT ENT ED: Denies rhinorrhea or sore throat Cardiovascular Cardiovascular: Reports palpitations; Denies chest pain Respiratory/Chest Respiratory/Chest: Denies cough or dyspnea Gastrointestinal Gastrointestinal: Denies nausea or vomiting Genitourinary Genitourinary ED: Denies dysuria or hematuria Musculoskeletal Musculoskeletal: Denies back pain or neck pain Integumentary Denies abscess or rash Neurologic Neurologic: Denies headache(s) or weakness Allergic/Immunologic Allergic/Immunologic ED: Denies mouth swelling or urticaria EXAM Physical Exam Const Vital Signs: 06/06/21 10:50 06/06/21 11:27 06/06/21 11:52 Temperature 96.9 F L Temperature Source Temporal Pulse Rate 124 H 105 H Respiratory Rate 18 15 Blood Pressure 113/78 98/67 Blood Pressure Mean 89 77 Pulse Ox 97 92 Oxygen Delivery Method Room Air Room Air Room Air 06/06/21 12:05 06/06/21 14:21 06/06/21 15:00 Temperature Temperature Source Pulse Rate 117 H 106 H 100 Respiratory Rate 19 H 23 H 15 Blood Pressure 84/49 L 106/93 H 94/80 Blood Pressure Mean 60 97 84 Pulse Ox 94 92 94 Oxygen Delivery Method Room Air Room Air Room Air 06/06/21 16:00 06/06/21 16:32 Temperature 97.8 F Temperature Source Temporal Pulse Rate 104 H 106 H Respiratory Rate 18 17 Blood Pressure 99/75 99/75 Blood Pressure Mean 83 83 Pulse Ox 92 93 Oxygen Delivery Method Room Air Room Air Positive well nourished and well developed General Appearance ED: well developed and NAD HEENT Reports moist mucous membranes Neck supple and no JVD Chest Wall inspection of chest normal and palpation of chest normal Resp normal respiratory effort and clear to auscultation bilaterally Cardio Rate: tachycardic Rhythm: abnormal rhythm irregularly irregular GI non-tender Palpation: soft Neuro oriented x3, CN's II-XII intact bilaterally and no sensory deficits noted Sensorium / Orientation: alert Motor Exam: strength 5/5 throughout Psych mental status grossly normal MDM MDM MDM Narrative Medical decision making narrative: EKG was obtained. On my interpretation, it shows atrial fibrillation with a rate of 128. There is left axis deviation. There are nonspecific ST-T wave changes. CBC shows a slight leukocytosis of 11.6. Hemoglobin was elevated at 18.3 and hematocrit was 54.7. Basic metabolic profile shows an elevated BUN of 73 and creatinine of 1.15. High-sensitivity troponin was normal at 40. INR was elevated at 4.1. 2-hour repeat high- sensitivity troponin was 38. Portable chest x-ray was obtained. There is 1 view. On my interpretation, there is cardiomegaly. There is no acute cardiopulmonary process. Bony thorax is normal. Radiologist also interpreted the x-rays and agrees. On reevaluation, patient's blood pressure was 99 systolic. Patient states she feels better and wants to go home. However, I recommended admission to the hospital for management of her blood pressure and atrial fibrillation rate. Patient is agreeable with the plan. Case was d iscussed with the hospitalist. She will admit the patient to her service. Patient is agreeable with the plan. All questions were answered. Lab Data Attestation: I reviewed the patient's lab results. Labs: Laboratory Results - last 24 hr 06/06/21 06/06/21 06/06/21 11:25 11:25 11:25 WBC 11.6 H RBC 5.91 H Hgb 18.3 H* Hct 54.7 H MCV 92.6 MCH 31.0 MCHC 33.5 RDW Std Deviation 54.6 H RDW Coeff of Paul 16.9 H Plt Count 192 MPV 12.0 Immature Gran % (Auto) 0.700 Neut % (Auto) 76.1 H Lymph % (Auto) 14.3 L [place] % (Auto) 8.2 Eos % (Auto) 0.5 Baso % (Auto) 0.2 Absolute Neuts (auto) 8.8 H Absolute Lymphs (auto) 1.65 Nucleated RBC % 0 Differential Comment COMMENT Diff Path Review May foll PT Cancelled INR Cancelled Sodium 138 Potassium 4.9 Chloride 106 Carbon Dioxide 27.0 Anion Gap 5 BUN 73 H Creatinine 1.15 H Estim Creat Clear Calc 39.21 Est GFR (MDRD) Af Amer 59 L Est GFR (MDRD) Non-Af 48 L BUN/Creatinine Ratio 63.5 H Glucose 144 H Calcium 9.4 Magnesium Troponin I High Sens 40 06/06/21 06/06/21 06/06/21 12:47 13:42 13:42 WBC RBC Hgb Hct MCV MCH MCHC RDW Std Deviation RDW Coeff of Paul Plt Count MPV Immature Gran % (Auto) Neut % (Auto) Lymph % (Auto) [place] % (Auto) Eos % (Auto) Baso % (Auto) Absolute Neuts (auto) Absolute Lymphs (auto) Nucleated RBC % Differential Comment Diff Path Review PT 38.9 H INR 4.1 H* Sodium Potassium Chloride Carbon Dioxide Anion Gap BUN Creatinine Estim Creat Clear Calc Est GFR (MDRD) Af Amer Est GFR (MDRD) Non-Af BUN/Creatinine Ratio Glucose Calcium Magnesium 2.5 Troponin I High Sens 38 Radiography Chest X-Ray - ED: 1 View, Read by ED Physician, Read by Radiologist, No Acute Disease and Cardiomegaly Diagnostic Testing: Clinical Impression(s) from Imaging Studies Chest X-Ray 06/06/21 11:22 IMPRESSION: Cardiomegaly. The lungs are clear. Electronically Signed: Km Lira MD at 11:59 EST , Treatment and Re-Evaluation Vital Sign Attestation:: Vital signs were reviewed prior to admission. They are stable. Discharge Plan Triage Chief Complaint: Palpitations ED Provider: Lavon Lawrence Dx/Rx/DC Orders Clinical Impression: Hypotension, Longstanding persistent atrial fibrillation Primary Care Provider: Boubacar Ruby Disposition Disposition: Against Medical Advice Capacity Capacity Assessment Tool Can the patient make a choice & communicate that choice?: Yes Can the patient understand benefits, risks and alternatives?: Yes Can the patient make a logical, rational choice?: Yes Is the choice the patient makes consistent w/ their values?: Yes Is there a Surrogate Available?: Yes i.e. close relative (spouse, child, parent, sibling)?: Yes
[2021-06-06 17:04] LABS: Magnesium 2.5 mg/dL (1.6-2.6)
--- NOTE | 2021-06-06 18:13 | ED.RN ---
PER DR. YUN, DAUGHTER CAN STAY WITH PT.
[2021-06-06] MEDS: 0.9% Normal Saline 1,000 ML 75 ML IV (19:01)
[2021-06-06 20:20] LABS: Troponin-I HS 36 pg/mL (3.0-54.0)
[2021-06-06] MEDS: Sertraline 100 MG Tablet PO (22:09)
[2021-06-06] MEDS: Insulin Lispro 100 UNIT/ML INSULN.PEN SC (22:09)
[2021-06-06] MEDS: Rosuvastatin 20 MG Tablet 40 MG PO (22:09)
[2021-06-06 22:45] LABS: Bedside Glucose 194 mg/dL (70-110)
[2021-06-07] VITALS (18 sets, daily range): BP systolic 104–124; BP diastolic 76–91; PULSE 85–120; RESP 18–20; TEMP 36.4–36.7; O2SAT 88–97
[2021-06-07 05:46] LABS: Absolute Lymphocyte Count 2.37 X10^3/uL (0.83-4.51); Absolute Neutrophil Count 5.6 X10^3/uL (2.0-7.7); Basophil# 0.02 X10^3/uL; Basophil% 0.2 % (0-1); Eosinophils% 1.1 % (0-5); Hematocrit 54.3 % (37-47); Lymphocyte # 2.37 X10^3/ul (0.83-4.51); Lymphocyte % 26.9 % (19-41); Mean Corp Hgb Conc 33.1 g/dL (32-36); Mean Corpuscular Hgb 30.6 pg (27.0-32.0); Mean Corpuscular Volume 92.3 fL (81-99); Mean Platelet Vol. 12.2 fl (6.2-12.0); Monocyte# 0.71 X10^3/uL; Monocyte% 8.1 % (0-10); NRBC Flagged by Analyzer 0 % (0-5); Neutrophil # 5.58 X10^3/uL (2.7-7.7); Neutrophil % 63.4 % (47-70); Platelet Count 164 K/mm3 (150-450); RBC Distribution Width CV 16.9 % (11.6-14.6); RBC Distribution Width SD 54.6 fl (35.1-43.9); Red Blood Count 5.88 M/mm3 (4.2-5.4); White Blood Count 8.8 K/mm3 (4.4-11.0)
[2021-06-07 06:11] LABS: International Normalized Ratio 3.6; Prothrombin Time (Protime)PT. 35.3 SECONDS (11.7-14.9)
[2021-06-07 06:32] LABS: ALB/GLOB Ratio 0.9 RATIO (0.9-2.4); AST(SGOT) 50 U/L (15-37); Alanine Aminotransfer ALT/SGPT 102 U/L (13-56); Albumin, Serum 3.4 g/dL (3.2-5.0); Alkaline Phosphatase 48 U/L (45-117); Anion Gap 6 (5-15); BUN 66 mg/dL (7-18); Calcium,Total 8.6 mg/dL (8.5-10.1); Chloride 108 mmol/L (98-107); EST Glomerular Filtration Rate 51 mL/min (>60); Est Glom Filt Rate - Afr Amer 62 mL/min (>60); Estimated Creatinine Clearance 40.99 ml/min; Globulin 3.8 g/dL (2.2-4.2); Glucose 139 mg/dL (74-106); Potassium 4.4 mmol/L (3.5-5.1); Protein, Total 7.2 g/dL (6.4-8.2); Sodium Level 139 mmol/L (136-145); T4 Free Direct 0.83 ng/dL (0.76-1.46); Thyroid Stim Hormone (TSH) 5.65 uIU/mL (0.358-3.74)
[2021-06-07 07:00] LABS: Bedside Glucose 125 mg/dL (70-110)
[2021-06-07] MEDS: Magnesium Chloride 64 MG Delay Rel.Tablet 128 MG PO (07:40)
[2021-06-07] MEDS: Allopurinol 300 MG Tablet PO (07:40)
[2021-06-07] MEDS: Potassium Chloride Oral Tablet 20 MEQ PO (07:40)
[2021-06-07] MEDS: 0.9% Normal Saline 1,000 ML 75 ML IV (07:40)
--- NOTE | 2021-06-07 10:35 | CASEMGMT ---
RN GALEN NOTE: Pt qualifies for Palliative referral per [facility] screening tool and per Dr Jarvis, daughter is agreeable to Palliative referral. Order received and placed. [facility] notified of referral via e-mail. Tessy HAMMOND RN CM
--- NOTE | 2021-06-07 10:45 | PCM.PN.HOSP ---
Documented by User: Courtney Newton NP, QUILTING SUPERVISOR-C 06/07/21 10:55 Subjective Subjective Patient seen and examined. States breathing is about the same. Denies dizziness, lightheadedness. Reports mild abdominal discomfort which she contributes to anxiety. Reports she was unable to sleep last night due to anxiety. Objective Data Objective Data Vital Signs: Vital Signs Temp Pulse Resp BP Pulse Ox 98.0 F 105 H 18 124/80 H 96 06/07/21 10:15 06/07/21 10:15 06/07/21 10:15 06/07/21 10:15 06/07/21 10:15 Oxygen Delivery Method Room Air Weight: 233 lb 14.567 oz Body Mass Index (BMI) 36.6 Intake & Output: Intake and Output for Last 24 Hours 06/05/21 06/06/21 06/07/21 23:59 23:59 23:59 Intake Total 500 / 740 1308.75 / 1308.75 Balance 500 / 740 1308.75 / 1308.75 Lab / Micro Data Result Diagrams: 06/07/21 05:29 06/07/21 05:29 Labs: Laboratory Results - last 24 hr 06/06/21 11:25: WBC 11.6 H, RBC 5.91 H, Hgb 18.3 H*, Hct 54.7 H, MCV 92.6, MCH 31.0, MCHC 33.5, RDW Std Deviation 54.6 H, RDW Coeff of Paul 16.9 H, Plt Count 192, MPV 12.0, Immature Gran % (Auto) 0.700, Neut % (Auto) 76.1 H, Lymph % (Auto) 14.3 L, [place] % (Auto) 8.2, Eos % (Auto) 0.5, Baso % (Auto) 0.2, Absolute Neuts (auto) 8.8 H, Absolute Lymphs (auto) 1.65, Nucleated RBC % 0, Differential Comment COMMENT, Diff Path Review August06/06/21 11:25: PT Cancelled, INR Cancelled 06/06/21 11:25: Sodium 138, Potassium 4.9, Chloride 106, Carbon Dioxide 27.0, Anion Gap 5, BUN 73 H, Creatinine 1.15 H, Estim Creat Clear Calc 39.21, Est GFR (MDRD) Af Amer 59 L, Est GFR (MDRD) Non-Af 48 L, BUN/Creatinine Ratio 63.5 H, Glucose 144 H, Calcium 9.4, Troponin I High Sens 40 06/06/21 12:47: PT 38.9 H, INR 4.1 H* 06/06/21 13:42: Troponin I High Sens 38 06/06/21 13:42: Magnesium 2.5 06/06/21 19:55: Troponin I High Sens 36 06/06/21 21:56: POC Glucose 194 H 06/07/21 05:29: WBC 8.8, RBC 5.88 H, Hgb 18.0 H*, Hct 54.3 H, MCV 92.3, MCH 30.6, MCHC 33.1, RDW Std Deviation 54.6 H, RDW Coeff of Paul 16.9 H, Plt Count 164, MPV 12.2 H, Immature Gran % (Auto) 0.300, Neut % (Auto) 63.4, Lymph % (Auto) 26.9, [place] % (Auto) 8.1, Eos % (Auto) 1.1, Baso % (Auto) 0.2, Absolute Neuts (auto) 5.6, Absolute Lymphs (auto) 2.37, Nucleated RBC % 0 06/07/21 05:29: PT 35.3 H, INR 3.6 06/07/21 05:29: Sodium 139, Potassium 4.4, Chloride 108 H, Carbon Dioxide 25.0, Anion Gap 6, BUN 66 H, Creatinine 1.10 H, Estim Creat Clear Calc 40.99, Est GFR (MDRD) Af Amer 62, Est GFR (MDRD) Non-Af 51 L, BUN/Creatinine Ratio 60.0 H, Glucose 139 H, Calcium 8.6, Total Bilirubin 1.00, AST 50 H, ALT 102 H, Alkaline Phosphatase 48, Total Protein 7.2, Albumin 3.4, Globulin 3.8, Albumin/Globulin Ratio 0.9, TSH 5.65 H, Free T4 0.83 06/07/21 06:31: POC Glucose 125 H Radiography Diagnostic Testing: Radiology Impression Chest X-Ray 06/06/21 11:22 IMPRESSION: Cardiomegaly. The lungs are clear. Electronically Signed: Km Lira MD at 11:59 EST , Physical Exam Const alert, oriented x3 and no apparent distress Orientation / Consciousness: awake, oriented to person, oriented to place and oriented to time HEENT normocephalic and moist oral mucous membranes Eyes PERRL, EOMs intact bilaterally and conjunctivae normal Neck no lymphadenopathy Resp clear to auscultation bilaterally Auscultation: diminished lung sounds Cardio Cardio Narrative: A. fib, + murmur Peripheral Pulses: pulses 2+ throughout GI normal to inspection, nondistended, normoactive bowel sounds, non-tender and non-distended Extremity normal to inspection General Extremity: edema bilateral lower extremity Details: trace Skin no rashes or lesions noted Lesions: no lesions Rashes: no rashes Trauma: no lacerations or abrasions Neuro CN's II-XII intact bilaterally, no focal motor deficits, no sensory deficits noted and deep tendon reflexes 2+ bilaterally Psych mental status grossly normal and affect normal Assessment & Plan Assessment/Plan (1) Hypotension: PLAN: 1. Hypotension-BP regimen held. Improved with gentle fluids. Will discontinue further fluids given significantly reduced EF. Cardiology consult pending. 2. Ischemic cardiomyopathy/CAD with history of PCI/MICHELLE-echocardiogram 06/06/2021 demonstrated an EF of 15%. Prior EF 30% 02/25/2021. Cardiology consulted as noted above. 3. Longstanding persistent atrial fibrillation-Coumadin on hold due to supratherapeutic INR. Will resume metoprolol. 4. Chronic kidney disease stage IIIa-stable, trend BMP. 5. Type 2 diabetes [id number]-[id number]-Mwdsy with sliding scale insulin. 6. History of mitral valve replacement with bioprosthetic valve 7. Hypertension-BP regimen on hold due to hypotension. 7. Hyperlipidemia-continue statin. 9. Anxiety/depression-on sertraline, recently increased per patient. Patient states anxiety is uncontrolled. 10. Gout-on allopurinol. 11. Obesity- diet and lifestyle modifications encouraged. DVT prophylaxis-Coumadin on hold This patient was seen by CM Black under the supervision of Dr. Jarvis. Time spent examining patient, reviewing data and subsequent management of care: 13 Minutes Documented by User: Dr. Chris Jarvis MD 06/07/21 12:51 Subjective Subjective Patient admitted with A. fib with RVR, hypotension when she was underwent echo. Her home therapy clinician is Dr. Lee. She has history of A. fib with challenges controlling heart rate and blood pressure at same time. Last year she was on Cardizem and metoprolol and Cardizem discontinued metoprolol continued. After that she had potentially been on metoprolol. She also has history of mitral valve replacement about 3 years ago. Recent echo shows EF 15%. As an outpatient there was proposed plan for referral to EP for rhythm control of A. fib/evaluation of pacemaker/AICD. Patient's daughter states she has mild shortness of breath on exertion along with generalized weakness and anxiety. Denies chest pain. Objective Data Lab / Micro Data Result Diagrams: 06/07/21 05:29 06/07/21 05:29 Physical Exam Narrative General: Alert, Oriented x3, Cooperative, morbid obesity BMI 36.6 kg/m? HEENT: Atraumatic, PERRLA, EOMI, Normocephalic Oral: No Gingival or Mucosal Lesions/ Ulcerations Neck: Supple, No JVD, Negative Carotid Bruits Lungs: Air entry diminished in bilateral lung bases. No crepitation/rhonchi. Mild dyspnea on exertion Cardiovascular: A. fib with RVR heart rate 111/min, Normal S1, Normal S2, low pitched systolic murmur over cardiac apex. Abdomen: Bowel Sounds Present, Soft, Non Tender, Non-Distended : No renal angle tenderness. No suprapubic tenderness. Extremities: No edema, Capillary Refill Less than 3 Seconds Skin: No rashes, No breakdown Musculoskeletal: No Tenderness to Palpation of Joints or Extremities. Muscle strength 4/5 at major joints of lower extremity. ROM limited. Neurological: Cranial nerves II-XII grossly intact, DTR 2+/4 and Symmetrical Psych/Mental Status: Flat affect. Anxiety. Assessment & Plan Assessment/Plan (1) Hypotension: PLAN: This patient was seen in conjunction with QUILTING SUPERVISORCourtney. I have independently interviewed and examined the patient and reviewed pertinent history, examination findings, laboratory and plan of management. I have reviewed the note and agree with the documented findings with the few additional points. In brief, patient is admitted for hypotension most likely due to A. fib with RVR while patient was undergoing 2D echo on 06/06. Patient is admitted in PCU. 2D echo shows EF 15% with several segmental systolic dysfunction. LA and RA are severely enlarged. Stable appearing bioprosthetic MV apparatus. 1-2+ eccentric TR, trivial AR, trivial NM. Mild diffuse aortic valve calcification. RVSP 31 mmHg. Patient heart rate is still not controlled fluctuates between 100 to 120/min, blood pressure 124/80 improved. Hypotension has resolved. Chronic A. fib even before mitral valve replacement. Chronic A. fib due to rheumatic mitral stenosis with mitral regurgitation. Patient has multiple valvular heart disease. INR supratherapeutic. On metoprolol 25 mg twice daily. 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 Other comorbidities include hypertension, dyslipidemia, gout, obesity, anxiety and depression: Home medication reconciliation done. Patient on potassium and magnesium sulfate supplement, insulin regimen, allopurinol, sertraline and alprazolam. Electrolytes in normal limit. Patient hematocrit is high 54.7, 54.3. [id number] it was normal. Possible due to hemoconcentration. Patient had IV fluid in ED. I have discussed my assessment with QUILTING SUPERVISORCourtney and orders have been reviewed. Total time of the visit includes total time spent in counseling or coordination of care, (more than 50% of the total time, spent in obtaining medical information from nurses and other ancillary care providers,explaining to the patient about labs, imaging, diagnosis and management), discussion with quality assurance consultant, review of labs and imaging is 30 minutes; I spent 18 minutes, more than half time and QUILTING SUPERVISOR spent 12 minutes I discussed the plan of care with patient and patient's daughter at the bedside. They agreed for palliative care consult. Charges/Coding Visit Charges Inpatient E&M: 82671 Subs Hosp L2
[2021-06-07] MEDS: Insulin Lispro 100 UNIT/ML INSULN.PEN SC ×2 (11:05→22:03)
[2021-06-07 11:11] LABS: Bedside Glucose 204 mg/dL (70-110)
[2021-06-07] MEDS: Metoprolol Tartrate 25 MG Tablet PO ×3 (11:14→22:03)
--- NOTE | 2021-06-07 11:50 | CASEMGMT ---
VIKI AARON ROLLS BAKER GALEN to room to meet with patient for initial transition planning/care coordination assessment. VIKI AARON introduced self and role at [facility]. Pt voices understanding and consents to assessment at this time. Pt resting in bed in no distress at this time. Daughter, Valeria, @ bedside. Pt is A/O at this time and answers all questions appropriately. Care providers, pharmacy, and demographics verified/updated at this time. PCP: Dr Boubacar Ruby Specialists: Dr Lee-cardiology Preferred Pharmacy: [facility] [place] [place]: Yes Living Will/HPOA: Has LW and HPOA, who is her daughter, Valeria LNOK: Dtr, Valeria/POA. Son, Frank Living Arrangements: Lives w/her daughter, Valeria, in ranch-style home. 1 step to enter. Independent w/ADL's. Family does IADL's. DtrValeria, is home in the evenings and every night. Pt is home alone for a few hrs during the day. Family has meals prepared for her. Transportation: Hired drivers DME: States has the following DME: built-in shower seat, grab bars, hand held shower, rollator, O2 through [employer]--order is for 2 l/m continuously, but pt only wears as needed. Has concentrator and portability. Has portable O2 tank @ [facility] w/her. They have generator and solar power @ home. BP machine, glucometer, pulse ox. Pt states no need for further DME at this time. HHC/SNF: No hx of SNF. Has had HHC in the past. Pt and dtr deny need for HHC. Pt and dtr wish for pt to return home and state no concerns with going home at time of discharge. They voice no further concerns/needs at this time. PLAN: Home w/family support and discharge plans in place. Tessy HAMMOND RN, CM
--- NOTE | 2021-06-07 15:20 | PCM.CONS.C ---
Assessment & Plan Assessment/Plan (1) History of coronary artery stent placement: (2) History of mitral valve replacement with bioprosthetic valve: (3) Rheumatic mitral stenosis with insufficiency: (4) Chronic combined systolic and diastolic CHF (congestive heart failure): (5) Essential (primary) hypertension: (6) Hyperlipidemia: QUALIFIERS: Hyperlipidemia type: pure hypercholesterolemia Qualified Code(s): E78.00 - Pure hypercholesterolemia, unspecified; E78.0 - Pure hypercholesterolemia (7) Persistent atrial fibrillation: PLAN: 80-year-old female with known history of CAD s/p PCI and stent of LAD and mitral valve bioprosthesis History of persistent atrial fibrillation, was on anticoagulation with warfarin and rate control for A. fib with beta-eileen metoprolol ischemic cardiomyopathy, diabetes mellitus, She was seen at the cardiology clinic noted to be hypertensive, with diaphoresis Echocardiogram showed reduced EF to 15 % prior echocardiogram the ejection fraction was 30%. Cardiac care plan recommendations; 1. I reviewed the cardiac medication and discussed with the patient, nursing staff and daughter. 2. INR noted to be elevated and Coumadin is on hold 3. We will discuss further plan with possible LifeVest prior to discharge and evaluation for ICD. 4. Primary body masker Dr. Lee will resume care HPI Consult Data Date of Consult: 06/07/21 HPI Narrative HPI Narrative: FABIO WOOD, is a 80 F who presents [facility] Medical History (Updated 06/07/21 @ 15:[address] Pat Severino MD) Acute GI bleeding (07/02/19) Anxiety Atherosclerosis of coronary artery of [place] heart without angina pectoris Atrial fibrillation Cardiomyopathy, ischemic CHF (congestive heart failure) Chronic combined systolic and diastolic CHF (congestive heart failure) Depression Diabetes Essential (primary) hypertension GI bleed (07/02/19) History of rheumatic fever Hyperlipidemia Hypothyroidism Hypoxia Longstanding persistent atrial fibrillation Non-ischemic cardiomyopathy Non-rheumatic aortic stenosis Nonrheumatic tricuspid (valve) insufficiency Obesity Other secondary pulmonary hypertension Paroxysmal atrial fibrillation Persistent atrial fibrillation Rheumatic mitral stenosis with insufficiency Subarachnoid hemorrhage (01/20/20) TIA (transient ischemic attack) Type 2 diabetes mellitus Home Medications insulin lispro 100 unit/mL subcutaneous pen 15 unit SC DAILY PRN ml 07/26/19 [History Last Taken 1 Week Ago ~05/30/21] sertraline 50 mg tablet 100 mg PO QHS tab 07/26/19 [History Last Taken 06/05/21] Disability Parking Placard #1 ea 06/12/20 [Rx Last Taken Unknown] magnesium oxide 400 mg (241.3 mg magnesium) tablet 400 mg PO DAILY #90 tab 06/12/20 [Rx Last Taken 06/05/21] potassium chloride 10 mEq capsule,extended release 20 meq PO DAILY #180 cap 06/12/20 [Rx Last Taken 06/06/21] rosuvastatin 40 mg tablet 40 mg PO DAILY #30 tablet 07/23/20 [Rx Last Taken 06/05/21] allopurinol 300 mg tablet 300 mg PO DAILY tab 01/15/21 [History Last Taken 06/05/21] cholecalciferol (vitamin D3) 25 mcg (1,000 unit) capsule 25 mcg PO DAILY 01/15/21 [History Last Taken 06/05/21] insulin glargine 100 unit/mL (3 mL) subcutaneous pen 15 unit SC BREAKFAST ml 01/15/21 [History Last Taken 05/27/21] multivitamin 1 tab PO DAILY 01/15/21 [History Last Taken 06/05/21] psyllium husk 3.4 gram/5.4 gram oral powder 1 tbsp PO DAILY PRN 01/15/21 [History Last Taken Unknown] vit C,E,zinc,Uk-wqtyu-7-lutein-zeaxanthin 250 mg-2.5 mg-0.5 mg capsule 1 cap PO BID cap 01/15/21 [History Last Taken 06/05/21] hydrocodone-acetaminophen 5-325mg 5mg-325mg 1 tab PO BID PRN tab 03/17/21 [History Last Taken Unknown] lisinopril 5 mg tablet 5 mg PO DAILY #90 tab 03/28/21 [Rx Last Taken 06/06/21] dicyclomine 10 mg capsule 10 mg PO 4X/DAY PRN cap 05/07/21 [History Last Taken Unknown] furosemide 40 mg tablet 40 mg PO BID tab 05/07/21 [History Last Taken 06/06/21] metoprolol tartrate 50 mg tablet 50 mg PO BID tab 05/07/21 [History Last Taken 06/06/21] warfarin 4 mg PO MOTUWETHFRSA 06/06/21 [History Last Taken 06/06/21] warfarin 6 mg PO DIXON 06/06/21 [History Last Taken 06/01/21] Allergy/AdvReac Type Severity Reaction Status Date / Time amiodarone Allergy Other Verified 05/07/21 13:34 atorvastatin AdvReac Intermediate Myalgias Verified 05/07/21 13:34 with both 80 and 40 mg Family History Father Myocardial infarction CAD (coronary artery disease) CABG Hyperlipidemia Mother Hypertension Congestive heart failure Surgical History History of History of cardioversion (06/09/19) History of coronary artery stent placement (09/27/18) History of hysterectomy History of left heart catheterization (08/15/18) History of mitral valve replacement with bioprosthetic valve (06/06/19) Hx of cholecystectomy Social History (Updated 06/06/21 @ 16:[address] Brooklyn Dumont MD) household members: other details: Lives with daughter. Smoking Status: Never smoker alcohol intake: never substance use type: does not use caffeine: Yes (Not often due to HR) Physical Exam Narrative Patient seen and eval today at bedside Along with the nursing staff Daughter at bedside at the time of evaluation General exam, awake, alert orientated x3 not in acute distress Review of cardiac telemetry showed underlying atrial fibrillation with RVR cardiac examination S1-S2 is irregular, no gallop, no pericardial rub Chest examination; diminished air entry bilateral Abdomen soft Examination lower extremity no cyanosis no clubbing very mild bilateral lower extremity edema RADAR OPERATOR no focal neurological deficit. Risk Stratification Risk Stratification Applicable: No Objective Data Vital Signs: Vital Signs Temp Pulse Resp BP Pulse Ox 97.7 F L 117 H 20 H 112/79 95 06/07/21 12:45 06/07/21 13:06 06/07/21 12:45 06/07/21 14:00 06/07/21 12:45 Oxygen Delivery Method Room Air Weight: 233 lb 14.567 oz Body Mass Index (BMI) 36.6 Intake & Output: Intake and Output for Last 24 Hours 06/05/21 06/06/21 06/07/21 23:59 23:59 23:59 Intake Total 500 / 740 2073.75 / 3.75 Balance 500 / 740 2073.75 / 2072.75 Lab / Micro Data Result Diagrams: 06/07/21 05:29 06/07/21 05:29 Labs: Laboratory Results - last 24 hr 06/06/21 13:42: Magnesium 2.5 06/06/21 19:55: Troponin I High Sens 36 06/06/21 21:56: POC Glucose 194 H 06/07/21 05:29: WBC 8.8, RBC 5.88 H, Hgb 18.0 H*, Hct 54.3 H, MCV 92.3, MCH 30.6, MCHC 33.1, RDW Std Deviation 54.6 H, RDW Coeff of Paul 16.9 H, Plt Count 164, MPV 12.2 H, Immature Gran % (Auto) 0.300, Neut % (Auto) 63.4, Lymph % (Auto) 26.9, [place] % (Auto) 8.1, Eos % (Auto) 1.1, Baso % (Auto) 0.2, Absolute Neuts (auto) 5.6, Absolute Lymphs (auto) 2.37, Nucleated RBC % 0 06/07/21 05:29: PT 35.3 H, INR 3.6 06/07/21 05:29: Sodium 139, Potassium 4.4, Chloride 108 H, Carbon Dioxide 25.0, Anion Gap 6, BUN 66 H, Creatinine 1.10 H, Estim Creat Clear Calc 40.99, Est GFR (MDRD) Af Amer 62, Est GFR (MDRD) Non-Af 51 L, BUN/Creatinine Ratio 60.0 H, Glucose 139 H, Calcium 8.6, Total Bilirubin 1.00, AST 50 H, ALT 102 H, Alkaline Phosphatase 48, Total Protein 7.2, Albumin 3.4, Globulin 3.8, Albumin/Globulin Ratio 0.9, TSH 5.65 H, Free T4 0.83 06/07/21 06:31: POC Glucose 125 H 06/07/21 11:03: POC Glucose 204 H Cardiology Labs/Tests 06/06/21 13:42: Magnesium 2.5 06/07/21 05:29: WBC 8.8, RBC 5.88 H, Hgb 18.0 H*, Hct 54.3 H, MCV 92.3, MCH 30.6, MCHC 33.1, Plt Count 164, MPV 12.2 H, Immature Gran % (Auto) 0.300, Neut % (Auto) 63.4, Lymph % (Auto) 26.9, Foster % (Auto) 8.1, Eos % (Auto) 1.1, Baso % (Auto) 0.2, Absolute Neuts (auto) 5.6, Nucleated RBC % 0 06/07/21 05:29: PT 35.3 H, INR 3.6 06/07/21 05:29: Sodium 139, Potassium 4.4, Chloride 108 H, Carbon Dioxide 25.0, Anion Gap 6, BUN 66 H, Creatinine 1.10 H, Est GFR (MDRD) Af Amer 62, Est GFR (MDRD) Non-Af 51 L, BUN/Creatinine Ratio 60.0 H, Glucose 139 H, Calcium 8.6, Total Bilirubin 1.00 Rhythm: A. fib with RVR ECHO: Severe LV systolic dysfunction, ejection fraction 15%
[2021-06-07] MEDS: dilTIAZem CD 120 MG Capsule PO ×2 (16:03→22:03)
[2021-06-07 16:10] LABS: Bedside Glucose 137 mg/dL (70-110)
[2021-06-07] MEDS: Sertraline 100 MG Tablet 150 MG PO (22:02)
[2021-06-07] MEDS: Rosuvastatin 20 MG Tablet 40 MG PO (22:02)
[2021-06-07] MEDS: 0.9% Saline Lock 10 ML Syringe IV (22:08)
[2021-06-07 22:20] LABS: Bedside Glucose 155 mg/dL (70-110)
--- NOTE | 2021-06-07 22:21 | NURSING ---
upon assessment pt was 88% on RA, denies shortness of breath. This RN placed pt on 2L NC, 02 came up to 93%. Daughter at bedside and says pt does wear 2L NC PRN at home.
[2021-06-08] VITALS (14 sets, daily range): BP systolic 97–112; BP diastolic 78–94; PULSE 84–114; RESP 16–18; TEMP 36.4–36.5; O2SAT 94–98
[2021-06-08 06:31] LABS: International Normalized Ratio 2.9; Prothrombin Time (Protime)PT. 29.7 SECONDS (11.7-14.9)
[2021-06-08 06:46] LABS: Bedside Glucose 129 mg/dL (70-110)
[2021-06-08 08:24] LABS: Absolute Lymphocyte Count 1.63 X10^3/uL (0.83-4.51); Absolute Neutrophil Count 6.4 X10^3/uL (2.0-7.7); Basophil# 0.02 X10^3/uL; Basophil% 0.2 % (0-1); Eosinophil# 0.17 X10^3/uL; Eosinophils% 1.9 % (0-5); Hematocrit 51.4 % (37-47); Hemoglobin 16.7 g/dL (12.0-15.0); Lymphocyte # 1.63 X10^3/ul (0.83-4.51); Lymphocyte % 18.1 % (19-41); Mean Corp Hgb Conc 32.5 g/dL (32-36); Mean Corpuscular Hgb 29.8 pg (27.0-32.0); Mean Corpuscular Volume 91.8 fL (81-99); Mean Platelet Vol. 11.9 fl (6.2-12.0); Monocyte# 0.81 X10^3/uL; NRBC Flagged by Analyzer 0 % (0-5); Neutrophil # 6.38 X10^3/uL (2.7-7.7); Neutrophil % 70.6 % (47-70); Platelet Count 153 K/mm3 (150-450); RBC Distribution Width CV 16.6 % (11.6-14.6); RBC Distribution Width SD 54.2 fl (35.1-43.9)
[2021-06-08] MEDS: Magnesium Chloride 64 MG Delay Rel.Tablet 128 MG PO (09:23)
[2021-06-08] MEDS: Metoprolol Tartrate 25 MG Tablet PO ×2 (09:24→22:09)
[2021-06-08] MEDS: dilTIAZem CD 120 MG Capsule PO ×2 (09:24→22:09)
[2021-06-08] MEDS: Potassium Chloride Oral Tablet 20 MEQ PO (09:24)
[2021-06-08] MEDS: Allopurinol 300 MG Tablet PO (09:25)
[2021-06-08 09:35] LABS: ALB/GLOB Ratio 0.9 RATIO (0.9-2.4); AST(SGOT) 35 U/L (15-37); Alanine Aminotransfer ALT/SGPT 78 U/L (13-56); Albumin, Serum 3.3 g/dL (3.2-5.0); Alkaline Phosphatase 46 U/L (45-117); Anion Gap 4 (5-15); BUN 57 mg/dL (7-18); BUN/Creat Ratio 54.3 RATIO (10-20); Calcium,Total 8.7 mg/dL (8.5-10.1); Chloride 112 mmol/L (98-107); Creatinine, Serum 1.05 mg/dL (0.55-1.02); EST Glomerular Filtration Rate 54 mL/min (>60); Est Glom Filt Rate - Afr Amer 65 mL/min (>60); Estimated Creatinine Clearance 42.94 ml/min; Globulin 3.7 g/dL (2.2-4.2); Glucose 130 mg/dL (74-106); Potassium 4.7 mmol/L (3.5-5.1); Sodium Level 140 mmol/L (136-145)
[2021-06-08 11:31] LABS: Bedside Glucose 189 mg/dL (70-110)
--- NOTE | 2021-06-08 11:44 | PN.HOSP_ITS ---
Documented by User: Courtney Newton NP, PAPER AND PULP MILL WORKER-C 06/08/21 11:56 Subjective Subjective Patient seen and examined. Feels shortness of breath is improved. Denies chest pain/pressure. Heart rate and blood pressure stable. Objective Data Objective Data Vital Signs: Vital Signs Temp Pulse Resp BP Pulse Ox 97.5 F L 86 18 97/82 H 95 06/08/21 09:25 06/08/21 09:25 06/08/21 09:25 06/08/21 09:25 06/08/21 09:25 Oxygen Flow Rate (L/min) 2 Oxygen Delivery Method Room Air Weight: 235 lb 10.786 oz Body Mass Index (BMI) 36.6 Intake & Output: Intake and Output for Last 24 Hours 06/06/21 06/07/21 06/08/21 23:59 23:59 23:59 Intake Total 500 / 740 2743.75 / 2743.75 100 / 100 Balance 500 / 740 2743.75 / 2743.75 100 / 100 Lab / Micro Data Result Diagrams: 06/08/21 08:17 06/08/21 08:17 Labs: Laboratory Results - last 24 hr 06/07/21 05:29: Diff Path Review August06/07/21 16:04: POC Glucose 137 H 06/07/21 21:47: POC Glucose 155 H 06/08/21 05:21: PT 29.7 H, INR 2.9 06/08/21 06:36: POC Glucose 129 H 06/08/21 08:17: WBC 9.0, RBC 5.60 H, Hgb 16.7 H, Hct 51.4 H, MCV 91.8, MCH 29.8, MCHC 32.5, RDW Std Deviation 54.2 H, RDW Coeff of Paul 16.6 H, Plt Count 153, MPV 11.9, Immature Gran % (Auto) 0.200, Neut % (Auto) 70.6 H, Lymph % (Auto) 18.1 L, [place] % (Auto) 9.0, Eos % (Auto) 1.9, Baso % (Auto) 0.2, Absolute Neuts (auto) 6.4, Absolute Lymphs (auto) 1.63, Nucleated RBC % 0 06/08/21 08:17: Sodium 140, Potassium 4.7, Chloride 112 H, Carbon Dioxide 24.0, Anion Gap 4 L, BUN 57 H, Creatinine 1.05 H, Estim Creat Clear Calc 42.94, Est GFR (MDRD) Af Amer 65, Est GFR (MDRD) Non-Af 54 L, BUN/Creatinine Ratio 54.3 H, Glucose 130 H, Calcium 8.7, Total Bilirubin 1.00, AST 35, ALT 78 H, Alkaline Phosphatase 46, Total Protein 7.0, Albumin 3.3, Globulin 3.7, Albumin/Globulin Ratio 0.9 06/08/21 11:25: POC Glucose 189 H Physical Exam Const alert, oriented x3 and no apparent distress Orientation / Consciousness: awake, oriented to person, oriented to place and oriented to time HEENT normocephalic and moist oral mucous membranes Eyes PERRL, EOMs intact bilaterally and conjunctivae normal Neck no lymphadenopathy Resp normal respiratory effort and clear to auscultation bilaterally Cardio Cardio Narrative: Atrial fibrillation, rate controlled. + murmur. Peripheral Pulses: pulses 2+ throughout GI normal to inspection, nondistended, normoactive bowel sounds, non-tender and n on-distended Extremity normal to inspection Skin no rashes or lesions noted Skin Narrative: Chronic skin changes lower extremities. Lesions: no lesions Rashes: no rashes Trauma: no lacerations or abrasions Neuro CN's II-XII intact bilaterally, no focal motor deficits, no sensory deficits noted and deep tendon reflexes 2+ bilaterally Psych mental status grossly normal and affect normal Assessment & Plan Assessment/Plan (1) Persistent atrial fibrillation: (2) Hypotension: PLAN: 1. Hypotension- Improved with gentle fluids. Will discontinue further fluids given significantly reduced EF. Cardiology following. Resume BP regimen with hold parameters. 2. Ischemic cardiomyopathy/CAD with history of PCI/MICHELLE-echocardiogram 06/06/2021 demonstrated an EF of 15%. Prior EF 30% 02/25/2021. Cardiology consulted as noted above. Per cardiology, considering LifeVest versus ICD prior to discharge. 3. Longstanding persistent atrial fibrillation-continue Coumadin, metoprolol. Cardizem added for further rate control. 4. Chronic kidney disease stage IIIa-stable, trend BMP. 5. Type 2 diabetes [id number] with sliding scale insulin. 6. History of mitral valve replacement with bioprosthetic valve 7. Hypertension-lisinopril remains on hold. Continue Lasix, Toprol. 7. Hyperlipidemia-continue statin. 9. Anxiety/depression-on sertraline, recently increased per patient. Patient states anxiety is uncontrolled. 10. Gout-on allopurinol. 11. Obesity- diet and lifestyle modifications encouraged. DVT prophylaxis-Coumadin This patient was seen by CM Black under the supervision of Dr. Jarvis. Time spent examining patient, reviewing data and subsequent management of care: 12 Minutes Documented by User: Dr. Chris Jarvis MD 06/08/21 14:20 Subjective Subjective Follow-up for A. fib RVR, severe heart failure. HFrEF Patient gets short of breath on walking to bathroom. Objective Data Lab / Micro Data Result Diagrams: 06/08/21 08:17 06/08/21 08:17 Physical Exam Narrative Patient feels improvement in shortness of breath. No chest pain. Dyspnea on minimal exertion and conversation. Physical exam General: Alert, Oriented x3, Cooperative, morbid obesity BMI 36.6 kg/m? HEENT: Atraumatic, PERRLA, EOMI, Normocephalic Oral: No Gingival or Mucosal Lesions/ Ulcerations Neck: Supple, No JVD, Negative Carotid Bruits Lungs: Air entry diminished in bilateral lung bases. No crepitation/rhonchi. Dyspnea on minimal exertion Cardiovascular: A. fib with RVR heart rate 111/min, Normal S1, Normal S2, low pitched systolic murmur over cardiac apex. Abdomen: Bowel Sounds Present, Soft, Non Tender, Non-Distended : No renal angle tenderness. No suprapubic tenderness. Extremities: No edema, Capillary Refill Less than 3 Seconds Skin: No rashes, No breakdown Musculoskeletal: No Tenderness to Palpation of Joints or Extremities. Muscle strength 4/5 at major joints of lower extremity. ROM limited. Neurological: Cranial nerves II-XII grossly intact, DTR 2+/4 and Symmetrical Psych/Mental Status: Flat affect. Anxiety. Assessment & Plan Assessment/Plan (1) Persistent atrial fibrillation: (2) Hypotension: PLAN: This patient was seen in conjunction with PAPER AND PULP MILL WORKERCourtney. I have independently interviewed and examined the patient and reviewed pertinent history, examination findings, laboratory and plan of management. I have reviewed the note and agree with the documented findings with the few additional points. In brief, patient is admitted for hypotension most likely due to A. fib with RVR while patient was undergoing 2D echo on 06/06. Patient is admitted in PCU. Prior echo, 03/01/2021 reported EF 30%. 06/06 2D echo shows EF 15% with several segmental systolic dysfunction. LA and RA are severely enlarged. Stable appearing bioprosthetic MV apparatus. 1-2+ eccentric TR, trivial AR, trivial IA. Mild diffuse aortic valve calcification. RVSP 31 mmHg. Hypotension has resolved. Patient heart rate is better controlled, A. fib in the 80s on monitor tech. Patient was evaluated by golf teacher and discussed with him. Started on Cardizem CD 120 mg p.o. twice daily along with metoprolol. Acute on chronic HFrEF most probably due to A. fib with RVR with recent decrease in EF. Farm Loan Inspector recommended LifeVest prior to discharge and then follow-up in clinic for evaluation for ICD. This was discussed with the patient's daughter near the bedside. Chronic A. fib even before mitral valve replacement. Chronic A. fib due to rheumatic mitral stenosis with mitral regurgitation. Patient has multiple valvular heart disease. INR 2.9. On metoprolol 25 mg twice daily. 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 Other comorbidities include hypertension, dyslipidemia, gout, obesity, anxiety and depression: Home medication reconciliation done. Patient on potassium and magnesium sulfate supplement, insulin regimen, allopurinol, sertraline and alprazolam. Electrolytes in normal limit. Patient hematocrit is high 54.7, 54.3. Pr gylzve05/2021 it was normal. Possible due to hemoconcentration. Patient had IV fluid in ED. I have discussed my assessment with PAPER AND PULP MILL WORKERCourtney and orders have been reviewed. Total time of the visit includes total time spent in counseling or coordination of care, (more than 50% of the total time, spent in obtaining medical information from nurses and other ancillary care providers,explaining to the patient about labs, imaging, diagnosis and management), discussion with data power consultant, review of labs and imaging is 30 minutes; I spent 18 minutes, more than half time and PAPER AND PULP MILL WORKER spent 12 minutes I discussed the plan of care with patient and patient's daughter at the bedside. They agreed for palliative care consult. Charges/Coding Visit Charges Inpatient E&M: 26664 Subs Hosp L2
[2021-06-08] MEDS: Insulin Lispro 100 UNIT/ML INSULN.PEN SC ×3 (12:06→22:03)
--- NOTE | 2021-06-08 15:56 | PN.CARD_ITS ---
Subjective Subjective Patient seen evaluated today at bedside along with the nursing staff Daughter at bedside No event from last night, symptoms of shortness of breath improving Objective Data Patient seen and examined and evaluated at bedside along with the nursing staff She is alert orientated Shortness of breath is improving Review of cardiac telemetry showed Richard mcgarry with better controlled ventricular rate Blood pressure has been stable Cardiac examination; S1-S2 is irregular, no systolic or diastolic murmur Normal mitral valve bioprosthetic sound Chest examination; diminished air entry bilateral with minimal basilar rales Examination abdomen; soft Examination lower extremity no clubbing no cyanosis and improvement of lower extremity edema NEWS PRODUCER exam no focal neurological deficit. Vital Signs: Vital Signs Temp Pulse Resp BP Pulse Ox 97.7 F L 84 16 103/85 H 94 06/08/21 15:10 06/08/21 15:10 06/08/21 15:10 06/08/21 15:10 06/08/21 15:10 Oxygen Flow Rate (L/min) 2 Oxygen Delivery Method Room Air Weight: 235 lb 10.786 oz Body Mass Index (BMI) 36.6 Intake & Output: Intake and Output for Last 24 Hours 06/06/21 06/07/21 06/08/21 23:59 23:59 23:59 Intake Total 500 / 740 2743.75 / 2743.75 100 / 100 Balance 500 / 740 2743.75 / 2743.75 100 / 100 Lab / Micro Data Result Diagrams: 06/08/21 08:17 06/08/21 08:17 Labs: Laboratory Results - last 24 hr 06/07/21 05:29: Diff Path Review August06/07/21 16:04: POC Glucose 137 H 06/07/21 21:47: POC Glucose 155 H 06/08/21 05:21: PT 29.7 H, INR 2.9 06/08/21 06:36: POC Glucose 129 H 06/08/21 08:17: WBC 9.0, RBC 5.60 H, Hgb 16.7 H, Hct 51.4 H, MCV 91.8, MCH 29.8, MCHC 32.5, RDW Std Deviation 54.2 H, RDW Coeff of Paul 16.6 H, Plt Count 153, MPV 11.9, Immature Gran % (Auto) 0.200, Neut % (Auto) 70.6 H, Lymph % (Auto) 18.1 L, [place] % (Auto) 9.0, Eos % (Auto) 1.9, Baso % (Auto) 0.2, Absolute Neuts (auto) 6.4, Absolute Lymphs (auto) 1.63, Nucleated RBC % 0 06/08/21 08:17: Sodium 140, Potassium 4.7, Chloride 112 H, Carbon Dioxide 24.0, Anion Gap 4 L, BUN 57 H, Creatinine 1.05 H, Estim Creat Clear Calc 42.94, Est GFR (MDRD) Af Amer 65, Est GFR (MDRD) Non-Af 54 L, BUN/Creatinine Ratio 54.3 H, Glucose 130 H, Calcium 8.7, Total Bilirubin 1.00, AST 35, ALT 78 H, Alkaline Phosphatase 46, Total Protein 7.0, Albumin 3.3, Globulin 3.7, Albumin/Globulin Ratio 0.9 06/08/21 11:25: POC Glucose 189 H Cardiology Labs/Tests 06/08/21 05:21: PT 29.7 H, INR 2.9 06/08/21 08:17: WBC 9.0, RBC 5.60 H, Hgb 16.7 H, Hct 51.4 H, MCV 91.8, MCH 29.8, MCHC 32.5, Plt Count 153, MPV 11.9, Immature Gran % (Auto) 0.200, Neut % (Auto) 70.6 H, Lymph % (Auto) 18.1 L, [place] % (Auto) 9.0, Eos % (Auto) 1.9, Baso % (Auto) 0.2, Absolute Neuts (auto) 6.4, Nucleated RBC % 0 06/08/21 08:17: Sodium 140, Potassium 4.7, Chloride 112 H, Carbon Dioxide 24.0, Anion Gap 4 L, BUN 57 H, Creatinine 1.05 H, Est GFR (MDRD) Af Amer 65, Est GFR (MDRD) Non-Af 54 L, BUN/Creatinine Ratio 54.3 H, Glucose 130 H, Calcium 8.7, Total Bilirubin 1.00 Rhythm: A. fib with controlled ventricular rate ECHO: Severe LV systolic dysfunction ejection fraction 15% Assessment & Plan Assessment/Plan (1) History of coronary artery stent placement: (2) Rheumatic mitral stenosis with insufficiency: (3) History of mitral valve replacement with bioprosthetic valve: (4) Longstanding persistent atrial fibrillation: (5) Chronic combined systolic and diastolic CHF (congestive heart failure): (6) Essential (primary) hypertension: (7) Hyperlipidemia: QUALIFIERS: Hyperlipidemia type: pure hypercholesterolemia Qualified Code(s): E78.00 - Pure hypercholesterolemia, unspecified; E78.0 - Pure hypercholesterolemia (8) Persistent atrial fibrillation: PLAN: Cardiac care plan recommendations; 1. 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 Has been stable clinically 2. Patient symptoms of progressive dyspnea improved on the current treatment 3. She has severe diastolic dysfunction with worsening EF from prior echocardiogram now the ejection fraction is 15% 4. Patient has persistent atrial fibrillation and was on anticoagulation Coumadin. INR therapeutic 2.9 today Currently on rate control with beta-eileen metoprolol, calcium channel eileen Cardizem CD and has been stable clinically 5. Patient has a acute on chronic systolic and diastolic heart failure and has been in CHF protocol 6. Other medical problem include diabetes, chronic renal disease, hypertension hyperlipidemia 7. I discussed the need for LifeVest placement and further evaluation for ICD/biventricular pacer Primary medical physicist Dr. Lee will resume cardiac care plan tomorrow
[2021-06-08] MEDS: Furosemide 40 MG Tablet PO (16:23)
[2021-06-08 16:26] LABS: Bedside Glucose 151 mg/dL (70-110)
[2021-06-08] MEDS: Rosuvastatin 20 MG Tablet 40 MG PO (22:08)
[2021-06-08] MEDS: Sertraline 100 MG Tablet 150 MG PO (22:08)
[2021-06-08] MEDS: 0.9% Saline Lock 10 ML Syringe IV (22:11)
[2021-06-08 22:30] LABS: Bedside Glucose 184 mg/dL (70-110)
[2021-06-09] VITALS (9 sets, daily range): BP systolic 94–118; BP diastolic 71–96; PULSE 72–97; RESP 16–18; TEMP 36.2–36.4; O2SAT 93–97
[2021-06-09] MEDS: Insulin Lispro 100 UNIT/ML INSULN.PEN SC ×2 (06:26→11:38)
[2021-06-09 06:33] LABS: Absolute Lymphocyte Count 1.36 X10^3/uL (0.83-4.51); Absolute Neutrophil Count 6.5 X10^3/uL (2.0-7.7); Basophil# 0.02 X10^3/uL; Basophil% 0.2 % (0-1); Eosinophil# 0.18 X10^3/uL; Hematocrit 48.7 % (37-47); Hemoglobin 16.2 g/dL (12.0-15.0); Lymphocyte # 1.36 X10^3/ul (0.83-4.51); Lymphocyte % 15.4 % (19-41); Mean Corp Hgb Conc 33.3 g/dL (32-36); Mean Corpuscular Hgb 30.7 pg (27.0-32.0); Mean Corpuscular Volume 92.4 fL (81-99); Mean Platelet Vol. 12.6 fl (6.2-12.0); Monocyte# 0.79 X10^3/uL; Monocyte% 8.9 % (0-10); NRBC Flagged by Analyzer 0 % (0-5); Neutrophil # 6.47 X10^3/uL (2.7-7.7); Neutrophil % 73.2 % (47-70); Platelet Count 156 K/mm3 (150-450); RBC Distribution Width CV 16.6 % (11.6-14.6); RBC Distribution Width SD 55.3 fl (35.1-43.9); Red Blood Count 5.27 M/mm3 (4.2-5.4); White Blood Count 8.9 K/mm3 (4.4-11.0)
[2021-06-09 06:46] LABS: Bedside Glucose 160 mg/dL (70-110)
[2021-06-09 07:06] LABS: ALB/GLOB Ratio 0.9 RATIO (0.9-2.4); AST(SGOT) 30 U/L (15-37); Alanine Aminotransfer ALT/SGPT 63 U/L (13-56); Albumin, Serum 3.1 g/dL (3.2-5.0); Alkaline Phosphatase 44 U/L (45-117); Anion Gap 3 (5-15); BUN 52 mg/dL (7-18); BUN/Creat Ratio 48.1 RATIO (10-20); Chloride 114 mmol/L (98-107); Creatinine, Serum 1.08 mg/dL (0.55-1.02); EST Glomerular Filtration Rate 52 mL/min (>60); Est Glom Filt Rate - Afr Amer 63 mL/min (>60); Estimated Creatinine Clearance 41.75 ml/min; Globulin 3.5 g/dL (2.2-4.2); Glucose 145 mg/dL (74-106); Protein, Total 6.6 g/dL (6.4-8.2); Sodium Level 142 mmol/L (136-145)
[2021-06-09 07:19] LABS: International Normalized Ratio 1.9; Prothrombin Time (Protime)PT. 21.2 SECONDS (11.7-14.9)
--- NOTE | 2021-06-09 08:39 | PN.CARD_ITS ---
Subjective Subjective Patient seen and evaluated and appears to be doing much better. Objective Data Vital Signs: Vital Signs Temp Pulse Resp BP Pulse Ox 97.5 F L 91 18 118/96 H 95 06/09/21 04:06 06/09/21 06:59 06/09/21 04:06 06/09/21 04:06 06/09/21 07:32 Oxygen Flow Rate (L/min) 2 Oxygen Delivery Method Nasal Cannula Weight: 235 lb 10.786 oz Body Mass Index (BMI) 36.6 Intake & Output: Intake and Output for Last 24 Hours 06/07/21 06/08/21 06/09/21 23:59 23:59 23:59 Intake Total 2743.75 / 2743.75 100 / 340 240 / 240 Balance 2743.75 / 2743.75 100 / 340 240 / 240 Lab / Micro Data Result Diagrams: 06/09/21 06:00 06/09/21 06:00 Labs: Laboratory Results - last 24 hr 06/08/21 08:17: Sodium 140, Potassium 4.7, Chloride 112 H, Carbon Dioxide 24.0, Anion Gap 4 L, BUN 57 H, Creatinine 1.05 H, Estim Creat Clear Calc 42.94, Est GFR (MDRD) Af Amer 65, Est GFR (MDRD) Non-Af 54 L, BUN/Creatinine Ratio 54.3 H, Glucose 130 H, Calcium 8.7, Total Bilirubin 1.00, AST 35, ALT 78 H, Alkaline Phosphatase 46, Total Protein 7.0, Albumin 3.3, Globulin 3.7, Albumin/Globulin Ratio 0.9 06/08/21 11:25: POC Glucose 189 H 06/08/21 16:21: POC Glucose 151 H 06/08/21 22:02: POC Glucose 184 H 06/09/21 06:00: WBC 8.9, RBC 5.27, Hgb 16.2 H, Hct 48.7 H, MCV 92.4, MCH 30.7, MCHC 33.3, RDW Std Deviation 55.3 H, RDW Coeff of Paul 16.6 H, Plt Count 156, MPV 12.6 H, Immature Gran % (Auto) 0.300, Neut % (Auto) 73.2 H, Lymph % (Auto) 15.4 L, [place] % (Auto) 8.9, Eos % (Auto) 2.0, Baso % (Auto) 0.2, Absolute Neuts (auto) 6.5, Absolute Lymphs (auto) 1.36, Nucleated RBC % 0 06/09/21 06:00: Sodium 142, Potassium 4.0, Chloride 114 H, Carbon Dioxide 25.0, Anion Gap 3 L, BUN 52 H, Creatinine 1.08 H, Estim Creat Clear Calc 41.75, Est GFR (MDRD) Af Amer 63, Est GFR (MDRD) Non-Af 52 L, BUN/Creatinine Ratio 48.1 H, Glucose 145 H, Calcium 9.0, Total Bilirubin 1.20 H, AST 30, ALT 63 H, Alkaline Phosphatase 44 L, Total Protein 6.6, Albumin 3.1 L, Globulin 3.5, Albumin/Globulin Ratio 0.9 06/09/21 06:24: POC Glucose 160 H 06/09/21 06:59: PT 21.2 H, INR 1.9 Cardiology Labs/Tests 06/08/21 08:17: Sodium 140, Potassium 4.7, Chloride 112 H, Carbon Dioxide 24.0, Anion Gap 4 L, BUN 57 H, Creatinine 1.05 H, Est GFR (MDRD) Af Amer 65, Est GFR (MDRD) Non-Af 54 L, BUN/Creatinine Ratio 54.3 H, Glucose 130 H, Calcium 8.7, Total Bilirubin 1.00 06/09/21 06:00: WBC 8.9, RBC 5.27, Hgb 16.2 H, Hct 48.7 H, MCV 92.4, MCH 30.7, MCHC 33.3, Plt Count 156, MPV 12.6 H, Immature Gran % (Auto) 0.300, Neut % (Auto) 73.2 H, Lymph % (Auto) 15.4 L, [place] % (Auto) 8.9, Eos % (Auto) 2.0, Baso % (Auto) 0.2, Absolute Neuts (auto) 6.5, Nucleated RBC % 0 06/09/21 06:00: Sodium 142, Potassium 4.0, Chloride 114 H, Carbon Dioxide 25.0, Anion Gap 3 L, BUN 52 H, Creatinine 1.08 H, Est GFR (MDRD) Af Amer 63, Est GFR (MDRD) Non-Af 52 L, BUN/Creatinine Ratio 48.1 H, Glucose 145 H, Calcium 9.0, Total Bilirubin 1.20 H 06/09/21 06:59: PT 21.2 H, INR 1.9 Rhythm: EKG: ECHO: Stress Test: Cardiac Cath: PCI: CT Surgery: Holter monitor: EPS: PPM: CXR: Chest CT Scan: Physical Exam Const alert, oriented x3 and no apparent distress General Appearance: cooperative HEENT hearing grossly normal bilaterally Head and Scalp: atraumatic Eyes EOMs intact bilaterally Neck General: normal visual inspection Chest inspection of chest normal and palpation of chest normal Resp normal respiratory effort Auscultation: clear to auscultation bilaterally Cardio regular rate, S1 normal heart sound and S2 normal heart sound Jugular Venous Distention: JVD Rhythm: abnormal rhythm GI normal to inspection, nondistended, normoactive bowel sounds Extremity normal capillary refill and no pedal edema Peripheral Pulses: Yes pulses 2+ throughout and femoral pulses present Skin no rashes or lesions noted Neuro oriented x3 and CN's II-XII intact bilaterally Psych Appearance: grossly normal and appropriate Assessment & Plan Assessment/Plan (1) Persistent atrial fibrillation: PLAN: She does appear to have persistent atrial fibrillation with an uncontrolled ventricular response rate. Her rate appears to be much better controlled now. She says that she started declining after we reduce the dose of her beta-eileen and took her off the diltiazem. I would therefore recommend the following * Resume metoprolol 50 mg twice a day * Reduce diltiazem to 120 mg a day * Continue anticoagulation * Repeat echocardiogram in 3 months (2) CHF (congestive heart failure): PLAN: She does have significant decline in her left ventricular systolic function but I suspect the above is tachycardia mediated. I do not think that this is ischemically mediated. Would like to repeat her echocardiogram after her ventricular rate is controlled She should continue with diuresis at the same dose. (3) History of coronary artery stent placement: PLAN: She does have a history of coronary artery disease with stenting of the left anterior descending artery. Segmental wall motion abnormalities were noted on the echocardiogram which were read. However with the severe left ventricular systolic dysfunction I would hold off on any cardiac catheterization at this particular time until her ventricular rate is better. Then recommendations will be made regarding noninvasive testing or invasive cardiac catheterization (4) History of mitral valve replacement with bioprosthetic valve: PLAN: She does have a history of mitral valve replacement with bioprosthetic valve. This appears to be stable at this particular time. (5) Longstanding persistent atrial fibrillation: PLAN: She does have longstanding atrial fibrillation. Her ventricular response rate is better controlled at this time and I have made some adjustments as follows. * Metoprolol 50 mg twice a day * Diltiazem 120 mg once a day * Continue anticoagulation (6) Non-ischemic cardiomyopathy: PLAN: She does have a history of cardiomyopathy and we will continue to maximize her medical therapy. We should consider Entresto if she can tolerate this. We should look into this when she comes back to the office. (7) Essential (primary) hypertension: PLAN: Her blood pressure is under excellent control at this particular time and I would not make any changes. Indeed she was hypotensive when she presented. Thank you for allowing me to participate in the care of your patient. Please don't hesitate to call if any issues arise.
[2021-06-09] MEDS: dilTIAZem CD 120 MG Capsule PO (08:43)
[2021-06-09] MEDS: Metoprolol Tartrate 25 MG Tablet PO (08:43)
[2021-06-09] MEDS: Potassium Chloride Oral Tablet 20 MEQ PO (08:43)
[2021-06-09] MEDS: Magnesium Chloride 64 MG Delay Rel.Tablet 128 MG PO (08:43)
[2021-06-09] MEDS: Furosemide 40 MG Tablet PO (08:43)
[2021-06-09] MEDS: Lisinopril 5 MG Tablet PO (08:43)
[2021-06-09] MEDS: Allopurinol 300 MG Tablet PO (08:43)
--- NOTE | 2021-06-09 11:00 | PCM.DC ---
Discharge Instructions Diet Discharge Diet: Low fat / Low cholesterol, 8 Cup Fluid Restriction and 2000 mg Sodium Diet Activity Discharge Activity: Return to Normal Activity Dressing / Incision Call your doctor if you observe: Shortness of breath, Dizziness and Chest pain Follow Up Care Test Results: Test results from this visit will be discussed in further detail at your follow-up appointment, if applicable. Discharge Plan Admission Admit Date/Time: 06/07/21 10:17 Primary Reason for Your Visit: Hypotension Attending Provider: Maria Luisa Rodriguez Primary Care Provider: Boubacar Ruby Consulting Providers: Pat Severino Discharge Orders/Prescriptions Prescriptions: New diltiazem HCl 120 mg Capsule,Extended Release 24hr 120 mg PO DAILY 30 Days Qty: 30 RF: 0 sertraline 100 mg Tablet 150 mg PO QHS 30 Days Qty: 45 RF: 0 Continued magnesium oxide 400 mg (241.3 mg magnesium) tablet 400 mg PO DAILY Qty: 90 RF: 3 potassium chloride 10 mEq capsule, extended release 20 meq PO DAILY Qty: 180 RF: 3 (DME) Disability Parking Placard See Rx Instructions .Route .MEDSUPPLY Qty: 1 RF: 0 allopurinol 300 mg tablet 300 mg PO DAILY RF: 0 cholecalciferol (vitamin D3) 25 mcg (1,000 unit) capsule 25 mcg PO DAILY RF: 0 vit C,E,Zn,Qm-xsdsi4-fzs-zeax 250-2.5-0.5 mg capsule 1 cap PO BID RF: 0 multivitamin Tablet 1 tab PO DAILY RF: 0 Metamucil 3.4 gram/5.4 gram powder 1 tbsp PO DAILY PRN (Reason: supplement) RF: 0 hydrocodone-acetaminophen 5-325 mg tablet 1 tab PO BID PRN (Reason: Pain) RF: 0 furosemide 40 mg tablet 40 mg PO BID RF: 0 metoprolol tartrate 50 mg tablet 50 mg PO BID RF: 0 insulin lispro 100 unit/mL insulin pen 15 unit SC DAILY PRN (Reason: diabetes) RF: 0 insulin glargine 100 unit/mL (3 mL) insulin pen 15 unit SC BREAKFAST RF: 0 dicyclomine 10 mg capsule 10 mg PO 4X/DAY PRN (Reason: stomach pain) RF: 0 warfarin 4 mg tablet 4 mg PO MOTUWETHFRSA RF: 0 warfarin 6 mg tablet 6 mg PO DIXON RF: 0 rosuvastatin 40 mg tablet 40 mg PO DAILY Qty: 30 RF: 11 lisinopril 5 mg tablet 5 mg PO DAILY Qty: 90 RF: 3 Discontinued sertraline 50 mg tablet 100 mg PO QHS RF: 0 Referrals / Follow Up: Boubacar Ruby DO [Primary Care Provider] - In 1 Week Ming Pickering NP, [employer]-C [Nurse Practitioner] - In 1 Week Disposition Disposition (needs filled in before D/C Order can be placed): Home, Self Care
--- NOTE | 2021-06-09 11:20 | DS.PCM_ITS ---
Documented by User: Courtney Newton NP, [employer] 06/09/21 11:25 Providers Date of Admission: 06/07/21 Date of Discharge: 06/09/21 Primary Care Physician: Dr. Boubacar Ruby, Consultations 06/06/21 18:45 Consult: Cardiology Routine Consulting Provider: Pat Severino Reason for Consult: Hypotensive with reduced EF 30->15, diaphoretic in ECHO, Afib RVR episodes EMERGENT Consult: No MD Notified: Yes Date Notified: 06/06/21 Time Notified: 16:41 Method of Notification: cortext Reason For Visit: HYPOTENSIVE, AFIB W/ INTERMITTENT RVR Diagnosis Discharge Diagnosis (1) Persistent atrial fibrillation: Status: Acute Code(s): I48.19 - Other persistent atrial fibrillation (2) CHF (congestive heart failure): Status: Acute Code(s): I50.9 - Heart failure, unspecified (3) History of coronary artery stent placement: Status: Resolved Code(s): Z95.5 - Presence of coronary angioplasty implant and graft (4) History of mitral valve replacement with bioprosthetic valve: Status: Chronic Code(s): Z95.3 - Presence of xenogenic heart valve (5) Longstanding persistent atrial fibrillation: Status: Chronic Code(s): I48.11 - Longstanding persistent atrial fibrillation (6) Non-ischemic cardiomyopathy: Status: Chronic Code(s): I42.8 - Other cardiomyopathies (7) Essential (primary) hypertension: Status: Chronic Code(s): I10 - Essential (primary) hypertension Medications at Discharge Home Medications insulin lispro 100 unit/mL subcutaneous pen 15 unit SC DAILY PRN ml 07/26/19 Disability Parking Placard #1 ea 06/12/20 magnesium oxide 400 mg (241.3 mg magnesium) tablet 400 mg PO DAILY #90 tab 06/12/20 potassium chloride 10 mEq capsule,extended release 20 meq PO DAILY #180 cap 06/12/20 rosuvastatin 40 mg tablet 40 mg PO DAILY #30 tablet 07/23/20 allopurinol 300 mg tablet 300 mg PO DAILY tab 01/15/21 cholecalciferol (vitamin D3) 25 mcg (1,000 unit) capsule 25 mcg PO DAILY 01/15/21 insulin glargine 100 unit/mL (3 mL) subcutaneous pen 15 unit SC BREAKFAST ml 01/15/21 multivitamin 1 tab PO DAILY 01/15/21 psyllium husk 3.4 gram/5.4 gram oral powder 1 tbsp PO DAILY PRN 01/15/21 vit C,E,zinc,Cd-qnmzo-7-lutein-zeaxanthin 250 mg-2.5 mg-0.5 mg capsule 1 cap PO BID cap 01/15/21 hydrocodone-acetaminophen 5-325mg 5mg-325mg 1 tab PO BID PRN tab 03/17/21 lisinopril 5 mg tablet 5 mg PO DAILY #90 tab 03/28/21 dicyclomine 10 mg capsule 10 mg PO 4X/DAY PRN cap 05/07/21 furosemide 40 mg tablet 40 mg PO BID tab 05/07/21 metoprolol tartrate 50 mg tablet 50 mg PO BID tab 05/07/21 warfarin 4 mg PO MOTUWETHFRSA 06/06/21 warfarin 6 mg PO DIXON 06/06/21 diltiazem HCl 120 mg PO DAILY 30 Days #30 cap 06/09/21 sertraline 150 mg PO QHS 30 Days #45 tab 06/09/21 Hospital Course Operations None Procedures None Summary of Care Provided Hospital Course: Patient is a 80-year-old female admitted 06/06/2021 due to hypotension. 1. Hypotension-resolved. Cardiology consulted during admission. Continue current regimen including metoprolol 50 mg twice daily, Cardizem 120 mg daily. Follow-up with PCP and cardiology in 1 week. 2. Ischemic cardiomyopathy/CAD with history of PCI/MICHELLE-echocardiogram 06/06/2021 demonstrated an EF of 15%. Prior EF 30% 02/25/2021. Follow-up with cardiology in 1 week. Plan for repeat echo in 3 months. 3. Longstanding persistent atrial fibrillation-continue Coumadin, metoprolol. Cardizem added for further rate control. 4. Chronic kidney disease stage IIIa-at baseline. 5. Type 2 diabetes mellitus-continue home insulin regimen. 6. History of mitral valve replacement with bioprosthetic valve 7. Hypertension-stable, continue current regimen. 7. Hyperlipidemia-continue statin. 9. Anxiety/depression-on sertraline, recently increased to 150 mg. 10. Gout-on allopurinol. 11. Obesity- diet and lifestyle modifications encouraged. Physical Exam Const alert, oriented x3 and no apparent distress Orientation / Consciousness: awake, oriented to person, oriented to place and oriented to time HEENT normocephalic and moist oral mucous membranes Eyes PERRL, EOMs intact bilaterally and conjunctivae normal Neck no lymphadenopathy Resp normal respiratory effort and clear to auscultation bilaterally Cardio Cardio Narrative: Atrial fibrillation, rate controlled. + murmur. Peripheral Pulses: pulses 2+ throughout GI normal to inspection, nondistended, normoactive bowel sounds, non-tender and non-distended Extremity normal to inspection Skin no rashes or lesions noted Skin Narrative: Chronic skin changes lower extremities. Lesions: no lesions Rashes: no rashes Trauma: no lacerations or abrasions Neuro CN's II-XII intact bilaterally, no focal motor deficits, no sensory deficits noted and deep tendon reflexes 2+ bilaterally Psych mental status grossly normal and affect normal Patient seen and examined prior to discharge. Physical assessment as noted above. Patient is stable for discharge with follow up recommendations as noted above. This patient was seen by CM Black under the supervision of Dr. Rodriguez. Time spent examining patient, reviewing data and subsequent management of care: 15 Minutes Weight / BMI Weight Weight: 235 lb 10.786 oz Body Mass Index (BMI) 36.6 ABG / Lab / Microbiology Data Result Diagrams: 06/09/21 06:00 06/09/21 06:00 Laboratory: Laboratory Results - last 24 hr 06/08/21 11:25: POC Glucose 189 H 06/08/21 16:21: POC Glucose 151 H 06/08/21 22:02: POC Glucose 184 H 06/09/21 06:00: WBC 8.9, RBC 5.27, Hgb 16.2 H, Hct 48.7 H, MCV 92.4, MCH 30.7, MCHC 33.3, RDW Std Deviation 55.3 H, RDW Coeff of Paul 16.6 H, Plt Count 156, MPV 12.6 H, Immature Gran % (Auto) 0.300, Neut % (Auto) 73.2 H, Lymph % (Auto) 15.4 L, [place] % (Auto) 8.9, Eos % (Auto) 2.0, Baso % (Auto) 0.2, Absolute Neuts (auto) 6.5, Absolute Lymphs (auto) 1.36, Nucleated RBC % 0 06/09/21 06:00: Sodium 142, Potassium 4.0, Chloride 114 H, Carbon Dioxide 25.0, Anion Gap 3 L, BUN 52 H, Creatinine 1.08 H, Estim Creat Clear Calc 41.75, Est GFR (MDRD) Af Amer 63, Est GFR (MDRD) Non-Af 52 L, BUN/Creatinine Ratio 48.1 H, Glucose 145 H, Calcium 9.0, Total Bilirubin 1.20 H, AST 30, ALT 63 H, Alkaline Phosphatase 44 L, Total Protein 6.6, Albumin 3.1 L, Globulin 3.5, Albumin/Globulin Ratio 0.9 06/09/21 06:24: POC Glucose 160 H 06/09/21 06:59: PT 21.2 H, INR 1.9 D/C Instructions Discharge Diet: Low fat / Low cholesterol, 8 Cup Fluid Restriction and 2000 mg Sodium Diet Call your doctor if you observe: Shortness of breath, Dizziness and Chest pain Meaningful Use Info Meaningful Use Diagnoses (Choose all that apply): None applicable Discharge Plan Admission Admit Date/Time: 06/07/21 10:17 Primary Reason for Your Visit: Hypotension Attending Provider: Maria Luisa Rodriguez Primary Care Provider: Boubacar Ruby Consulting Providers: Pat Severino Discharge Orders/Prescriptions Prescriptions: New diltiazem HCl 120 mg Capsule,Extended Release 24hr 120 mg PO DAILY 30 Days Qty: 30 RF: 0 sertraline 100 mg Tablet 150 mg PO QHS 30 Days Qty: 45 RF: 0 Continued magnesium oxide 400 mg (241.3 mg magnesium) tablet 400 mg PO DAILY Qty: 90 RF: 3 potassium chloride 10 mEq capsule, extended release 20 meq PO DAILY Qty: 180 RF: 3 (DME) Disability Parking Placard See Rx Instructions .Route .MEDSUPPLY Qty: 1 RF: 0 allopurinol 300 mg tablet 300 mg PO DAILY RF: 0 cholecalciferol (vitamin D3) 25 mcg (1,000 unit) capsule 25 mcg PO DAILY RF: 0 vit C,E,Zn,Gq-qhrei0-dwx-zeax 250-2.5-0.5 mg capsule 1 cap PO BID RF: 0 multivitamin Tablet 1 tab PO DAILY RF: 0 Metamucil 3.4 gram/5.4 gram powder 1 tbsp PO DAILY PRN (Reason: supplement) RF: 0 hydrocodone-acetaminophen 5-325 mg tablet 1 tab PO BID PRN (Reason: Pain) RF: 0 furosemide 40 mg tablet 40 mg PO BID RF: 0 metoprolol tartrate 50 mg tablet 50 mg PO BID RF: 0 insulin lispro 100 unit/mL insulin pen 15 unit SC DAILY PRN (Reason: diabetes) RF: 0 insulin glargine 100 unit/mL (3 mL) insulin pen 15 unit SC BREAKFAST RF: 0 dicyclomine 10 mg capsule 10 mg PO 4X/DAY PRN (Reason: stomach pain) RF: 0 warfarin 4 mg tablet 4 mg PO MOTUWETHFRSA RF: 0 warfarin 6 mg tablet 6 mg PO DIXON RF: 0 rosuvastatin 40 mg tablet 40 mg PO DAILY Qty: 30 RF: 11 lisinopril 5 mg tablet 5 mg PO DAILY Qty: 90 RF: 3 Discontinued sertraline 50 mg tablet 100 mg PO QHS RF: 0 Referrals / Follow Up: Boubacar Ruby DO [Primary Care Provider] - 06/16/21 10:30 am Ming Pickering NP, [employer]BER-C [Nurse Practitioner] - In 1 Week Disposition Disposition (needs filled in before D/C Order can be placed): Home, Self Care Documented by User: Dr. Maria Luisa Rodriguez MD 06/09/21 17:00 Providers Date of Admission: 06/07/21 Reason For Visit: HYPOTENSIVE, AFIB W/ INTERMITTENT RVR Medications at Discharge Home Medications insulin lispro 100 unit/mL subcutaneous pen 15 unit SC DAILY PRN ml 07/26/19 Disability Parking Placard #1 ea 06/12/20 magnesium oxide 400 mg (241.3 mg magnesium) tablet 400 mg PO DAILY #90 tab 06/12/20 potassium chloride 10 mEq capsule,extended release 20 meq PO DAILY #180 cap 06/12/20 rosuvastatin 40 mg tablet 40 mg PO DAILY #30 tablet 07/23/20 allopurinol 300 mg tablet 300 mg PO DAILY tab 01/15/21 cholecalciferol (vitamin D3) 25 mcg (1,000 unit) capsule 25 mcg PO DAILY 01/15/21 insulin glargine 100 unit/mL (3 mL) subcutaneous pen 15 unit SC BREAKFAST ml 01/15/21 multivitamin 1 tab PO DAILY 01/15/21 psyllium husk 3.4 gram/5.4 gram oral powder 1 tbsp PO DAILY PRN 01/15/21 vit C,E,zinc,Gf-zapdb-5-lutein-zeaxanthin 250 mg-2.5 mg-0.5 mg capsule 1 cap PO BID cap 01/15/21 hydrocodone-acetaminophen 5-325mg 5mg-325mg 1 tab PO BID PRN tab 03/17/21 lisinopril 5 mg tablet 5 mg PO DAILY #90 tab 03/28/21 dicyclomine 10 mg capsule 10 mg PO 4X/DAY PRN cap 05/07/21 furosemide 40 mg tablet 40 mg PO BID tab 05/07/21 metoprolol tartrate 50 mg tablet 50 mg PO BID tab 05/07/21 warfarin 4 mg PO MOTUWETHFRSA 06/06/21 warfarin 6 mg PO DIXON 06/06/21 diltiazem HCl 120 mg PO DAILY 30 Days #30 cap 06/09/21 sertraline 150 mg PO QHS 30 Days #45 tab 06/09/21 ABG / Lab / Microbiology Data Result Diagrams: 06/09/21 06:00 06/09/21 06:00 Discharge Plan Admission Admit Date/Time: 06/07/21 10:17 Primary Reason for Your Visit: Hypotension Attending Provider: Maria Luisa Rodriguez Primary Care Provider: Boubacar Ruby Consulting Providers: Pat Severino Discharge Orders/Prescriptions Prescriptions: New diltiazem HCl 120 mg Capsule,Extended Release 24hr 120 mg PO DAILY 30 Days Qty: 30 RF: 0 sertraline 100 mg Tablet 150 mg PO QHS 30 Days Qty: 45 RF: 0 Continued magnesium oxide 400 mg (241.3 mg magnesium) tablet 400 mg PO DAILY Qty: 90 RF: 3 potassium chloride 10 mEq capsule, extended release 20 meq PO DAILY Qty: 180 RF: 3 (DME) Disability Parking Placard See Rx Instructions .Route .MEDSUPPLY Qty: 1 RF: 0 allopurinol 300 mg tablet 300 mg PO DAILY RF: 0 cholecalciferol (vitamin D3) 25 mcg (1,000 unit) capsule 25 mcg PO DAILY RF: 0 vit C,E,Zn,Mk-xycfo7-bjm-zeax 250-2.5-0.5 mg capsule 1 cap PO BID RF: 0 multivitamin Tablet 1 tab PO DAILY RF: 0 Metamucil 3.4 gram/5.4 gram powder 1 tbsp PO DAILY PRN (Reason: supplement) RF: 0 hydrocodone-acetaminophen 5-325 mg tablet 1 tab PO BID PRN (Reason: Pain) RF: 0 furosemide 40 mg tablet 40 mg PO BID RF: 0 metoprolol tartrate 50 mg tablet 50 mg PO BID RF: 0 insulin lispro 100 unit/mL insulin pen 15 unit SC DAILY PRN (Reason: diabetes) RF: 0 insulin glargine 100 unit/mL (3 mL) insulin pen 15 unit SC BREAKFAST RF: 0 dicyclomine 10 mg capsule 10 mg PO 4X/DAY PRN (Reason: stomach pain) RF: 0 warfarin 4 mg tablet 4 mg PO MOTUWETHFRSA RF: 0 warfarin 6 mg tablet 6 mg PO DIXON RF: 0 rosuvastatin 40 mg tablet 40 mg PO DAILY Qty: 30 RF: 11 lisinopril 5 mg tablet 5 mg PO DAILY Qty: 90 RF: 3 Discontinued sertraline 50 mg tablet 100 mg PO QHS RF: 0 Referrals / Follow Up: Boubacar Ruby DO [Primary Care Provider] - 06/16/21 10:30 am Ming Pickering NP, [employer]BER-C [Nurse Practitioner] - In 1 Week Disposition Disposition (needs filled in before D/C Order can be placed): Home, Self Care Charges/Coding Addendum Addendum: This patient was seen in conjunction with Aman Valdez NP. I have independently interviewed and examined the patient and reviewed pertinent historical, laboratory, and other data. I have reviewed her note and concur with her documentation Discharge 80-year-old female with past medical history of persistent atrial fibrillation status post cardioversion, CAD status post PCI, stent of the LAD, mitral valve bioprosthesis, type II DM, ischemic cardiomyopathy, EF 15% who was having an outpatient echocardiogram when she became hypotensive and diaphoretic. Her blood pressure initially was 113/78 and decreased to 84/49. It was however fluid responsive. Cardiology was consulted. She was continued on her Coumadin and metoprolol. Cardizem was added for better rate control. On the day of discharge, patient was seen and examined. She remained in A. fib. She denied any chest pain but complains of shortness of breath on exertion. Physical Exam: Gen: Comfortable, not pale, not jaundiced, morbidly obese CVS:HS I +II, regular, 3/6 holosystolic murmur RESP: Diminished at lung bases GI: BS present and normal, soft, nontender, no palpable organs EXT:No edema Time spent coordinating patient's care, discussing with subspecialty and nursing and also discussed with the patient and her daughter at the bedside: 30 minutes Visit Charges Inpatient E&M: 80705 Disch Hosp
[2021-06-09 11:40] LABS: Bedside Glucose 161 mg/dL (70-110)
[2021-06-09] MEDS: HYDROcodone Bitartrate/Apap 5/325 Tablet PO (11:40)
--- NOTE | 2021-06-09 12:22 | CASEMGMT ---
This RN CM to room discuss d/c plan with pt/daughter and they state no concerns with going home at time of discharge and no need for any further resources. SStmacario DREW CM
[2021-06-10 10:13] LABS: Pathologist Review Reviewed
[2021-06-10 10:18] LABS: Pathologist Review Reviewed
== END 2021-06-09 13:34 | disposition home or self-care (01) | DRG 291 ==
LOC: ED 16:28 → PCU 18:19
PROVIDERS: Internal Medicine; Internal Medicine Interventional Cardiology; Admitting Provider Family Medicine; Emergency Provider Emergency Medicine; PCP Family Medicine; Visit Provider Internal Medicine
DX: I13.0 Hypertensive heart and chronic kidney disease with heart failure and stage 1 through stage 4 chronic kidney disease, or unspecified chronic kidney disease (principal); I50.23 Acute on chronic systolic (congestive) heart failure; I48.11 Longstanding persistent atrial fibrillation; I48.92 Unspecified atrial flutter; I05.2 Rheumatic mitral stenosis with insufficiency; I95.9 Hypotension, unspecified; I27.29 Other secondary pulmonary hypertension; E11.22 Type 2 diabetes mellitus with diabetic chronic kidney disease; Z79.01 Long term (current) use of anticoagulants; Z79.4 Long term (current) use of insulin; N18.31 Chronic kidney disease, stage 3a; M10.9 Gout, unspecified; F41.9 Anxiety disorder, unspecified; E78.5 Hyperlipidemia, unspecified; I25.5 Ischemic cardiomyopathy; I25.10 Atherosclerotic heart disease of native coronary artery without angina pectoris; E03.9 Hypothyroidism, unspecified; I35.0 Nonrheumatic aortic (valve) stenosis; E78.00 Pure hypercholesterolemia, unspecified; Z95.2 Presence of prosthetic heart valve; Z87.19 Personal history of other diseases of the digestive system; Z79.899 Other long term (current) drug therapy; Z95.5 Presence of coronary angioplasty implant and graft; F32.A Depression, unspecified; Z86.73 Personal history of transient ischemic attack (TIA), and cerebral infarction without residual deficits; Z95.3 Presence of xenogenic heart valve; R79.1 Abnormal coagulation profile
CPT/HCPCS: 36415; 71045; 80048; 80053; 82962; 83735; 84439; 84443; 84484; 85025; 85610; 93005; 99283; J7030; A4216

== ENCOUNTER 2021-07-09 09:25 | Outpatient (RCR) | payer OTHER, SELFPAY ==
[2021-06-10 10:31] VITALS: BMI 38.2
[2021-07-09 11:30] LABS: International Normalized Ratio 2.6; Prothrombin Time (Protime)PT. 27.2 SECONDS (11.7-14.9)
== END 2021-07-10 18:00 | disposition home or self-care (01) ==
LOC: LAB 09:25
PROVIDERS: Family Provider Family Medicine; PCP Family Medicine; Referring Provider Internal Medicine Cardiovascular Disease; Visit Provider Internal Medicine Cardiovascular Disease
DX: I48.11 Longstanding persistent atrial fibrillation (principal); Z79.01 Long term (current) use of anticoagulants
CPT/HCPCS: 36415; 85610

== ENCOUNTER 2021-08-08 08:37 | Outpatient (RCR) | payer OTHER, SELFPAY ==
[2021-07-11 03:20] VITALS: BMI 38.2
[2021-08-08 09:47] LABS: International Normalized Ratio 2.9; Prothrombin Time (Protime)PT. 29.8 SECONDS (11.7-14.9)
== END 2021-08-08 18:00 | disposition home or self-care (01) ==
LOC: LAB 08:37
PROVIDERS: Family Provider Family Medicine; PCP Family Medicine; Referring Provider Internal Medicine Cardiovascular Disease; Visit Provider Internal Medicine Cardiovascular Disease
DX: I48.11 Longstanding persistent atrial fibrillation (principal); Z79.01 Long term (current) use of anticoagulants
CPT/HCPCS: 36415; 85610

== ENCOUNTER 2021-09-09 09:07 | Outpatient (RCR) | payer OTHER, SELFPAY ==
[2021-08-10 04:38] VITALS: BMI 38.2
[2021-09-09 09:55] LABS: International Normalized Ratio 2.7; Prothrombin Time (Protime)PT. 28.7 SECONDS (11.7-14.9)
[2021-09-09 10:47] LABS: AST(SGOT) 31 U/L (15-37); Alanine Aminotransfer ALT/SGPT 32 U/L (13-56); Albumin, Serum 3.7 g/dL (3.2-5.0); Alkaline Phosphatase 63 U/L (45-117); Bilirubin, Direct 0.33 mg/dL (0.00-0.30); Cholesterol 101 mg/dL (200); Globulin 4.2 g/dL (2.2-4.2); High Density Lipoprotein 39 mg/dL; Protein, Total 7.9 g/dL (6.4-8.2); Triglycerides 141 mg/dL; Very Low Density Lipoprotein 28 mg/dL (5-40)
== END 2021-09-09 18:00 | disposition home or self-care (01) ==
LOC: LAB 09:07
PROVIDERS: Family Provider Family Medicine; PCP Family Medicine; Referring Provider Internal Medicine Cardiovascular Disease; Visit Provider Internal Medicine Cardiovascular Disease
DX: I48.11 Longstanding persistent atrial fibrillation (principal); Z79.01 Long term (current) use of anticoagulants
CPT/HCPCS: 36415; 80061; 80076; 85610

== ENCOUNTER 2021-10-28 08:10 | Outpatient (RCR) | payer OTHER, SELFPAY ==
[2021-09-09 21:28] VITALS: BMI 38.2
[2021-10-16 09:10] LABS: International Normalized Ratio 3.1; Prothrombin Time (Protime)PT. 31.5 SECONDS (11.7-14.9)
[2021-10-28 09:00] LABS: International Normalized Ratio 3.2; Prothrombin Time (Protime)PT. 32.2 SECONDS (11.7-14.9)
== END 2021-11-09 03:11 | disposition home or self-care (01) ==
LOC: LAB 08:10
PROVIDERS: Family Provider Family Medicine; PCP Nurse Practitioner Family; Referring Provider Internal Medicine Cardiovascular Disease; Visit Provider Internal Medicine Cardiovascular Disease
DX: I48.11 Longstanding persistent atrial fibrillation (principal); Z79.01 Long term (current) use of anticoagulants
CPT/HCPCS: 36415; 85610

== ENCOUNTER 2021-11-04 09:15 | Outpatient (RCR) | payer OTHER, SELFPAY ==
[2021-10-14 09:09] VITALS: BP 129/83; PULSE 79; RESP 16; TEMP 35.7
--- NOTE | 2021-10-14 09:29 | WC ---
PT WILL BRING MED LIST TO NEXT APPT
--- NOTE | 2021-10-14 09:54 | HP.PCM_ITS ---
History of Present Illness Date of Service: 10/14/21 Progress of Wound: This 81-year-old female presents to clinic for a lateral malleolar ulceration which has been present since June 2021. Patient notes that she sleeps on her right side frequently and ambulates at a minimal function. Patient is diabetic type II and takes Coumadin for A. fib. Patient denies any constitutional symptoms at current note she has been applying daily dressings denies any resolution no other complaints. Patient denies any history of smoking. Patient denies any numbness tingling loss in sensation to her feet. [facility] Medical History Anxiety Atherosclerosis of coronary artery of [place] heart without angina pectoris Chronic combined systolic and diastolic CHF (congestive heart failure) Depression Essential (primary) hypertension GI bleed (07/02/19) History of rheumatic fever Hyperlipidemia Hypothyroidism Hypoxia Longstanding persistent atrial fibrillation Non-ischemic cardiomyopathy Obesity Other secondary pulmonary hypertension Rheumatic mitral stenosis with insufficiency Subarachnoid hemorrhage (01/20/20) TIA (transient ischemic attack) Type 2 diabetes mellitus Home Medications Disability Parking Placard #1 ea 06/12/20 [Rx Last Taken Unknown] magnesium oxide 400 mg (241.3 mg magnesium) tablet 400 mg PO DAILY #90 tabs 06/12/20 [Rx Last Taken 06/05/21] allopurinol 300 mg tablet 300 mg PO DAILY gout 01/15/21 [History Last Taken 06/05/21] cholecalciferol (vitamin D3) 25 mcg (1,000 unit) capsule 25 mcg PO DAILY vitamin 01/15/21 [History Last Taken 06/05/21] multivitamin 1 tab PO DAILY vitamin 01/15/21 [History Last Taken 06/05/21] psyllium husk 3.4 gram/5.4 gram oral powder (Metamucil) 1 tbsp PO DAILY PRN supplement 01/15/21 [History Last Taken Unknown] vit C,E,zinc,Xv-xhwtv-3-lutein-zeaxanthin 250 mg-2.5 mg-0.5 mg capsule 1 cap PO BID vitamin 01/15/21 [History Last Taken 06/05/21] hydrocodone-acetaminophen 5-325mg 5mg-325mg 1 tab PO BID PRN Pain 03/17/21 [History Last Taken Unknown] dicyclomine 10 mg capsule 10 mg PO 4X/DAY PRN stomach pain 05/07/21 [History Last Taken Unknown] potassium chloride 10 mEq capsule,extended release 20 meq PO DAILY #180 caps 06/27/21 [Rx Last Taken Unknown] insulin glargine 100 unit/mL (3 mL) subcutaneous pen 20 unit subcut BREAKFAST diabetes 06/30/21 [History Last Taken Unknown] insulin lispro 100 unit/mL subcutaneous pen 15 unit subcut DAILY diabetes 06/30/21 [History Last Taken Unknown] metoprolol tartrate 25 mg tablet 25 mg PO BID #180 tabs 07/31/21 [Rx Last Taken Unknown] warfarin 6 mg tablet 6 mg PO DIXON blood thinner #15 tabs 07/31/21 [Rx Last Taken Unknown] rosuvastatin 40 mg tablet 40 mg PO DAILY stop Atorvastatin and take this instead #30 tabs 08/13/21 [Rx Last Taken Unknown] sertraline 50 mg tablet 100 mg PO DAILY 08/13/21 [History Last Taken Unknown] warfarin 4 mg tablet 4 mg PO MOTUWETHFRSA blood thinner #80 tabs 09/10/21 [Rx Last Taken Unknown] digoxin 125 mcg (0.125 mg) tablet (Digox) 125 mcg PO DAILY #60 tabs 09/24/21 [Rx Last Taken Unknown] diltiazem HCl 120 mg capsule,extended release 24 hr 120 mg PO TID 30 days #180 caps 09/24/21 [Rx Last Taken Unknown] furosemide 40 mg tablet 40 mg PO BID diuretic 09/24/21 [History Last Taken Unknown] spironolactone 25 mg tablet 25 mg PO DAILY #90 tabs 09/24/21 [Rx Last Taken Unknown] Allergy/AdvReac Type Severity Reaction Status Date / Time amiodarone Allergy Other Verified 09/24/21 09:11 atorvastatin AdvReac Intermediate Myalgias Verified 09/24/21 09:11 with both 80 and 40 mg Family History Father Myocardial infarction CAD (coronary artery disease) CABG Hyperlipidemia Mother Hypertension Congestive heart failure Surgical History History of History of cardioversion (06/09/19) History of coronary artery stent placement (06/18/19) History of hysterectomy History of left heart catheterization (06/02/19) History of mitral valve replacement with bioprosthetic valve (06/06/19) Hx of cholecystectomy Social History household members: other details: Lives with daughter. Smoking Status: Never smoker alcohol intake: never substance use type: does not use caffeine: Yes (Not often due to HR) ROS Constitutional Constitutional: Denies change in weight, chills or headache(s) Eyes Eyes: Denies acute decrease in peripheral vision, change in eye color or foreign body ENT HEENT: Denies change in voice, ear pain or hoarseness Cardiovascular Cardiovascular: Denies chest pain, chest pain at rest or diaphoresis Respiratory/Chest Respiratory/Chest: Reports difficulty clearing secretions; Denies change in mental status or change in phlegm color Gastrointestinal Gastrointestinal: Denies belching, bloating or coffee ground emesis Vital Signs Vital Signs Vital Signs: 10/14/21 09:09 Temperature 96.3 F L Temperature Source Temporal Pulse Rate 79 Respiratory Rate 16 Blood Pressure 129/83 H Blood Pressure Mean 98 Blood Pressure Source Monitor Blood Pressure Position Sitting Blood Pressure Location Left Arm Oxygen Delivery Method Nasal Cannula Oxygen Flow Rate (L/min) 2 Physical Exam Narrative Patient alert oriented to person place and time. Vascular: Dorsalis pedis posterior tibial pulses palpable 2 out of 4 to bilateral lower extremities. Capillary fill time brisk to all digits. Digital hair growth absent bilaterally. Hemosiderin deposits noted to bilateral foot and ankle. Varicosities noted bilaterally. +1 pitting edema noted around the Levy malleoli region. Neurologic: Light touch protective sensation intact to bilateral feet. Dermatologic: Full-thickness ulceration noted to the lateral malleolus with a fibrotic base no deep probing or undermining mild periwound erythema no other signs of infection. Pre and postdebridement measurements document nursing notes. Mild abrasion noted to posterior Achilles no signs of infection or deep probing. Musculoskeletal: Muscular strength 5 out of 5 bilateral lower extremity compartments no gross deformity contributing to wound formation. No pain with calf squeeze bilaterally. Debridement Note Debridement Note Post-Debridement Measurements and Additional Note: Post-Debridement Measurements/Treatment NABOR - Nurse 1 - General Ulcer Assessment Start: 10/14/21 09:05 Freq: Status: Active Protocol: ANTONEXT Activity Type Activity Date Activity User E-sign Co-sign Detail Recorded Client Recorded Date Recorded By Document 10/14/21 09:09 [facility] [id number] 10/14/21 09:26 [facility] 10/14/21 09:09 - Today's Visit Information Type of service Initial Visit Arrival Mode Wheelchair Transfer Assistance None Accompanied by daughter Patient Identification Verified (Name & Yes ) Patient Requires Transmission-Based No Precautions Vital Signs Temperature (97.8 F-99.1 F) 96.3 F L Temperature Source Temporal Pulse Rate (60-100) 79 Pulse Location Monitor Respiratory Rate (12-18) 16 Respiratory rate source Observation Oxygen Delivery Method Nasal Cannula O2 L/MIN 2 Blood Pressure (90/60-120/80) 129/83 H Blood Pressure Mean 98 Source Monitor Position Sitting Blood Pressure Location Left Arm History Since Last Visit- (Skip if this is Patient's initial visit) Left Footwear Regular Shoe Right Footwear Regular Shoe Pain Scale: 0-10 Numeric Is Patient Pain Free? Yes Lower Extremity Assessment/ Foot Assessment/ Toe Nail Assessment Right -Posterior Tibial Palpable No -Posterior Tibial Doppler Monophasic -Dorsalis Pedis Palpable Yes -Dorsalis Pedis Doppler Monophasic -Extremity Color Pale -Hair Growth on Legs No -Hair Growth on Toes No -Temperature of Extremity Warm -Other Deformity No -Prior Foot Ulcer No -Charcot Joint No -Prior Amputation No -Thick Yes -Discolored Yes Left -Posterior Tibial Palpable No -Posterior Tibial Doppler Monophasic -Dorsalis Pedis Palpable Yes -Dorsalis Pedis Doppler Monophasic -Extremity Color Pale -Hair Growth on Legs No -Hair Growth on Toes No -Temperature of Extremity Warm -Other Deformity No -Prior Foot Ulcer No -Charcot Joint No -Prior Amputation No -Thick Yes -Discolored Yes -Deformed No -Improper Length & Hygeine No Neuropathy Assessment Feet - Top Side and Bottom <Entered> (a) Communication Assessment Preferred language [place] Radar Operator Required No Able to Read Yes Able to Write Yes Communication Tools None Right Hearing Abillity Normal Left Hearing Abillity Normal Visual Assistive Devices Glasses Teaching Assessment Preferences Verbal,Written, Audio/Visual, Demonstration Barriers to Learning None Readiness To Learn Excellent Willingness to Engage in Self Management High Activies Readiness to Engage in Self Management High Activities Anxiety Level Calm Cooperation Cooperative Perception Coherent Interest in Health Problem Asks Questions Education Importance Acknowledges Need Does Patient Smoke tobacco or other No substances Smoking Status Never smoker Is Patient Diabetic Yes Functional Assessment Recent Decline in Ability to Perform Denies Any Declines Culture/Episcopalian/Group Supervisor Yard Cultural/Episcopalian Needs that may affect Yes: nathaly Treatment Plan Teaching: Wound Center Welcome to the [facility] [place] (a) 1 - + WC - Nurse 1 - General Ulcer Measurement Start: 10/14/21 09:05 Freq: Status: Active Protocol: Activity Type Activity Date Activity User E-sign Co-sign Detail Recorded Client Recorded Date Recorded By Document 10/14/21 09:09 [facility] [id number] 10/14/21 09:26 [facility] 10/14/21 09:09 Wound Center Nurse 1 #2- R ACHILLES -Combined with other wound No -Current Size (cm) - Length 0.1 -Current Size (cm) - Width 2.1 -Current Size (cm) - Depth 0.1 -Total Square Cm 0.21 -Date of Last Picture (Recall this 10/14/21 field) -Photo Taken Yes -Epithelialization None Present -Tunneling No -Undermining/Tunneling No -Circular Undermining No -Exudate Amt None Present -Granulation Amt None Present (0 %) -Slough/Fibrin Yes -Necrosis Amt Large (67-100%) -Necrotic Tissue Type Eschar -Texture (Tonya-wound Skin Appearance) Assessed, Scarring -Moisture (Tonya-wound Skin Appearance) Assessed -Color (Tonya-wound Skin Appearance) Assessed -Temperature (Tonya-wound Skin No Abnormality Appearance) (Pt Warm) -Tenderness on Palpation (Tonya-wound No Skin Appearance) -Ulcer Cleansing Rinsed/ Irrigated with Saline -Foul Odor after Cleansing No -Anesthetic Used 4% Lidocaine Solution #1- R ANKLE LATERAL -Combined with other wound No -Current Size (cm) - Length 0.3 -Current Size (cm) - Width 0.3 -Current Size (cm) - Depth 0.1 -Total Square Cm 0.09 -Date of Last Picture (Recall this 10/14/21 field) -Photo Taken Yes -Tunneling No -Undermining/Tunneling No -Circular Undermining No -Exudate Amt None Present -Texture (Tonya-wound Skin Appearance) Assessed, Localized Edema -Moisture (Tonya-wound Skin Appearance) Assessed -Color (Tonya-wound Skin Appearance) Assessed, Erythema -Temperature (Tonya-wound Skin No Abnormality Appearance) (Pt Warm) -Tenderness on Palpation (Tonya-wound No Skin Appearance) -Ulcer Cleansing Rinsed/ Irrigated with Saline -Foul Odor after Cleansing No -Anesthetic Used 4% Lidocaine Solution Right Calf (cm) 33.1 Right Ankle (cm) 20.8 Left Calf (cm) 32.2 Left Ankle (cm) 20.5 WC - Nurse 2 - General Ulcer CM Notes Start: 10/14/21 09:05 Freq: Status: Active Protocol: Activity Type Activity Date Activity User E-sign Co-sign Detail Recorded Client Recorded Date Recorded By Document 10/14/21 09:38 [facility] [id number] 10/14/21 09:44 MW 10/14/21 09:38 Wound Center Nurse 2 #2- R ACHILLES -Time 09:38 -Correct Patient Yes -Correct Side, Site, Position Yes -Correct Procedure Yes -Procedure Performed No -Wound/Ulcer Outcome Not Healed -Ulcer Cleansing Rinsed/ Irrigated with Saline -Foul Odor after Cleansing No -Bioengineered Tissue No #1- R ANKLE LATERAL -Time 09:42 -Correct Patient Yes -Correct Side, Site, Position Yes -Correct Procedure Yes -Procedure Performed Yes -Type of Procedure Debridement -Clinical Debridement Subcutaneous -Tissue Removed Subcutaneous -Post Debridement (cm) - Length 0.3 -Post Debridement (cm) - Width 0.3 -Post Debridement (cm) - Depth 0.1 -Total Square (Post) (cm) 0.09 -Area of Debridement (cm) - Length 0.3 -Area of Debridement (cm) - Width 0.3 -Total Square (Area) (cm) 0.09 -Tunneling No -Undermining/Tunneling No -Circular Undermining No -Wound/Ulcer Outcome Not Healed -Ulcer Cleansing Rinsed/ Irrigated with Saline -Foul Odor after Cleansing No -Bioengineered Tissue No -Bleeding Controlled with Pressure -Treatment Response Procedure Tolerated Well -Offloading No -Debridement - Subq, 1st 20sq cm Yes Pain Scale: 0-10 Numeric Is Patient Pain Free? Yes Assessment/Plan Assessment/Plan (1) Venous insufficiency (chronic) (peripheral): CODE(S): I87.2 - Venous insufficiency (chronic) (peripheral) (2) Non-pressure chronic ulcer of right ankle with fat layer exposed: CODE(S): L97.312 - Non-pressure chronic ulcer of right ankle with fat layer exposed PLAN: Patient examined evaluated, all findings nloan with patient in detail. Clinically wound does not appear to be infected. Etiology appears to be related to a pressure injury with sleeping which has been exacerbated by venous insufficiency. Due to self-pay nature we are deferring vascular studies at this time, will consider ordering them if there are any delays in healing. Radiographs ordered to rule out any underlying bone involvement. At this time I recommend offloading the site with Prevalon offloading boots. Patient was instructed to get these from a [employer] or [employer]. Today wound was excisionally debrided down to including level of subcutaneous tissue of all nonviable tissue using 5 mm dermal curette after obtaining of oral consent. Hemostasis obtained with light compression topical anesthesia used patient tolerated procedure well. Postdebridement measurements document nursing notes. [place] boot applied to right lower extremity she will follow-up in 1 week at which time we will reevaluate her wounds and consider any additional treatments. At this time I recommend compression elevation and exercise for edema management.
--- NOTE | 2021-10-16 08:59 | RAD_ITS ---
STUDY: X-RAY - RIGHT FOOT CLINICAL: Female, 81 years old. Non-pressure chronic ulcer of right ankle with fat layer exposed TECHNIQUE: 3 view(s) of the foot. COMPARISON: Comparison is made with prior study 06/22/2019. FINDINGS: There is a plantar calcaneal spur. Normal visualized subtalar, talonavicular, calcaneocuboid, tarsal and tarsometatarsal articulations. Normal metatarsi. Normal metatarsophalangeal joint of the great toe. Normal tibial and fibular sesamoid bones. Normal interphalangeal joint of the great toe. Normal phalanges of the great toe. Normal second through fifth metatarsophalangeal joints. Normal interphalangeal joints and phalanges of the lesser toes. Soft tissue swelling. RAD/Foot min 3 Views IMPRESSION: Soft tissue swelling. No bony abnormality is seen. Electronically Signed: Km Lira MD at 15:15 EDT ,
[2021-10-21 08:52] VITALS: BP 119/81; PULSE 91; RESP 18; TEMP 36.3
--- NOTE | 2021-10-21 09:51 | PN.PCM_ITS ---
History of Present Illness Date of Service: 10/21/21 Progress of Wound: This 81-year-old female presents to clinic for a lateral malleolar ulceration which has been present since June 2021. Patient notes that she sleeps on her right side frequently and ambulates at a minimal function. Patient is diabetic type II and takes Coumadin for A. fib. Patient denies any constitutional symptoms at current note she has been applying daily dressings denies any resolution no other complaints. Patient denies any history of smoking. Patient denies any numbness tingling loss in sensation to her feet. Objective Data Objective Data Vital Signs: Vital Signs Temp Pulse Resp BP O2 Del Method O2 Flow Rate 97.4 F L 91 18 119/81 H Nasal Cannula 2 10/21/21 08:52 10/21/21 08:52 10/21/21 08:52 10/21/21 08:52 10/21/21 08:52 10/21/21 08:52 Oxygen Flow Rate (L/min) 2 Oxygen Delivery Method Nasal Cannula Physical Exam Narrative Patient alert oriented to person place and time. Vascular: Dorsalis pedis posterior tibial pulses palpable 2 out of 4 to bilateral lower extremities. Capillary fill time brisk to all digits. Digital hair growth absent bilaterally. Hemosiderin deposits noted to bilateral foot and ankle. Varicosities noted bilaterally. +1 pitting edema noted around the Levy malleoli region. Neurologic: Light touch protective sensation intact to bilateral feet. Dermatologic: Lateral ankle wound on the right side healed. Mild abrasion noted to posterior Achilles no signs of infection or deep probing, improving at this time. Musculoskeletal: Muscular strength 5 out of 5 bilateral lower extremity compartments no gross deformity contributing to wound formation. No pain with calf squeeze bilaterally. Debridement Note Debridement Note Post-Debridement Measurements and Additional Note: Post-Debridement Measurements/Treatment NABOR - Nurse 1 - General Ulcer Assessment Start: 10/14/21 09:05 Freq: Status: Active Protocol: LETICIA Activity Type Activity Date Activity User E-sign Co-sign Detail Recorded Client Recorded Date Recorded By Document 10/14/21 09:09 [facility] [id number] 10/14/21 09:26 BM Document 10/21/21 08:52 [facility] [id number] 10/21/21 08:56 BMF 10/14/21 10/21/21 09:09 08:52 - Today's Visit Information Type of service Initial Visit Follow-up Visit (Physician/HEALTH OFFICER ) Arrival Mode Wheelchair Wheelchair Transfer Assistance None Other Transfer Assist (Other) 2 STAND BY Accompanied by daughter DAUGHTER Patient Identification Verified (Name & Yes Yes ) Patient Requires Transmission-Based No No Precautions Vital Signs Temperature (97.8 F-99.1 F) 96.3 F L 97.4 F L Temperature Source Temporal Temporal Pulse Rate (60-100) 79 91 Pulse Location Monitor Monitor Respiratory Rate (12-18) 16 18 Respiratory rate source Observation Observation Oxygen Delivery Method Nasal Cannula Nasal Cannula O2 L/MIN (L/min) 2 2 Blood Pressure (90/60-120/80) 129/83 H 119/81 H Blood Pressure Mean (mm Hg) 98 93 Source Monitor Monitor Position Sitting Sitting Blood Pressure Location Left Arm Left Arm History Since Last Visit- (Skip if this is Patient's initial visit) Have you changed medications since your No last visit? Any new allergies or adverse reactions No Had a fall/change in ADL's that may No increase risk of falls Signs or symptoms of abuse and/or No neglect since last visit Have you been in the hospital since your No last visit? Has dressing in place as prescribed Yes Has compression in place as prescribed Yes Has offloadiing in place as prescribed N/A Experienced any changes in pain level or No management Left Footwear Regular Shoe Regular Shoe Right Footwear Regular Shoe Regular Shoe Pain Scale: 0-10 Numeric Is Patient Pain Free? Yes Yes Lower Extremity Assessment/ Foot Assessment/ Toe Nail Assessment Right -Posterior Tibial Palpable No -Posterior Tibial Doppler Monophasic -Dorsalis Pedis Palpable Yes -Dorsalis Pedis Doppler Monophasic -Extremity Color Pale -Hair Growth on Legs No -Hair Growth on Toes No -Temperature of Extremity Warm -Other Deformity No -Prior Foot Ulcer No -Charcot Joint No -Prior Amputation No -Thick Yes -Discolored Yes Left -Posterior Tibial Palpable No -Posterior Tibial Doppler Monophasic -Dorsalis Pedis Palpable Yes -Dorsalis Pedis Doppler Monophasic -Extremity Color Pale -Hair Growth on Legs No -Hair Growth on Toes No -Temperature of Extremity Warm -Other Deformity No -Prior Foot Ulcer No -Charcot Joint No -Prior Amputation No -Thick Yes -Discolored Yes -Deformed No -Improper Length & Hygeine No Neuropathy Assessment Feet - Top Side and Bottom <Entered> (a) Communication Assessment Preferred language [place] [employer] Required No Able to Read Yes Able to Write Yes Communication Tools None Right Hearing Abillity Normal Left Hearing Abillity Normal Visual Assistive Devices Glasses Teaching Assessment Preferences Verbal,Written, Audio/Visual, Demonstration Barriers to Learning None Readiness To Learn Excellent Willingness to Engage in Self Management High Activies Readiness to Engage in Self Management High Activities Anxiety Level Calm Cooperation Cooperative Perception Coherent Interest in Health Problem Asks Questions Education Importance Acknowledges Need Does Patient Smoke tobacco or other No substances Smoking Status Never smoker Is Patient Diabetic Yes Functional Assessment Recent Decline in Ability to Perform Denies Any Declines Culture/Congregation/Rehab Specialist Cultural/Congregation Needs that may affect Yes: bahai Treatment Plan Teaching: Wound Center Welcome to the Wound Care Center Lao (a) 1 - + WC - Nurse 1 - General Ulcer Measurement Start: 10/14/21 09:05 Freq: Status: Active Protocol: Activity Type Activity Date Activity User E-sign Co-sign Detail Recorded Client Recorded Date Recorded By Document 10/14/21 09:09 [facility] [id number] 10/14/21 09:26 [facility] Document 10/21/21 08:52 [facility] [id number] 10/21/21 08:56 [facility] 10/14/21 10/21/21 09:09 08:52 Wound Center Nurse 1 #1- R ANKLE LATERAL -Combined with other wound No No -Current Size (cm) - Length 0.3 0.3 -Current Size (cm) - Width 0.3 0.3 -Current Size (cm) - Depth 0.1 0.1 -Total Square Cm 0.09 0.09 -Date of Last Picture (Recall this 10/14/21 10/21/21 field) -Photo Taken Yes Yes -Epithelialization None Present -Tunneling No No -Undermining/Tunneling No No -Circular Undermining No No -Exudate Amt None Present None Present -Wound Margin Distinct, Outline Attached -Granulation Amt None Present (0 %) -Slough/Fibrin Yes -Necrosis Amt Large (67-100%) -Necrotic Tissue Type Adherent Slough -Texture (Tonya-wound Skin Appearance) Assessed, Assessed Localized Edema -Moisture (Tonya-wound Skin Appearance) Assessed Assessed -Color (Tonya-wound Skin Appearance) Assessed, Assessed, Erythema Erythema -Temperature (Tonya-wound Skin No Abnormality No Abnormality Appearance) (Pt Warm) (Pt Warm) -Tenderness on Palpation (Tonya-wound No No Skin Appearance) -Ulcer Cleansing Rinsed/ Soap and Water Irrigated with Saline -Foul Odor after Cleansing No No -Anesthetic Used 4% Lidocaine 5% Lidocaine Solution Gel #2- R ACHILLES -Combined with other wound No No -Current Size (cm) - Length 0.1 0.4 -Current Size (cm) - Width 2.1 0.7 -Current Size (cm) - Depth 0.1 0.1 -Total Square Cm 0.21 0.28 -Date of Last Picture (Recall this 10/14/21 10/21/21 field) -Photo Taken Yes Yes -Epithelialization None Present None Present -Tunneling No No -Undermining/Tunneling No No -Circular Undermining No No -Exudate Amt None Present None Present -Wound Margin Distinct, Outline Attached -Granulation Amt None Present (0 None Present (0 %) %) -Slough/Fibrin Yes Yes -Necrosis Amt Large (67-100%) Large (67-100%) -Necrotic Tissue Type Eschar Eschar -Texture (Tonya-wound Skin Appearance) Assessed, Assessed Scarring -Moisture (Tonya-wound Skin Appearance) Assessed Assessed -Color (Tonya-wound Skin Appearance) Assessed Assessed -Temperature (Tonya-wound Skin No Abnormality No Abnormality Appearance) (Pt Warm) (Pt Warm) -Tenderness on Palpation (Tonya-wound No No Skin Appearance) -Ulcer Cleansing Rinsed/ Soap and Water Irrigated with Saline -Foul Odor after Cleansing No No -Anesthetic Used 4% Lidocaine 5% Lidocaine Solution Gel Lower Limb Edema Present Yes Right Calf (cm) 33.1 Right Ankle (cm) 20.8 Left Calf (cm) 32.2 32.2 Left Ankle (cm) 20.5 20.4 WC - Nurse 2 - General Ulcer CM Notes Start: 10/14/21 09:05 Freq: Status: Active Protocol: Activity Type Activity Date Activity User E-sign Co-sign Detail Recorded Client Recorded Date Recorded By Document 10/14/21 09:38 MW [id number] 10/14/21 09:44 MW Document 10/21/21 09:11 JEANETTE [id number] 10/21/21 09:14 JEANETTE 10/14/21 10/21/21 09:38 09:11 Wound Center Nurse 2 #1- R ANKLE LATERAL -Time 09:42 -Correct Patient Yes No -Correct Side, Site, Position Yes No -Correct Procedure Yes No -Procedure Performed Yes No -Type of Procedure Debridement -Clinical Debridement Subcutaneous -Tissue Removed Subcutaneous -Post Debridement (cm) - Length 0.3 0 -Post Debridement (cm) - Width 0.3 0 -Post Debridement (cm) - Depth 0.1 0 -Total Square (Post) (cm) 0.09 0 -Area of Debridement (cm) - Length 0.3 0 -Area of Debridement (cm) - Width 0.3 0 -Total Square (Area) (cm) 0.09 0 -Tunneling No -Undermining/Tunneling No -Circular Undermining No -Wound/Ulcer Outcome Not Healed Healed- Epithelialized -Ulcer Cleansing Rinsed/ Irrigated with Saline -Foul Odor after Cleansing No -Bioengineered Tissue No -Bleeding Controlled with Pressure -Treatment Response Procedure Tolerated Well -Offloading No -Debridement - Subq, 1st 20sq cm Yes #2- R ACHILLES -Time 09:38 -Correct Patient Yes No -Correct Side, Site, Position Yes No -Correct Procedure Yes No -Procedure Performed No No -Wound/Ulcer Outcome Not Healed Not Healed -Ulcer Cleansing Rinsed/ Irrigated with Saline -Foul Odor after Cleansing No -Bioengineered Tissue No Pain Scale: 0-10 Numeric Is Patient Pain Free? Yes Yes WC - Nurse 3 - General Ulcer D/C NN Start: 10/14/21 09:05 Freq: Status: Active Protocol: Activity Type Activity Date Activity User E-sign Co-sign Detail Recorded Client Recorded Date Recorded By Document 10/14/21 10:04 [facility] [id number] 10/14/21 10:04 [facility] Document 10/21/21 09:23 [facility] [id number] 10/21/21 09:24 BM 10/14/21 10/21/21 10:04 09:23 Wound Care Nurse 3 #1- R ANKLE LATERAL -Ulcer Cleansing Rinsed/ Irrigated with Saline -Foul Odor after Cleansing No -Other Dressing UNNA BOOT #2- R ACHILLES -Ulcer Cleansing Rinsed/ Rinsed/ Irrigated with Irrigated with Saline Saline -Foul Odor after Cleansing No No -Primary Dressing Applied Other Other -Other Dressing UNNA BOOT UNNA BOOT PER MW RN Right -Multi-Layered Wrap Application Unna Boot - Unna Boot - Right ($) Right ($) -Compression Wrap Unna Boot ($) ( single) -Other UNNA PER MW RN Treatment Response Procedure Procedure Tolerated Well Tolerated Well Pain Scale: 0-10 Numeric Is Patient Pain Free? Yes Yes WC - Visit Discharge Discharge Condition Stable Stable Ambulatory Status Wheelchair Wheelchair Transportation Private Auto Private Auto Accompanied by SHERICE DAUGHTER Assessment/Plan Assessment/Plan (1) Venous insufficiency (chronic) (peripheral): CODE(S): I87.2 - Venous insufficiency (chronic) (peripheral) (2) Non-pressure chronic ulcer of right ankle with fat layer exposed: CODE(S): L97.312 - Non-pressure chronic ulcer of right ankle with fat layer exposed PLAN: Patient examined evaluated, all findings nolan with patient in detail. Clinically wound does not appear to be infected. Radiographs reviewed with patient negative for any bony involvement. Patient was dressed with an Unna boot dressing today we will follow-up in 1 week. The right lateral ankle wound has healed at this time. Patient will likely need to continue performing exercise compression elevation for edema management. We will can consider additional work-up if there are any delays in healing, but upon healing I will recommend compression stockings for long-term use daily.
[2021-10-28 08:35] VITALS: BP 117/91; PULSE 86; RESP 16; TEMP 36.2
--- NOTE | 2021-10-28 09:24 | PN.PCM_ITS ---
History of Present Illness Date of Service: 10/28/21 Progress of Wound: This 81-year-old female presents to clinic for a lateral malleolar ulceration which has been present since June 2021. Patient notes that she sleeps on her right side frequently and ambulates at a minimal function. Patient is diabetic type II and takes Coumadin for A. fib. Patient denies any constitutional symptoms at current note she has been applying daily dressings denies any resolution no other complaints. Patient denies any history of smoking. Patient denies any numbness tingling loss in sensation to her feet. Objective Data Objective Data Vital Signs: Vital Signs Temp Pulse Resp BP O2 Del Method O2 Flow Rate 97.2 F L 86 16 117/91 H Nasal Cannula 2 10/28/21 08:35 10/28/21 08:35 10/28/21 08:35 10/28/21 08:35 10/28/21 08:35 10/28/21 08:35 Oxygen Flow Rate (L/min) 2 Oxygen Delivery Method Nasal Cannula Physical Exam Narrative Patient alert oriented to person place and time. Vascular: Dorsalis pedis posterior tibial pulses palpable 2 out of 4 to bilateral lower extremities. Capillary fill time brisk to all digits. Digital hair growth absent bilaterally. Hemosiderin deposits noted to bilateral foot and ankle. Varicosities noted bilaterally. +1 pitting edema noted around the Levy malleoli region. Neurologic: Light touch protective sensation intact to bilateral feet. Dermatologic: Lateral ankle wound on the right side healed. Mild abrasion noted to posterior Achilles no signs of infection or deep probing, improving at this time. Musculoskeletal: Muscular strength 5 out of 5 bilateral lower extremity compartments no gross deformity contributing to wound formation. No pain with calf squeeze bilaterally. Debridement Note Debridement Note Post-Debridement Measurements and Additional Note: Post-Debridement Measurements/Treatment - Nurse 1 - General Ulcer Assessment Start: 10/14/21 09:05 Freq: Status: Active Protocol: LETICIA Activity Type Activity Date Activity User E-sign Co-sign Detail Recorded Client Recorded Date Recorded By Document 10/14/21 09:09 [facility] [id number] 10/14/21 09:26 BM Document 10/21/21 08:52 [facility] [id number] 10/21/21 08:56 BM Document 10/28/21 08:35 [facility] [id number] 10/28/21 08:41 [facility] 10/14/21 10/21/21 10/28/21 09:09 08:52 08:35 - Today's Visit Information Type of service Initial Visit Follow-up Visit Follow-up Visit (Physician/REGISTERED NURSE AMBULATORY (Physician/REGISTERED NURSE AMBULATORY ) ) Arrival Mode Wheelchair Wheelchair Wheelchair Transfer Assistance None Other Other Transfer Assist (Other) 2 STAND BY 1 assist Accompanied by daughter DAUGHTER daughter Patient Identification Verified (Name & Yes Yes Yes ) Patient Requires Transmission-Based No No No Precautions Vital Signs Temperature (97.8 F-99.1 F) 96.3 F L 97.4 F L 97.2 F L Temperature Source Temporal Temporal Temporal Pulse Rate (60-100) 79 91 86 Pulse Location Monitor Monitor Monitor Respiratory Rate (12-18) 16 18 16 Respiratory rate source Observation Observation Observation Oxygen Delivery Method Nasal Cannula Nasal Cannula Nasal Cannula O2 L/MIN (L/min) 2 2 2 Blood Pressure (90/60-120/80) 129/83 H 119/81 H 117/91 H Blood Pressure Mean (mm Hg) 98 93 99 Source Monitor Monitor Monitor Position Sitting Sitting Sitting Blood Pressure Location Left Arm Left Arm Right Arm History Since Last Visit- (Skip if this is Patient's initial visit) Have you changed medications since your No No last visit? Any new allergies or adverse reactions No No Had a fall/change in ADL's that may No No increase risk of falls Signs or symptoms of abuse and/or No No neglect since last visit Have you been in the hospital since your No No last visit? Has dressing in place as prescribed Yes Yes Has compression in place as prescribed Yes Yes Has offloadiing in place as prescribed N/A N/A Experienced any changes in pain level or No No management Left Footwear Regular Shoe Regular Shoe Regular Shoe Right Footwear Regular Shoe Regular Shoe Regular Shoe Pain Scale: 0-10 Numeric Is Patient Pain Free? Yes Yes Yes Lower Extremity Assessment/ Foot Assessment/ Toe Nail Assessment Right -Posterior Tibial Palpable No -Posterior Tibial Doppler Monophasic -Dorsalis Pedis Palpable Yes -Dorsalis Pedis Doppler Monophasic -Extremity Color Pale -Hair Growth on Legs No -Hair Growth on Toes No -Temperature of Extremity Warm -Other Deformity No -Prior Foot Ulcer No -Charcot Joint No -Prior Amputation No -Thick Yes -Discolored Yes Left -Posterior Tibial Palpable No -Posterior Tibial Doppler Monophasic -Dorsalis Pedis Palpable Yes -Dorsalis Pedis Doppler Monophasic -Extremity Color Pale -Hair Growth on Legs No -Hair Growth on Toes No -Temperature of Extremity Warm -Other Deformity No -Prior Foot Ulcer No -Charcot Joint No -Prior Amputation No -Thick Yes -Discolored Yes -Deformed No -Improper Length & Hygeine No Neuropathy Assessment Feet - Top Side and Bottom <Entered> (a) Communication Assessment Preferred language [place] [employer] Required No Able to Read Yes Able to Write Yes Communication Tools None Right Hearing Abillity Normal Left Hearing Abillity Normal Visual Assistive Devices Glasses Teaching Assessment Preferences Verbal,Written, Audio/Visual, Demonstration Barriers to Learning None Readiness To Learn Excellent Willingness to Engage in Self Management High Activies Readiness to Engage in Self Management High Activities Anxiety Level Calm Cooperation Cooperative Perception Coherent Interest in Health Problem Asks Questions Education Importance Acknowledges Need Does Patient Smoke tobacco or other No substances Smoking Status Never smoker Is Patient Diabetic Yes Functional Assessment Recent Decline in Ability to Perform Denies Any Declines Culture/Latter-Day/Angle Bender Cultural/Latter-Day Needs that may affect Yes: mormon Treatment Plan Teaching: Wound Center Welcome to the [facility] [place] (a) 1 - + WC - Nurse 1 - General Ulcer Measurement Start: 10/14/21 09:05 Freq: Status: Active Protocol: Activity Type Activity Date Activity User E-sign Co-sign Detail Recorded Client Recorded Date Recorded By Document 10/14/21 09:09 [facility] [id number] 10/14/21 09:26 [facility] Document 10/21/21 08:52 [facility] [id number] 10/21/21 08:56 [facility] Document 10/28/21 08:35 [facility] [id number] 10/28/21 08:41 [facility] 10/14/21 10/21/21 10/28/21 09:09 08:52 08:35 Wound Center Nurse 1 #2- R ACHILLES -Combined with other wound No No No -Current Size (cm) - Length 0.1 0.4 0.1 -Current Size (cm) - Width 2.1 0.7 0.1 -Current Size (cm) - Depth 0.1 0.1 0.1 -Total Square Cm 0.21 0.28 0.01 -Date of Last Picture (Recall this 10/14/21 10/21/21 10/28/21 field) -Photo Taken Yes Yes Yes -Epithelialization None Present None Present Large 67-100% -Tunneling No No -Undermining/Tunneling No No -Circular Undermining No No -Exudate Amt None Present None Present None Present -Wound Margin Distinct, Outline Attached -Granulation Amt None Present (0 None Present (0 %) %) -Slough/Fibrin Yes Yes Yes -Necrosis Amt Large (67-100%) Large (67-100%) Small (1-33%) -Necrotic Tissue Type Eschar Eschar Adherent Slough -Texture (Tonya-wound Skin Appearance) Assessed, Assessed Assessed, Scarring Scarring -Moisture (Tonya-wound Skin Appearance) Assessed Assessed Assessed -Color (Tonya-wound Skin Appearance) Assessed Assessed Assessed -Temperature (Tonya-wound Skin No Abnormality No Abnormality No Abnormality Appearance) (Pt Warm) (Pt Warm) (Pt Warm) -Tenderness on Palpation (Tonya-wound No No No Skin Appearance) -Ulcer Cleansing Rinsed/ Soap and Water Soap and Water Irrigated with Saline -Foul Odor after Cleansing No No No -Anesthetic Used 4% Lidocaine 5% Lidocaine 5% Lidocaine Solution Gel Gel #1- R ANKLE LATERAL -Combined with other wound No No -Current Size (cm) - Length 0.3 0.3 -Current Size (cm) - Width 0.3 0.3 -Current Size (cm) - Depth 0.1 0.1 -Total Square Cm 0.09 0.09 -Date of Last Picture (Recall this 10/14/21 10/21/21 field) -Photo Taken Yes Yes -Epithelialization None Present -Tunneling No No -Undermining/Tunneling No No -Circular Undermining No No -Exudate Amt None Present None Present -Wound Margin Distinct, Outline Attached -Granulation Amt None Present (0 %) -Slough/Fibrin Yes -Necrosis Amt Large (67-100%) -Necrotic Tissue Type Adherent Slough -Texture (Tonya-wound Skin Appearance) Assessed, Assessed Localized Edema -Moisture (Tonya-wound Skin Appearance) Assessed Assessed -Color (Tonya-wound Skin Appearance) Assessed, Assessed, Erythema Erythema -Temperature (Tonya-wound Skin No Abnormality No Abnormality Appearance) (Pt Warm) (Pt Warm) -Tenderness on Palpation (Tonya-wound No No Skin Appearance) -Ulcer Cleansing Rinsed/ Soap and Water Irrigated with Saline -Foul Odor after Cleansing No No -Anesthetic Used 4% Lidocaine 5% Lidocaine Solution Gel Lower Limb Edema Present Yes Right Calf (cm) 33.1 32.9 Right Ankle (cm) 20.8 21.6 Left Calf (cm) 32.2 32.2 Left Ankle (cm) 20.5 20.4 WC - Nurse 2 - General Ulcer CM Notes Start: 10/14/21 09:05 Freq: Status: Active Protocol: Activity Type Activity Date Activity User E-sign Co-sign Detail Recorded Client Recorded Date Recorded By Document 10/14/21 09:38 MW [id number] 10/14/21 09:44 MW Document 10/21/21 09:11 JF [id number] 10/21/21 09:14 JF Document 10/28/21 09:16 [id number] 10/28/21 09:18 10/14/21 10/21/21 10/28/21 09:38 09:11 09:16 Wound Center Nurse 2 #2- R ACHILLES -Time 09:38 -Correct Patient Yes No No -Correct Side, Site, Position Yes No No -Correct Procedure Yes No No -Procedure Performed No No No -Post Debridement (cm) - Length 0 -Post Debridement (cm) - Width 0 -Post Debridement (cm) - Depth 0 -Total Square (Post) (cm) 0 -Area of Debridement (cm) - Length 0 -Area of Debridement (cm) - Width 0 -Total Square (Area) (cm) 0 -Wound/Ulcer Outcome Not Healed Not Healed Healed- Epithelialized -Ulcer Cleansing Rinsed/ Irrigated with Saline -Foul Odor after Cleansing No -Bioengineered Tissue No #1- R ANKLE LATERAL -Time 09:42 -Correct Patient Yes No -Correct Side, Site, Position Yes No -Correct Procedure Yes No -Procedure Performed Yes No -Type of Procedure Debridement -Clinical Debridement Subcutaneous -Tissue Removed Subcutaneous -Post Debridement (cm) - Length 0.3 0 -Post Debridement (cm) - Width 0.3 0 -Post Debridement (cm) - Depth 0.1 0 -Total Square (Post) (cm) 0.09 0 -Area of Debridement (cm) - Length 0.3 0 -Area of Debridement (cm) - Width 0.3 0 -Total Square (Area) (cm) 0.09 0 -Tunneling No -Undermining/Tunneling No -Circular Undermining No -Wound/Ulcer Outcome Not Healed Healed- Epithelialized -Ulcer Cleansing Rinsed/ Irrigated with Saline -Foul Odor after Cleansing No -Bioengineered Tissue No -Bleeding Controlled with Pressure -Treatment Response Procedure Tolerated Well -Offloading No -Debridement - Subq, 1st 20sq cm Yes Pain Scale: 0-10 Numeric Is Patient Pain Free? Yes Yes Yes - Nurse 3 - General Ulcer D/C NN Start: 10/14/21 09:05 Freq: Status: Active Protocol: Activity Type Activity Date Activity User E-sign Co-sign Detail Recorded Client Recorded Date Recorded By Document 10/14/21 10:04 [facility] [id number] 10/14/21 10:04 [facility] Document 10/21/21 09:23 [facility] [id number] 10/21/21 09:24 [facility] 10/14/21 10/21/21 10:04 09:23 Wound Care Nurse 3 #2- R ACHILLES -Ulcer Cleansing Rinsed/ Rinsed/ Irrigated with Irrigated with Saline Saline -Foul Odor after Cleansing No No -Primary Dressing Applied Other Other -Other Dressing UNNA BOOT UNNA BOOT PER MW RN #1- R ANKLE LATERAL -Ulcer Cleansing Rinsed/ Irrigated with Saline -Foul Odor after Cleansing No -Other Dressing UNNA BOOT Right -Multi-Layered Wrap Application Unna Boot - Unna Boot - Right ($) Right ($) -Compression Wrap Unna Boot ($) ( single) -Other UNNA PER MW RN Treatment Response Procedure Procedure Tolerated Well Tolerated Well Pain Scale: 0-10 Numeric Is Patient Pain Free? Yes Yes WC - Visit Discharge Discharge Condition Stable Stable Ambulatory Status Wheelchair Wheelchair Transportation Private Auto Private Auto Accompanied by SHERICE DAUGHTER Assessment/Plan Assessment/Plan (1) Venous insufficiency (chronic) (peripheral): CODE(S): I87.2 - Venous insufficiency (chronic) (peripheral) (2) Non-pressure chronic ulcer of right ankle with fat layer exposed: CODE(S): L97.312 - Non-pressure chronic ulcer of right ankle with fat layer exposed PLAN: Patient examined evaluated, all findings nolan with patient in detail. Clinically wound does not appear to be infected. Patient was dressed with an Unna boot dressing today we will follow-up in 1 week. The right lateral ankle wound has healed at this time. posterior ankle wound healed, 1 more week of unna for edema management. Rx for triamcinolone ointment dispensed to pharmacy will convert to this with ointment and compression stockings. Patient will likely need to continue performing exercise compression elevation for edema management. We will can consider additional work-up if there are any delays in healing, but upon healing I will recommend compression stockings for long-term use daily.
[2021-11-04 09:18] VITALS: BP 137/62; TEMP 36.5
--- NOTE | 2021-11-04 09:38 | PCM.WC.PN ---
History of Present Illness Date of Service: 11/04/21 Progress of Wound: This 81-year-old female presents to clinic for a lateral malleolar ulceration which has been present since June 2021. Patient notes that she sleeps on her right side frequently and ambulates at a minimal function. Patient is diabetic type II and takes Coumadin for A. fib. Patient denies any constitutional symptoms at current note she has been applying daily dressings denies any resolution no other complaints. Patient denies any history of smoking. Patient denies any numbness tingling loss in sensation to her feet. Objective Data Objective Data Vital Signs: Vital Signs Temp Pulse Resp BP O2 Del Method O2 Flow Rate 97.7 F L 86 16 137/62 H Nasal Cannula 2 11/04/21 09:18 10/28/21 08:35 10/28/21 08:35 11/04/21 09:18 10/28/21 08:35 10/28/21 08:35 Oxygen Flow Rate (L/min) 2 Oxygen Delivery Method Nasal Cannula Physical Exam Narrative Patient alert oriented to person place and time. Vascular: Dorsalis pedis posterior tibial pulses palpable 2 out of 4 to bilateral lower extremities. Capillary fill time brisk to all digits. Digital hair growth absent bilaterally. Hemosiderin deposits noted to bilateral foot and ankle. Varicosities noted bilaterally. +1 pitting edema noted around the Levy malleoli region. Neurologic: Light touch protective sensation intact to bilateral feet. Dermatologic: Lateral ankle wound on the right side healed. Wound to posterior Achilles healed. Musculoskeletal: Muscular strength 5 out of 5 bilateral lower extremity compartments no gross deformity contributing to wound formation. No pain with calf squeeze bilaterally. Debridement Note Debridement Note Post-Debridement Measurements and Additional Note: Post-Debridement Measurements/Treatment - Nurse 1 - General Ulcer Assessment Start: 10/14/21 09:05 Freq: Status: Active Protocol: .LOWEXT Activity Type Activity Date Activity User E-sign Co-sign Detail Recorded Client Recorded Date Recorded By Document 10/14/21 09:09 [facility] [id number] 10/14/21 09:26 BM Document 10/21/21 08:52 [facility] [id number] 10/21/21 08:56 BM Document 10/28/21 08:35 [facility] [id number] 10/28/21 08:41 BMF Document 11/04/21 09:18 PA [id number] 11/04/21 09:23 AK 10/14/21 10/21/21 10/28/21 09:09 08:52 08:35 WC - Today's Visit Information Type of service Initial Visit Follow-up Visit Follow-up Visit (Physician/GRADUATE RESEARCH ASSISTANT (Physician/GRADUATE RESEARCH ASSISTANT ) ) Arrival Mode Wheelchair Wheelchair Wheelchair Transfer Assistance None Other Other Transfer Assist (Other) 2 STAND BY 1 assist Accompanied by daughter DAUGHTER daughter Patient Identification Verified (Name & Yes Yes Yes ) Patient Requires Transmission-Based No No No Precautions Vital Signs Temperature (97.8 F-99.1 F) 96.3 F L 97.4 F L 97.2 F L Temperature Source Temporal Temporal Temporal Pulse Rate (60-100) 79 91 86 Pulse Location Monitor Monitor Monitor Respiratory Rate (12-18) 16 18 16 Respiratory rate source Observation Observation Observation Oxygen Delivery Method Nasal Cannula Nasal Cannula Nasal Cannula O2 L/MIN (L/min) 2 2 2 Blood Pressure (90/60-120/80) 129/83 H 119/81 H 117/91 H Blood Pressure Mean (mm Hg) 98 93 99 Source Monitor Monitor Monitor Position Sitting Sitting Sitting Blood Pressure Location Left Arm Left Arm Right Arm History Since Last Visit- (Skip if this is Patient's initial visit) Have you changed medications since your No No last visit? Any new allergies or adverse reactions No No Had a fall/change in ADL's that may No No increase risk of falls Signs or symptoms of abuse and/or No No neglect since last visit Have you been in the hospital since your No No last visit? Has dressing in place as prescribed Yes Yes Has compression in place as prescribed Yes Yes Has offloadiing in place as prescribed N/A N/A Experienced any changes in pain level or No No management Left Footwear Regular Shoe Regular Shoe Regular Shoe Right Footwear Regular Shoe Regular Shoe Regular Shoe Pain Scale: 0-10 Numeric Is Patient Pain Free? Yes Yes Yes Lower Extremity Assessment/ Foot Assessment/ Toe Nail Assessment Right -Posterior Tibial Palpable No -Posterior Tibial Doppler Monophasic -Dorsalis Pedis Palpable Yes -Dorsalis Pedis Doppler Monophasic -Extremity Color Pale -Hair Growth on Legs No -Hair Growth on Toes No -Temperature of Extremity Warm -Other Deformity No -Prior Foot Ulcer No -Charcot Joint No -Prior Amputation No -Thick Yes -Discolored Yes Left -Posterior Tibial Palpable No -Posterior Tibial Doppler Monophasic -Dorsalis Pedis Palpable Yes -Dorsalis Pedis Doppler Monophasic -Extremity Color Pale -Hair Growth on Legs No -Hair Growth on Toes No -Temperature of Extremity Warm -Other Deformity No -Prior Foot Ulcer No -Charcot Joint No -Prior Amputation No -Thick Yes -Discolored Yes -Deformed No -Improper Length & Hygeine No Neuropathy Assessment Feet - Top Side and Bottom <Entered> (a) Communication Assessment Preferred language Slovak Through Operator Required No Able to Read Yes Able to Write Yes Communication Tools None Right Hearing Abillity Normal Left Hearing Abillity Normal Visual Assistive Devices Glasses Teaching Assessment Preferences Verbal,Written, Audio/Visual, Demonstration Barriers to Learning None Readiness To Learn Excellent Willingness to Engage in Self Management High Activies Readiness to Engage in Self Management High Activities Anxiety Level Calm Cooperation Cooperative Perception Coherent Interest in Health Problem Asks Questions Education Importance Acknowledges Need Does Patient Smoke tobacco or other No substances Smoking Status Never smoker Is Patient Diabetic Yes Functional Assessment Recent Decline in Ability to Perform Denies Any Declines Culture/Jehovah'S Witness/Logistics Vice President Cultural/Jehovah'S Witness Needs that may affect Yes: nathaly Treatment Plan Teaching: Wound Center Welcome to the [facility] [place] 11/04/21 09:18 WC - Today's Visit Information Type of service Follow-up Visit (Physician/GRADUATE RESEARCH ASSISTANT ) Arrival Mode Wheelchair Transfer Assistance Transfer Assist (Other) Accompanied by Patient Identification Verified (Name & Yes ) Patient Requires Transmission-Based No Precautions Vital Signs Temperature (97.8 F-99.1 F) 97.7 F L Temperature Source Temporal Pulse Rate (60-100) Pulse Location Respiratory Rate (12-18) Respiratory rate source Oxygen Delivery Method O2 L/MIN (L/min) Blood Pressure (90/60-120/80) 137/62 H Blood Pressure Mean (mm Hg) 87 Source Monitor Position Blood Pressure Location History Since Last Visit- (Skip if this is Patient's initial visit) Have you changed medications since your No last visit? Any new allergies or adverse reactions No Had a fall/change in ADL's that may No increase risk of falls Signs or symptoms of abuse and/or No neglect since last visit Have you been in the hospital since your No last visit? Has dressing in place as prescribed Yes Has compression in place as prescribed Yes Has offloadiing in place as prescribed N/A Experienced any changes in pain level or No management Left Footwear Regular Shoe Right Footwear Regular Shoe Pain Scale: 0-10 Numeric Is Patient Pain Free? Yes Lower Extremity Assessment/ Foot Assessment/ Toe Nail Assessment Right -Posterior Tibial Palpable -Posterior Tibial Doppler -Dorsalis Pedis Palpable -Dorsalis Pedis Doppler -Extremity Color -Hair Growth on Legs -Hair Growth on Toes -Temperature of Extremity -Other Deformity -Prior Foot Ulcer -Charcot Joint -Prior Amputation -Thick -Discolored Left -Posterior Tibial Palpable -Posterior Tibial Doppler -Dorsalis Pedis Palpable -Dorsalis Pedis Doppler -Extremity Color -Hair Growth on Legs -Hair Growth on Toes -Temperature of Extremity -Other Deformity -Prior Foot Ulcer -Charcot Joint -Prior Amputation -Thick -Discolored -Deformed -Improper Length & Hygeine Neuropathy Assessment Feet - Top Side and Bottom Communication Assessment Preferred russian language instructor Required Able to Read Able to Write Communication Tools Right Hearing Abillity Left Hearing Abillity Visual Assistive Devices Teaching Assessment Preferences Barriers to Learning Readiness To Learn Willingness to Engage in Self Management Activies Readiness to Engage in Self Management Activities Anxiety Level Cooperation Perception Interest in Health Problem Education Importance Does Patient Smoke tobacco or other substances Smoking Status Is Patient Diabetic Functional Assessment Recent Decline in Ability to Perform Culture/Jehovah'S Witness/Logistics Vice President Cultural/Jehovah'S Witness Needs that may affect Treatment Plan Teaching: Wound Center Welcome to the W[facility] (a) 1 - + WC - Nurse 1 - General Ulcer Measurement Start: 10/14/21 09:05 Freq: Status: Active Protocol: Activity Type Activity Date Activity User E-sign Co-sign Detail Recorded Client Recorded Date Recorded By Document 10/14/21 09:09 [facility] [id number] 10/14/21 09:26 [facility] Document 10/21/21 08:52 [facility] [id number] 10/21/21 08:56 [facility] Document 10/28/21 08:35 [facility] [id number] 10/28/21 08:41 BM Document 11/04/21 09:18 AK [id number] 11/04/21 09:23 AK 10/14/21 10/21/21 10/28/21 09:09 08:52 08:35 Wound Center Nurse 1 #2- R ACHILLES -Combined with other wound No No No -Current Size (cm) - Length 0.1 0.4 0.1 -Current Size (cm) - Width 2.1 0.7 0.1 -Current Size (cm) - Depth 0.1 0.1 0.1 -Total Square Cm 0.21 0.28 0.01 -Date of Last Picture (Recall this 10/14/21 10/21/21 10/28/21 field) -Photo Taken Yes Yes Yes -Epithelialization None Present None Present Large 67-100% -Tunneling No No -Undermining/Tunneling No No -Circular Undermining No No -Exudate Amt None Present None Present None Present -Wound Margin Distinct, Outline Attached -Granulation Amt None Present (0 None Present (0 %) %) -Slough/Fibrin Yes Yes Yes -Necrosis Amt Large (67-100%) Large (67-100%) Small (1-33%) -Necrotic Tissue Type Eschar Eschar Adherent Slough -Texture (Tonya-wound Skin Appearance) Assessed, Assessed Assessed, Scarring Scarring -Moisture (Tonya-wound Skin Appearance) Assessed Assessed Assessed -Color (Tonya-wound Skin Appearance) Assessed Assessed Assessed -Temperature (Tonya-wound Skin No Abnormality No Abnormality No Abnormality Appearance) (Pt Warm) (Pt Warm) (Pt Warm) -Tenderness on Palpation (Tonya-wound No No No Skin Appearance) -Ulcer Cleansing Rinsed/ Soap and Water Soap and Water Irrigated with Saline -Foul Odor after Cleansing No No No -Anesthetic Used 4% Lidocaine 5% Lidocaine 5% Lidocaine Solution Gel Gel #1- R ANKLE LATERAL -Combined with other wound No No -Current Size (cm) - Length 0.3 0.3 -Current Size (cm) - Width 0.3 0.3 -Current Size (cm) - Depth 0.1 0.1 -Total Square Cm 0.09 0.09 -Date of Last Picture (Recall this 10/14/21 10/21/21 field) -Photo Taken Yes Yes -Epithelialization None Present -Tunneling No No -Undermining/Tunneling No No -Circular Undermining No No -Exudate Amt None Present None Present -Wound Margin Distinct, Outline Attached -Granulation Amt None Present (0 %) -Slough/Fibrin Yes -Necrosis Amt Large (67-100%) -Necrotic Tissue Type Adherent Slough -Texture (Tonya-wound Skin Appearance) Assessed, Assessed Localized Edema -Moisture (Tonya-wound Skin Appearance) Assessed Assessed -Color (Tonya-wound Skin Appearance) Assessed, Assessed, Erythema Erythema -Temperature (Tonya-wound Skin No Abnormality No Abnormality Appearance) (Pt Warm) (Pt Warm) -Tenderness on Palpation (Tonya-wound No No Skin Appearance) -Ulcer Cleansing Rinsed/ Soap and Water Irrigated with Saline -Foul Odor after Cleansing No No -Anesthetic Used 4% Lidocaine 5% Lidocaine Solution Gel Lower Limb Edema Present Yes Right Calf (cm) 33.1 32.9 Right Ankle (cm) 20.8 21.6 Left Calf (cm) 32.2 32.2 Left Ankle (cm) 20.5 20.4 11/04/21 09:18 Wound Center Nurse 1 #2- R ACHILLES -Combined with other wound -Current Size (cm) - Length -Current Size (cm) - Width -Current Size (cm) - Depth -Total Square Cm -Date of Last Picture (Recall this field) -Photo Taken -Epithelialization -Tunneling -Undermining/Tunneling -Circular Undermining -Exudate Amt -Wound Margin -Granulation Amt -Slough/Fibrin -Necrosis Amt -Necrotic Tissue Type -Texture (Tonya-wound Skin Appearance) -Moisture (Tonya-wound Skin Appearance) -Color (Tonya-wound Skin Appearance) -Temperature (Tonya-wound Skin Appearance) -Tenderness on Palpation (Tonya-wound Skin Appearance) -Ulcer Cleansing -Foul Odor after Cleansing -Anesthetic Used #1- R ANKLE LATERAL -Combined with other wound -Current Size (cm) - Length -Current Size (cm) - Width -Current Size (cm) - Depth -Total Square Cm -Date of Last Picture (Recall this field) -Photo Taken -Epithelialization -Tunneling -Undermining/Tunneling -Circular Undermining -Exudate Amt -Wound Margin -Granulation Amt -Slough/Fibrin -Necrosis Amt -Necrotic Tissue Type -Texture (Tonya-wound Skin Appearance) -Moisture (Tonya-wound Skin Appearance) -Color (Tonya-wound Skin Appearance) -Temperature (Tonya-wound Skin Appearance) -Tenderness on Palpation (Tonya-wound Skin Appearance) -Ulcer Cleansing -Foul Odor after Cleansing -Anesthetic Used Lower Limb Edema Present No Right Calf (cm) 32 Right Ankle (cm) 20 Left Calf (cm) Left Ankle (cm) WC - Nurse 2 - General Ulcer CM Notes Start: 10/14/21 09:05 Freq: Status: Active Protocol: Activity Type Activity Date Activity User E-sign Co-sign Detail Recorded Client Recorded Date Recorded By Document 10/14/21 09:38 MW [id number] 10/14/21 09:44 MW Document 10/21/21 09:11 JF [id number] 10/21/21 09:14 JF Document 10/28/21 09:16 [id number] 10/28/21 09:18 JF Document 11/04/21 09:37 [id number] 11/04/21 09:37 JF 10/14/21 10/21/21 10/28/21 09:38 09:11 09:16 Wound Center Nurse 2 #2- R ACHILLES -Time 09:38 -Correct Patient Yes No No -Correct Side, Site, Position Yes No No -Correct Procedure Yes No No -Procedure Performed No No No -Post Debridement (cm) - Length 0 -Post Debridement (cm) - Width 0 -Post Debridement (cm) - Depth 0 -Total Square (Post) (cm) 0 -Area of Debridement (cm) - Length 0 -Area of Debridement (cm) - Width 0 -Total Square (Area) (cm) 0 -Wound/Ulcer Outcome Not Healed Not Healed Healed- Epithelialized -Ulcer Cleansing Rinsed/ Irrigated with Saline -Foul Odor after Cleansing No -Bioengineered Tissue No #1- R ANKLE LATERAL -Time 09:42 -Correct Patient Yes No -Correct Side, Site, Position Yes No -Correct Procedure Yes No -Procedure Performed Yes No -Type of Procedure Debridement -Clinical Debridement Subcutaneous -Tissue Removed Subcutaneous -Post Debridement (cm) - Length 0.3 0 -Post Debridement (cm) - Width 0.3 0 -Post Debridement (cm) - Depth 0.1 0 -Total Square (Post) (cm) 0.09 0 -Area of Debridement (cm) - Length 0.3 0 -Area of Debridement (cm) - Width 0.3 0 -Total Square (Area) (cm) 0.09 0 -Tunneling No -Undermining/Tunneling No -Circular Undermining No -Wound/Ulcer Outcome Not Healed Healed- Epithelialized -Ulcer Cleansing Rinsed/ Irrigated with Saline -Foul Odor after Cleansing No -Bioengineered Tissue No -Bleeding Controlled with Pressure -Treatment Response Procedure Tolerated Well -Offloading No -Debridement - Subq, 1st 20sq cm Yes Pain Scale: 0-10 Numeric Is Patient Pain Free? Yes Yes Yes 11/04/21 09:37 Wound Center Nurse 2 #2- R ACHILLES -Time -Correct Patient -Correct Side, Site, Position -Correct Procedure -Procedure Performed -Post Debridement (cm) - Length -Post Debridement (cm) - Width -Post Debridement (cm) - Depth -Total Square (Post) (cm) -Area of Debridement (cm) - Length -Area of Debridement (cm) - Width -Total Square (Area) (cm) -Wound/Ulcer Outcome -Ulcer Cleansing -Foul Odor after Cleansing -Bioengineered Tissue #1- R ANKLE LATERAL -Time -Correct Patient -Correct Side, Site, Position -Correct Procedure -Procedure Performed -Type of Procedure -Clinical Debridement -Tissue Removed -Post Debridement (cm) - Length -Post Debridement (cm) - Width -Post Debridement (cm) - Depth -Total Square (Post) (cm) -Area of Debridement (cm) - Length -Area of Debridement (cm) - Width -Total Square (Area) (cm) -Tunneling -Undermining/Tunneling -Circular Undermining -Wound/Ulcer Outcome -Ulcer Cleansing -Foul Odor after Cleansing -Bioengineered Tissue -Bleeding Controlled with -Treatment Response -Offloading -Debridement - Subq, 1st 20sq cm Pain Scale: 0-10 Numeric Is Patient Pain Free? Yes - Nurse 3 - General Ulcer D/C NN Start: 10/14/21 09:05 Freq: Status: Active Protocol: Activity Type Activity Date Activity User E-sign Co-sign Detail Recorded Client Recorded Date Recorded By Document 10/14/21 10:04 [facility] [id number] 10/14/21 10:04 [facility] Document 10/21/21 09:23 [facility] [id number] 10/21/21 09:24 [facility] Document 10/28/21 09:30 [facility] [id number] 10/28/21 09:32 BM 0710/21/21 10/28/21 10:04 09:23 09:30 Wound Care Nurse 3 #2- R ACHILLES -Ulcer Cleansing Rinsed/ Rinsed/ Irrigated with Irrigated with Saline Saline -Foul Odor after Cleansing No No -Primary Dressing Applied Other Other -Other Dressing UNNA BOOT UNNA BOOT PER MW RN #1- R ANKLE LATERAL -Ulcer Cleansing Rinsed/ Irrigated with Saline -Foul Odor after Cleansing No -Other Dressing UNNA BOOT Right -Multi-Layered Wrap Application Unna Boot - Unna Boot - Unna Boot - Right ($) Right ($) Right ($) -Compression Wrap Unna Boot ($) ( Unna Boot ($) ( single) single) -Other UNNA PER MW RN Treatment Response Procedure Procedure Procedure Tolerated Well Tolerated Well Tolerated Well Pain Scale: 0-10 Numeric Is Patient Pain Free? Yes Yes Yes WC - Visit Discharge Discharge Condition Stable Stable Stable Ambulatory Status Wheelchair Wheelchair Wheelchair Transportation Private Auto Private Auto Private Auto Accompanied by SHERICE DAUGHTER daughter Assessment/Plan Assessment/Plan (1) Venous insufficiency (chronic) (peripheral): CODE(S): I87.2 - Venous insufficiency (chronic) (peripheral) (2) Non-pressure chronic ulcer of right ankle with fat layer exposed: CODE(S): L97.312 - Non-pressure chronic ulcer of right ankle with fat layer exposed PLAN: Patient examined evaluated, all findings nolan with patient in detail. Wounds healed at this time. Some residual dermatitis to lateral malleolus. Patient will apply triamcinolone ointment daily. Patient will continue compression elevation exercise for edema management. Patient awaiting custom compression stockings she was dispensed Tubigrip today for edema management. Patient will follow up in 4 weeks as an outpatient.
== END 2021-11-04 13:58 | disposition home or self-care (01) ==
LOC: WC 09:15
PROVIDERS: PCP Nurse Practitioner Family; Visit Provider Podiatrist
DX: E11.622 Type 2 diabetes mellitus with other skin ulcer (principal); L97.312 Non-pressure chronic ulcer of right ankle with fat layer exposed; I11.0 Hypertensive heart disease with heart failure; I50.42 Chronic combined systolic (congestive) and diastolic (congestive) heart failure; I87.2 Venous insufficiency (chronic) (peripheral); I48.11 Longstanding persistent atrial fibrillation; I27.29 Other secondary pulmonary hypertension; I42.8 Other cardiomyopathies; I25.10 Atherosclerotic heart disease of native coronary artery without angina pectoris; E78.5 Hyperlipidemia, unspecified; E03.9 Hypothyroidism, unspecified; E66.9 Obesity, unspecified; Z79.4 Long term (current) use of insulin; Z79.01 Long term (current) use of anticoagulants; Z79.890 Hormone replacement therapy; Z79.899 Other long term (current) drug therapy; Z86.73 Personal history of transient ischemic attack (TIA), and cerebral infarction without residual deficits; Z95.5 Presence of coronary angioplasty implant and graft
CPT/HCPCS: 11042; 29580; 73630; 99213; G0463

== ENCOUNTER → 2021-11-04 | Outpatient (CLI) | payer OTHER, SELFPAY ==
[2021-11-04 11:27] LABS: Anion Gap 9 (5-15); BUN 56 mg/dL (7-18); BUN/Creat Ratio 36.1 RATIO (10-20); Calcium,Total 10.4 mg/dL (8.5-10.1); Chloride 100 mmol/L (98-107); Creatinine, Serum 1.55 mg/dL (0.55-1.02); EST Glomerular Filtration Rate 34 mL/min (>60); Est Glom Filt Rate - Afr Amer 42 mL/min (>60); Glucose 257 mg/dL (74-106); Potassium 4.5 mmol/L (3.5-5.1); Sodium Level 134 mmol/L (136-145); Thyroid Stim Hormone (TSH) 6.68 uIU/mL (0.358-3.74)
== END | disposition home or self-care (01) ==
LOC: LAB 09:58
PROVIDERS: PCP Nurse Practitioner Family; Referring Provider Internal Medicine Cardiovascular Disease; Visit Provider Internal Medicine Cardiovascular Disease
DX: R06.00 Dyspnea, unspecified (principal)
CPT/HCPCS: 36415; 80048; 84443

== ENCOUNTER 2021-12-10 07:32 | Outpatient (RCR) | payer OTHER, SELFPAY ==
[2021-11-09 03:11] VITALS: BMI 38.2
[2021-11-13 17:52] LABS: International Normalized Ratio 2.6; Prothrombin Time (Protime)PT. 27.6 SECONDS (11.7-14.9)
[2021-12-10 08:25] LABS: T4 Free Direct 0.94 ng/dL (0.76-1.46); Thyroid Stim Hormone (TSH) 3.04 uIU/mL (0.358-3.74)
[2021-12-10 08:50] LABS: International Normalized Ratio 2.3
== END 2021-12-10 18:00 | disposition home or self-care (01) ==
LOC: LAB 07:32
PROVIDERS: Nurse Practitioner Family; Family Provider Family Medicine; PCP Nurse Practitioner Family; Referring Provider Internal Medicine Cardiovascular Disease; Visit Provider Internal Medicine Cardiovascular Disease
DX: I48.11 Longstanding persistent atrial fibrillation (principal); Z79.01 Long term (current) use of anticoagulants
CPT/HCPCS: 36415; 84439; 84443; 85610

== ENCOUNTER 2022-01-08 08:34 | Outpatient (RCR) | payer OTHER, SELFPAY ==
[2021-12-11 00:25] VITALS: BMI 38.2
[2022-01-08 09:26] LABS: International Normalized Ratio 2.2; Prothrombin Time (Protime)PT. 24.4 SECONDS (11.7-14.9)
== END 2022-01-08 18:00 | disposition home or self-care (01) ==
LOC: LAB 08:34
PROVIDERS: Family Provider Family Medicine; PCP Nurse Practitioner Family; Referring Provider Internal Medicine Cardiovascular Disease; Visit Provider Internal Medicine Cardiovascular Disease
DX: I48.11 Longstanding persistent atrial fibrillation (principal); Z79.01 Long term (current) use of anticoagulants
CPT/HCPCS: 36415; 85610

== ENCOUNTER 2022-02-05 08:04 | Outpatient (RCR) | payer OTHER, SELFPAY ==
[2022-01-09 23:33] VITALS: BMI 38.2
[2022-02-05 09:19] LABS: International Normalized Ratio 1.6; Prothrombin Time (Protime)PT. 18.4 SECONDS (11.7-14.9)
[2022-02-05 09:38] LABS: T4 Free Direct 0.92 ng/dL (0.76-1.46); Thyroid Stim Hormone (TSH) 3.71 uIU/mL (0.358-3.74)
== END 2022-02-05 18:00 | disposition home or self-care (01) ==
LOC: LAB 08:04
PROVIDERS: Nurse Practitioner Family; Family Provider Family Medicine; PCP Nurse Practitioner Family; Referring Provider Internal Medicine Cardiovascular Disease; Visit Provider Internal Medicine Cardiovascular Disease
DX: I48.11 Longstanding persistent atrial fibrillation (principal); Z79.01 Long term (current) use of anticoagulants
CPT/HCPCS: 36415; 84439; 84443; 85610

== ENCOUNTER 2022-02-25 10:48 | Outpatient (CLI) | payer SELFPAY, OTHER ==
--- NOTE | 2022-02-25 10:50 | ECHOD_ITS ---
Version 2 Reason For Study: VALVE REPLACEMENT Procedure This was a 2D Doppler, Color Flow transthoracic echocardiogram. Exam performed in department. Left Ventricle Normal LV size. The estimated ejection fraction is 20 %. Severe segmental systolic dysfunction (see wall motion). [place] : Akinetic. Mid-inferoseptal : Akinetic. Posterior-Basal: Normal. Mid-Lateral : Normal. Lateral-Basal: Normal. The rest of the wall segments are hypokinetic. Right Ventricle Normal RV size. Mild global right ventricular systolic dysfunction. Atria The left atrium is moderately enlarged. The right atrium is mildly enlarged. Mitral Valve Stable appearing bioprosthetic mitral valve apparatus. Tricuspid Valve Normal tricuspid valve. Mild to moderate (1-2+) tricuspid valve insufficiency. Aortic Valve Trisinus/trileaflet aortic valve. Pulmonic Valve Normal pulmonic valve. Great Vessels Normal aortic root. The pulmonary artery is normal size. Normal inferior vena cava. Pericardium/Pleural No pericardial effusion. MMode/2D Measurements & Calculations LVIDd: 5.1 cm IVSd: 1.3 cm LVOT diam: 2.0 cm LVIDs: 4.2 cm LVPWd: 1.0 cm LVOT area: 3.2 cm2 FS: 18.6 % Ao root diam: 3.6 cm LAV(MOD-sp4): 159.9 ml LVAd ap4: 27.3 cm2 LVLd ap4: 7.6 cm EDV(MOD-sp4): 81.4 ml EDV(sp4-el): 83.4 ml LVAs ap4: 20.7 cm2 LVLs ap4: 7.3 cm ESV(MOD-sp4): 49.2 ml ESV(sp4-el): 49.8 ml EF(MOD-sp4): 39.6 % EF(sp4-el): 40.2 % SV(MOD-sp4): 32.2 ml SV(sp4-el): 33.5 ml LA A4 area: 39.1 cm2 LA dimension(2D): 5.3 cm RA A4 area: 26.1 cm2 Doppler Measurements & Calculations MV E max kvng: 191.3 cm/sec MV V2 max: 156.5 cm/sec Ao V2 max: 148.8 cm/sec MV max P.9 mmHg Ao max P.0 mmHg MV V2 mean: 86.1 cm/sec Ao V2 mean: 105.3 cm/sec MV mean P.6 mmHg Ao mean P.1 mmHg MV V2 VTI: 40.1 cm Ao V2 VTI: 24.5 cm MVA(VTI): 1.9 cm2 ARETHA(I,D): 3.2 cm2 ARETHA(V,D): 2.8 cm2 LV V1 max: 129.6 cm/sec SV(LVOT): 77.3 ml PA V2 max: 84.2 cm/sec LV V1 max P.7 mmHg LV V1 mean P.3 mmHg LV V1 mean: 82.1 cm/sec LV V1 VTI: 24.0 cm TR max kvng: 328.9 cm/sec TR max P.3 mmHg ECHO/Echo Complete Interpretation Summary Normal LV size. The estimated ejection fraction is 20 %. Severe segmental systolic dysfunction (see wall motion). Mild to moderate (1-2+) tricuspid valve insufficiency. Stable appearing bioprosthetic mitral valve apparatus. Compared to previous study, the left ventricular systolic function is the same. . Ordering Physician: Jose Lee Performed By: Lyubov Barrios RCS
== END 2022-02-25 23:59 | disposition home or self-care (01) ==
LOC: CVS 10:49
PROVIDERS: PCP Nurse Practitioner Family; Visit Provider Internal Medicine Cardiovascular Disease
DX: Z95.3 Presence of xenogenic heart valve (principal)
CPT/HCPCS: 93306

== ENCOUNTER 2022-03-06 08:09 | Outpatient (RCR) | payer OTHER, SELFPAY ==
[2022-02-10 10:21] VITALS: BMI 38.2
[2022-02-18 10:43] LABS: International Normalized Ratio 1.8; Prothrombin Time (Protime)PT. 20.5 SECONDS (11.7-14.9)
[2022-03-06 08:53] LABS: ALB/GLOB Ratio 0.9 RATIO (0.9-2.4); AST(SGOT) 42 U/L (15-37); Alanine Aminotransfer ALT/SGPT 43 U/L (13-56); Albumin, Serum 3.8 g/dL (3.2-5.0); Alkaline Phosphatase 61 U/L (45-117); Anion Gap 6 (5-15); BUN 38 mg/dL (7-18); BUN/Creat Ratio 30.2 RATIO (10-20); Calcium,Total 9.2 mg/dL (8.5-10.1); Chloride 106 mmol/L (98-107); Creatinine, Serum 1.26 mg/dL (0.55-1.02); EST Glomerular Filtration Rate 44 mL/min (>60); Est Glom Filt Rate - Afr Amer 53 mL/min (>60); Globulin 4.4 g/dL (2.2-4.2); Glucose 173 mg/dL (74-106); Potassium 3.8 mmol/L (3.5-5.1); Protein, Total 8.2 g/dL (6.4-8.2); Sodium Level 138 mmol/L (136-145)
[2022-03-06 08:54] LABS: International Normalized Ratio 1.7; Prothrombin Time (Protime)PT. 19.4 SECONDS (11.7-14.9)
== END 2022-03-11 18:00 | disposition home or self-care (01) ==
LOC: LAB 08:09
PROVIDERS: Nurse Practitioner Family; Family Provider Family Medicine; PCP Nurse Practitioner Family; Referring Provider Internal Medicine Cardiovascular Disease; Visit Provider Internal Medicine Cardiovascular Disease
DX: I48.11 Longstanding persistent atrial fibrillation (principal); Z79.01 Long term (current) use of anticoagulants; E11.9 Type 2 diabetes mellitus without complications
CPT/HCPCS: 36415; 80053; 85610

== ENCOUNTER 2022-04-08 15:07 | Outpatient (RCR) | payer OTHER, SELFPAY ==
[2022-03-12 01:31] VITALS: BMI 38.2
[2022-03-30 15:41] LABS: Absolute Lymphocyte Count 1.26 X10^3/uL (0.83-4.51); Absolute Neutrophil Count 6.2 X10^3/uL (2.0-7.7); Basophil# 0.02 X10^3/uL; Basophil% 0.2 % (0-1); Eosinophil# 0.17 X10^3/uL; Hematocrit 38.8 % (37-47); Hemoglobin 12.2 g/dL (12.0-15.0); Lymphocyte # 1.26 X10^3/ul (0.83-4.51); Lymphocyte % 14.9 % (19-41); Mean Corp Hgb Conc 31.4 g/dL (32-36); Mean Corpuscular Hgb 30.3 pg (27.0-32.0); Mean Corpuscular Volume 96.5 fL (81-99); Mean Platelet Vol. 12.6 fl (6.2-12.0); Monocyte# 0.78 X10^3/uL; Monocyte% 9.3 % (0-10); NRBC Flagged by Analyzer 0 % (0-5); Neutrophil # 6.16 X10^3/uL (2.7-7.7); Neutrophil % 73.1 % (47-70); Platelet Count 215 K/mm3 (150-450); RBC Distribution Width CV 14.7 % (11.6-14.6); RBC Distribution Width SD 52.2 fl (35.1-43.9); Red Blood Count 4.02 M/mm3 (4.2-5.4); White Blood Count 8.4 K/mm3 (4.4-11.0)
[2022-03-30 15:53] LABS: International Normalized Ratio 1.2; Prothrombin Time (Protime)PT. 15.2 SECONDS (11.7-14.9)
[2022-03-30 15:56] LABS: AST(SGOT) 29 U/L (15-37); Alanine Aminotransfer ALT/SGPT 20 U/L (13-56); Albumin, Serum 3.3 g/dL (3.2-5.0); Alkaline Phosphatase 71 U/L (45-117); Anion Gap 7 (5-15); BUN 25 mg/dL (7-18); BUN/Creat Ratio 23.4 RATIO (10-20); Bilirubin, Direct 0.48 mg/dL (0.00-0.30); Chloride 103 mmol/L (98-107); Cholesterol 123 mg/dL (200); Creatinine, Serum 1.07 mg/dL (0.55-1.02); EST Glomerular Filtration Rate 53 mL/min (>60); Est Glom Filt Rate - Afr Amer 64 mL/min (>60); Globulin 4.8 g/dL (2.2-4.2); Glucose 137 mg/dL (74-106); High Density Lipoprotein 37 mg/dL; Potassium 3.7 mmol/L (3.5-5.1); Protein, Total 8.1 g/dL (6.4-8.2); Sodium Level 139 mmol/L (136-145); Triglycerides 138 mg/dL; Very Low Density Lipoprotein 28 mg/dL (5-40)
[2022-04-08 15:31] LABS: International Normalized Ratio 1.5; Prothrombin Time (Protime)PT. 17.9 SECONDS (11.7-14.9)
== END 2022-04-08 18:00 | disposition home or self-care (01) ==
LOC: LAB 15:07
PROVIDERS: Family Provider Family Medicine; PCP Nurse Practitioner Family; Referring Provider Internal Medicine Cardiovascular Disease; Visit Provider Internal Medicine Cardiovascular Disease
DX: I48.11 Longstanding persistent atrial fibrillation (principal); Z79.01 Long term (current) use of anticoagulants; I50.42 Chronic combined systolic (congestive) and diastolic (congestive) heart failure; N18.30 Chronic kidney disease, stage 3 unspecified; E78.00 Pure hypercholesterolemia, unspecified; R58 Hemorrhage, not elsewhere classified
CPT/HCPCS: 36415; 80048; 80061; 80076; 85025; 85610

== ENCOUNTER 2022-04-20 14:42 | Outpatient (RCR) | payer OTHER, SELFPAY ==
[2022-04-12 05:30] VITALS: BMI 38.2
[2022-04-20 16:54] LABS: International Normalized Ratio 1.9; Prothrombin Time (Protime)PT. 21.2 SECONDS (11.7-14.9)
== END 2022-04-20 16:00 | disposition home or self-care (01) ==
LOC: LAB 14:42
PROVIDERS: Family Provider Family Medicine; PCP Nurse Practitioner Family; Referring Provider Internal Medicine Cardiovascular Disease; Visit Provider Internal Medicine Cardiovascular Disease
DX: I48.11 Longstanding persistent atrial fibrillation (principal); Z79.01 Long term (current) use of anticoagulants
CPT/HCPCS: 36415; 85610

== ENCOUNTER 2022-06-04 16:41 | Outpatient (RCR) | payer OTHER, SELFPAY ==
[2022-05-13 08:33] VITALS: BMI 38.2
[2022-05-20 17:19] LABS: International Normalized Ratio 1.6; Prothrombin Time (Protime)PT. 18.3 SECONDS (11.7-14.9)
[2022-05-27 11:08] LABS: International Normalized Ratio 1.6
[2022-06-04 17:29] LABS: International Normalized Ratio 1.7; Prothrombin Time (Protime)PT. 19.8 SECONDS (11.7-14.9)
== END 2022-06-04 18:00 | disposition home or self-care (01) ==
LOC: LAB 16:41
PROVIDERS: Family Provider Family Medicine; PCP Nurse Practitioner Family; Referring Provider Internal Medicine Cardiovascular Disease; Visit Provider Internal Medicine Cardiovascular Disease
DX: I48.11 Longstanding persistent atrial fibrillation (principal); Z79.01 Long term (current) use of anticoagulants
CPT/HCPCS: 36415; 85610

== ENCOUNTER 2022-07-08 08:20 | Outpatient (RCR) | payer OTHER, SELFPAY ==
[2022-06-09 22:53] VITALS: BMI 38.2
[2022-06-10 16:59] LABS: International Normalized Ratio 1.9; Prothrombin Time (Protime)PT. 21.6 SECONDS (11.7-14.9)
[2022-06-25 08:29] LABS: International Normalized Ratio 2.1
[2022-07-08 09:30] LABS: International Normalized Ratio 2.2; Prothrombin Time (Protime)PT. 23.8 SECONDS (11.7-14.9)
== END 2022-07-10 21:15 | disposition home or self-care (01) ==
LOC: LAB 08:20
PROVIDERS: Internal Medicine Cardiovascular Disease; Family Provider Family Medicine; PCP Nurse Practitioner Family; Referring Provider Internal Medicine Cardiovascular Disease; Visit Provider Internal Medicine Cardiovascular Disease
DX: I48.11 Longstanding persistent atrial fibrillation (principal); Z79.01 Long term (current) use of anticoagulants
CPT/HCPCS: 36415; 85610

== ENCOUNTER 2022-07-29 08:05 | Outpatient (RCR) | payer OTHER, SELFPAY ==
[2022-07-10 21:15] VITALS: BMI 38.2
[2022-07-29 08:37] LABS: International Normalized Ratio 2.1; Prothrombin Time (Protime)PT. 23.3 SECONDS (11.7-14.9)
[2022-07-29 09:03] LABS: T4 Free Direct 0.93 ng/dL (0.76-1.46); Thyroid Stim Hormone (TSH) 2.03 uIU/mL (0.358-3.74)
== END 2022-08-09 02:21 | disposition home or self-care (01) ==
LOC: LAB 08:05
PROVIDERS: Nurse Practitioner Family; Family Provider Family Medicine; PCP Nurse Practitioner Family; Referring Provider Internal Medicine Cardiovascular Disease; Visit Provider Internal Medicine Cardiovascular Disease
DX: I48.11 Longstanding persistent atrial fibrillation (principal); Z79.01 Long term (current) use of anticoagulants; E03.9 Hypothyroidism, unspecified
CPT/HCPCS: 36415; 84439; 84443; 85610

== ENCOUNTER 2022-08-25 08:54 | Outpatient (RCR) | payer OTHER, SELFPAY ==
[2022-08-09 02:21] VITALS: BMI 38.2
[2022-08-25 10:03] LABS: International Normalized Ratio 1.8
== END 2022-08-25 10:00 | disposition home or self-care (01) ==
LOC: LAB 08:54
PROVIDERS: Family Provider Family Medicine; PCP Nurse Practitioner Family; Referring Provider Internal Medicine Cardiovascular Disease; Visit Provider Internal Medicine Cardiovascular Disease
DX: I48.11 Longstanding persistent atrial fibrillation (principal); Z79.01 Long term (current) use of anticoagulants
CPT/HCPCS: 36415; 85610

== ENCOUNTER 2022-09-24 08:03 | Outpatient (RCR) | payer OTHER, SELFPAY ==
[2022-09-10 08:24] VITALS: BMI 38.2
[2022-09-24 08:43] LABS: International Normalized Ratio 2.8; Prothrombin Time (Protime)PT. 29.8 SECONDS (11.7-14.9)
== END 2022-09-24 18:00 | disposition home or self-care (01) ==
LOC: LAB 08:03
PROVIDERS: Family Provider Family Medicine; PCP Nurse Practitioner Family; Referring Provider Internal Medicine Cardiovascular Disease; Visit Provider Internal Medicine Cardiovascular Disease
DX: I48.11 Longstanding persistent atrial fibrillation (principal); Z79.01 Long term (current) use of anticoagulants
CPT/HCPCS: 36415; 85610

== ENCOUNTER 2022-10-20 13:35 | Outpatient (RCR) | payer OTHER, SELFPAY ==
[2022-10-10 01:42] VITALS: BMI 38.2
[2022-10-20 15:33] LABS: International Normalized Ratio 2.7; Prothrombin Time (Protime)PT. 29.3 SECONDS (11.7-14.9)
== END 2022-11-09 18:00 | disposition home or self-care (01) ==
LOC: LAB 13:35
PROVIDERS: Family Provider Family Medicine; PCP Nurse Practitioner Family; Referring Provider Internal Medicine Cardiovascular Disease; Visit Provider Internal Medicine Cardiovascular Disease
DX: I48.11 Longstanding persistent atrial fibrillation (principal); Z79.01 Long term (current) use of anticoagulants
CPT/HCPCS: 36415; 85610

== ENCOUNTER 2022-11-17 13:05 | Outpatient (RCR) | payer OTHER, SELFPAY ==
[2022-11-10 01:49] VITALS: BMI 38.2
[2022-11-17 14:29] LABS: International Normalized Ratio 2.5; Prothrombin Time (Protime)PT. 27.1 SECONDS (11.7-14.9)
== END 2022-11-17 18:00 | disposition home or self-care (01) ==
LOC: LAB 13:05
PROVIDERS: Family Provider Family Medicine; PCP Nurse Practitioner Family; Referring Provider Internal Medicine Cardiovascular Disease; Visit Provider Internal Medicine Cardiovascular Disease
DX: I48.11 Longstanding persistent atrial fibrillation (principal); Z79.01 Long term (current) use of anticoagulants
CPT/HCPCS: 36415; 85610

== ENCOUNTER 2023-01-01 09:17 | Outpatient (RCR) | payer OTHER, SELFPAY ==
[2022-12-10 23:40] VITALS: BMI 38.2
[2023-01-01 10:32] LABS: International Normalized Ratio 1.9; Prothrombin Time (Protime)PT. 21.9 SECONDS (11.7-14.9)
[2023-01-01 10:43] LABS: AST(SGOT) 30 U/L (15-37); Alanine Aminotransfer ALT/SGPT 37 U/L (13-56); Alkaline Phosphatase 64 U/L (45-117); Cholesterol 125 mg/dL (200); Globulin 4.1 g/dL (2.2-4.2); High Density Lipoprotein 39 mg/dL; Protein, Total 8.1 g/dL (6.4-8.2); Triglycerides 169 mg/dL; Very Low Density Lipoprotein 34 mg/dL (5-40)
== END 2023-01-01 18:00 | disposition home or self-care (01) ==
LOC: LAB 09:17
PROVIDERS: Family Provider Family Medicine; PCP Nurse Practitioner Family; Referring Provider Internal Medicine Cardiovascular Disease; Visit Provider Internal Medicine Cardiovascular Disease
DX: I48.11 Longstanding persistent atrial fibrillation (principal); Z79.01 Long term (current) use of anticoagulants
CPT/HCPCS: 36415; 80061; 80076; 85610

== ENCOUNTER 2023-01-28 10:07 | Outpatient (RCR) | payer OTHER, SELFPAY ==
[2023-01-10 04:25] VITALS: BMI 38.2
[2023-01-28 11:07] LABS: International Normalized Ratio 2.2; Prothrombin Time (Protime)PT. 24.6 SECONDS (11.7-14.9)
== END 2023-01-28 18:00 | disposition home or self-care (01) ==
LOC: LAB 10:07
PROVIDERS: Family Provider Family Medicine; PCP Nurse Practitioner Family; Referring Provider Internal Medicine Cardiovascular Disease; Visit Provider Internal Medicine Cardiovascular Disease
DX: I48.11 Longstanding persistent atrial fibrillation (principal); Z79.01 Long term (current) use of anticoagulants
CPT/HCPCS: 36415; 85610

== ENCOUNTER 2023-02-24 08:03 | Outpatient (RCR) | payer OTHER, SELFPAY ==
[2023-02-09 22:46] VITALS: BMI 38.2
[2023-02-24 09:22] LABS: Prothrombin Time (Protime)PT. 22.6 SECONDS (11.7-14.9)
== END 2023-03-11 18:00 | disposition home or self-care (01) ==
LOC: LAB 08:03
PROVIDERS: Family Provider Family Medicine; PCP Nurse Practitioner Family; Referring Provider Internal Medicine Cardiovascular Disease; Visit Provider Internal Medicine Cardiovascular Disease
DX: I48.11 Longstanding persistent atrial fibrillation (principal); Z79.01 Long term (current) use of anticoagulants
CPT/HCPCS: 36415; 85610

== ENCOUNTER 2023-04-01 09:16 | Outpatient (RCR) | payer OTHER, SELFPAY ==
[2023-03-12 04:05] VITALS: BMI 38.2
[2023-04-01 09:48] LABS: International Normalized Ratio 2.3; Prothrombin Time (Protime)PT. 25.9 SECONDS (11.7-14.9)
== END 2023-04-11 18:00 | disposition home or self-care (01) ==
LOC: LAB 09:16
PROVIDERS: Family Provider Family Medicine; PCP Nurse Practitioner Family; Referring Provider Internal Medicine Cardiovascular Disease; Visit Provider Internal Medicine Cardiovascular Disease
DX: I48.11 Longstanding persistent atrial fibrillation (principal); Z79.01 Long term (current) use of anticoagulants
CPT/HCPCS: 36415; 85610

== ENCOUNTER 2023-05-11 08:58 | Outpatient (RCR) | payer OTHER, SELFPAY ==
[2023-04-11 23:24] VITALS: BMI 38.2
[2023-05-11 10:17] LABS: Prothrombin Time (Protime)PT. 22.8 SECONDS (11.7-14.9)
[2023-05-11 11:16] LABS: AST(SGOT) 39 U/L (15-37); Alanine Aminotransfer ALT/SGPT 45 U/L (13-56); Albumin, Serum 4.1 g/dL (3.2-5.0); Alkaline Phosphatase 59 U/L (45-117); Bilirubin, Direct 0.16 mg/dL (0.00-0.30); Cholesterol 161 mg/dL (200); Globulin 4.1 g/dL (2.2-4.2); High Density Lipoprotein 43 mg/dL; Protein, Total 8.2 g/dL (6.4-8.2); Triglycerides 257 mg/dL; Very Low Density Lipoprotein 51 mg/dL (5-40)
== END 2023-05-11 18:00 | disposition home or self-care (01) ==
LOC: LAB 08:58
PROVIDERS: Family Provider Family Medicine; PCP Nurse Practitioner Family; Referring Provider Internal Medicine Cardiovascular Disease; Visit Provider Internal Medicine Cardiovascular Disease
DX: I48.11 Longstanding persistent atrial fibrillation (principal); Z79.01 Long term (current) use of anticoagulants; E78.00 Pure hypercholesterolemia, unspecified; I25.10 Atherosclerotic heart disease of native coronary artery without angina pectoris
CPT/HCPCS: 36415; 80061; 80076; 85610

== ENCOUNTER 2023-06-10 08:44 | Outpatient (RCR) | payer OTHER, SELFPAY ==
[2023-05-12 22:53] VITALS: BMI 38.2
[2023-06-10 10:07] LABS: Prothrombin Time (Protime)PT. 22.9 SECONDS (11.7-14.9)
[2023-06-10 10:44] LABS: AST(SGOT) 36 U/L (15-37); Alanine Aminotransfer ALT/SGPT 41 U/L (13-56); Albumin, Serum 4.1 g/dL (3.2-5.0); Alkaline Phosphatase 56 U/L (45-117); Anion Gap 5 (5-15); BUN 32 mg/dL (7-18); BUN/Creat Ratio 29.1 RATIO (10-20); Chloride 108 mmol/L (98-107); EST Glomerular Filtration Rate 51 mL/min (>60); Est Glom Filt Rate - Afr Amer 61 mL/min (>60); Globulin 4.2 g/dL (2.2-4.2); Glucose 144 mg/dL (74-106); Potassium 3.8 mmol/L (3.5-5.1); Protein, Total 8.3 g/dL (6.4-8.2); Sodium Level 139 mmol/L (136-145); T4 Free Direct 0.99 ng/dL (0.76-1.46); Thyroid Stim Hormone (TSH) 2.32 uIU/mL (0.358-3.74)
== END 2023-06-10 18:00 | disposition home or self-care (01) ==
LOC: LAB 08:44
PROVIDERS: Nurse Practitioner Family; Family Provider Family Medicine; PCP Nurse Practitioner Family; Referring Provider Internal Medicine Cardiovascular Disease; Visit Provider Internal Medicine Cardiovascular Disease
DX: I48.11 Longstanding persistent atrial fibrillation (principal); Z79.01 Long term (current) use of anticoagulants; E03.9 Hypothyroidism, unspecified; E11.9 Type 2 diabetes mellitus without complications
CPT/HCPCS: 36415; 80053; 84439; 84443; 85610

== ENCOUNTER 2023-07-06 08:35 | Outpatient (RCR) | payer OTHER, SELFPAY ==
[2023-06-11 02:45] VITALS: BMI 38.2
[2023-07-06 09:22] LABS: International Normalized Ratio 2.3; Prothrombin Time (Protime)PT. 25.5 SECONDS (11.7-14.9)
== END 2023-07-11 01:29 | disposition home or self-care (01) ==
LOC: LAB 08:35
PROVIDERS: Family Provider Family Medicine; PCP Nurse Practitioner Family; Referring Provider Internal Medicine Cardiovascular Disease; Visit Provider Internal Medicine Cardiovascular Disease
DX: I48.11 Longstanding persistent atrial fibrillation (principal); Z79.01 Long term (current) use of anticoagulants
CPT/HCPCS: 36415; 85610

== ENCOUNTER 2023-08-20 13:33 | Outpatient (RCR) | payer OTHER, SELFPAY ==
[2023-07-11 01:29] VITALS: BMI 38.2
[2023-08-20 14:27] LABS: International Normalized Ratio 2.4; Prothrombin Time (Protime)PT. 25.8 SECONDS (11.7-14.9)
== END 2023-08-20 18:00 | disposition home or self-care (01) ==
LOC: LAB 13:33
PROVIDERS: Family Provider Family Medicine; PCP Nurse Practitioner Family; Referring Provider Internal Medicine Cardiovascular Disease; Visit Provider Internal Medicine Cardiovascular Disease
DX: I48.11 Longstanding persistent atrial fibrillation (principal); Z79.01 Long term (current) use of anticoagulants
CPT/HCPCS: 36415; 85610

== ENCOUNTER → 2023-09-03 | Outpatient (CLI) | payer SELFPAY, OTHER ==
--- NOTE | 2023-09-03 18:30 | CT_ITS ---
STUDY: CT BRAIN WITHOUT CONTRAST REASON FOR EXAM: Female, 82 years old. [facility]''[facility] -- HX:HTN TAKES BLOOD THINNERS,PRIOR SUBARACHNOID HEMORRHAGE LT PARIETAL RADIATION DOSAGE (If Supplied By Facility): CTDIvol = ( 44.99 ) mGy, DLP = ( 812.98 ) mGycm TECHNIQUE: Transaxial CT imaging of the brain was performed without administration of intravenous contrast material. Individualized dose optimization techniques were used for this CT. COMPARISON: None FINDINGS: Normal soft tissue structures. Normal calvarium. Calcific plaquing of the cavernous carotid Atrophy and advanced periventricular white matter ischemic changes. Normal basal ganglia and thalami. Normal brainstem. Normal cerebellum. Empty sella deformity of uncertain significance There is no intracranial hemorrhage. There are no findings of an acute ischemic infarction. Small mucous retention cyst in right maxillary sinus. Postsurgical changes of the orbits CT/Brain/Head without Contrast IMPRESSION: Atrophy and advanced periventricular white matter ischemic change. No acute bleed Electronically Signed: Burt Pérez MD at 19:05 EDT ,
== END | disposition home or self-care (01) ==
PROVIDERS: PCP Nurse Practitioner Family; Referring Provider Psychiatry & Neurology Neurology; Visit Provider Psychiatry & Neurology Neurology
DX: G20.A1 Parkinson's disease without dyskinesia, without mention of fluctuations (principal)
CPT/HCPCS: 70450

== ENCOUNTER 2023-09-20 17:01 | Outpatient (RCR) | payer OTHER, SELFPAY ==
[2023-09-13 08:33] VITALS: BMI 38.2
[2023-09-20 17:39] LABS: Prothrombin Time (Protime)PT. 30.9 SECONDS (11.7-14.9)
== END 2023-09-20 18:00 | disposition home or self-care (01) ==
LOC: LAB 17:01
PROVIDERS: Family Provider Family Medicine; PCP Nurse Practitioner Family; Referring Provider Internal Medicine Cardiovascular Disease; Visit Provider Internal Medicine Cardiovascular Disease
DX: I48.11 Longstanding persistent atrial fibrillation (principal); Z79.01 Long term (current) use of anticoagulants
CPT/HCPCS: 36415; 85610

== ENCOUNTER 2023-10-19 07:50 | Outpatient (RCR) | payer OTHER, SELFPAY ==
[2023-10-11 04:03] VITALS: BMI 38.2
[2023-10-19 09:01] LABS: International Normalized Ratio 2.8; Prothrombin Time (Protime)PT. 29.2 SECONDS (11.7-14.9)
== END 2023-11-10 18:00 | disposition home or self-care (01) ==
LOC: LAB 07:50
PROVIDERS: Family Provider Family Medicine; PCP Nurse Practitioner Family; Referring Provider Internal Medicine Cardiovascular Disease; Visit Provider Internal Medicine Cardiovascular Disease
DX: I48.11 Longstanding persistent atrial fibrillation (principal); Z79.01 Long term (current) use of anticoagulants
CPT/HCPCS: 36415; 85610

== ENCOUNTER 2023-12-06 13:32 | Outpatient (RCR) | payer OTHER, SELFPAY ==
[2023-11-10 22:59] VITALS: BMI 38.2
[2023-11-24 09:21] LABS: International Normalized Ratio 3.4; Prothrombin Time (Protime)PT. 33.9 SECONDS (11.7-14.9)
[2023-11-24 09:32] LABS: AST(SGOT) 52 U/L (15-37); Alanine Aminotransfer ALT/SGPT 49 U/L (13-56); Alkaline Phosphatase 70 U/L (45-117); Bilirubin, Direct 0.15 mg/dL (0.00-0.30); Cholesterol 142 mg/dL (200); Globulin 4.3 g/dL (2.2-4.2); High Density Lipoprotein 40 mg/dL; Protein, Total 8.3 g/dL (6.4-8.2); Triglycerides 227 mg/dL; Very Low Density Lipoprotein 45 mg/dL (5-40)
[2023-12-06 14:46] LABS: International Normalized Ratio 2.5; Prothrombin Time (Protime)PT. 26.4 SECONDS (11.7-14.9)
== END 2023-12-06 18:00 | disposition home or self-care (01) ==
LOC: LAB 13:32
PROVIDERS: Physician Assistant Medical; Family Provider Family Medicine; PCP Nurse Practitioner Family; Referring Provider Internal Medicine Cardiovascular Disease; Visit Provider Internal Medicine Cardiovascular Disease
DX: I48.11 Longstanding persistent atrial fibrillation (principal); Z79.01 Long term (current) use of anticoagulants; E78.00 Pure hypercholesterolemia, unspecified
CPT/HCPCS: 36415; 80061; 80076; 85610

== ENCOUNTER 2024-01-05 08:06 | Outpatient (RCR) | payer OTHER, SELFPAY ==
[2023-12-12 02:55] VITALS: BMI 38.2
[2024-01-05 08:46] LABS: International Normalized Ratio 2.7; Prothrombin Time (Protime)PT. 28.1 SECONDS (11.7-14.9)
== END 2024-01-05 18:00 | disposition home or self-care (01) ==
LOC: LAB 08:06
PROVIDERS: Family Provider Family Medicine; PCP Nurse Practitioner Family; Referring Provider Internal Medicine Cardiovascular Disease; Visit Provider Internal Medicine Cardiovascular Disease
DX: I48.11 Longstanding persistent atrial fibrillation (principal); Z79.01 Long term (current) use of anticoagulants
CPT/HCPCS: 36415; 85610

== ENCOUNTER 2024-02-03 07:51 | Outpatient (RCR) | payer OTHER, SELFPAY ==
[2024-01-11 04:40] VITALS: BMI 38.2
[2024-02-03 08:44] LABS: Prothrombin Time (Protime)PT. 22.7 SECONDS (11.7-14.9)
[2024-02-03 09:06] LABS: Vitamin B12 626 pg/mL (211-911)
[2024-02-04 14:10] LABS: Albumin 3.9 g/dL (2.9-4.4); Alpha-1-Globulins 0.2 g/dL (0.0-0.4); Alpha-2-Globulins 0.8 g/dL (0.4-1.0); Gamma Globulin 1.6 g/dL (0.4-1.8); Immunoglobulin A 110 mg/dL (64-422); Immunoglobulin G 1649 mg/dL (586-1602); Immunoglobulin M 62 mg/dL (26-217); PROEL- TOTAL PROTEIN 7.5 g/dL (6.0-8.5)
[2024-02-10 07:09] LABS: Methylmalonic Acid Bld 309 nmol/L (0-378)
== END 2024-02-03 18:00 | disposition home or self-care (01) ==
LOC: LAB 07:51
PROVIDERS: Family Provider Family Medicine; PCP Nurse Practitioner Family; Referring Provider Internal Medicine Cardiovascular Disease; Visit Provider Internal Medicine Cardiovascular Disease
DX: I48.11 Longstanding persistent atrial fibrillation (principal); Z79.01 Long term (current) use of anticoagulants; R20.2 Paresthesia of skin
CPT/HCPCS: 36415; 82607; 82746; 82784; 83921; 84165; 85610; 86334

== ENCOUNTER → 2024-03-10 | Outpatient (CLI) | payer SELFPAY, OTHER ==
--- NOTE | 2024-03-10 06:38 | ECHOD_ITS ---
Reason For Study: Bioprsothetic MV Procedure This was a 2D Doppler, Color Flow transthoracic echocardiogram. Exam performed in department. Left Ventricle Normal LV size. The left ventricular ejection fraction is 40 %. There is moderate global hypokinesis of the left ventricle. Right Ventricle Normal RV size. Normal systolic function. Atria The left atrium is severely enlarged. The right atrium is severely enlarged. Mitral Valve Mean transmitral valve gradient 3.5 mmHg. Stable appearing bioprosthetic mitral valve apparatus. Tricuspid Valve Normal tricuspid valve. Moderate (2+) eccentric tricuspid valve insufficiency. Right ventricular systolic pressure estimated to be 52 mmHg. Aortic Valve Trisinus/trileaflet aortic valve. Mild focal aortic valve thickening. Pericardium/Pleural No pericardial effusion. MMode/2D Measurements & Calculations LVIDd: 4.5 cm IVSd: 1.2 cm LVOT diam: 1.9 cm LVIDs: 3.5 cm LVPWd: 1.2 cm LVOT area: 2.9 cm2 RVDd: 3.9 cm FS: 22.4 % Ao root diam: 3.9 cm asc Aorta Diam: 3.7 cm LAV(MOD-bp): 107.1 ml LAV(MOD-bp) Indexed: 51.5 ml/m2 LAV(MOD-sp2): 102.5 ml LAV(MOD-sp4): 111.9 ml LVAd ap4: 26.6 cm2 LVAd ap2: 28.8 cm2 SV(MOD-sp4): 23.3 ml LVLd ap4: 7.6 cm LVLd ap2: 7.4 cm SI(MOD-sp4): 11.2 ml/m2 EDV(MOD-sp4): 78.5 ml EDV(MOD-sp2): 94.5 ml EDV(sp4-el): 79.2 ml EDV(sp2-el): 95.3 ml LVAs ap4: 21.2 cm2 LVAs ap2: 22.6 cm2 LVLs ap4: 7.2 cm LVLs ap2: 7.4 cm ESV(MOD-sp4): 55.2 ml ESV(MOD-sp2): 57.8 ml ESV(sp4-el): 53.3 ml ESV(sp2-el): 58.5 ml EF(MOD-sp4): 29.7 % EF(MOD-sp2): 38.9 % EF(sp4-el): 32.6 % SV(MOD-sp2): 36.7 ml SV(sp4-el): 25.8 ml LA A4 area: 31.2 cm2 SI(MOD-sp2): 17.6 ml/m2 LA dimension(2D): 5.0 cm RA A4 area: 30.7 cm2 Doppler Measurements & Calculations MV E max kvng: 158.8 cm/sec MV V2 max: 182.8 cm/sec MV P1/2t max kvng: 130.3 cm/sec MV max P.4 mmHg MV P1/2t: 144.2 msec MV V2 mean: 81.8 cm/sec MV mean P.5 mmHg MV dec slope: 264.7 cm/sec2 MV V2 VTI: 39.5 cm MVA(P1/2t): 1.5 cm2 MVA(VTI): 1.8 cm2 Ao V2 max: 185.6 cm/sec LV V1 max: 120.7 cm/sec SV(LVOT): 69.7 ml Ao max P.8 mmHg LV V1 max P.8 mmHg Ao V2 mean: 125.7 cm/sec LV V1 mean P.1 mmHg Ao mean P.2 mmHg LV V1 mean: 82.5 cm/sec Ao V2 VTI: 35.1 cm LV V1 VTI: 23.7 cm AV (velocity ratio): 0.68 ARETHA(I,D): 2.0 cm2 ARETHA(V,D): 1.9 cm2 PA V2 max: 86.1 cm/sec TR max kvng: 336.2 cm/sec TR max P.2 mmHg ECHO/Echo Complete Interpretation Summary There is moderate global hypokinesis of the left ventricle. Normal LV size. The left ventricular ejection fraction is 40 %. The left atrium is severely enlarged. The right atrium is severely enlarged. Right ventricular systolic pressure estimated to be 52 mmHg. Ordering Physician: Jose Lee Referring Physician: Nancy Nye Performed By: Arpit, Leisa, RDCS
--- NOTE | 2024-03-10 06:38 | CT_ITS ---
EXAM: CT CHEST WITH INTRAVENOUS CONTRAST CLINICAL INDICATION: MULTIPLE LUNG NODULES. HEART VALVE REPAIR TECHNIQUE: Helically acquired images were obtained of the chest with intravenous contrast. This CT exam was performed using one or more of the following dose reduction techniques: automated exposure control, adjustment of the mA and/or kV according to patient size, and/or use of iterative reconstruction technique. CONTRAST: 75 ISOVUE 300 RADIATION DOSE: CTDIvol = 33.55 mGy, DLP = 727.30 mGy-cm COMPARISON: July 02, 2019. FINDINGS: LUNGS AND PLEURAL SPACES: No suspicious pulmonary parenchymal findings. No nodules. Minimal linear bands of atelectasis or scarring. No pleural effusion or thickening. No pneumothorax. HEART: Moderate multichamber cardiomegaly. No intracardiac filling defect. Apparent stent or calcification at left main coronary artery and visible stent in left anterior descending coronary artery. Possibly mitral valve prosthesis. Only trace calcification of the aortic valve leaflet. No pericardial effusion. MEDIASTINUM: Unremarkable. No mediastinal or hilar adenopathy. Esophagus is unremarkable. No hiatal hernia. THYROID: Unremarkable. No thyroid lesions. BONES/JOINTS: Moderate degenerative change of the right glenohumeral joint. The acromioclavicular joints are not included. Median sternotomy wires. Disc space narrowing at T8-T9 with mild Modic type endplate degenerative changes. No suspicious lytic or blastic abnormality. VASCULATURE: Mildly distended pulmonary arteries. This is a limited delayed phase exam to evaluate for small PE but there is no evidence of large or proximal PE. No aortic aneurysm or dissection. Diffuse atherosclerotic calcification of aorta and at the origins of the great vessels, mild. LIVER: Tiny hypodensity in the dome of the liver, and hypodense focus with some punctate parenchymal calcification at the inferior left lobe of the liver, the left lobe liver finding appears similar to 2020. STOMACH AND BOWEL: Postoperative changes at distal stomach, gallbladder, pancreatic head-duct region, not fully included. Moderate diverticulosis of the splenic flexure, also not fully included. CT/Chest WITH Contrast IMPRESSION: 1. No pulmonary nodules or adenopathy. No infiltrates or effusions. Minimal scattered linear lung parenchymal changes. 2. Moderate cardiomegaly. Coronary stent and/or calcifications. No aortic aneurysm or dissection. 3. Most of the abdomen is not included. Electronically Signed: Shari Caldwell MD at 23:33 EST ,
[2024-03-10 07:02] LABS: CREATININE FINGERSTICK < 1.0 mg/dL (0.55-1.02); EGFR FINGERSTICK > 60.0000 mL/min (>60)
== END | disposition home or self-care (01) ==
PROVIDERS: PCP Nurse Practitioner Family; Referring Provider Internal Medicine Medical Oncology; Visit Provider Internal Medicine Medical Oncology
DX: I42.8 Other cardiomyopathies (principal); R91.8 Other nonspecific abnormal finding of lung field
CPT/HCPCS: 71260; 93306; Q9967

== ENCOUNTER 2024-04-12 22:38 | Emergency (ER) | payer OTHER, SELFPAY ==
[2024-04-12 22:39] VITALS: BP 154/112; PULSE 83; RESP 18; TEMP 36.2; O2SAT 93
--- NOTE | 2024-04-12 22:58 | EX.ED.DYSGE1 ---
HPI History of Present Illness Chief Complaint: Nosebleed Narrative Narrative: Chief complaint and HPI: Nosebleed. 83-year-old female with history of atrial fibrillation on Coumadin, HTN, DM2, HLD presents for evaluation of nosebleed. Onset of nosebleed approximately 45 minutes ago. Nosebleed is spontaneous without trauma. Denies any lightheadedness, dizziness, nausea, vomiting, chest pain, shortness of breath. Patient has not had her INR checked in a couple days per family member in the room. Review of systems: See HPI Medications: As listed on the chart Allergies: As listed on the chart PFSH: Per chart Vital signs: As listed on the chart. Reviewed. Physical exam: Gen: A&O x3, NAD Head: Normocephalic, atraumatic Eyes: No sclera icterus, conjunctiva clear, PERRL, EOMI ENT: Prior to nasal exam I had the patient blow multiple times into a tissue. She blew out multiple blood clots from the left nare. There is dried blood in the left nare but no active bleeding. Right naris unremarkable. Moist mucous membranes, posterior oropharynx unremarkable, uvula midline, no active bleeding in the oropharynx. Neck: Trachea midline, No JVD, Full ROM, No meningismus CV: RRR, no murmurs, no peripheral edema Resp: Lungs CTA BL, no w/r/c Skin: Warm, dry, no rash Neuro: Alert, oriented, grossly intact, sensation intact Psych: Cooperative, appropriate mood and affect [facility] Medical History Neuropathy Parkinsons Abdominal aneurysm Non-pressure chronic ulcer of right ankle with fat layer exposed Anxiety Depression TIA (transient ischemic attack) Hypoxia Non-ischemic cardiomyopathy Chronic combined systolic and diastolic CHF (congestive heart failure) Subarachnoid hemorrhage (01/20/20) Rheumatic mitral stenosis with insufficiency Type 2 diabetes mellitus GI bleed (07/02/19) Longstanding persistent atrial fibrillation Obesity Atherosclerosis of coronary artery of [place] heart without angina pectoris Essential (primary) hypertension History of rheumatic fever Hypothyroidism Hyperlipidemia Other secondary pulmonary hypertension Home Medications ?Medication ?Instructions ?Recorded ?Last Taken ?Type Disability Parking Placard #1 ea 06/12/20 Unknown Rx magnesium oxide 400 mg (241.3 mg 400 mg PO DAILY #90 tabs 06/12/20 06/05/21 Rx magnesium) tablet vit 1 cap PO BID vitamin 01/15/21 06/05/21 History C,E,zinc,Ar-rcqnj-6-lutein-zeaxanthin 250 mg-2.5 mg-0.5 mg capsule dicyclomine 10 mg capsule 10 mg PO 4X/DAY PRN stomach pain 05/07/21 Unknown History sertraline 50 mg tablet 150 mg PO DAILY 04/27/22 Unknown History rosuvastatin 40 mg tablet 40 mg PO DAILY #90 tabs 08/28/22 Unknown Rx cholecalciferol (vitamin D3) 25 2,000 unit PO DAILY vitamin 01/28/23 Unknown History mcg (1,000 unit) capsule dapagliflozin propanediol 10 mg 10 mg PO DAILY #90 tabs 04/20/23 Unknown Rx tablet (Farxiga) digoxin 125 mcg (0.125 mg) tablet 125 mcg PO DAILY #60 tabs 06/21/23 Unknown Rx (Digox) levothyroxine 88 mcg tablet 88 mcg PO DAILY #90 tabs 07/06/23 Unknown Rx insulin lispro 100 unit/mL 12 unit (0.12 mL) subcut .tid plus 07/19/23 Unknown Rx subcutaneous pen SSI diabetes #10.8 mL potassium chloride 10 mEq 20 meq (2 x 10 mEq) PO DAILY #180 07/27/23 Unknown Rx capsule,extended release caps metoprolol tartrate 25 mg tablet 25 mg PO BID #180 tabs 08/13/23 Unknown Rx warfarin 6 mg tablet 6 mg PO DAILY #60 tabs 10/22/23 Unknown Rx insulin glargine 100 unit/mL (3 20 unit (0.2 mL) subcut BREAKFAST 11/15/23 Unknown Rx mL) subcutaneous pen diabetes #18 mL carbidopa 25 mg-levodopa 100 mg 1.5 tab PO TID 11/24/23 Unknown History tablet furosemide 40 mg tablet 40 mg PO BID diuretic #180 tabs 12/10/23 Unknown Rx flash glucose sensor (FreeStyle #2 ea 01/03/24 Unknown Rx Chuck 2 Sensor kit) multivitamin 1 tab PO QAM 02/24/24 Unknown History cefdinir 300 mg capsule 300 mg PO BID #10 caps 03/28/24 Unknown Rx diltiazem HCl 120 mg tablet 120 mg PO BID #270 tabs 03/30/24 Unknown Rx Allergy/AdvReac Type Severity Reaction Status Date / Time amiodarone Allergy Other Verified 04/12/24 22:39 atorvastatin AdvReac Intermediate Myalgias Verified 04/12/24 22:39 with both 80 and 40 mg Family History Father Myocardial infarction CAD (coronary artery disease) CABG Hyperlipidemia Mother Hypertension Congestive heart failure Surgical History Hx of cataract surgery History of mitral valve replacement with bioprosthetic valve (06/06/19) History of coronary artery stent placement (09/27/18) History of left heart catheterization (06/02/19) History of cardioversion (06/09/19) Hx of cholecystectomy History of hysterectomy History of Social History household members: other details: Lives with daughter. Smoking Status: Never smoker alcohol intake: never substance use type: does not use caffeine: Yes (Not often due to HR) EXAM Physical Exam Const Vital Signs: 04/12/24 22:39 Temperature 97.1 F L Temperature Source Temporal Pulse Rate 83 Respiratory Rate 18 Blood Pressure 154/112 H Blood Pressure Mean 126 Pulse Ox 93 Oxygen Delivery Method Room Air MDM MDM MDM Narrative Medical decision making narrative: 83-year-old female with history of atrial fibrillation on Coumadin, HTN, DM2, HLD presents for evaluation of nosebleed. Patient is on Coumadin. Onset of nosebleed about 45 minutes ago. Patient blew out multiple clots out of her left nare. On examination she has no active bleeding but dried blood in the left nare. Will apply Afrin spray and nasal plug to prevent rebleeding. Patient's family member states that her INR has not been checked in several days we will get INR to assess for supratherapeutic INR. Will get a H&H to assess for anemia. H&H 14.3. No anemia. INR is supratherapeutic at 3.5. Patient INR is supposed to be 2.5. Patient takes her warfarin daily. She takes 60 mg. Patient and family were informed that the patient is to not take her warfarin dose tomorrow and instead repeat in INR on Wednesday to determine if warfarin should be restarted. They were told that they need to call the primary care office in the morning and explained to them the plan so that they can await the INR. They confirmed understanding. On reevaluation, patient's epistaxis resolved. She was ambulated in the ED without any rebleed. Patient stable to discharge home. She will be sent home with Afrin spray as well as nose plug. Patient and family confirmed understanding of the plan. Return precautions explained. Impression: 1. Left anterior epistaxis, resolved 2 supratherapeutic INR on Coumadin Lab Data Labs: Laboratory Results - last 24 hr 04/12/24 23:00 Hgb 14.3 PT 36.0 H INR 3.5 APTT 40.5 H Discharge Plan Triage Chief Complaint: Nosebleed ED Provider: Presley Antony Dx/Rx/DC Orders Clinical Impression: Anterior epistaxis, Supratherapeutic INR Instructions: ED Epistaxis (Adult) Prescriptions: No Action magnesium oxide 400 mg (241.3 mg magnesium) tablet 400 mg PO DAILY Qty: 90 3RF (DME) Disability Parking Placard See Rx Instructions .Route .MEDSUPPLY Qty: 1 0RF Rx Instructions: As directed vit C,E,Zn,Ix--btu-zeax 250-2.5-0.5 mg capsule 1 cap PO BID cholecalciferol (vitamin D3) 25 mcg (1,000 unit) capsule 2,000 unit PO DAILY sertraline 50 mg tablet 150 mg PO DAILY Patient Comments: TAKE TWO TABLETS BY MOUTH EVERY DAY carbidopa-levodopa 25-100 mg tablet 1.5 tab PO TID multivitamin Tablet 1 tab PO QAM cefdinir 300 mg capsule 300 mg PO BID Qty: 10 0RF dicyclomine 10 mg capsule 10 mg PO 4X/DAY PRN (Reason: stomach pain) rosuvastatin 40 mg tablet 40 mg PO DAILY Qty: 90 3RF Farxiga 10 mg tablet 10 mg PO DAILY Qty: 90 3RF digoxin [Digox] 125 mcg (0.125 mg) tablet 125 mcg PO DAILY Qty: 60 6RF levothyroxine 88 mcg tablet 88 mcg PO DAILY Qty: 90 3RF insulin lispro 100 unit/mL insulin pen 12 unit SC .tid plus SSI Qty: 10.8 5RF Rx Instructions: SLIDING SCALE potassium chloride 10 mEq capsule, extended release 20 meq PO DAILY Qty: 180 3RF metoprolol tartrate 25 mg tablet 25 mg PO BID Qty: 180 3RF warfarin 6 mg tablet 6 mg PO DAILY Qty: 60 6RF Protocol: Dose Management Condition: Wednesday Dose/Route: 6 mg Instruction: 1 x 6 mg tablet Condition: Wednesday Dose/Route: 6 mg Instruction: 1 x 6 mg tablet Condition: Wednesday Dose/Route: 6 mg Instruction: 1 x 6 mg tablet Condition: Wednesday Dose/Route: 3 mg Instruction: 0.5 x 6 mg tablets Condition: Dose/Route: 6 mg Instruction: 1 x 6 mg tablet Condition: Wednesday Dose/Route: 6 mg Instruction: 1 x 6 mg tablet Condition: Wednesday Dose/Route: 6 mg Instruction: 1 x 6 mg tablet Protocol Text: Adjustment Start Date: 03/30/24 INR Value: 2.9 INR Date: 03/30/24 Recheck Date: 04/29/24 insulin glargine 100 unit/mL (3 mL) insulin pen 20 unit SC BREAKFAST Qty: 18 1RF furosemide 40 mg tablet 40 mg PO BID Qty: 180 3RF (DME) FreeStyle Chuck 2 Sensor Kit See Rx Instructions .Route Qty: 2 5RF Rx Instructions: 1 sensor q 14 days diltiazem HCl 120 mg tablet 120 mg PO BID Qty: 270 3RF Other Ambulatory Orders: Prothrombin Time w/INR (Routine) Timeframe: 1 Day Facility: [facility] [place] - Location: Laboratory Ordered By: Dr. Presley Antony Primary Care Provider: Cookie Marks NP Referrals: Nancy Nye NP-C [Non-Staff] - 3-5 Days Activity Restrictions/Additional Instructions: Do not take your warfarin dose tomorrow. You need to have a repeat INR on Wednesday to determine if warfarin should be restarted. Call your primary care office in the morning and let them know of our plan. Return back to the ED if symptoms change or worsen. Print Language: Macanese Disposition Disposition: Home, Self Care
[2024-04-12] MEDS: Oxymetazoline 0.05% 1 SPRAY SPRAY.BTL 2 SPRAY NASAL (23:07)
[2024-04-12 23:10] LABS: Hemoglobin 14.3 g/dL (12.0-15.0)
[2024-04-12 23:19] LABS: International Normalized Ratio 3.5
[2024-04-12 23:20] LABS: Partial Thromboplast Time 40.5 Seconds (24.1-36.2)
== END 2024-04-13 00:39 | disposition home or self-care (01) ==
PROVIDERS: Emergency Provider Surgery; PCP Nurse Practitioner Family; Visit Provider Surgery
DX: R04.0 Epistaxis (principal); I11.0 Hypertensive heart disease with heart failure; I50.42 Chronic combined systolic (congestive) and diastolic (congestive) heart failure; I48.11 Longstanding persistent atrial fibrillation; Z79.4 Long term (current) use of insulin; E11.9 Type 2 diabetes mellitus without complications; Z79.01 Long term (current) use of anticoagulants; E78.5 Hyperlipidemia, unspecified; I25.10 Atherosclerotic heart disease of native coronary artery without angina pectoris; R79.1 Abnormal coagulation profile; Z86.73 Personal history of transient ischemic attack (TIA), and cerebral infarction without residual deficits; F32.A Depression, unspecified; F41.9 Anxiety disorder, unspecified; Z79.899 Other long term (current) drug therapy; E03.9 Hypothyroidism, unspecified; Z79.890 Hormone replacement therapy; Z95.2 Presence of prosthetic heart valve; Z95.5 Presence of coronary angioplasty implant and graft; Z90.49 Acquired absence of other specified parts of digestive tract; Z90.710 Acquired absence of both cervix and uterus
CPT/HCPCS: 85018; 85610; 85730; 99282; A4216

== ENCOUNTER 2024-04-13 22:06 | Emergency (ER) | payer OTHER, SELFPAY ==
[2024-04-13 22:07] VITALS: BP 163/100; PULSE 118; RESP 15; TEMP 36.1; O2SAT 95; BMI 32.2
--- NOTE | 2024-04-13 23:26 | EX.ED.DYSGE1 ---
HPI History of Present Illness Chief Complaint: Nosebleed Informant: patient and family Narrative Narrative: Patient is an 83-year-old female with past medical history of hypertension hyperlipidemia type 2 diabetes hypothyroidism and paroxysmal atrial fibrillation currently on Coumadin. She was seen in the ER yesterday secondary to a spontaneous nosebleed out of the left nostril. At that time laboratory studies were obtained and she had stable H&H and her Coumadin level was slightly elevated at 3.5. She states the bleeding stopped spontaneously and therefore she was discharged home. She states this evening her nose began bleeding from the left nostril once again. She states there was no trauma and she denies blowing her nose excessively prior to the bleeding starting. She states she held pressure but there was no resolution and secondary to this comes in for repeat evaluation [facility] Medical History Neuropathy Parkinsons Abdominal aneurysm Non-pressure chronic ulcer of right ankle with fat layer exposed Anxiety Depression TIA (transient ischemic attack) Hypoxia Non-ischemic cardiomyopathy Chronic combined systolic and diastolic CHF (congestive heart failure) Subarachnoid hemorrhage (01/20/20) Rheumatic mitral stenosis with insufficiency Type 2 diabetes mellitus GI bleed (07/02/19) Longstanding persistent atrial fibrillation Obesity Atherosclerosis of coronary artery of [place] heart without angina pectoris Essential (primary) hypertension History of rheumatic fever Hypothyroidism Hyperlipidemia Other secondary pulmonary hypertension Home Medications ?Medication ?Instructions ?Recorded ?Last Taken ?Type Disability Parking Placard #1 ea 06/12/20 Unknown Rx magnesium oxide 400 mg (241.3 mg 400 mg PO DAILY #90 tabs 06/12/20 06/05/21 Rx magnesium) tablet vit 1 cap PO BID vitamin 01/15/21 06/05/21 History C,E,zinc,Zy-dxdqj-2-lutein-zeaxanthin 250 mg-2.5 mg-0.5 mg capsule dicyclomine 10 mg capsule 10 mg PO 4X/DAY PRN stomach pain 05/07/21 Unknown History sertraline 50 mg tablet 150 mg PO DAILY 04/27/22 Unknown History rosuvastatin 40 mg tablet 40 mg PO DAILY #90 tabs 08/28/22 Unknown Rx cholecalciferol (vitamin D3) 25 2,000 unit PO DAILY vitamin 01/28/23 Unknown History mcg (1,000 unit) capsule dapagliflozin propanediol 10 mg 10 mg PO DAILY #90 tabs 04/20/23 Unknown Rx tablet (Farxiga) digoxin 125 mcg (0.125 mg) tablet 125 mcg PO DAILY #60 tabs 06/21/23 Unknown Rx (Digox) levothyroxine 88 mcg tablet 88 mcg PO DAILY #90 tabs 07/06/23 Unknown Rx insulin lispro 100 unit/mL 12 unit (0.12 mL) subcut .tid plus 07/19/23 Unknown Rx subcutaneous pen SSI diabetes #10.8 mL potassium chloride 10 mEq 20 meq (2 x 10 mEq) PO DAILY #180 07/27/23 Unknown Rx capsule,extended release caps metoprolol tartrate 25 mg tablet 25 mg PO BID #180 tabs 08/13/23 Unknown Rx warfarin 6 mg tablet 6 mg PO DAILY #60 tabs 10/22/23 Unknown Rx insulin glargine 100 unit/mL (3 20 unit (0.2 mL) subcut BREAKFAST 11/15/23 Unknown Rx mL) subcutaneous pen diabetes #18 mL carbidopa 25 mg-levodopa 100 mg 1.5 tab PO TID 11/24/23 Unknown History tablet furosemide 40 mg tablet 40 mg PO BID diuretic #180 tabs 12/10/23 Unknown Rx flash glucose sensor (FreeStyle #2 ea 01/03/24 Unknown Rx Chuck 2 Sensor kit) multivitamin 1 tab PO QAM 02/24/24 Unknown History cefdinir 300 mg capsule 300 mg PO BID #10 caps 03/28/24 Unknown Rx diltiazem HCl 120 mg tablet 120 mg PO BID #270 tabs 03/30/24 Unknown Rx Allergy/AdvReac Type Severity Reaction Status Date / Time amiodarone Allergy Other Verified 04/13/24 22:06 atorvastatin AdvReac Intermediate Myalgias Verified 04/13/24 22:06 with both 80 and 40 mg Family History Father Myocardial infarction CAD (coronary artery disease) CABG Hyperlipidemia Mother Hypertension Congestive heart failure Surgical History Hx of cataract surgery History of mitral valve replacement with bioprosthetic valve (06/06/19) History of coronary artery stent placement (09/27/18) History of left heart catheterization (06/02/19) History of cardioversion (06/09/19) Hx of cholecystectomy History of hysterectomy History of Social History household members: other details: Lives with daughter. Smoking Status: Never smoker alcohol intake: never substance use type: does not use caffeine: Yes (Not often due to HR) ROS ROS ED Constitutional Constitutional ED: Denies chills or fever(s) Eyes Eyes: Denies blurry vision or change in vision ENT ENT ED: Reports other Details: Positive nosebleed Cardiovascular Cardiovascular: Denies chest pain or racing heartbeat Respiratory/Chest Respiratory/Chest: Denies cough or dyspnea Gastrointestinal Gastrointestinal: Denies abdominal pain, diarrhea, nausea or vomiting Musculoskeletal Musculoskeletal: Denies myalgias Integumentary Denies rash Neurologic Neurologic: Denies headache(s) Hematologic/Lymphatic Hematologic/Lymphatic: Reports easy bleeding and easy bruising Allergic/Immunologic Allergic/Immunologic ED: Denies mouth swelling or tongue swelling EXAM Physical Exam Const Vital Signs: 04/13/24 22:07 04/13/24 23:44 Temperature 97 F L 98.0 F Temperature Source Temporal Pulse Rate 118 H 96 Respiratory Rate 15 18 Blood Pressure 163/100 H 155/100 H Blood Pressure Mean 121 118 Pulse Ox 95 97 Oxygen Delivery Method Room Air Positive well nourished, well developed and obese General Appearance ED: well developed; Negative for pallor Nutritional Appearance: obese HEENT HEENT Narrative: There is a persistent ooze of dark red nonpulsatile blood out of the left nostril consistent with anterior epistaxis There is clotting blood with faint drainage in the posterior pharynx as well No airway edema or compromise No secondary findings to suggest infection Eyes PERRL and EOMs intact bilaterally General Eye ED: Negative for pale conjunctiva or scleral icterus Neck supple Neck Narrative: No nuchal rigidity or meningeal signs Resp normal respiratory effort and clear to auscultation bilaterally Cardio regular rate Rate: other Other Details: Irregularly irregular rhythm with regular rate consistent with longstanding persistent atrial fibrillation Extremity normal to inspection Neuro oriented x3, CN's II-XII intact bilaterally and no sensory deficits noted Sensorium / Orientation: alert Motor Exam: strength 5/5 throughout Psych Mood & Affect: anxious Skin no rashes or lesions noted General Skin Exam: Negative for pallor MDM MDM MDM Narrative Medical decision making narrative: Patient arrived to the ER hypertensive otherwise with stable vitals. She had a spontaneous nosebleed and is on anticoagulation. The fan member informing that they had stopped the Coumadin this morning. Patient denied any trauma prior to the bleeding starting. She had values checked just 24 hours ago indicating she was not anemic and that her INR was only mild supratherapeutic. At this time her exam does not suggest the posterior nosebleed I have low concern for acute blood loss anemia based on her stable H&H from yesterday. Therefore I do not feel there is need for imaging or laboratory studies. Based on her anticoagulation use and the fact that has been recurrent bleeding I did elect to place a 5.5 cm rapid Rhino in the left. The balloon was inflated to 4 cm of air. After doing this patient had resolution of her bleeding. She was watched in ER for approximately 30 more minutes. There was no overflow bleeding into the right nostril or down the posterior pharynx. 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, Essential (primary) hypertension, Hypothyroidism, Type 2 diabetes mellitus, Longstanding persistent atrial fibrillation Instructions: ED Epistaxis (Adult) Prescriptions: No Action magnesium oxide 400 mg (241.3 mg magnesium) tablet 400 mg PO DAILY Qty: 90 3RF (DME) Disability Parking Placard See Rx Instructions .Route .MEDSUPPLY Qty: 1 0RF Rx Instructions: As directed vit C,E,Zn,We--pbx-zeax 250-2.5-0.5 mg capsule 1 cap PO BID cholecalciferol (vitamin D3) 25 mcg (1,000 unit) capsule 2,000 unit PO DAILY sertraline 50 mg tablet 150 mg PO DAILY Patient Comments: TAKE TWO TABLETS BY MOUTH EVERY DAY carbidopa-levodopa 25-100 mg tablet 1.5 tab PO TID multivitamin Tablet 1 tab PO QAM cefdinir 300 mg capsule 300 mg PO BID Qty: 10 0RF dicyclomine 10 mg capsule 10 mg PO 4X/DAY PRN (Reason: stomach pain) rosuvastatin 40 mg tablet 40 mg PO DAILY Qty: 90 3RF Farxiga 10 mg tablet 10 mg PO DAILY Qty: 90 3RF digoxin [Digox] 125 mcg (0.125 mg) tablet 125 mcg PO DAILY Qty: 60 6RF levothyroxine 88 mcg tablet 88 mcg PO DAILY Qty: 90 3RF insulin lispro 100 unit/mL insulin pen 12 unit SC .tid plus SSI Qty: 10.8 5RF Rx Instructions: SLIDING SCALE potassium chloride 10 mEq capsule, extended release 20 meq PO DAILY Qty: 180 3RF metoprolol tartrate 25 mg tablet 25 mg PO BID Qty: 180 3RF warfarin 6 mg tablet 6 mg PO DAILY Qty: 60 6RF Protocol: Dose Management Condition: Wednesday Dose/Route: 6 mg Instruction: 1 x 6 mg tablet Condition: Wednesday Dose/Route: 6 mg Instruction: 1 x 6 mg tablet Condition: Wednesday Dose/Route: 6 mg Instruction: 1 x 6 mg tablet Condition: Wednesday Dose/Route: 3 mg Instruction: 0.5 x 6 mg tablets Condition: Dose/Route: 6 mg Instruction: 1 x 6 mg tablet Condition: Wednesday Dose/Route: 6 mg Instruction: 1 x 6 mg tablet Condition: Wednesday Dose/Route: 6 mg Instruction: 1 x 6 mg tablet Protocol Text: Adjustment Start Date: 03/30/24 INR Value: 2.9 INR Date: 03/30/24 Recheck Date: 04/29/24 insulin glargine 100 unit/mL (3 mL) insulin pen 20 unit SC BREAKFAST Qty: 18 1RF furosemide 40 mg tablet 40 mg PO BID Qty: 180 3RF (DME) FreeStyle Chuck 2 Sensor Kit See Rx Instructions .Route Qty: 2 5RF Rx Instructions: 1 sensor q 14 days diltiazem HCl 120 mg tablet 120 mg PO BID Qty: 270 3RF Primary Care Provider: Cookie Marks NP Referrals: Rafita Parks MD [Med Staff - Active Staff] - Cookie Marks NP, 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 The packing needs to stay in place for typically 3 days before they will evaluate you and discuss removing it. If you develop bleeding out of the right nostril or down the back of your throat or you have any further concerns please return the hospital for repeat evaluation Print Language: Congolese Disposition Disposition: Home, Self Care Discharge Date/Time: 04/13/24 23:45
[2024-04-13 23:44] VITALS: BP 155/100; PULSE 96; RESP 18; TEMP 36.7; O2SAT 97
== END 2024-04-13 23:45 | disposition home or self-care (01) ==
PROVIDERS: Emergency Provider Emergency Medicine; PCP Nurse Practitioner Family; Referring Provider Emergency Medicine; Visit Provider Emergency Medicine
DX: R04.0 Epistaxis (principal); I11.0 Hypertensive heart disease with heart failure; I50.42 Chronic combined systolic (congestive) and diastolic (congestive) heart failure; I48.11 Longstanding persistent atrial fibrillation; E11.9 Type 2 diabetes mellitus without complications; Z79.4 Long term (current) use of insulin; E03.9 Hypothyroidism, unspecified; I25.10 Atherosclerotic heart disease of native coronary artery without angina pectoris; E78.5 Hyperlipidemia, unspecified; Z79.01 Long term (current) use of anticoagulants; Z86.73 Personal history of transient ischemic attack (TIA), and cerebral infarction without residual deficits; F32.A Depression, unspecified; F41.9 Anxiety disorder, unspecified; Z79.899 Other long term (current) drug therapy; Z79.890 Hormone replacement therapy; Z95.3 Presence of xenogenic heart valve; Z95.5 Presence of coronary angioplasty implant and graft; Z90.49 Acquired absence of other specified parts of digestive tract; Z90.710 Acquired absence of both cervix and uterus
CPT/HCPCS: 30901; 99282

== ENCOUNTER 2024-05-08 08:52 | Outpatient (RCR) | payer OTHER, SELFPAY ==
[2024-04-12 04:49] VITALS: BMI 38.2
[2024-04-28 16:40] LABS: International Normalized Ratio 1.6; Prothrombin Time (Protime)PT. 19.8 SECONDS (11.7-14.9)
[2024-05-08 09:59] LABS: International Normalized Ratio 1.4; Prothrombin Time (Protime)PT. 17.5 SECONDS (11.7-14.9)
== END 2024-05-08 18:00 | disposition home or self-care (01) ==
LOC: LAB 08:52
PROVIDERS: Family Provider Family Medicine; PCP Nurse Practitioner Family; Referring Provider Internal Medicine Cardiovascular Disease; Visit Provider Internal Medicine Cardiovascular Disease
DX: I48.11 Longstanding persistent atrial fibrillation (principal); Z79.01 Long term (current) use of anticoagulants
CPT/HCPCS: 36415; 85610

== ENCOUNTER 2024-05-24 10:03 | Outpatient (RCR) | payer OTHER, SELFPAY ==
[2024-05-13 04:47] VITALS: BMI 38.2
[2024-05-24 11:34] LABS: International Normalized Ratio 2.8; Prothrombin Time (Protime)PT. 30.1 SECONDS (11.7-14.9)
[2024-05-24 12:13] LABS: ALB/GLOB Ratio 0.9 RATIO (0.9-2.4); AST(SGOT) 37 U/L (15-37); Alanine Aminotransfer ALT/SGPT 42 U/L (13-56); Alkaline Phosphatase 71 U/L (45-117); Anion Gap 9 (5-15); BUN 20 mg/dL (7-18); BUN/Creat Ratio 20.3 RATIO (10-20); Calcium,Total 9.1 mg/dL (8.5-10.1); Chloride 105 mmol/L (98-107); Creatinine, Serum 0.99 mg/dL (0.55-1.02); EST Glomerular Filtration Rate 57 mL/min (>60); Est Glom Filt Rate - Afr Amer 69 mL/min (>60); Globulin 4.5 g/dL (2.2-4.2); Glucose 185 mg/dL (74-106); Potassium 3.6 mmol/L (3.5-5.1); Protein, Total 8.5 g/dL (6.4-8.2); Sodium Level 138 mmol/L (136-145)
== END 2024-06-09 18:00 | disposition home or self-care (01) ==
LOC: LAB 10:03
PROVIDERS: Nurse Practitioner Family; Family Provider Family Medicine; PCP Nurse Practitioner Family; Referring Provider Internal Medicine Cardiovascular Disease; Visit Provider Internal Medicine Cardiovascular Disease
DX: I48.11 Longstanding persistent atrial fibrillation (principal); Z79.01 Long term (current) use of anticoagulants; E03.2 Hypothyroidism due to medicaments and other exogenous substances; E11.65 Type 2 diabetes mellitus with hyperglycemia; E11.22 Type 2 diabetes mellitus with diabetic chronic kidney disease; N18.31 Chronic kidney disease, stage 3a; Z79.4 Long term (current) use of insulin
CPT/HCPCS: 36415; 80053; 84439; 84443; 85610

== ENCOUNTER 2024-06-21 08:05 | Outpatient (RCR) | payer OTHER, SELFPAY ==
[2024-06-10 07:38] VITALS: BMI 38.2
[2024-06-21 09:45] LABS: International Normalized Ratio 2.1; Prothrombin Time (Protime)PT. 23.6 SECONDS (11.7-14.9)
== END 2024-06-21 18:00 | disposition home or self-care (01) ==
LOC: LAB 08:05
PROVIDERS: Family Provider Family Medicine; PCP Nurse Practitioner Family; Referring Provider Internal Medicine Cardiovascular Disease; Visit Provider Internal Medicine Cardiovascular Disease
DX: I48.11 Longstanding persistent atrial fibrillation (principal); Z79.01 Long term (current) use of anticoagulants
CPT/HCPCS: 36415; 85610

== ENCOUNTER 2024-08-03 07:49 | Outpatient (RCR) | payer OTHER, SELFPAY ==
[2024-07-10 22:49] VITALS: BMI 38.2
[2024-08-03 08:53] LABS: International Normalized Ratio 2.3
== END 2024-08-09 18:00 | disposition home or self-care (01) ==
LOC: LAB 07:49
PROVIDERS: Family Provider Family Medicine; PCP Nurse Practitioner Family; Referring Provider Internal Medicine Cardiovascular Disease; Visit Provider Internal Medicine Cardiovascular Disease
DX: I48.11 Longstanding persistent atrial fibrillation (principal); Z79.01 Long term (current) use of anticoagulants
CPT/HCPCS: 36415; 85610

== ENCOUNTER 2024-08-15 11:27 | Outpatient (RCR) | payer OTHER, SELFPAY ==
[2024-08-09 22:11] VITALS: BMI 38.2
[2024-08-15 12:51] LABS: Absolute Neutrophil Count 4.5 X10^3/uL (2.0-7.7); Basophil# 0.04 X10^3/uL; Basophil% 0.5 % (0-1); Eosinophils% 2.5 % (0-5); Hematocrit 41.9 % (37-47); Lymphocyte % 32.3 % (19-41); Mean Corp Hgb Conc 33.4 g/dL (32-36); Mean Corpuscular Hgb 29.4 pg (27.0-32.0); Mean Platelet Vol. 12.4 fl (6.2-12.0); Monocyte# 0.69 X10^3/uL; Monocyte% 8.6 % (0-10); NRBC Flagged by Analyzer 0 % (0-5); Neutrophil % 55.9 % (47-70); Platelet Count 200 K/mm3 (150-450); RBC Distribution Width CV 14.6 % (11.6-14.6); RBC Distribution Width SD 47.7 fl (35.1-43.9); Red Blood Count 4.76 M/mm3 (4.2-5.4); White Blood Count 8.1 K/mm3 (4.4-11.0)
[2024-08-15 13:05] LABS: International Normalized Ratio 2.7; Prothrombin Time (Protime)PT. 29.5 SECONDS (11.7-14.9)
[2024-08-15 13:43] LABS: AST(SGOT) 40 U/L (<=31); Alanine Aminotransfer ALT/SGPT 8 U/L (<=34); Albumin, Serum 4.4 g/dL (3.4-4.8); Alkaline Phosphatase 64 U/L (35-104); Anion Gap 13 (5-15); BUN 35 mg/dL (4-19); BUN/Creat Ratio 33.9 RATIO (10-20); Bilirubin, Direct 0.14 mg/dL (0.00-0.30); Calcium,Total 9.5 mg/dL (7.6-11.0); Carbon Dioxide 21.3 mmol/L (21.0-32.0); Chloride 104 mmol/L (98-108); Creatinine, Serum 1.03 mg/dL (0.70-1.20); EST Glomerular Filtration Rate 55 (>60); Globulin 3.9 g/dL (2.2-4.2); Glucose 128 mg/dL (70-99); Potassium 3.9 mmol/L (3.3-5.1); Protein, Total 8.2 g/dL (5.9-8.4); Sodium Level 138 mmol/L (133-145); Total Bilirubin 0.29 mg/dL (0.00-1.30)
[2024-08-15 13:44] LABS: Cholesterol 164 mg/dL (<=200); Triglycerides 255 mg/dL; Very Low Density Lipoprotein 51 mg/dL (5-40)
[2024-08-15 14:03] LABS: High Density Lipoprotein 39 mg/dL; Low Density Lipoprotein Calc. 74 mg/dL; cholesterol:hdl ratio screen 4.24
== END 2024-08-15 18:00 | disposition home or self-care (01) ==
LOC: LAB 11:27
PROVIDERS: Family Provider Family Medicine; PCP Nurse Practitioner Family; Referring Provider Internal Medicine Cardiovascular Disease; Visit Provider Internal Medicine Cardiovascular Disease
DX: I48.11 Longstanding persistent atrial fibrillation (principal); Z79.01 Long term (current) use of anticoagulants; E78.00 Pure hypercholesterolemia, unspecified; Z95.5 Presence of coronary angioplasty implant and graft
CPT/HCPCS: 36415; 80048; 80061; 80076; 84443; 85025; 85610

== ENCOUNTER 2024-09-27 07:58 | Outpatient (RCR) | payer OTHER, SELFPAY ==
[2024-09-10 19:19] VITALS: BMI 38.2
[2024-09-27 08:58] LABS: International Normalized Ratio 2.7; Prothrombin Time (Protime)PT. 29.1 SECONDS (11.7-14.9)
== END 2024-09-27 18:00 | disposition home or self-care (01) ==
LOC: LAB 07:58
PROVIDERS: Family Provider Family Medicine; PCP Nurse Practitioner Family; Referring Provider Internal Medicine Cardiovascular Disease; Visit Provider Internal Medicine Cardiovascular Disease
DX: I48.11 Longstanding persistent atrial fibrillation (principal); Z79.01 Long term (current) use of anticoagulants
CPT/HCPCS: 36415; 85610

== ENCOUNTER 2024-10-25 08:47 | Outpatient (RCR) | payer OTHER, SELFPAY ==
[2024-10-25 09:39] LABS: Prothrombin Time (Protime)PT. 31.3 SECONDS (11.7-14.9)
== END 2024-11-09 21:35 | disposition home or self-care (01) ==
LOC: LAB 08:47
PROVIDERS: Family Provider Family Medicine; PCP Nurse Practitioner Family; Referring Provider Internal Medicine Cardiovascular Disease; Visit Provider Internal Medicine Cardiovascular Disease
DX: I48.11 Longstanding persistent atrial fibrillation (principal); Z79.01 Long term (current) use of anticoagulants
CPT/HCPCS: 36415; 85610

== ENCOUNTER 2024-11-29 07:56 | Outpatient (RCR) | payer OTHER, SELFPAY ==
[2024-11-29 08:25] LABS: Prothrombin Time (Protime)PT. 29.9 SECONDS (11.7-14.9)
== END 2024-11-29 18:00 | disposition home or self-care (01) ==
LOC: LAB 07:56
PROVIDERS: Family Provider Family Medicine; PCP Nurse Practitioner Family; Referring Provider Internal Medicine Cardiovascular Disease; Visit Provider Internal Medicine Cardiovascular Disease
DX: I48.11 Longstanding persistent atrial fibrillation (principal); Z79.01 Long term (current) use of anticoagulants
CPT/HCPCS: 36415; 85610

== ENCOUNTER 2025-01-03 08:14 | Outpatient (RCR) | payer OTHER, SELFPAY ==
[2025-01-03 09:05] LABS: Prothrombin Time (Protime)PT. 27.0 SECONDS (11.7-14.9)
== END 2025-01-09 18:00 | disposition home or self-care (01) ==
LOC: LAB 08:14
PROVIDERS: Family Provider Family Medicine; PCP Nurse Practitioner Family; Referring Provider Internal Medicine Cardiovascular Disease; Visit Provider Internal Medicine Cardiovascular Disease
DX: I48.11 Longstanding persistent atrial fibrillation (principal); Z79.01 Long term (current) use of anticoagulants
CPT/HCPCS: 36415; 85610

== ENCOUNTER 2025-02-07 08:03 | Outpatient (RCR) | payer OTHER, SELFPAY ==
[2025-02-07 09:43] LABS: Prothrombin Time (Protime)PT. 32.9 SECONDS (11.7-14.9)
== END 2025-02-07 18:00 | disposition home or self-care (01) ==
LOC: LAB 08:03
PROVIDERS: PCP Nurse Practitioner Family; Referring Provider Internal Medicine Cardiovascular Disease; Visit Provider Internal Medicine Cardiovascular Disease
DX: I48.11 Longstanding persistent atrial fibrillation (principal); Z79.01 Long term (current) use of anticoagulants
CPT/HCPCS: 36415; 85610

== ENCOUNTER 2025-03-07 08:04 | Outpatient (RCR) | payer OTHER, SELFPAY ==
[2025-03-07 09:02] LABS: Prothrombin Time (Protime)PT. 30.1 SECONDS (11.7-14.9)
== END 2025-03-11 18:00 | disposition home or self-care (01) ==
LOC: LAB 08:04
PROVIDERS: PCP Nurse Practitioner Family; Referring Provider Internal Medicine Cardiovascular Disease; Visit Provider Internal Medicine Cardiovascular Disease
DX: I48.11 Longstanding persistent atrial fibrillation (principal); Z79.01 Long term (current) use of anticoagulants
CPT/HCPCS: 36415; 85610